=== PATIENT | male | born 1965 | race Two or more races ===

== ENCOUNTER 2023-07-21 09:53 | Inpatient (IN) | payer BC, OTHER ==
[~2023-07-21] VITALS: Ht 177.8 cm; Wt 83.8 kg
[2023-07-21] MEDS ORDERED: SODIUM CHLORIDE 0.9% 1,000 ML IV ONE (11:00)
[2023-07-21] MEDS ORDERED: SODIUM CHLORIDE 0.9% 1,000 ML IVB ONE (11:00)
[2023-07-21] MEDS ORDERED: MORPHINE SULFATE 4 MG/ML SYR/VIAL IV ONE (11:00)
[2023-07-21] MEDS ORDERED: ONDANSETRON HCL 4 MG/2 ML VIAL IV ONE (11:00)
[2023-07-21] MEDS ORDERED: PIPERACILLIN-TAZOB 3.375GM 100 ML IV ONE (11:00)
[2023-07-21 11:03] LABS: Basophils # (auto) 0 10 ^3/uL (0-0.2); Basophils % (auto) 0.1 % (0.0-2.0); Eosinophils # (auto) 0 10 ^3/uL (0-0.8); Eosinophils % (auto) 0.1 % (0.0-7.0); Hematocrit 36.7 % (41.0-53.0); Hemoglobin 11.8 g/dL (13.5-17.5); Monocytes # (auto) 0.8 10 ^3/uL (0-1.3)
[2023-07-21 11:06] LABS: Lymphocytes % (auto) 3.3 % (10.0-50.0); Mean Corpuscular Hemoglobin 30.2 pg (28.0-32.0); Mean Corpuscular Hgb Conc. 32.1 g/dL (32.0-36.0); Monocytes % (auto) 2.6 % (0.0-12.0); Neutrophils # (auto) 27.2 10 ^3/uL (1.6-8.6); Neutrophils % (auto) 93.9 % (37.0-80.0); Nucleated Red Blood Cells % 0.1 %; Red Cell Distribution Width 16.9 % (11.8-14.3)
[2023-07-21 11:30] LABS: Alanine Aminotransferase 43 U/L (7-40); Albumin 3.4 g/dL (3.2-4.8); Alkaline Phosphatase 112 U/L (46-116); Anion Gap 12 (5-15); Aspartate Aminotransferase 14 U/L (13-40); BUN/Creatinine Ratio 19.9 (10.0-20.0); Blood Urea Nitrogen 34 mg/dL (9-23); Calcium 8.4 mg/dL (8.5-10.1); Carbon Dioxide 23 mmol/L (20-30); Chloride 105 mmol/L (98-107); Glucose 134 mg/dL (74-106); Potassium 4.1 mmol/L (3.5-5.1); Sodium 140 mmol/L (136-145)
[2023-07-21 11:31] LABS: Bilirubin, Total 2.4 mg/dL (0.2-1.0); Total Protein 5.9 g/dL (5.7-8.2)
[2023-07-21 11:58] VITALS: PULSE 105; RESP 20; O2SAT 99
[2023-07-21 12:21] LABS: Urine Bacteria NONE SEEN /hpf (None Seen); Urine Blood 1+ /uL (Negative); Urine Clarity HAZY (Clear); Urine Color Amber (Yellow); Urine Hyaline Cast FEW /lpf (0 - 2); Urine Mucus FEW (None Seen); Urine Protein, UAD 1+ (Negative); Urine Specific Gravity 1.024 (1.001-1.035); Urine WBC 12 /hpf (0 - 3)
[2023-07-21 13:17] LABS: INR 1.24 (0.9-1.15); Partial Thromboplastin Time 33.9 SEC (24.5-34.5); Prothrombin Time 12.8 sec (9.3-11.8)
[2023-07-21] MEDS ORDERED: ONDANSETRON HCL 4 MG/2 ML VIAL IV PRN ×2 (13:30→16:30)
[2023-07-21] MEDS ORDERED: HYDROmorphone HCL 2 MG/ML VL/or syr IV PRN ×2 (13:30→16:30)
[2023-07-21] MEDS ORDERED: metroNIDAZOLE 500MG/100ML 100 ML IV ONE (15:13)
[2023-07-21] MEDS ORDERED: LIDOCAINE W/ EPINEPHRINE 1% 20ML VIAL ONE (15:28)
[2023-07-21] MEDS ORDERED: BUPIVACAINE HCL 50 ML ONE (15:28)
[2023-07-21] MEDS ORDERED: LIDOCAINE 2% JELLY 11ml (GLYDO) ONE (15:29)
[2023-07-21] MEDS ORDERED: SUCCINYLCHOLINE CHLORIDE 20 MG/ML 10ML VIAL IV ONE (15:29)
[2023-07-21] MEDS ORDERED: POVIDONE IODINE 10 % TOPICAL OINT 30GM TOP ONE (15:48)
[2023-07-21] MEDS ORDERED: HYDROmorphone HCL 2 MG/ML VL/or syr ONE (15:57)
[2023-07-21] MEDS ORDERED: MIDAZOLAM HCL 2MG/2ML 2ml VIAL (1mg/ml) ONE (15:57)
[2023-07-21] MEDS ORDERED: fentaNYL CITRATE 100 MCG/2 ML VL ONE (15:57)
[2023-07-21] MEDS ORDERED: ETOMIDATE (2MG/ML) 20ML VIAL IV ONE (16:16)
[2023-07-21] MEDS ORDERED: LABETALOL HCL 5 MG/ML 4ML SYRINGE IV PRN (16:30)
[2023-07-21] MEDS ORDERED: MIDAZOLAM HCL 2MG/2ML 2ml VIAL (1mg/ml) IV PRN (16:30)
[2023-07-21] MEDS ORDERED: ePHEDrine SULFATE 50 MG/ML AMP IV PRN (16:30)
[2023-07-21] MEDS ORDERED: KETOROLAC TROMETH 30 MG/ML 1ML VIAL IV ONE (16:30)
[2023-07-21] MEDS ORDERED: MORPHINE SULFATE 4 MG/ML SYR/VIAL IV PRN (16:30)
[2023-07-21 17:40] VITALS: PULSE 89; RESP 15; O2SAT 100
[2023-07-21 18:05] VITALS: PULSE 70; RESP 13; O2SAT 95
[2023-07-21 18:19] LABS: Magnesium 1.8 mg/dL (1.6-2.6)
[2023-07-21 20:06] VITALS: O2SAT 96
[2023-07-21] MEDS: SODIUM CHLORIDE 0.9% 1,000 ML IV SCH (20:10)
[2023-07-21] MEDS: D5W/SOD CHL 0.45%/KCL 20MEQ 1,000 ML IV SCH (20:26)
[2023-07-21] MEDS ORDERED: FOLI-119 PO (20:44)
[2023-07-21] MEDS ORDERED: METH2.5T62 PO (20:44)
[2023-07-21 22:00] VITALS: BP_SYST 59; PULSE 67; RESP 18; TEMP 98.6; O2SAT 97
[2023-07-21] MEDS: metroNIDAZOLE 500MG/100ML 100 ML IV SCH (22:02)
[2023-07-21] MEDS: CEFEPIME 2GM/50ML NS 50 ML IV SCH (22:07)
[2023-07-21] MEDS ORDERED: TPN PER PHARMACY 0 ML IV SCH (22:15)
[2023-07-21] MEDS ORDERED: AMINO ACID INFUSION IN D10W 1,000 ML IV NR (23:00)
[2023-07-21] MEDS: ACCU-CHEK COMFORT CURVE STRIP VI SCH (23:30)
[2023-07-21] MEDS: InsuLIN REG 1unit/0.01ml Soln (100units/ml) SC SCH (23:34)
[2023-07-22] VITALS (7 sets, daily range): BP systolic 93–117; BP diastolic 55–74; PULSE 65–87; RESP 16–21; TEMP 97.5–98.9; O2SAT 95–100
[2023-07-22] MEDS ORDERED: DEXTROSE (50%) 50ML SYRG IV SCH
[2023-07-22] MEDS: D5W/SOD CHL 0.45%/KCL 20MEQ 1,000 ML IV SCH ×2 (01:50→10:10)
[2023-07-22] MEDS: SODIUM CHLORIDE 0.9% 1,000 ML IV SCH (02:50)
[2023-07-22] MEDS: HYDROmorphone HCL 2 MG/ML VL/or syr IV PRN ×4 (04:33→16:58)
[2023-07-22] MEDS: metroNIDAZOLE 500MG/100ML 100 ML IV SCH ×3 (06:29→22:45)
[2023-07-22] MEDS: ACCU-CHEK COMFORT CURVE STRIP VI SCH ×3 (06:29→18:38)
[2023-07-22] MEDS: InsuLIN REG 1unit/0.01ml Soln (100units/ml) SC SCH ×3 (06:31→18:40)
[2023-07-22 07:31] LABS: Alanine Aminotransferase 27 U/L (7-40); Alkaline Phosphatase 99 U/L (46-116); Anion Gap 7 (5-15); Aspartate Aminotransferase 15 U/L (13-40); Bilirubin, Total 1.6 mg/dL (0.2-1.0); Blood Urea Nitrogen 22 mg/dL (9-23); Calcium 8.3 mg/dL (8.5-10.1); Carbon Dioxide 22 mmol/L (20-30); Chloride 109 mmol/L (98-107); Phosphorus 3.3 mg/dL (2.4-5.1); Sodium 138 mmol/L (136-145); Total Protein 5.3 g/dL (5.7-8.2); Triglycerides 112 mg/dL (< 150)
[2023-07-22 07:34] LABS: Glucose 234 mg/dL (74-106)
[2023-07-22 07:44] LABS: Hemoglobin 10.2 g/dL (13.5-17.5); Mean Corpuscular Hemoglobin 30.3 pg (28.0-32.0); Mean Corpuscular Volume 94.8 fL (80.0-100.0); Red Blood Cells 3.38 10^6/uL (4.5-5.90); Red Cell Distribution Width 16.5 % (11.8-14.3); White Blood Cell 19.3 10^3/uL (4.4-10.8)
[2023-07-22 07:47] LABS: Band Neutrophils % (manual) 0; Basophils % (manual) 0 (0.0-2.0); Blast Cells 0; Eosinophils % (manual) 0 (0-7); Metamyelocytes % 0; Myelocytes % 0; Promyelocytes % 0; Reactive Lymphocytes 0
[2023-07-22 08:05] LABS: Lymphocytes % (manual) 1 (10.0-50.0); Monocytes % (manual) 2 (0-12); Platelet Estimate Adequate
[2023-07-22] MEDS: CEFEPIME 2GM/50ML NS 50 ML IV SCH ×2 (09:46→22:00)
[2023-07-22] MEDS: PANTOPRAZOLE 40 MG/10 ML VIAL INJ IV SCH (09:46)
[2023-07-22] MEDS ORDERED: HYDROmorphone HCL 2 MG/ML VL/or syr IV PRN (16:30)
[2023-07-22] MEDS: PPN PER PHARMACY IV NR ×24 (23:02→23:32)
[2023-07-23] VITALS (7 sets, daily range): BP systolic 105–125; BP diastolic 67–75; PULSE 62–77; RESP 17–21; TEMP 97.7–98.9; O2SAT 95–100
[2023-07-23] MEDS: PPN PER PHARMACY IV NR ×24 (02:28→04:15)
[2023-07-23] MEDS: D5W/SOD CHL 0.45%/KCL 20MEQ 1,000 ML IV SCH ×4 (02:50→15:43)
[2023-07-23] MEDS: HYDROmorphone HCL 2 MG/ML VL/or syr IV PRN ×5 (02:56→19:57)
[2023-07-23] MEDS: metroNIDAZOLE 500MG/100ML 100 ML IV SCH ×3 (05:49→23:06)
[2023-07-23] MEDS: InsuLIN REG 1unit/0.01ml Soln (100units/ml) SC SCH ×4 (06:00→16:31)
[2023-07-23] MEDS: ACCU-CHEK COMFORT CURVE STRIP VI SCH ×4 (06:02→16:31)
[2023-07-23 08:20] LABS: Basophils # (auto) 0 10 ^3/uL (0-0.2); Basophils % (auto) 0.1 % (0.0-2.0); Eosinophils # (auto) 0 10 ^3/uL (0-0.8); Hematocrit 32.2 % (41.0-53.0); Hemoglobin 10.2 g/dL (13.5-17.5); Lymphocytes # (auto) 0.6 10 ^3/uL (0.4-5.4); Lymphocytes % (auto) 3.1 % (10.0-50.0); Mean Corpuscular Hgb Conc. 31.6 g/dL (32.0-36.0); Mean Corpuscular Volume 94.9 fL (80.0-100.0); Monocytes # (auto) 0.6 10 ^3/uL (0-1.3); Neutrophils # (auto) 17.6 10 ^3/uL (1.6-8.6); Neutrophils % (auto) 93.8 % (37.0-80.0); Nucleated Red Blood Cells % 0.1 %; Red Blood Cells 3.39 10^6/uL (4.5-5.90); Red Cell Distribution Width 16.8 % (11.8-14.3); White Blood Cell 18.8 10^3/uL (4.4-10.8)
[2023-07-23] MEDS: CEFEPIME 2GM/50ML NS 50 ML IV SCH (09:15)
[2023-07-23] MEDS: PANTOPRAZOLE 40 MG/10 ML VIAL INJ IV SCH (09:16)
[2023-07-23 10:03] LABS: Potassium 4.3 mmol/L (3.5-5.1)
[2023-07-23 10:04] LABS: Calcium 8.6 mg/dL (8.5-10.1)
[2023-07-23 10:09] LABS: BUN/Creatinine Ratio 31.3 (10.0-20.0)
[2023-07-23 10:52] LABS: Magnesium 2.1 mg/dL (1.6-2.6)
[2023-07-23] MEDS ORDERED: LIDOCAINE 1% (LOCAL ANESTH.) PF 5ml SDV ID ONE (17:30)
[2023-07-23] MEDS ORDERED: PPN PER PHARMACY IV NR ×12 (20:00)
[2023-07-24] MEDS: CEFEPIME 2GM/50ML NS 50 ML IV SCH ×3 (00:18→22:00)
[2023-07-24] MEDS: ACCU-CHEK COMFORT CURVE STRIP VI SCH ×4 (00:27→19:06)
[2023-07-24] MEDS: HYDROmorphone HCL 2 MG/ML VL/or syr IV PRN ×6 (02:56→22:45)
[2023-07-24 05:00] VITALS: BP 130/73; PULSE 85; RESP 20; TEMP 98.7; O2SAT 97
[2023-07-24 05:34] LABS: Basophils # (auto) 0 10 ^3/uL (0-0.2); Basophils % (auto) 0.1 % (0.0-2.0); Eosinophils # (auto) 0 10 ^3/uL (0-0.8); Eosinophils % (auto) 0.1 % (0.0-7.0); Hemoglobin 10.8 g/dL (13.5-17.5); Lymphocytes % (auto) 8.1 % (10.0-50.0); Mean Corpuscular Hemoglobin 30.1 pg (28.0-32.0); Mean Corpuscular Hgb Conc. 32.6 g/dL (32.0-36.0); Mean Corpuscular Volume 92.2 fL (80.0-100.0); Monocytes # (auto) 0.9 10 ^3/uL (0-1.3); Monocytes % (auto) 6.9 % (0.0-12.0); Neutrophils # (auto) 10.5 10 ^3/uL (1.6-8.6); Neutrophils % (auto) 84.8 % (37.0-80.0); Nucleated Red Blood Cells % 0.1 %; Red Blood Cells 3.57 10^6/uL (4.5-5.90); Red Cell Distribution Width 16.5 % (11.8-14.3); White Blood Cell 12.3 10^3/uL (4.4-10.8)
[2023-07-24] MEDS: InsuLIN REG 1unit/0.01ml Soln (100units/ml) SC SCH ×4 (05:43→19:07)
[2023-07-24 05:57] LABS: Alanine Aminotransferase 27 U/L (7-40); Albumin 3.1 g/dL (3.2-4.8); Alkaline Phosphatase 111 U/L (46-116); Anion Gap 7 (5-15); Aspartate Aminotransferase 20 U/L (13-40); BUN/Creatinine Ratio 25.7 (10.0-20.0); Blood Urea Nitrogen 18 mg/dL (9-23); Calcium 8.5 mg/dL (8.7-10.4); Carbon Dioxide 24 mmol/L (20-30); Chloride 105 mmol/L (98-107); Glucose 120 mg/dL (74-106); Magnesium 1.9 mg/dL (1.6-2.6); Potassium 3.9 mmol/L (3.5-5.1); Sodium 136 mmol/L (136-145)
[2023-07-24 05:58] LABS: Bilirubin, Total 1.2 mg/dL (0.2-1.0); Phosphorus 3.8 mg/dL (2.4-5.1); Total Protein 5.8 g/dL (5.7-8.2)
[2023-07-24] MEDS: metroNIDAZOLE 500MG/100ML 100 ML IV SCH ×3 (06:00→22:23)
[2023-07-24 08:00] VITALS: PULSE 84; RESP 20; O2SAT 97
[2023-07-24 08:30] VITALS: BP 116/76; PULSE 84; RESP 20; TEMP 98.3; O2SAT 97
[2023-07-24] MEDS: PANTOPRAZOLE 40 MG/10 ML VIAL INJ IV SCH (09:19)
[2023-07-24] MEDS: D5W/SOD CHL 0.45%/KCL 20MEQ 1,000 ML IV SCH (09:20)
[2023-07-24] MEDS: SODIUM CHLOR 0.9% PF (SALINE LOCK) 10ML VIAL/SYR IV SCH ×2 (09:20→22:28)
[2023-07-24] MEDS: KETOROLAC TROMETH 30 MG/ML 1ML VIAL IV PRN (15:57)
[2023-07-24 16:38] VITALS: BP 136/76; PULSE 99; RESP 20; TEMP 98.6; O2SAT 98
[2023-07-24 20:00] VITALS: PULSE 104; RESP 20; O2SAT 97
[2023-07-24] MEDS ORDERED: PPN PER PHARMACY IV NR ×12 (20:00)
[2023-07-24 21:46] VITALS: BP 108/66; PULSE 104; RESP 20; TEMP 97.8; O2SAT 97
[2023-07-25] VITALS (7 sets, daily range): BP systolic 107–130; BP diastolic 64–85; PULSE 113–125; RESP 20–28; TEMP 98.3–102.4; O2SAT 92–97
[2023-07-25] MEDS: KETOROLAC TROMETH 30 MG/ML 1ML VIAL IV PRN (05:00)
[2023-07-25] MEDS: D5W/SOD CHL 0.45%/KCL 20MEQ 1,000 ML IV SCH ×3 (05:16→20:57)
[2023-07-25] MEDS: InsuLIN REG 1unit/0.01ml Soln (100units/ml) SC SCH ×4 (06:00→19:55)
[2023-07-25] MEDS: metroNIDAZOLE 500MG/100ML 100 ML IV SCH ×3 (06:00→22:20)
[2023-07-25] MEDS: ACCU-CHEK COMFORT CURVE STRIP VI SCH ×4 (06:00→19:55)
[2023-07-25 06:59] LABS: Alanine Aminotransferase 21 U/L (7-40); Albumin 2.9 g/dL (3.2-4.8); Alkaline Phosphatase 104 U/L (46-116); Anion Gap 5 (5-15); Aspartate Aminotransferase 18 U/L (13-40); BUN/Creatinine Ratio 32.9 (10.0-20.0); Blood Urea Nitrogen 24 mg/dL (9-23); Calcium 7.8 mg/dL (8.7-10.4); Carbon Dioxide 23 mmol/L (20-30); Chloride 104 mmol/L (98-107); Glucose 163 mg/dL (74-106); Magnesium 1.9 mg/dL (1.6-2.6); Potassium 3.9 mmol/L (3.5-5.1); Sodium 132 mmol/L (136-145)
[2023-07-25 07:00] LABS: Bilirubin, Total 2.2 mg/dL (0.2-1.0); Phosphorus 2.6 mg/dL (2.4-5.1); Total Protein 5.5 g/dL (5.7-8.2)
[2023-07-25] MEDS: PANTOPRAZOLE 40 MG/10 ML VIAL INJ IV SCH (09:48)
[2023-07-25] MEDS: CEFEPIME 2GM/50ML NS 50 ML IV SCH (09:52)
[2023-07-25] MEDS: SODIUM CHLOR 0.9% PF (SALINE LOCK) 10ML VIAL/SYR IV SCH ×2 (09:59→22:20)
[2023-07-25 11:01] LABS: Basophils # (auto) 0.1 10 ^3/uL (0-0.2); Basophils % (auto) 0.5 % (0.0-2.0); Eosinophils # (auto) 0 10 ^3/uL (0-0.8); Eosinophils % (auto) 0.2 % (0.0-7.0); Hemoglobin 11.9 g/dL (13.5-17.5); Lymphocytes # (auto) 1.2 10 ^3/uL (0.4-5.4); Lymphocytes % (auto) 8.5 % (10.0-50.0); Mean Corpuscular Hemoglobin 29.6 pg (28.0-32.0); Mean Corpuscular Hgb Conc. 32.1 g/dL (32.0-36.0); Mean Corpuscular Volume 92.3 fL (80.0-100.0); Monocytes # (auto) 0.7 10 ^3/uL (0-1.3); Monocytes % (auto) 4.7 % (0.0-12.0); Neutrophils # (auto) 12.5 10 ^3/uL (1.6-8.6); Neutrophils % (auto) 86.1 % (37.0-80.0); Red Blood Cells 4.01 10^6/uL (4.5-5.90); Red Cell Distribution Width 16.8 % (11.8-14.3); White Blood Cell 14.5 10^3/uL (4.4-10.8)
[2023-07-25] MEDS ORDERED: GASTROGRAFIN 120 ML SOL ONE (11:01)
[2023-07-25] MEDS: HYDROmorphone HCL 2 MG/ML VL/or syr IV PRN ×3 (12:24→20:57)
[2023-07-25] MEDS ORDERED: ACETAMINOPHEN 500 MG TAB PO ONE (16:00)
[2023-07-25] MEDS ORDERED: VANCOMYCIN PER PHARMACY 0 MG IV SCH (16:30)
[2023-07-25] MEDS ORDERED: ENOXAPARIN SOD 40 MG/0.4 ML SYRINGE SC ONE (16:30)
[2023-07-25] MEDS: VANCOMYCIN 1GM/250ML 250 ML IV SCH (18:31)
[2023-07-25 19:45] LABS: Urine Bacteria FEW /hpf (None Seen); Urine Blood 1+ /uL (Negative); Urine Clarity HAZY (Clear); Urine Color Orange (Yellow); Urine Mucus FEW (None Seen); Urine Protein, UAD 1+ (Negative); Urine Specific Gravity 1.038 (1.001-1.035); Urine Urobilinogen Normal (Negative); Urine WBC 3 /hpf (0 - 3); Urine pH 5.5 (5.0-8.0)
[2023-07-25] MEDS ORDERED: MORPHINE SULFATE INJ 2 MG/ml SYRG IV PRN (19:45)
[2023-07-25] MEDS ORDERED: NITROGLYCERIN 0.4 MG SL TAB SL PRN (19:45)
[2023-07-25] MEDS ORDERED: PPN PER PHARMACY IV NR ×10 (20:00)
[2023-07-25] MEDS: MEROPENEM 1GM IVPB 100 ML IV SCH ×2 (20:23→22:00)
[2023-07-26] MEDS: InsuLIN REG 1unit/0.01ml Soln (100units/ml) SC SCH ×4 (00:05→17:54)
[2023-07-26] MEDS: ACCU-CHEK COMFORT CURVE STRIP VI SCH ×4 (00:09→17:52)
[2023-07-26] MEDS: VANCOMYCIN 1GM/250ML 250 ML IV SCH ×3 (02:12→17:15)
[2023-07-26 05:00] VITALS: BP 114/75; PULSE 122; RESP 20; TEMP 98.3; O2SAT 98
[2023-07-26] MEDS: HYDROmorphone HCL 2 MG/ML VL/or syr IV PRN ×4 (05:09→20:50)
[2023-07-26] MEDS: metroNIDAZOLE 500MG/100ML 100 ML IV SCH ×3 (05:10→20:51)
[2023-07-26 06:17] LABS: Hematocrit 37.6 % (41.0-53.0); Hemoglobin 12.2 g/dL (13.5-17.5); Mean Corpuscular Hemoglobin 30.1 pg (28.0-32.0); Mean Corpuscular Hgb Conc. 32.5 g/dL (32.0-36.0); Mean Corpuscular Volume 92.5 fL (80.0-100.0); Red Blood Cells 4.07 10^6/uL (4.5-5.90); Red Cell Distribution Width 16.9 % (11.8-14.3); White Blood Cell 14.5 10^3/uL (4.4-10.8)
[2023-07-26] MEDS: MEROPENEM 1GM IVPB 100 ML IV SCH ×3 (06:21→23:07)
[2023-07-26 06:44] LABS: Alanine Aminotransferase 19 U/L (7-40); Alkaline Phosphatase 87 U/L (46-116); Anion Gap 7 (5-15); BUN/Creatinine Ratio 38.7 (10.0-20.0); Blood Urea Nitrogen 24 mg/dL (9-23); Calcium 7.7 mg/dL (8.5-10.1); Carbon Dioxide 20 mmol/L (20-30); Chloride 106 mmol/L (98-107); Potassium 4.3 mmol/L (3.5-5.1); Sodium 133 mmol/L (136-145)
[2023-07-26 06:45] LABS: Albumin 2.7 g/dL (3.2-4.8); Aspartate Aminotransferase 15 U/L (13-40)
[2023-07-26 06:46] LABS: Bilirubin, Total 2.5 mg/dL (0.2-1.0); Total Protein 5.2 g/dL (5.7-8.2)
[2023-07-26 06:49] LABS: Glucose 274 mg/dL (74-106)
[2023-07-26 06:56] LABS: Basophils % (manual) 0 (0.0-2.0); Blast Cells 0; Eosinophils % (manual) 0 (0-7); Metamyelocytes % 0; Reactive Lymphocytes 0
[2023-07-26 08:00] VITALS: BP 121/76; PULSE 122; PULSE 135; RESP 24; TEMP 98; O2SAT 98
[2023-07-26 08:27] LABS: LDL Cholesterol 21 mg/dL (< 100)
[2023-07-26 08:28] LABS: HDL Cholesterol < 5 mg/dL (40-59); Triglycerides 125 mg/dL (< 150)
[2023-07-26 08:29] LABS: Cholesterol 59 mg/dL (< 200)
[2023-07-26] MEDS: SODIUM CHLOR 0.9% PF (SALINE LOCK) 10ML VIAL/SYR IV SCH ×2 (10:14→22:00)
[2023-07-26] MEDS: PANTOPRAZOLE 40 MG/10 ML VIAL INJ IV SCH (10:14)
[2023-07-26] MEDS: ENOXAPARIN SOD 40 MG/0.4 ML SYRINGE SC SCH (10:14)
[2023-07-26] MEDS: D5W/SOD CHL 0.45%/KCL 20MEQ 1,000 ML IV SCH ×2 (10:15→23:00)
[2023-07-26 10:52] LABS: Band Neutrophils % (manual) 13; Lymphocytes % (manual) 2 (10.0-50.0); Monocytes % (manual) 4 (0-12); Myelocytes % 3; Promyelocytes % 3; Toxic Granulation Moderate
[2023-07-26 10:53] LABS: Platelet Estimate Adequate
[2023-07-26] MEDS ORDERED: ADENOSINE 6 MG/2 ML INJ IV ONE (11:30)
[2023-07-26] MEDS ORDERED: SODIUM PHOSPHATES 40 MEQ in D5W 5% 250 ML IV ONE (12:45)
[2023-07-26 13:00] VITALS: BP 119/75; PULSE 119; RESP 75; TEMP 98.6; O2SAT 96
[2023-07-26] MEDS ORDERED: IOHEXOL 350 MG/ML 100ML IJ ONE (14:51)
[2023-07-26 17:00] VITALS: BP 108/73; PULSE 132; RESP 24; TEMP 98.8; O2SAT 100
[2023-07-26 20:00] VITALS: BP 121/76; PULSE 122; RESP 20; RESP 24; TEMP 98; O2SAT 96
[2023-07-26] MEDS ORDERED: TPN PER PHARMACY IV NR ×10 (20:00)
[2023-07-26 22:00] VITALS: BP 110/71; PULSE 138; RESP 19; TEMP 101.3; O2SAT 96
[2023-07-27] VITALS (8 sets, daily range): BP systolic 105–122; BP diastolic 65–76; PULSE 115–137; RESP 17–19; TEMP 97.5–98.9; O2SAT 94–96
[2023-07-27] MEDS: ACCU-CHEK COMFORT CURVE STRIP VI SCH ×4 (00:08→18:08)
[2023-07-27] MEDS: VANCOMYCIN 1GM/250ML 250 ML IV SCH ×2 (00:42→09:37)
[2023-07-27] MEDS ORDERED: ACETAMINOPHEN 325 MG TAB PO PRN (00:45)
[2023-07-27] MEDS: ACETAMINOPHEN 650 MG RECT SUPP PR PRN (00:52)
[2023-07-27] MEDS: HYDROmorphone HCL 2 MG/ML VL/or syr IV PRN ×5 (03:17→20:40)
[2023-07-27] MEDS: metroNIDAZOLE 500MG/100ML 100 ML IV SCH (05:07)
[2023-07-27] MEDS: InsuLIN REG 1unit/0.01ml Soln (100units/ml) SC SCH ×4 (05:17→18:18)
[2023-07-27] MEDS: MEROPENEM 1GM IVPB 100 ML IV SCH ×2 (06:07→13:36)
[2023-07-27 07:03] LABS: Basophils # (auto) 0.1 10 ^3/uL (0-0.2); Basophils % (auto) 0.2 % (0.0-2.0); Eosinophils # (auto) 0.1 10 ^3/uL (0-0.8); Eosinophils % (auto) 0.3 % (0.0-7.0); Hematocrit 36.5 % (41.0-53.0); Lymphocytes # (auto) 1.1 10 ^3/uL (0.4-5.4); Lymphocytes % (auto) 4.7 % (10.0-50.0); Mean Corpuscular Hemoglobin 30.4 pg (28.0-32.0); Mean Corpuscular Hgb Conc. 32.7 g/dL (32.0-36.0); Mean Corpuscular Volume 92.7 fL (80.0-100.0); Monocytes # (auto) 0.8 10 ^3/uL (0-1.3); Monocytes % (auto) 3.3 % (0.0-12.0); Neutrophils # (auto) 21.8 10 ^3/uL (1.6-8.6); Neutrophils % (auto) 91.5 % (37.0-80.0); Red Blood Cells 3.94 10^6/uL (4.5-5.90); Red Cell Distribution Width 16.6 % (11.8-14.3); White Blood Cell 23.8 10^3/uL (4.4-10.8)
[2023-07-27 07:53] LABS: Alanine Aminotransferase 16 U/L (7-40); Albumin 2.7 g/dL (3.2-4.8); Alkaline Phosphatase 100 U/L (46-116); Anion Gap 6 (5-15); Aspartate Aminotransferase 26 U/L (13-40); Calcium 7.6 mg/dL (8.7-10.4); Carbon Dioxide 21 mmol/L (20-30); Chloride 104 mmol/L (98-107); Glucose 209 mg/dL (74-106); Magnesium 2.1 mg/dL (1.6-2.6); Potassium 4.1 mmol/L (3.5-5.1); Sodium 131 mmol/L (136-145)
[2023-07-27 07:54] LABS: BUN/Creatinine Ratio 31.4 (10.0-20.0); Bilirubin, Total 4.4 mg/dL (0.2-1.0); Blood Urea Nitrogen 22 mg/dL (9-23); Phosphorus 2.6 mg/dL (2.4-5.1); Total Protein 5.2 g/dL (5.7-8.2)
[2023-07-27] MEDS: PANTOPRAZOLE 40 MG/10 ML VIAL INJ IV SCH (09:38)
[2023-07-27] MEDS: ENOXAPARIN SOD 40 MG/0.4 ML SYRINGE SC SCH (09:40)
[2023-07-27] MEDS: SODIUM CHLOR 0.9% PF (SALINE LOCK) 10ML VIAL/SYR IV SCH (09:40)
[2023-07-27] MEDS: D5W/SOD CHL 0.45%/KCL 20MEQ 1,000 ML IV SCH (09:40)
[2023-07-27] MEDS: FLUCONAZOLE 200MG/100ML 100 ML IV SCH ×2 (10:28→12:00)
[2023-07-27 15:26] LABS: Lactic Acid w/Reflex 2.2 mmol/L (0.4-2.0)
[2023-07-27] MEDS: PIPERACILLIN-TAZOB 3.375GM 100 ML IV SCH (18:08)
[2023-07-27] MEDS ORDERED: TPN PER PHARMACY IV NR ×11 (20:00)
[2023-07-28] VITALS (7 sets, daily range): BP systolic 96–114; BP diastolic 53–66; PULSE 92–119; RESP 15–20; TEMP 97.5–98.9; O2SAT 94–98
[2023-07-28] MEDS: PIPERACILLIN-TAZOB 3.375GM 100 ML IV SCH ×5 (00:42→23:40)
[2023-07-28] MEDS: SODIUM CHLOR 0.9% PF (SALINE LOCK) 10ML VIAL/SYR IV SCH ×3 (00:42→21:51)
[2023-07-28] MEDS: HYDROmorphone HCL 2 MG/ML VL/or syr IV PRN ×4 (00:42→21:21)
[2023-07-28] MEDS: InsuLIN REG 1unit/0.01ml Soln (100units/ml) SC SCH ×5 (00:59→23:53)
[2023-07-28] MEDS: ACCU-CHEK COMFORT CURVE STRIP VI SCH ×5 (00:59→23:54)
[2023-07-28] MEDS: D5W/SOD CHL 0.45%/KCL 20MEQ 1,000 ML IV SCH ×2 (04:26)
[2023-07-28 07:24] LABS: Hematocrit 31.6 % (41.0-53.0); Hemoglobin 10.2 g/dL (13.5-17.5); Mean Corpuscular Hemoglobin 29.5 pg (28.0-32.0); Mean Corpuscular Hgb Conc. 32.2 g/dL (32.0-36.0); Mean Corpuscular Volume 91.5 fL (80.0-100.0); Red Blood Cells 3.45 10^6/uL (4.5-5.90); Red Cell Distribution Width 16.8 % (11.8-14.3); White Blood Cell 24.6 10^3/uL (4.4-10.8)
[2023-07-28 07:39] LABS: Alanine Aminotransferase 16 U/L (7-40); Albumin 2.4 g/dL (3.2-4.8); Alkaline Phosphatase 92 U/L (46-116); Anion Gap 5 (5-15); Aspartate Aminotransferase 27 U/L (13-40); BUN/Creatinine Ratio 32.9 (10.0-20.0); Basophils % (manual) 0 (0.0-2.0); Blast Cells 0; Blood Urea Nitrogen 24 mg/dL (9-23); Calcium 7.3 mg/dL (8.7-10.4); Carbon Dioxide 23 mmol/L (20-30); Chloride 105 mmol/L (98-107); Glucose 182 mg/dL (74-106); Reactive Lymphocytes 0; Sodium 133 mmol/L (136-145)
[2023-07-28 07:40] LABS: Phosphorus 2.4 mg/dL (2.4-5.1)
[2023-07-28 08:31] LABS: Band Neutrophils % (manual) 5; Eosinophils % (manual) 2 (0-7); Lymphocytes % (manual) 6 (10.0-50.0); Metamyelocytes % 3; Monocytes % (manual) 3 (0-12); Myelocytes % 2; Platelet Estimate Adequate; Promyelocytes % 1
[2023-07-28] MEDS: ENOXAPARIN SOD 40 MG/0.4 ML SYRINGE SC SCH (08:38)
[2023-07-28] MEDS: PANTOPRAZOLE 40 MG/10 ML VIAL INJ IV SCH (08:38)
[2023-07-28] MEDS: FLUCONAZOLE 200MG/100ML 100 ML IV SCH ×2 (08:39→12:17)
[2023-07-28] MEDS ORDERED: IOHEXOL 350 MG/ML 100ML IJ ONE (08:41)
[2023-07-28] MEDS ORDERED: IOHEXOL 300 MG/ML 100ML BOTTLE IJ ONE (10:27)
[2023-07-28] MEDS ORDERED: SODIUM PHOSP 40 MEQ in D5W 5% 250 ML IV ONE (11:15)
[2023-07-28] MEDS ORDERED: ONDANSETRON HCL 4 MG/2 ML VIAL ONE (13:50)
[2023-07-28] MEDS ORDERED: PROPOFOL 10 MG/ML 20 ML IV ONE (13:50)
[2023-07-28] MEDS ORDERED: GLYCOPYRROLATE 0.2 MG/ML 1ML VIAL ONE (13:50)
[2023-07-28] MEDS ORDERED: LIDOCAINE 2% (LOCAL ANESTH.) PF 5ml SDV ONE (13:50)
[2023-07-28] MEDS ORDERED: KETOROLAC TROMETH 30 MG/ML 1ML VIAL ONE (13:50)
[2023-07-28] MEDS ORDERED: ROCURONIUM 10MG/ML 10ML VIAL IV ONE (13:50)
[2023-07-28] MEDS ORDERED: DexAMETHasone SOD PHOS 10MG/1ML VIAL INJ ONE (13:50)
[2023-07-28] MEDS ORDERED: POVIDONE IODINE 10 % TOPICAL OINT 30GM TOP ONE (14:05)
[2023-07-28] MEDS ORDERED: LIDOCAINE 2% JELLY 11ml (GLYDO) ONE (14:10)
[2023-07-28] MEDS ORDERED: SODIUM CHLORIDE LOCK 10 ML ONE (14:37)
[2023-07-28] MEDS ORDERED: PHENYLEPHRINE HCL 10 MG/ML VL ONE (14:37)
[2023-07-28] MEDS ORDERED: fentaNYL CITRATE 100 MCG/2 ML VL ONE (15:03)
[2023-07-28] MEDS ORDERED: SUGAMMADEX 200mg/2ml Vial (100MG/ML) IV ONE (15:19)
[2023-07-28] MEDS ORDERED: MEPERIDINE HCL (25 MG/ML) 1ML VIAL ONE ×2 (15:25→15:27)
[2023-07-28] MEDS ORDERED: HYDROmorphone HCL 2 MG/ML VL/or syr IV PRN (16:00)
[2023-07-28] MEDS ORDERED: MEPERIDINE HCL (25 MG/ML) 1ML VIAL IV PRN (16:00)
[2023-07-28] MEDS ORDERED: TPN PER PHARMACY IV NR ×11 (20:00)
[2023-07-29] VITALS (8 sets, daily range): BP systolic 105–134; BP diastolic 53–63; PULSE 62–98; RESP 15–21; TEMP 97.7–98; O2SAT 94–96
[2023-07-29] MEDS: D5W/SOD CHL 0.45%/KCL 20MEQ 1,000 ML IV SCH (04:43)
[2023-07-29] MEDS: HYDROmorphone HCL 2 MG/ML VL/or syr IV PRN ×4 (04:46→20:56)
[2023-07-29] MEDS: InsuLIN REG 1unit/0.01ml Soln (100units/ml) SC SCH (05:12)
[2023-07-29] MEDS: ACCU-CHEK COMFORT CURVE STRIP VI SCH (05:12)
[2023-07-29 05:18] LABS: Basophils # (auto) 0 10 ^3/uL (0-0.2); Basophils % (auto) 0.1 % (0.0-2.0); Eosinophils # (auto) 0 10 ^3/uL (0-0.8); Hematocrit 28.6 % (41.0-53.0); Hemoglobin 9.4 g/dL (13.5-17.5); Lymphocytes # (auto) 0.5 10 ^3/uL (0.4-5.4); Lymphocytes % (auto) 2.6 % (10.0-50.0); Mean Corpuscular Hemoglobin 30.3 pg (28.0-32.0); Mean Corpuscular Hgb Conc. 32.7 g/dL (32.0-36.0); Mean Corpuscular Volume 92.4 fL (80.0-100.0); Monocytes # (auto) 0.7 10 ^3/uL (0-1.3); Monocytes % (auto) 3.8 % (0.0-12.0); Neutrophils # (auto) 17.4 10 ^3/uL (1.6-8.6); Neutrophils % (auto) 93.5 % (37.0-80.0); Red Blood Cells 3.09 10^6/uL (4.5-5.90); Red Cell Distribution Width 16.9 % (11.8-14.3); White Blood Cell 18.7 10^3/uL (4.4-10.8)
[2023-07-29] MEDS: PIPERACILLIN-TAZOB 3.375GM 100 ML IV SCH ×3 (05:36→17:46)
[2023-07-29 05:39] LABS: Alanine Aminotransferase 19 U/L (7-40); Albumin 2.2 g/dL (3.2-4.8); Alkaline Phosphatase 86 U/L (46-116); Anion Gap 5 (5-15); Aspartate Aminotransferase 32 U/L (13-40); BUN/Creatinine Ratio 36.5 (10.0-20.0); Blood Urea Nitrogen 23 mg/dL (9-23); Calcium 7.2 mg/dL (8.7-10.4); Carbon Dioxide 24 mmol/L (20-30); Chloride 104 mmol/L (98-107); Magnesium 2.1 mg/dL (1.6-2.6); Potassium 4.8 mmol/L (3.5-5.1); Sodium 133 mmol/L (136-145)
[2023-07-29 05:40] LABS: Bilirubin, Total 3.1 mg/dL (0.2-1.0); Phosphorus 3.1 mg/dL (2.4-5.1); Total Protein 4.7 g/dL (5.7-8.2)
[2023-07-29 06:37] LABS: Glucose 290 mg/dL (74-106)
[2023-07-29] MEDS: PANTOPRAZOLE 40 MG/10 ML VIAL INJ IV SCH (10:27)
[2023-07-29] MEDS: ENOXAPARIN SOD 40 MG/0.4 ML SYRINGE SC SCH (10:30)
[2023-07-29] MEDS: D5W/SOD CHL 0.45% 1,000 ML IV SCH (10:31)
[2023-07-29] MEDS: SODIUM CHLOR 0.9% PF (SALINE LOCK) 10ML VIAL/SYR IV SCH ×2 (10:32→20:56)
[2023-07-29] MEDS: FLUCONAZOLE 200MG/100ML 100 ML IV SCH ×2 (10:32→12:20)
[2023-07-29] MEDS ORDERED: TPN PER PHARMACY IV NR ×11 (20:00)
[2023-07-30] VITALS (8 sets, daily range): BP systolic 111–126; BP diastolic 53–69; PULSE 59–98; RESP 18–20; TEMP 97.6–98.2; O2SAT 94–98
[2023-07-30] MEDS: PIPERACILLIN-TAZOB 3.375GM 100 ML IV SCH ×5 (00:20→23:27)
[2023-07-30] MEDS: D5W/SOD CHL 0.45% 1,000 ML IV SCH ×3 (00:20→22:45)
[2023-07-30] MEDS: HYDROmorphone HCL 2 MG/ML VL/or syr IV PRN ×4 (04:04→22:43)
[2023-07-30 07:36] LABS: Basophils # (auto) 0 10 ^3/uL (0-0.2); Basophils % (auto) 0.2 % (0.0-2.0); Eosinophils # (auto) 0 10 ^3/uL (0-0.8); Eosinophils % (auto) 0.1 % (0.0-7.0); Hematocrit 28.9 % (41.0-53.0); Hemoglobin 9.1 g/dL (13.5-17.5); Lymphocytes # (auto) 0.8 10 ^3/uL (0.4-5.4); Lymphocytes % (auto) 5.1 % (10.0-50.0); Mean Corpuscular Hemoglobin 30.2 pg (28.0-32.0); Mean Corpuscular Hgb Conc. 31.4 g/dL (32.0-36.0); Mean Corpuscular Volume 96.2 fL (80.0-100.0); Monocytes % (auto) 6.1 % (0.0-12.0); Neutrophils # (auto) 14.3 10 ^3/uL (1.6-8.6); Neutrophils % (auto) 88.5 % (37.0-80.0); Red Cell Distribution Width 17.2 % (11.8-14.3); White Blood Cell 16.2 10^3/uL (4.4-10.8)
[2023-07-30 07:37] LABS: Alanine Aminotransferase 35 U/L (7-40); Albumin 2.3 g/dL (3.2-4.8); Alkaline Phosphatase 81 U/L (46-116); Anion Gap 6 (5-15); Aspartate Aminotransferase 49 U/L (13-40); BUN/Creatinine Ratio 36.4 (10.0-20.0); Blood Urea Nitrogen 20 mg/dL (9-23); Calcium 7.6 mg/dL (8.5-10.1); Carbon Dioxide 22 mmol/L (20-30); Chloride 105 mmol/L (98-107); Glucose 308 mg/dL (74-106); Potassium 4.1 mmol/L (3.5-5.1); Sodium 133 mmol/L (136-145)
[2023-07-30 07:38] LABS: Bilirubin, Total 2.7 mg/dL (0.2-1.0); Phosphorus 2.4 mg/dL (2.4-5.1); Total Protein 4.9 g/dL (5.7-8.2)
[2023-07-30 07:58] LABS: Magnesium 2.2 mg/dL (1.6-2.6)
[2023-07-30] MEDS ORDERED: DEXTROSE (50%) 50ML SYRG IV SCH (10:00)
[2023-07-30] MEDS: SODIUM CHLOR 0.9% PF (SALINE LOCK) 10ML VIAL/SYR IV SCH ×2 (10:00→22:00)
[2023-07-30] MEDS ORDERED: SODIUM PHOSP 40 MEQ in D5W 5% 250 ML IV ONE (10:00)
[2023-07-30] MEDS: PANTOPRAZOLE 40 MG/10 ML VIAL INJ IV SCH (11:19)
[2023-07-30] MEDS: FLUCONAZOLE 200MG/100ML 100 ML IV SCH ×2 (11:19→14:27)
[2023-07-30] MEDS: ENOXAPARIN SOD 40 MG/0.4 ML SYRINGE SC SCH (11:32)
[2023-07-30] MEDS: InsuLIN REG 1unit/0.01ml Soln (100units/ml) SC SCH ×2 (11:33→18:01)
[2023-07-30] MEDS: ACCU-CHEK COMFORT CURVE STRIP VI SCH ×2 (11:33→18:00)
[2023-07-30] MEDS ORDERED: TPN PER PHARMACY IV NR ×11 (20:00)
[2023-07-31] VITALS (7 sets, daily range): BP systolic 103–124; BP diastolic 65–76; PULSE 96–109; RESP 18–22; TEMP 97.3–99.7; O2SAT 92–98
[2023-07-31] MEDS: ACCU-CHEK COMFORT CURVE STRIP VI SCH ×4 (00:09→17:41)
[2023-07-31] MEDS: InsuLIN REG 1unit/0.01ml Soln (100units/ml) SC SCH ×4 (00:21→17:41)
[2023-07-31] MEDS: HYDROmorphone HCL 2 MG/ML VL/or syr IV PRN ×5 (04:24→21:25)
[2023-07-31] MEDS: PIPERACILLIN-TAZOB 3.375GM 100 ML IV SCH ×3 (05:29→17:42)
[2023-07-31 08:01] LABS: Alanine Aminotransferase 57 U/L (7-40); Albumin 2.3 g/dL (3.2-4.8); Alkaline Phosphatase 90 U/L (46-116); Anion Gap 9 (5-15); Aspartate Aminotransferase 59 U/L (13-40); BUN/Creatinine Ratio 37.3 (10.0-20.0); Bilirubin, Total 2.8 mg/dL (0.2-1.0); Blood Urea Nitrogen 19 mg/dL (9-23); Calcium 6.7 mg/dL (8.5-10.1); Carbon Dioxide 22 mmol/L (20-30); Chloride 104 mmol/L (98-107); Phosphorus 3.3 mg/dL (2.4-5.1); Potassium 3.8 mmol/L (3.5-5.1); Sodium 135 mmol/L (136-145); Total Protein 4.9 g/dL (5.7-8.2)
[2023-07-31 08:06] LABS: Glucose 125 mg/dL (74-106)
[2023-07-31 08:57] LABS: Hematocrit 34.5 % (41.0-53.0); Hemoglobin 10.9 g/dL (13.5-17.5); Mean Corpuscular Hemoglobin 29.2 pg (28.0-32.0); Mean Corpuscular Hgb Conc. 31.8 g/dL (32.0-36.0); Mean Corpuscular Volume 92.1 fL (80.0-100.0); Red Blood Cells 3.74 10^6/uL (4.5-5.90); Red Cell Distribution Width 17.2 % (11.8-14.3); White Blood Cell 20.4 10^3/uL (4.4-10.8)
[2023-07-31 09:25] LABS: Basophils % (manual) 0 (0.0-2.0); Blast Cells 0; Promyelocytes % 0; Reactive Lymphocytes 0
[2023-07-31] MEDS: PANTOPRAZOLE 40 MG/10 ML VIAL INJ IV SCH (10:09)
[2023-07-31] MEDS: FLUCONAZOLE 200MG/100ML 100 ML IV SCH ×2 (10:13→11:32)
[2023-07-31] MEDS: SODIUM CHLOR 0.9% PF (SALINE LOCK) 10ML VIAL/SYR IV SCH ×2 (10:14→21:31)
[2023-07-31] MEDS: ENOXAPARIN SOD 40 MG/0.4 ML SYRINGE SC SCH (10:14)
[2023-07-31] MEDS: D5W/SOD CHL 0.45% 1,000 ML IV SCH ×2 (10:18→23:45)
[2023-07-31 12:10] LABS: Band Neutrophils % (manual) 11; Eosinophils % (manual) 1 (0-7); Lymphocytes % (manual) 10 (10.0-50.0); Metamyelocytes % 2; Monocytes % (manual) 8 (0-12); Myelocytes % 2; Platelet Estimate Increased
[2023-07-31] MEDS ORDERED: IOHEXOL 300 MG/ML 100ML BOTTLE IJ ONE (13:14)
[2023-07-31] MEDS ORDERED: CALCIUM GLUC 1,000mg/50ml-NS 50 ML IV ONE (13:15)
[2023-07-31] MEDS ORDERED: TPN PER PHARMACY IV NR ×12 (20:00)
[2023-08-01] VITALS (8 sets, daily range): BP systolic 94–127; BP diastolic 58–76; PULSE 99–120; RESP 14–22; TEMP 97.5–101; O2SAT 94–98
[2023-08-01] MEDS: HYDROmorphone HCL 2 MG/ML VL/or syr IV PRN ×6 (01:08→20:06)
[2023-08-01] MEDS: PIPERACILLIN-TAZOB 3.375GM 100 ML IV SCH ×2 (05:33)
[2023-08-01] MEDS: ACCU-CHEK COMFORT CURVE STRIP VI SCH ×5 (05:34→23:44)
[2023-08-01] MEDS: InsuLIN REG 1unit/0.01ml Soln (100units/ml) SC SCH ×4 (05:50→17:45)
[2023-08-01 08:12] LABS: Hemoglobin 10.1 g/dL (13.5-17.5)
[2023-08-01 08:16] LABS: Hematocrit 31.5 % (41.0-53.0); Mean Corpuscular Hemoglobin 29.9 pg (28.0-32.0); Mean Corpuscular Hgb Conc. 32.1 g/dL (32.0-36.0); Mean Corpuscular Volume 93.2 fL (80.0-100.0); Red Blood Cells 3.38 10^6/uL (4.5-5.90); Red Cell Distribution Width 17.2 % (11.8-14.3); White Blood Cell 22.4 10^3/uL (4.4-10.8)
[2023-08-01 08:25] LABS: Alanine Aminotransferase 59 U/L (7-40); Albumin 2.4 g/dL (3.2-4.8); Anion Gap 4 (5-15); Aspartate Aminotransferase 47 U/L (13-40); BUN/Creatinine Ratio 22.5 (10.0-20.0); Blood Urea Nitrogen 18 mg/dL (9-23); Calcium 7.5 mg/dL (8.5-10.1); Carbon Dioxide 25 mmol/L (20-30); Chloride 104 mmol/L (98-107); Glucose 144 mg/dL (74-106); Potassium 4.4 mmol/L (3.5-5.1); Sodium 133 mmol/L (136-145); Triglycerides 286 mg/dL (< 150)
[2023-08-01 08:26] LABS: Bilirubin, Total 4.3 mg/dL (0.2-1.0); Total Protein 5.4 g/dL (5.7-8.2)
[2023-08-01 08:43] LABS: Basophils % (manual) 0 (0.0-2.0); Blast Cells 0; Promyelocytes % 0; Reactive Lymphocytes 0
[2023-08-01 09:25] LABS: Alkaline Phosphatase 106 U/L (46-116)
[2023-08-01] MEDS: ENOXAPARIN SOD 40 MG/0.4 ML SYRINGE SC SCH (09:53)
[2023-08-01] MEDS: PANTOPRAZOLE 40 MG/10 ML VIAL INJ IV SCH (09:53)
[2023-08-01] MEDS: FLUCONAZOLE 200MG/100ML 100 ML IV SCH ×3 (09:53→12:57)
[2023-08-01 09:54] LABS: Eosinophils % (manual) 2 (0-7); Lymphocytes % (manual) 8 (10.0-50.0); Monocytes % (manual) 4 (0-12)
[2023-08-01 09:55] LABS: Band Neutrophils % (manual) 16; Metamyelocytes % 6; Myelocytes % 3
[2023-08-01 09:56] LABS: Anisocytosis Slight; Platelet Estimate Increased
[2023-08-01] MEDS: SODIUM CHLOR 0.9% PF (SALINE LOCK) 10ML VIAL/SYR IV SCH ×2 (10:11→22:00)
[2023-08-01] MEDS: D5W/SOD CHL 0.45% 1,000 ML IV SCH (12:57)
[2023-08-01] MEDS: LINEZOLID 600MG/300ML 300 ML IV SCH ×2 (12:57→23:44)
[2023-08-01] MEDS ORDERED: MEROPENEM 2 GM in SODIUM CHL 0.9% 250 ML IV SCH (14:00)
[2023-08-01] MEDS: MEROPENEM 1GM IVPB 100 ML IV SCH ×2 (14:29→17:29)
[2023-08-01] MEDS ORDERED: TPN PER PHARMACY IV NR ×10 (20:00)
[2023-08-02] VITALS (9 sets, daily range): BP systolic 101–122; BP diastolic 53–62; PULSE 100–120; RESP 16–22; TEMP 98.7–100; O2SAT 95–97
[2023-08-02] MEDS: InsuLIN REG 1unit/0.01ml Soln (100units/ml) SC SCH ×4 (00:03→18:08)
[2023-08-02] MEDS: HYDROmorphone HCL 2 MG/ML VL/or syr IV PRN ×5 (02:29→21:16)
[2023-08-02] MEDS: D5W/SOD CHL 0.45% 1,000 ML IV SCH ×2 (02:30→13:15)
[2023-08-02] MEDS: MEROPENEM 1GM IVPB 100 ML IV SCH ×3 (06:47→23:20)
[2023-08-02] MEDS: ACCU-CHEK COMFORT CURVE STRIP VI SCH ×3 (06:47→17:21)
[2023-08-02 06:50] LABS: Alanine Aminotransferase 43 U/L (7-40); Alkaline Phosphatase 88 U/L (46-116); Anion Gap 3 (5-15); Aspartate Aminotransferase 36 U/L (13-40); BUN/Creatinine Ratio 25.5 (10.0-20.0); Blood Urea Nitrogen 14 mg/dL (9-23); Calcium 6.9 mg/dL (8.7-10.4); Carbon Dioxide 26 mmol/L (20-30); Chloride 103 mmol/L (98-107); Glucose 151 mg/dL (74-106); Phosphorus 2.2 mg/dL (2.4-5.1); Potassium 3.7 mmol/L (3.5-5.1); Sodium 132 mmol/L (136-145)
[2023-08-02 06:51] LABS: Bilirubin, Total 3.9 mg/dL (0.2-1.0); Total Protein 4.7 g/dL (5.7-8.2)
[2023-08-02] MEDS: SODIUM CHLOR 0.9% PF (SALINE LOCK) 10ML VIAL/SYR IV SCH ×2 (10:00→22:00)
[2023-08-02] MEDS: PANTOPRAZOLE 40 MG/10 ML VIAL INJ IV SCH (10:45)
[2023-08-02] MEDS: FLUCONAZOLE 200MG/100ML 100 ML IV SCH ×2 (10:45→11:48)
[2023-08-02] MEDS: ENOXAPARIN SOD 40 MG/0.4 ML SYRINGE SC SCH (10:45)
[2023-08-02] MEDS: LINEZOLID 600MG/300ML 300 ML IV SCH (11:30)
[2023-08-02] MEDS ORDERED: CALCIUM GLUC 1,000mg/50ml-NS 50 ML IV ONE (12:15)
[2023-08-02] MEDS ORDERED: SODIUM PHOSPHATES 40 MEQ in D5W 5% 250 ML IV ONE (12:15)
[2023-08-02] MEDS ORDERED: TPN PER PHARMACY IV NR ×11 (20:00)
[2023-08-03] MEDS: HYDROmorphone HCL 2 MG/ML VL/or syr IV PRN ×4 (00:36→22:51)
[2023-08-03] MEDS: ACCU-CHEK COMFORT CURVE STRIP VI SCH ×4 (00:36→17:46)
[2023-08-03] MEDS: ACETAMINOPHEN 650 MG RECT SUPP PR PRN (00:53)
[2023-08-03] MEDS: InsuLIN REG 1unit/0.01ml Soln (100units/ml) SC SCH ×4 (01:43→17:49)
[2023-08-03] MEDS: D5W/SOD CHL 0.45% 1,000 ML IV SCH ×2 (01:45→12:08)
[2023-08-03] MEDS: LINEZOLID 600MG/300ML 300 ML IV SCH ×2 (01:49→12:09)
[2023-08-03 05:00] VITALS: BP 108/61; PULSE 100; RESP 20; TEMP 98.1; TEMP 98.7; O2SAT 98
[2023-08-03] MEDS: MEROPENEM 1GM IVPB 100 ML IV SCH ×3 (06:47→22:49)
[2023-08-03 06:50] LABS: Hematocrit 24.6 % (41.0-53.0); Mean Corpuscular Hemoglobin 30.2 pg (28.0-32.0); Mean Corpuscular Hgb Conc. 32.7 g/dL (32.0-36.0); Mean Corpuscular Volume 92.2 fL (80.0-100.0); Red Blood Cells 2.67 10^6/uL (4.5-5.90); Red Cell Distribution Width 17.5 % (11.8-14.3); White Blood Cell 12.2 10^3/uL (4.4-10.8)
[2023-08-03 06:57] LABS: Alanine Aminotransferase 52 U/L (7-40); Alkaline Phosphatase 91 U/L (46-116); Anion Gap 3 (5-15); Aspartate Aminotransferase 59 U/L (13-40); Bilirubin, Total 4.6 mg/dL (0.2-1.0); Blood Urea Nitrogen 12 mg/dL (9-23); Calcium 6.7 mg/dL (8.7-10.4); Carbon Dioxide 25 mmol/L (20-30); Chloride 105 mmol/L (98-107); Glucose 138 mg/dL (74-106); Phosphorus 2.3 mg/dL (2.4-5.1); Potassium 3.5 mmol/L (3.5-5.1); Sodium 133 mmol/L (136-145); Total Protein 4.7 g/dL (5.7-8.2)
[2023-08-03 07:19] LABS: Basophils % (manual) 0 (0.0-2.0); Blast Cells 0; Metamyelocytes % 0; Myelocytes % 0; Promyelocytes % 0; Reactive Lymphocytes 0
[2023-08-03 08:00] VITALS: PULSE 99
[2023-08-03 09:18] LABS: Band Neutrophils % (manual) 9; Eosinophils % (manual) 3 (0-7); Lymphocytes % (manual) 6 (10.0-50.0); Monocytes % (manual) 13 (0-12); Platelet Estimate Increased
[2023-08-03 09:30] VITALS: BP 106/64; PULSE 79; RESP 20; TEMP 98.2; O2SAT 97
[2023-08-03] MEDS: PANTOPRAZOLE 40 MG/10 ML VIAL INJ IV SCH (10:21)
[2023-08-03] MEDS: SODIUM CHLOR 0.9% PF (SALINE LOCK) 10ML VIAL/SYR IV SCH ×2 (10:21→22:50)
[2023-08-03] MEDS: FLUCONAZOLE 200MG/100ML 100 ML IV SCH (10:21)
[2023-08-03] MEDS: ENOXAPARIN SOD 40 MG/0.4 ML SYRINGE SC SCH (10:21)
[2023-08-03] MEDS ORDERED: SODIUM PHOSP 20MEQ(15MMOL) IN NS 100 ML IV ONE (11:15)
[2023-08-03 12:00] VITALS: BP 109/66; PULSE 65; RESP 19; TEMP 98.7; O2SAT 97
[2023-08-03 20:00] VITALS: PULSE 120
[2023-08-03] MEDS ORDERED: TPN PER PHARMACY IV NR ×11 (20:00)
[2023-08-03 21:48] VITALS: BP 114/69; PULSE 117; RESP 20; TEMP 99.6; O2SAT 96
[2023-08-04] VITALS (7 sets, daily range): BP systolic 103–117; BP diastolic 60–64; PULSE 97–114; RESP 16–19; TEMP 98.5–99.4; O2SAT 97–99
[2023-08-04] MEDS: HYDROmorphone HCL 2 MG/ML VL/or syr IV PRN ×3 (03:58→20:57)
[2023-08-04] MEDS: LINEZOLID 600MG/300ML 300 ML IV SCH ×2 (04:34→14:17)
[2023-08-04] MEDS: InsuLIN REG 1unit/0.01ml Soln (100units/ml) SC SCH ×4 (06:10→17:37)
[2023-08-04] MEDS: ACCU-CHEK COMFORT CURVE STRIP VI SCH ×4 (06:15→17:33)
[2023-08-04] MEDS: MEROPENEM 1GM IVPB 100 ML IV SCH (07:30)
[2023-08-04 08:09] LABS: Alanine Aminotransferase 59 U/L (7-40); Albumin 2.1 g/dL (3.2-4.8); Alkaline Phosphatase 101 U/L (46-116); Anion Gap 3 (5-15); Aspartate Aminotransferase 61 U/L (13-40); BUN/Creatinine Ratio 23.2 (10.0-20.0); Bilirubin, Total 2.9 mg/dL (0.2-1.0); Blood Urea Nitrogen 13 mg/dL (9-23); Calcium 7.2 mg/dL (8.5-10.1); Carbon Dioxide 26 mmol/L (20-30); Chloride 105 mmol/L (98-107); Glucose 148 mg/dL (74-106); Phosphorus 2.5 mg/dL (2.4-5.1); Potassium 3.7 mmol/L (3.5-5.1); Sodium 134 mmol/L (136-145); Total Protein 5.1 g/dL (5.7-8.2)
[2023-08-04 09:23] LABS: Hemoglobin 8.9 g/dL (13.5-17.5)
[2023-08-04 09:24] LABS: Hematocrit 27.6 % (41.0-53.0); Mean Corpuscular Hemoglobin 30.1 pg (28.0-32.0); Mean Corpuscular Hgb Conc. 32.4 g/dL (32.0-36.0); Mean Corpuscular Volume 92.7 fL (80.0-100.0); Red Blood Cells 2.98 10^6/uL (4.5-5.90); Red Cell Distribution Width 17.5 % (11.8-14.3); White Blood Cell 10.9 10^3/uL (4.4-10.8)
[2023-08-04 09:29] LABS: Basophils % (manual) 0 (0.0-2.0); Blast Cells 0; Metamyelocytes % 0; Myelocytes % 0; Promyelocytes % 0; Reactive Lymphocytes 0
[2023-08-04] MEDS: levoFLOXacin 500MG 100 ML IV SCH (10:11)
[2023-08-04] MEDS: SODIUM CHLOR 0.9% PF (SALINE LOCK) 10ML VIAL/SYR IV SCH (10:11)
[2023-08-04] MEDS: PANTOPRAZOLE 40 MG/10 ML VIAL INJ IV SCH (10:11)
[2023-08-04] MEDS: ENOXAPARIN SOD 40 MG/0.4 ML SYRINGE SC SCH (10:12)
[2023-08-04] MEDS ORDERED: SODIUM PHOSP 40 MEQ in D5W 5% 250 ML IV ONE (10:30)
[2023-08-04 17:02] LABS: Band Neutrophils % (manual) 4; Eosinophils % (manual) 2 (0-7); Lymphocytes % (manual) 10 (10.0-50.0); Monocytes % (manual) 7 (0-12)
[2023-08-04 17:03] LABS: Platelet Estimate Increased
[2023-08-04] MEDS ORDERED: TPN PER PHARMACY IV NR ×11 (20:00)
[2023-08-05] VITALS (7 sets, daily range): BP systolic 100–105; BP diastolic 62–69; PULSE 87–114; RESP 16–18; TEMP 97.9–99.2; O2SAT 95–97
[2023-08-05] MEDS: LINEZOLID 600MG/300ML 300 ML IV SCH ×2 (00:44→11:50)
[2023-08-05] MEDS: SODIUM CHLOR 0.9% PF (SALINE LOCK) 10ML VIAL/SYR IV SCH ×3 (00:44→22:00)
[2023-08-05] MEDS: HYDROmorphone HCL 2 MG/ML VL/or syr IV PRN ×5 (01:52→23:47)
[2023-08-05] MEDS: ACCU-CHEK COMFORT CURVE STRIP VI SCH ×4 (06:17→17:25)
[2023-08-05] MEDS: InsuLIN REG 1unit/0.01ml Soln (100units/ml) SC SCH ×4 (06:59→17:25)
[2023-08-05 07:03] LABS: Hemoglobin 8.5 g/dL (13.5-17.5)
[2023-08-05 07:06] LABS: Hematocrit 25.3 % (41.0-53.0); Mean Corpuscular Hemoglobin 30.6 pg (28.0-32.0); Mean Corpuscular Hgb Conc. 33.4 g/dL (32.0-36.0); Mean Corpuscular Volume 91.6 fL (80.0-100.0); Red Blood Cells 2.76 10^6/uL (4.5-5.90); Red Cell Distribution Width 17.4 % (11.8-14.3); White Blood Cell 10.1 10^3/uL (4.4-10.8)
[2023-08-05 07:08] LABS: Alanine Aminotransferase 57 U/L (7-40); Albumin 2.2 g/dL (3.2-4.8); Alkaline Phosphatase 106 U/L (46-116); Anion Gap 5 (5-15); Aspartate Aminotransferase 55 U/L (13-40); BUN/Creatinine Ratio 24.1 (10.0-20.0); Blood Urea Nitrogen 13 mg/dL (9-23); Carbon Dioxide 24 mmol/L (20-30); Chloride 105 mmol/L (98-107); Glucose 132 mg/dL (74-106); Magnesium 2.1 mg/dL (1.6-2.6); Potassium 3.7 mmol/L (3.5-5.1); Sodium 134 mmol/L (136-145)
[2023-08-05 07:09] LABS: Bilirubin, Total 2.6 mg/dL (0.2-1.0); Phosphorus 2.8 mg/dL (2.4-5.1); Total Protein 5.2 g/dL (5.7-8.2)
[2023-08-05 07:23] LABS: Band Neutrophils % (manual) 0; Basophils % (manual) 0 (0.0-2.0); Blast Cells 0; Metamyelocytes % 0; Promyelocytes % 0; Reactive Lymphocytes 0
[2023-08-05] MEDS: PANTOPRAZOLE 40 MG/10 ML VIAL INJ IV SCH (09:22)
[2023-08-05] MEDS: levoFLOXacin 500MG 100 ML IV SCH (09:24)
[2023-08-05] MEDS: ENOXAPARIN SOD 40 MG/0.4 ML SYRINGE SC SCH (09:29)
[2023-08-05 11:05] LABS: Eosinophils % (manual) 3 (0-7); Lymphocytes % (manual) 10 (10.0-50.0); Monocytes % (manual) 7 (0-12); Myelocytes % 1; Platelet Estimate Increased
[2023-08-05] MEDS ORDERED: TPN PER PHARMACY IV NR ×11 (20:00)
[2023-08-06] VITALS (7 sets, daily range): BP systolic 98–112; BP diastolic 61–64; PULSE 99–120; RESP 17–18; TEMP 97.9–101.2; O2SAT 18–98
[2023-08-06] MEDS: HYDROmorphone HCL 2 MG/ML VL/or syr IV PRN ×5 (03:40→22:15)
[2023-08-06] MEDS: InsuLIN REG 1unit/0.01ml Soln (100units/ml) SC SCH ×5 (06:00→23:53)
[2023-08-06] MEDS: ACCU-CHEK COMFORT CURVE STRIP VI SCH ×5 (06:00→23:53)
[2023-08-06 07:51] LABS: Alanine Aminotransferase 62 U/L (7-40); Albumin 2.3 g/dL (3.2-4.8); Alkaline Phosphatase 135 U/L (46-116); Anion Gap 5 (5-15); Aspartate Aminotransferase 65 U/L (13-40); BUN/Creatinine Ratio 19.2 (10.0-20.0); Blood Urea Nitrogen 10 mg/dL (9-23); Calcium 7.4 mg/dL (8.7-10.4); Carbon Dioxide 22 mmol/L (20-30); Chloride 106 mmol/L (98-107); Glucose 118 mg/dL (74-106); Magnesium 2.2 mg/dL (1.6-2.6); Phosphorus 2.9 mg/dL (2.4-5.1); Sodium 133 mmol/L (136-145)
[2023-08-06 07:52] LABS: Bilirubin, Total 2.2 mg/dL (0.2-1.0)
[2023-08-06 07:53] LABS: Total Protein 5.5 g/dL (5.7-8.2)
[2023-08-06 08:10] LABS: Hematocrit 28.1 % (41.0-53.0); Hemoglobin 8.9 g/dL (13.5-17.5); Mean Corpuscular Hemoglobin 30.5 pg (28.0-32.0); Mean Corpuscular Hgb Conc. 31.7 g/dL (32.0-36.0); Mean Corpuscular Volume 96.1 fL (80.0-100.0); Red Blood Cells 2.92 10^6/uL (4.5-5.90); Red Cell Distribution Width 18.7 % (11.8-14.3); White Blood Cell 10.2 10^3/uL (4.4-10.8)
[2023-08-06 08:15] LABS: Basophils % (manual) 0 (0.0-2.0); Blast Cells 0; Reactive Lymphocytes 0
[2023-08-06] MEDS: PANTOPRAZOLE 40 MG/10 ML VIAL INJ IV SCH (09:27)
[2023-08-06] MEDS: SODIUM CHLOR 0.9% PF (SALINE LOCK) 10ML VIAL/SYR IV SCH ×2 (09:27→21:46)
[2023-08-06] MEDS: ENOXAPARIN SOD 40 MG/0.4 ML SYRINGE SC SCH (09:27)
[2023-08-06] MEDS: levoFLOXacin 500MG 100 ML IV SCH (09:39)
[2023-08-06] MEDS: LINEZOLID 600MG/300ML 300 ML IV SCH ×2 (11:10)
[2023-08-06 13:36] LABS: Band Neutrophils % (manual) 10; Eosinophils % (manual) 2 (0-7); Lymphocytes % (manual) 15 (10.0-50.0); Metamyelocytes % 3; Monocytes % (manual) 5 (0-12); Myelocytes % 2; Platelet Estimate Increased; Promyelocytes % 1
[2023-08-06] MEDS ORDERED: SODIUM ACETATE IV NR ×11 (20:00)
[2023-08-06] MEDS ORDERED: SODIUM CHLORIDE IV NR ×11 (20:00)
[2023-08-06] MEDS ORDERED: [UNRECOGNIZED DRUG - OTHER] IV NR ×11 (20:00)
[2023-08-06] MEDS ORDERED: FAT EMULSION IV NR ×11 (20:00)
[2023-08-07] VITALS (7 sets, daily range): BP systolic 101–108; BP diastolic 55–68; PULSE 99–120; RESP 14–20; TEMP 97.6–98.6; O2SAT 65–98
[2023-08-07] MEDS: LINEZOLID 600MG/300ML 300 ML IV SCH ×3 (00:28→23:44)
[2023-08-07] MEDS: ACETAMINOPHEN 650 MG RECT SUPP PR PRN (01:11)
[2023-08-07] MEDS: HYDROmorphone HCL 2 MG/ML VL/or syr IV PRN ×6 (01:15→21:45)
[2023-08-07] MEDS: ACCU-CHEK COMFORT CURVE STRIP VI SCH ×2 (05:44→11:41)
[2023-08-07] MEDS: InsuLIN REG 1unit/0.01ml Soln (100units/ml) SC SCH ×2 (05:44→11:43)
[2023-08-07] MEDS: ENOXAPARIN SOD 40 MG/0.4 ML SYRINGE SC SCH (09:14)
[2023-08-07] MEDS: levoFLOXacin 500MG 100 ML IV SCH (09:14)
[2023-08-07] MEDS: SODIUM CHLOR 0.9% PF (SALINE LOCK) 10ML VIAL/SYR IV SCH ×2 (09:15→21:44)
[2023-08-08] VITALS (7 sets, daily range): BP systolic 94–107; BP diastolic 51–70; PULSE 96–124; RESP 16–18; TEMP 97.9–99.3; O2SAT 96–97
[2023-08-08] MEDS: HYDROmorphone HCL 2 MG/ML VL/or syr IV PRN ×3 (01:11→09:20)
[2023-08-08 07:12] LABS: Basophils # (auto) 0.1 10 ^3/uL (0-0.2); Basophils % (auto) 0.8 % (0.0-2.0); Eosinophils # (auto) 0.1 10 ^3/uL (0-0.8); Hemoglobin 9.1 g/dL (13.5-17.5); Monocytes # (auto) 0.8 10 ^3/uL (0-1.3); Neutrophils # (auto) 8.6 10 ^3/uL (1.6-8.6); White Blood Cell 10.5 10^3/uL (4.4-10.8)
[2023-08-08 07:16] LABS: Eosinophils % (auto) 1.2 % (0.0-7.0); Hematocrit 27.9 % (41.0-53.0); Lymphocytes % (auto) 9.2 % (10.0-50.0); Mean Corpuscular Hemoglobin 30.2 pg (28.0-32.0); Mean Corpuscular Hgb Conc. 32.7 g/dL (32.0-36.0); Mean Corpuscular Volume 92.2 fL (80.0-100.0); Monocytes % (auto) 7.2 % (0.0-12.0); Neutrophils % (auto) 81.6 % (37.0-80.0); Nucleated Red Blood Cells % 0.1 %; Red Blood Cells 3.03 10^6/uL (4.5-5.90); Red Cell Distribution Width 17.9 % (11.8-14.3)
[2023-08-08 07:34] LABS: Chloride 103 mmol/L (98-107); Potassium 3.7 mmol/L (3.5-5.1); Sodium 132 mmol/L (136-145)
[2023-08-08 07:35] LABS: Anion Gap 6 (5-15); Calcium 7.9 mg/dL (8.5-10.1); Carbon Dioxide 23 mmol/L (20-30)
[2023-08-08 07:40] LABS: BUN/Creatinine Ratio 14.3 (10.0-20.0); Blood Urea Nitrogen 9 mg/dL (9-23); Glucose 132 mg/dL (74-106)
[2023-08-08] MEDS: levoFLOXacin 500MG 100 ML IV SCH (09:21)
[2023-08-08] MEDS: SODIUM CHLOR 0.9% PF (SALINE LOCK) 10ML VIAL/SYR IV SCH ×2 (09:21→21:04)
[2023-08-08] MEDS: ENOXAPARIN SOD 40 MG/0.4 ML SYRINGE SC SCH (09:21)
[2023-08-08] MEDS: OXYCODONE W/ ACETAMINOPHEN 5/325MG TABLET PO PRN ×2 (12:57→18:31)
[2023-08-08] MEDS: LINEZOLID 600MG/300ML 300 ML IV SCH (12:59)
[2023-08-08] MEDS: SODIUM CHLORIDE 0.9% 1,000 ML IV SCH ×3 (12:59→23:24)
[2023-08-09] VITALS (7 sets, daily range): BP systolic 99–105; BP diastolic 57–70; PULSE 60–108; RESP 14–19; TEMP 97.7–98.8; O2SAT 96–99
[2023-08-09] MEDS: OXYCODONE W/ ACETAMINOPHEN 5/325MG TABLET PO PRN ×4 (00:12→18:34)
[2023-08-09] MEDS: LINEZOLID 600MG/300ML 300 ML IV SCH ×2 (00:14→12:00)
[2023-08-09] MEDS: SODIUM CHLOR 0.9% PF (SALINE LOCK) 10ML VIAL/SYR IV SCH (08:16)
[2023-08-09] MEDS: SODIUM CHLORIDE 0.9% 1,000 ML IV SCH (09:24)
[2023-08-09] MEDS: levoFLOXacin 500MG 100 ML IV SCH (09:24)
[2023-08-10] VITALS (8 sets, daily range): BP systolic 99–108; BP diastolic 57–66; PULSE 91–110; RESP 16–18; TEMP 97.6–99.1; O2SAT 95–100
[2023-08-10] MEDS: LINEZOLID 600MG/300ML 300 ML IV SCH ×3 (00:10→23:45)
[2023-08-10] MEDS: SODIUM CHLOR 0.9% PF (SALINE LOCK) 10ML VIAL/SYR IV SCH ×3 (00:14→22:27)
[2023-08-10] MEDS: OXYCODONE W/ ACETAMINOPHEN 5/325MG TABLET PO PRN ×4 (00:15→19:31)
[2023-08-10] MEDS: SODIUM CHLORIDE 0.9% 1,000 ML IV SCH ×3 (04:07→23:30)
[2023-08-10 05:22] LABS: Basophils # (auto) 0.1 10 ^3/uL (0-0.2); Basophils % (auto) 1.3 % (0.0-2.0); Chloride 112 mmol/L (98-107); Eosinophils # (auto) 0.1 10 ^3/uL (0-0.8); Eosinophils % (auto) 2.4 % (0.0-7.0); Hematocrit 26.2 % (41.0-53.0); Hemoglobin 8.7 g/dL (13.5-17.5); Lymphocytes # (auto) 1.2 10 ^3/uL (0.4-5.4); Mean Corpuscular Hemoglobin 30.8 pg (28.0-32.0); Mean Corpuscular Hgb Conc. 33.1 g/dL (32.0-36.0); Mean Corpuscular Volume 93.2 fL (80.0-100.0); Monocytes # (auto) 0.5 10 ^3/uL (0-1.3); Monocytes % (auto) 9.7 % (0.0-12.0); Neutrophils # (auto) 3.2 10 ^3/uL (1.6-8.6); Neutrophils % (auto) 63.6 % (37.0-80.0); Nucleated Red Blood Cells % 0.1 %; Potassium 3.5 mmol/L (3.5-5.1); Red Blood Cells 2.81 10^6/uL (4.5-5.90); Red Cell Distribution Width 18.8 % (11.8-14.3); Sodium 139 mmol/L (136-145)
[2023-08-10 05:23] LABS: Anion Gap 5 (5-15); Carbon Dioxide 22 mmol/L (20-30)
[2023-08-10 05:24] LABS: Calcium 7.4 mg/dL (8.7-10.4)
[2023-08-10 05:28] LABS: Glucose 105 mg/dL (74-106)
[2023-08-10 05:41] LABS: BUN/Creatinine Ratio 9.1 (10.0-20.0); Blood Urea Nitrogen < 5 mg/dL (9-23)
[2023-08-10] MEDS: levoFLOXacin 500MG 100 ML IV SCH (09:23)
[2023-08-11] VITALS (8 sets, daily range): BP systolic 100–120; BP diastolic 56–71; PULSE 82–129; RESP 15–20; TEMP 98.3–99.3; O2SAT 96–100
[2023-08-11] MEDS: OXYCODONE W/ ACETAMINOPHEN 5/325MG TABLET PO PRN ×3 (01:23→16:04)
[2023-08-11] MEDS: SODIUM CHLORIDE 0.9% 1,000 ML IV SCH ×2 (09:14→20:56)
[2023-08-11] MEDS: SODIUM CHLOR 0.9% PF (SALINE LOCK) 10ML VIAL/SYR IV SCH ×2 (10:02→20:57)
[2023-08-11] MEDS: levoFLOXacin 500MG 100 ML IV SCH (10:02)
[2023-08-11] MEDS: LINEZOLID 600MG/300ML 300 ML IV SCH (13:26)
[2023-08-12] VITALS (8 sets, daily range): BP systolic 98–107; BP diastolic 56–65; PULSE 93–103; RESP 16–56; TEMP 97.9–98.6; O2SAT 97–100
[2023-08-12] MEDS: LINEZOLID 600MG/300ML 300 ML IV SCH ×3 (00:28→23:38)
[2023-08-12] MEDS: OXYCODONE W/ ACETAMINOPHEN 5/325MG TABLET PO PRN ×3 (00:28→17:07)
[2023-08-12] MEDS: SODIUM CHLORIDE 0.9% 1,000 ML IV SCH ×2 (05:30→10:04)
[2023-08-12 06:20] LABS: Chloride 110 mmol/L (98-107); Potassium 3.5 mmol/L (3.5-5.1); Sodium 140 mmol/L (136-145)
[2023-08-12 06:21] LABS: Anion Gap 7 (5-15); Carbon Dioxide 23 mmol/L (20-30)
[2023-08-12 06:22] LABS: Basophils # (auto) 0.1 10 ^3/uL (0-0.2); Calcium 8.1 mg/dL (8.5-10.1); Eosinophils # (auto) 0.1 10 ^3/uL (0-0.8); Hemoglobin 8.3 g/dL (13.5-17.5); Lymphocytes # (auto) 1.5 10 ^3/uL (0.4-5.4); Mean Corpuscular Volume 93.4 fL (80.0-100.0); Monocytes # (auto) 0.6 10 ^3/uL (0-1.3); White Blood Cell 6.1 10^3/uL (4.4-10.8)
[2023-08-12 06:24] LABS: Basophils % (auto) 1.4 % (0.0-2.0); Hematocrit 24.9 % (41.0-53.0); Mean Corpuscular Hgb Conc. 33.2 g/dL (32.0-36.0); Monocytes % (auto) 9.4 % (0.0-12.0); Neutrophils # (auto) 3.8 10 ^3/uL (1.6-8.6); Neutrophils % (auto) 62.2 % (37.0-80.0); Red Blood Cells 2.67 10^6/uL (4.5-5.90); Red Cell Distribution Width 18.9 % (11.8-14.3)
[2023-08-12 06:26] LABS: Glucose 94 mg/dL (74-106)
[2023-08-12 06:36] LABS: BUN/Creatinine Ratio 8.6 (10.0-20.0); Blood Urea Nitrogen < 5 mg/dL (9-23)
[2023-08-12] MEDS: levoFLOXacin 500MG 100 ML IV SCH (10:03)
[2023-08-12] MEDS: SODIUM CHLOR 0.9% PF (SALINE LOCK) 10ML VIAL/SYR IV SCH ×2 (10:04→23:44)
[2023-08-13] MEDS: OXYCODONE W/ ACETAMINOPHEN 5/325MG TABLET PO PRN ×3 (00:04→21:10)
[2023-08-13 05:00] VITALS: BP 98/50; PULSE 48; RESP 19; TEMP 98.9; O2SAT 98
[2023-08-13 08:29] VITALS: BP 106/65; PULSE 97; RESP 16; TEMP 98.9; O2SAT 97
[2023-08-13] MEDS: SODIUM CHLOR 0.9% PF (SALINE LOCK) 10ML VIAL/SYR IV SCH ×2 (10:00→21:13)
[2023-08-13] MEDS: levoFLOXacin 500MG 100 ML IV SCH (10:45)
[2023-08-13] MEDS: LINEZOLID 600MG/300ML 300 ML IV SCH (12:00)
[2023-08-13 12:50] VITALS: BP 104/63; PULSE 115; RESP 18; TEMP 98.6; O2SAT 98
[2023-08-13 16:47] VITALS: BP 99/63; PULSE 107; RESP 18; TEMP 98.7; O2SAT 97
[2023-08-13 20:00] VITALS: BP 105/62; PULSE 115; RESP 20; TEMP 37.1; O2SAT 98
[2023-08-13 22:00] VITALS: BP 105/62; PULSE 115; RESP 20; TEMP 98.1; O2SAT 98
[2023-08-14] VITALS (7 sets, daily range): BP systolic 93–103; BP diastolic 50–65; PULSE 97–119; RESP 17–21; TEMP 35.6; O2SAT 95–98
[2023-08-14] MEDS: LINEZOLID 600MG/300ML 300 ML IV SCH ×2 (00:24→11:59)
[2023-08-14 07:45] LABS: Basophils # (auto) 0.1 10 ^3/uL (0-0.2); Basophils % (auto) 1.2 % (0.0-2.0); Eosinophils # (auto) 0.1 10 ^3/uL (0-0.8); Eosinophils % (auto) 2.5 % (0.0-7.0); Hematocrit 25.4 % (41.0-53.0); Hemoglobin 8.5 g/dL (13.5-17.5); Lymphocytes # (auto) 1.4 10 ^3/uL (0.4-5.4); Lymphocytes % (auto) 24.7 % (10.0-50.0); Mean Corpuscular Hgb Conc. 33.5 g/dL (32.0-36.0); Mean Corpuscular Volume 95.6 fL (80.0-100.0); Monocytes # (auto) 0.5 10 ^3/uL (0-1.3); Monocytes % (auto) 8.5 % (0.0-12.0); Neutrophils # (auto) 3.5 10 ^3/uL (1.6-8.6); Neutrophils % (auto) 63.1 % (37.0-80.0); Nucleated Red Blood Cells % 0.1 %; Red Blood Cells 2.65 10^6/uL (4.5-5.90); Red Cell Distribution Width 19.1 % (11.8-14.3); White Blood Cell 5.6 10^3/uL (4.4-10.8)
[2023-08-14 08:04] LABS: Calcium 8.2 mg/dL (8.5-10.1); Chloride 109 mmol/L (98-107); Potassium 3.2 mmol/L (3.5-5.1); Sodium 138 mmol/L (136-145)
[2023-08-14 08:05] LABS: Anion Gap 6 (5-15); Carbon Dioxide 23 mmol/L (20-30)
[2023-08-14 08:11] LABS: BUN/Creatinine Ratio 9.1 (10.0-20.0); Blood Urea Nitrogen 5 mg/dL (9-23); Glucose 79 mg/dL (74-106)
[2023-08-14] MEDS: OXYCODONE W/ ACETAMINOPHEN 5/325MG TABLET PO PRN ×2 (09:31→19:03)
[2023-08-14] MEDS: levoFLOXacin 500MG 100 ML IV SCH (09:32)
[2023-08-14] MEDS: SODIUM CHLOR 0.9% PF (SALINE LOCK) 10ML VIAL/SYR IV SCH ×2 (09:33→22:12)
[2023-08-14] MEDS: AMPICILLIN & SULBACTAM SODIUM 3 GM in SODIUM CHL 0.9% 100 ML IV SCH ×2 (14:07→20:17)
[2023-08-15] VITALS (8 sets, daily range): BP systolic 98–149; BP diastolic 60–118; PULSE 100–118; RESP 6–20; TEMP 97.9–98.8; O2SAT 95–98
[2023-08-15] MEDS: AMPICILLIN & SULBACTAM SODIUM 3 GM in SODIUM CHL 0.9% 100 ML IV SCH ×4 (02:06→20:37)
[2023-08-15] MEDS: OXYCODONE W/ ACETAMINOPHEN 5/325MG TABLET PO PRN ×2 (08:05→19:29)
[2023-08-15] MEDS: levoFLOXacin 500MG 100 ML IV SCH (10:45)
[2023-08-15] MEDS: SODIUM CHLOR 0.9% PF (SALINE LOCK) 10ML VIAL/SYR IV SCH (10:50)
[2023-08-16] MEDS: AMPICILLIN & SULBACTAM SODIUM 3 GM in SODIUM CHL 0.9% 100 ML IV SCH ×3 (02:23→13:27)
[2023-08-16] MEDS: SODIUM CHLOR 0.9% PF (SALINE LOCK) 10ML VIAL/SYR IV SCH ×2 (02:52→09:58)
[2023-08-16 05:00] VITALS: BP 118/66; PULSE 101; RESP 17; TEMP 98.6; O2SAT 97
[2023-08-16] MEDS: OXYCODONE W/ ACETAMINOPHEN 5/325MG TABLET PO PRN ×2 (07:52→18:22)
[2023-08-16 08:00] VITALS: PULSE 104; RESP 18; O2SAT 95
[2023-08-16 09:00] VITALS: BP 108/67; PULSE 104; RESP 18; TEMP 98.6; O2SAT 95
[2023-08-16] MEDS: levoFLOXacin 500MG 100 ML IV SCH (09:57)
[2023-08-16 13:00] VITALS: BP 107/69; PULSE 101; RESP 18; TEMP 98.2; O2SAT 100
[2023-08-16] MEDS ORDERED: PERCOT PO (14:42)
[2023-08-16] MEDS ORDERED: AUG875T PO (14:42)
[2023-08-16 17:00] VITALS: BP 114/70; PULSE 101; RESP 18; TEMP 97.6; O2SAT 99
[2023-08-16 17:08] VITALS: BP 107/69; PULSE 101; RESP 18; TEMP 98.2; O2SAT 100
== END 2023-08-16 18:50 | disposition home or self-care (01) | DRG 853 ==
LOC: ER 09:53 → OVERFLOW 13:55 → ER 13:55 → OVERFLOW 15:08 → UNDODEPER 15:11 → WEST WING 19:00 → TELE-WESTW 07-25 16:52 → WEST WING 08-12 14:30
PROVIDERS: ADMIT Nurse Practitioner Family; ATTEND Internal Medicine
PROC: 0J9C00Z Drainage of Pelvic Region Subcutaneous Tissue and Fascia with Drainage Device, Open Approach (ICD-10-PCS; 2023-07-21)
PROC: 02HV33Z Insertion of Infusion Device into Superior Vena Cava, Percutaneous Approach (ICD-10-PCS; 2023-07-23)
PROC: 0W9H0ZZ Drainage of Retroperitoneum, Open Approach (ICD-10-PCS; principal; 2023-07-28 14:27)
DX: A41.9 Sepsis, unspecified organism (principal); K65.1 Peritoneal abscess; N17.0 Acute kidney failure with tubular necrosis; R65.21 Severe sepsis with septic shock; K57.20 Diverticulitis of large intestine with perforation and abscess without bleeding; I47.10 Supraventricular tachycardia, unspecified; E87.20 Acidosis, unspecified; E66.9 Obesity, unspecified; R74.01 Elevation of levels of liver transaminase levels; Z68.26 Body mass index [BMI] 26.0-26.9, adult
CPT/HCPCS: 36415; 36569; 71045; 71275; 74176; 74177; 74250; 76705; 80048; 80053; 80061; 80069; 80202; 81001; 82962; 83036; 83605; 83735; 83880; 84100; 84443; 84478; 84484; 85007; 85025; 85027; 85379; 85610; 85730; 86850; 86900; 86901; 87040; 87070; 87075; 87076; 87077; 87081; 87086; 87186; 87205; 93005; 93306; 93970; 97110; 97116; 97163; 97530; C9113; G0378; J0153; J0330; J0692; J1100; J1450; J1815; J1885; J1956; J2001; J2185; J2250; J2405; J2543; J2704; J3490; J7060; J7131

== ENCOUNTER 2023-08-28 11:02 | Emergency (ER) | payer BC ==
[~2023-08-28] VITALS: Ht 177.8 cm; Wt 79.3 kg
[~2023-08-28 11:02] MED LIST: AUG875T PO; FOLI-119 PO; METH2.5T62 PO; PERCOT PO
[2023-08-28] MEDS ORDERED: METR-344 PO (13:15)
[2023-08-28] MEDS ORDERED: CEPH250C PO (13:15)
[2023-08-28 13:19] LABS: Basophils # (auto) 0.1 10 ^3/uL (0-0.2); Basophils % (auto) 0.6 % (0.0-2.0); Eosinophils # (auto) 0.1 10 ^3/uL (0-0.8); Eosinophils % (auto) 0.4 % (0.0-7.0); Hematocrit 30.2 % (41.0-53.0); Hemoglobin 9.6 g/dL (13.5-17.5); Lymphocytes % (auto) 17.3 % (10.0-50.0); Mean Corpuscular Hemoglobin 30.1 pg (28.0-32.0); Mean Corpuscular Hgb Conc. 31.9 g/dL (32.0-36.0); Mean Corpuscular Volume 94.6 fL (80.0-100.0); Monocytes % (auto) 5.6 % (0.0-12.0); Neutrophils % (auto) 76.1 % (37.0-80.0); Red Cell Distribution Width 22.2 % (11.8-14.3); White Blood Cell 17.1 10^3/uL (4.4-10.8)
[2023-08-28 13:21] LABS: Alanine Aminotransferase 39 U/L (7-40); Albumin 2.9 g/dL (3.2-4.8); Alkaline Phosphatase 141 U/L (46-116); Anion Gap 8 (5-15); Aspartate Aminotransferase 44 U/L (13-40); BUN/Creatinine Ratio 13.3 (10.0-20.0); Blood Urea Nitrogen 8 mg/dL (9-23); Carbon Dioxide 22 mmol/L (20-30); Chloride 105 mmol/L (98-107); Glucose 86 mg/dL (74-106); Potassium 4.1 mmol/L (3.5-5.1); Sodium 135 mmol/L (136-145)
[2023-08-28 13:22] LABS: Bilirubin, Total 0.7 mg/dL (0.2-1.0); Total Protein 6.6 g/dL (5.7-8.2)
[2023-08-28] MEDS ORDERED: cefTRIAXone SOD 1,000 MG VL IM ONE (13:30)
[2023-08-28] MEDS ORDERED: cefTRIAXone SOD 1,000 MG VL ONE (14:28)
[2023-08-28 14:30] VITALS: BP 106/62; PULSE 100; RESP 18; TEMP 98.6; O2SAT 97
== END 2023-08-28 14:55 | disposition home or self-care (01) ==
LOC: ER 11:02
DX: L02.211 Cutaneous abscess of abdominal wall (principal); Z87.891 Personal history of nicotine dependence; Z79.2 Long term (current) use of antibiotics; Z79.899 Other long term (current) drug therapy
CPT/HCPCS: 36415; 80053; 85025; 96372; 99283; J0696

== ENCOUNTER 2023-09-20 05:15 | Inpatient (IN) | payer BC ==
[~2023-09-20] VITALS: Ht 177.8 cm; Wt 97.6 kg
[~2023-09-20 05:15] MED LIST changes: +ACET-1882 PO; -AUG875T PO; +DOCU-265 PO; +ERGO1CAP23 PO; +FER325T PO; +PANT40T PO; -PERCOT PO
[2023-09-20 05:43] LABS: Basophils # (auto) 0.1 10 ^3/uL (0-0.2); Eosinophils # (auto) 0.4 10 ^3/uL (0-0.8); Mean Corpuscular Hgb Conc. 32.3 g/dL (32.0-36.0); Mean Corpuscular Volume 94.8 fL (80.0-100.0); Monocytes # (auto) 0.5 10 ^3/uL (0-1.3); Nucleated Red Blood Cells % 0.1 %
[2023-09-20 05:45] LABS: Basophils % (auto) 0.8 % (0.0-2.0); Eosinophils % (auto) 4.1 % (0.0-7.0); Hematocrit 30.6 % (41.0-53.0); Hemoglobin 9.9 g/dL (13.5-17.5); Lymphocytes # (auto) 2.1 10 ^3/uL (0.4-5.4); Lymphocytes % (auto) 20.9 % (10.0-50.0); Mean Corpuscular Hemoglobin 30.7 pg (28.0-32.0); Neutrophils # (auto) 6.8 10 ^3/uL (1.6-8.6); Neutrophils % (auto) 69.2 % (37.0-80.0); Red Blood Cells 3.22 10^6/uL (4.5-5.90); White Blood Cell 9.9 10^3/uL (4.4-10.8)
[2023-09-20 05:47] LABS: Red Cell Distribution Width 20.6 % (11.8-14.3)
[2023-09-20 06:00] LABS: Alanine Aminotransferase 81 U/L (7-40); Albumin 3.2 g/dL (3.2-4.8); Alkaline Phosphatase 121 U/L (46-116); Anion Gap 8 (5-15); Aspartate Aminotransferase 50 U/L (13-40); Blood Urea Nitrogen 12 mg/dL (9-23); Calcium 8.7 mg/dL (8.7-10.4); Carbon Dioxide 22 mmol/L (20-30); Chloride 109 mmol/L (98-107); Glucose 107 mg/dL (74-106); Potassium 3.9 mmol/L (3.5-5.1); Sodium 139 mmol/L (136-145)
[2023-09-20 06:01] LABS: Bilirubin, Total 0.5 mg/dL (0.2-1.0)
[2023-09-20 07:22] LABS: Magnesium 1.9 mg/dL (1.6-2.6)
[2023-09-20 08:45] LABS: Anisocytosis Slight; Macrocytosis Slight; Platelet Estimate Increased
[2023-09-20] MEDS ORDERED: IOHEXOL 300 MG/ML 100ML BOTTLE IJ ONE (09:02)
[2023-09-20 11:05] LABS: Urine Bacteria None Seen /hpf (None Seen); Urine Epithelial Cast None Seen /hpf (<5)
[2023-09-20] MEDS ORDERED: ONDANSETRON HCL 4 MG/2 ML VIAL IV PRN (13:30)
[2023-09-20] MEDS ORDERED: MORPHINE SULFATE INJ 2 MG/ml SYRG IV PRN (13:30)
[2023-09-20] MEDS ORDERED: DOCUSATE SOD 100 MG CAP PO PRN (13:30)
[2023-09-20] MEDS ORDERED: NITROGLYCERIN 0.4 MG SL TAB SL PRN (13:30)
[2023-09-20 15:26] LABS: Urine Clarity CLEAR (Clear); Urine Color Yellow (Yellow); Urine Specific Gravity > 1.050 (1.001-1.035)
[2023-09-20 15:27] LABS: Urine Protein, UAD Trace (Negative); Urine Urobilinogen Normal (Negative); Urine pH 5.5 (5.0-8.0)
[2023-09-20 15:28] LABS: Urine Blood Negative /uL (Negative); Urine Mucus FEW (None Seen); Urine WBC 1 /hpf (0 - 3)
[2023-09-20] MEDS: FERROUS SULFATE 325mg EC TAB PO SCH (21:13)
[2023-09-20] MEDS: ERGOCALCIFEROL 50,000 UNIT(1.25MG) CAP PO SCH (21:13)
[2023-09-20] MEDS: HYDROcodone-ACET 5/325MG TAB PO PRN (21:21)
[2023-09-21] MEDS: HYDROcodone-ACET 5/325MG TAB PO PRN ×4 (03:17→22:30)
[2023-09-21] MEDS ORDERED: HYDR1TAB97 PO (03:37)
[2023-09-21 07:37] LABS: Basophils # (auto) 0.1 10 ^3/uL (0-0.2); Basophils % (auto) 0.7 % (0.0-2.0); Eosinophils # (auto) 0.3 10 ^3/uL (0-0.8); Eosinophils % (auto) 3.2 % (0.0-7.0); Hematocrit 29.8 % (41.0-53.0); Lymphocytes # (auto) 1.6 10 ^3/uL (0.4-5.4); Lymphocytes % (auto) 18.1 % (10.0-50.0); Mean Corpuscular Hemoglobin 30.3 pg (28.0-32.0); Mean Corpuscular Hgb Conc. 30.1 g/dL (32.0-36.0); Mean Corpuscular Volume 100.5 fL (80.0-100.0); Monocytes # (auto) 0.6 10 ^3/uL (0-1.3); Monocytes % (auto) 6.7 % (0.0-12.0); Neutrophils # (auto) 6.3 10 ^3/uL (1.6-8.6); Neutrophils % (auto) 71.3 % (37.0-80.0); Nucleated Red Blood Cells % 0.2 %; Red Blood Cells 2.96 10^6/uL (4.5-5.90); White Blood Cell 8.8 10^3/uL (4.4-10.8)
[2023-09-21 07:38] LABS: Red Cell Distribution Width 21.4 % (11.8-14.3)
[2023-09-21 07:54] LABS: Alanine Aminotransferase 88 U/L (7-40); Albumin 2.9 g/dL (3.2-4.8); Alkaline Phosphatase 113 U/L (46-116); Anion Gap 7 (5-15); Aspartate Aminotransferase 81 U/L (13-40); BUN/Creatinine Ratio 20.4 (10.0-20.0); Bilirubin, Total 0.5 mg/dL (0.2-1.0); Blood Urea Nitrogen 11 mg/dL (9-23); Carbon Dioxide 21 mmol/L (20-30); Chloride 108 mmol/L (98-107); Glucose 69 mg/dL (74-106); Potassium 4.6 mmol/L (3.5-5.1); Sodium 136 mmol/L (136-145); Total Protein 6.4 g/dL (5.7-8.2)
[2023-09-21 08:00] VITALS: PULSE 74; PULSE 83; RESP 19; O2SAT 99
[2023-09-21 09:00] VITALS: BP 101/59; PULSE 83; RESP 19; TEMP 98.7; O2SAT 99
[2023-09-21] MEDS: FOLIC ACID 1 MG TAB PO SCH (09:15)
[2023-09-21] MEDS: FERROUS SULFATE 325mg EC TAB PO SCH ×2 (09:15→18:00)
[2023-09-21] MEDS: PANTOPRAZOLE 40 MG TAB PO SCH (09:15)
[2023-09-21 09:20] LABS: INR 1.1 (0.9-1.15); Prothrombin Time 11.5 sec (9.3-11.8)
[2023-09-21] MEDS: MORPHINE SULFATE INJ 2 MG/ml SYRG IV PRN (10:21)
[2023-09-21 13:00] VITALS: BP 94/57; PULSE 82; RESP 17; TEMP 98.7; O2SAT 100
[2023-09-21] MEDS ORDERED: IOHEXOL 300 MG/ML 100ML BOTTLE IJ ONE (14:58)
[2023-09-21 20:00] VITALS: PULSE 83; RESP 16; O2SAT 96
[2023-09-21 22:00] VITALS: BP 89/52; PULSE 83; RESP 16; TEMP 98.1; O2SAT 96
[2023-09-21 22:36] VITALS: BP 94/56; PULSE 82
[2023-09-22] VITALS (7 sets, daily range): BP systolic 88–106; BP diastolic 51–64; PULSE 61–101; RESP 14–18; TEMP 97.3–98.4; O2SAT 93–98
[2023-09-22 06:04] LABS: Basophils # (auto) 0.1 10 ^3/uL (0-0.2); Basophils % (auto) 1.5 % (0.0-2.0); Eosinophils # (auto) 0.3 10 ^3/uL (0-0.8); Eosinophils % (auto) 5.2 % (0.0-7.0); Hematocrit 27.2 % (41.0-53.0); Hemoglobin 8.8 g/dL (13.5-17.5); Lymphocytes # (auto) 1.3 10 ^3/uL (0.4-5.4); Lymphocytes % (auto) 25.3 % (10.0-50.0); Mean Corpuscular Hemoglobin 31.2 pg (28.0-32.0); Mean Corpuscular Hgb Conc. 32.3 g/dL (32.0-36.0); Mean Corpuscular Volume 96.6 fL (80.0-100.0); Monocytes # (auto) 0.4 10 ^3/uL (0-1.3); Monocytes % (auto) 8.1 % (0.0-12.0); Neutrophils # (auto) 3.2 10 ^3/uL (1.6-8.6); Neutrophils % (auto) 59.9 % (37.0-80.0); Nucleated Red Blood Cells % 0.1 %; Red Blood Cells 2.82 10^6/uL (4.5-5.90); White Blood Cell 5.3 10^3/uL (4.4-10.8)
[2023-09-22 06:14] LABS: Alanine Aminotransferase 61 U/L (7-40); Alkaline Phosphatase 113 U/L (46-116); Anion Gap 9 (5-15); BUN/Creatinine Ratio 12.5 (10.0-20.0); Blood Urea Nitrogen 7 mg/dL (9-23); Carbon Dioxide 22 mmol/L (20-30); Chloride 107 mmol/L (98-107); Glucose 60 mg/dL (74-106); Sodium 138 mmol/L (136-145)
[2023-09-22 06:15] LABS: Aspartate Aminotransferase 36 U/L (13-40); Bilirubin, Total 0.7 mg/dL (0.2-1.0); Total Protein 6.5 g/dL (5.7-8.2)
[2023-09-22 07:28] LABS: Red Cell Distribution Width 20.2 % (11.8-14.3)
[2023-09-22] MEDS: HYDROcodone-ACET 5/325MG TAB PO PRN ×3 (07:43→20:46)
[2023-09-22] MEDS: FERROUS SULFATE 325mg EC TAB PO SCH ×2 (07:43→18:00)
[2023-09-22] MEDS: PANTOPRAZOLE 40 MG TAB PO SCH (09:19)
[2023-09-22] MEDS: FOLIC ACID 1 MG TAB PO SCH (09:19)
[2023-09-22] MEDS ORDERED: GADOTERATE MEG 10 MMOL/20ml INJ (0.5MMOL/ml) IV ONE (12:05)
[2023-09-22] MEDS ORDERED: TPN PER PHARMACY 0 ML IV SCH (13:15)
[2023-09-22 14:57] LABS: Magnesium 1.8 mg/dL (1.6-2.6)
[2023-09-22 14:58] LABS: Phosphorus 5.7 mg/dL (2.4-5.1)
[2023-09-22] MEDS: MEROPENEM 1GM IVPB 100 ML IV SCH ×2 (16:26→22:24)
[2023-09-22] MEDS ORDERED: DEXTROSE (50%) 50ML SYRG IV SCH (20:00)
[2023-09-22] MEDS ORDERED: AMINO ACID INFUSION IN D10W 1,000 ML IV SCH (20:00)
[2023-09-23] VITALS (7 sets, daily range): BP systolic 92–114; BP diastolic 55–69; PULSE 80–117; RESP 17–20; TEMP 98–100.6; O2SAT 94–98
[2023-09-23] MEDS: ACCU-CHEK COMFORT CURVE STRIP VI SCH ×5 (00:30→23:23)
[2023-09-23] MEDS: HYDROcodone-ACET 5/325MG TAB PO PRN ×2 (04:29→19:43)
[2023-09-23] MEDS: MEROPENEM 1GM IVPB 100 ML IV SCH ×3 (05:54→22:06)
[2023-09-23] MEDS: InsuLIN REG 1unit/0.01ml Soln (100units/ml) SC SCH ×5 (05:57→23:23)
[2023-09-23 06:42] LABS: Alanine Aminotransferase 43 U/L (7-40); Albumin 3.1 g/dL (3.2-4.8); Alkaline Phosphatase 111 U/L (46-116); Anion Gap 8 (5-15); Aspartate Aminotransferase 23 U/L (13-40); BUN/Creatinine Ratio 14.1 (10.0-20.0); Blood Urea Nitrogen 9 mg/dL (9-23); Carbon Dioxide 24 mmol/L (20-30); Chloride 105 mmol/L (98-107); Glucose 88 mg/dL (74-106); Potassium 3.7 mmol/L (3.5-5.1); Sodium 137 mmol/L (136-145)
[2023-09-23 06:43] LABS: Bilirubin, Total 0.7 mg/dL (0.2-1.0); Phosphorus 4.2 mg/dL (2.4-5.1); Total Protein 6.6 g/dL (5.7-8.2)
[2023-09-23 06:48] LABS: Basophils # (auto) 0.1 10 ^3/uL (0-0.2); Basophils % (auto) 0.6 % (0.0-2.0); Eosinophils # (auto) 0.2 10 ^3/uL (0-0.8); Eosinophils % (auto) 2.3 % (0.0-7.0); Hematocrit 28.1 % (41.0-53.0); Lymphocytes # (auto) 0.9 10 ^3/uL (0.4-5.4); Lymphocytes % (auto) 10.5 % (10.0-50.0); Mean Corpuscular Hemoglobin 30.4 pg (28.0-32.0); Mean Corpuscular Volume 95.1 fL (80.0-100.0); Monocytes # (auto) 0.6 10 ^3/uL (0-1.3); Neutrophils # (auto) 6.6 10 ^3/uL (1.6-8.6); Neutrophils % (auto) 79.6 % (37.0-80.0); Red Blood Cells 2.95 10^6/uL (4.5-5.90); White Blood Cell 8.4 10^3/uL (4.4-10.8)
[2023-09-23 07:25] LABS: Red Cell Distribution Width 20.3 % (11.8-14.3)
[2023-09-23] MEDS: FOLIC ACID 1 MG TAB PO SCH (09:21)
[2023-09-23] MEDS: FERROUS SULFATE 325mg EC TAB PO SCH ×2 (09:21→18:09)
[2023-09-23] MEDS: LIDOCAINE 5% TOPICAL PATCH TOP SCH (09:21)
[2023-09-23] MEDS: PANTOPRAZOLE 40 MG TAB PO SCH (09:21)
[2023-09-23] MEDS: MORPHINE SULFATE INJ 2 MG/ml SYRG IV PRN (10:57)
[2023-09-23 12:00] LABS: Magnesium 1.7 mg/dL (1.6-2.6)
[2023-09-23] MEDS: ACETAMINOPHEN 325 MG TAB PO PRN (15:33)
[2023-09-23] MEDS ORDERED: TPN PER PHARMACY IV NR ×10 (20:00)
[2023-09-24] VITALS (7 sets, daily range): BP systolic 93–110; BP diastolic 54–61; PULSE 79–116; RESP 18–20; TEMP 98.3–100; O2SAT 93–100
[2023-09-24] MEDS: HYDROcodone-ACET 5/325MG TAB PO PRN ×3 (05:18→19:47)
[2023-09-24 05:57] LABS: Basophils # (auto) 0.1 10 ^3/uL (0-0.2); Basophils % (auto) 0.6 % (0.0-2.0); Eosinophils # (auto) 0 10 ^3/uL (0-0.8); Eosinophils % (auto) 0.4 % (0.0-7.0); Hematocrit 28.6 % (41.0-53.0); Hemoglobin 9.3 g/dL (13.5-17.5); Lymphocytes # (auto) 1.2 10 ^3/uL (0.4-5.4); Lymphocytes % (auto) 11.5 % (10.0-50.0); Mean Corpuscular Hemoglobin 30.7 pg (28.0-32.0); Mean Corpuscular Hgb Conc. 32.6 g/dL (32.0-36.0); Mean Corpuscular Volume 94.1 fL (80.0-100.0); Monocytes # (auto) 0.9 10 ^3/uL (0-1.3); Monocytes % (auto) 8.2 % (0.0-12.0); Neutrophils # (auto) 8.5 10 ^3/uL (1.6-8.6); Neutrophils % (auto) 79.3 % (37.0-80.0); Nucleated Red Blood Cells % 0.2 %; Red Blood Cells 3.04 10^6/uL (4.5-5.90); Red Cell Distribution Width 19.5 % (11.8-14.3); White Blood Cell 10.8 10^3/uL (4.4-10.8)
[2023-09-24] MEDS: MEROPENEM 1GM IVPB 100 ML IV SCH ×3 (05:57→23:33)
[2023-09-24] MEDS: ACCU-CHEK COMFORT CURVE STRIP VI SCH ×3 (05:58→17:52)
[2023-09-24 05:59] LABS: Alanine Aminotransferase 30 U/L (7-40); Albumin 3.2 g/dL (3.2-4.8); Alkaline Phosphatase 107 U/L (46-116); Anion Gap 9 (5-15); Aspartate Aminotransferase 17 U/L (13-40); BUN/Creatinine Ratio 11.9 (10.0-20.0); Blood Urea Nitrogen 7 mg/dL (9-23); Calcium 8.4 mg/dL (8.7-10.4); Carbon Dioxide 23 mmol/L (20-30); Chloride 103 mmol/L (98-107); Glucose 104 mg/dL (74-106); Magnesium 1.6 mg/dL (1.6-2.6); Potassium 3.6 mmol/L (3.5-5.1); Sodium 135 mmol/L (136-145)
[2023-09-24] MEDS: InsuLIN REG 1unit/0.01ml Soln (100units/ml) SC SCH ×3 (05:59→17:52)
[2023-09-24 06:00] LABS: Bilirubin, Total 0.8 mg/dL (0.2-1.0); Total Protein 6.8 g/dL (5.7-8.2)
[2023-09-24] MEDS: ACETAMINOPHEN 325 MG TAB PO PRN (06:06)
[2023-09-24] MEDS: FOLIC ACID 1 MG TAB PO SCH (10:01)
[2023-09-24] MEDS: PANTOPRAZOLE 40 MG TAB PO SCH (10:01)
[2023-09-24] MEDS: FERROUS SULFATE 325mg EC TAB PO SCH ×3 (10:01→17:40)
[2023-09-24] MEDS: LIDOCAINE 5% TOPICAL PATCH TOP SCH (10:02)
[2023-09-24] MEDS ORDERED: MAGNESIUM SULFATE 1GM/100ML 100 ML IV ONE (13:45)
[2023-09-24] MEDS ORDERED: TPN PER PHARMACY IV NR ×9 (20:00)
[2023-09-25] VITALS (7 sets, daily range): BP systolic 98–116; BP diastolic 57–62; PULSE 90–127; RESP 16–20; TEMP 98.2–99.7; O2SAT 92–99
[2023-09-25] MEDS: ACCU-CHEK COMFORT CURVE STRIP VI SCH ×5 (00:17→23:48)
[2023-09-25 03:09] LABS: Rapid Influenza A Negative (Negative); Rapid Influenza B Negative (Negative)
[2023-09-25 03:10] LABS: COVID19 ANTIGEN SOFIA FIA NEGATIVE (NEGATIVE)
[2023-09-25] MEDS: HYDROcodone-ACET 5/325MG TAB PO PRN ×5 (03:32→22:21)
[2023-09-25 05:12] LABS: Basophils # (auto) 0.1 10 ^3/uL (0-0.2); Basophils % (auto) 1.4 % (0.0-2.0); Eosinophils # (auto) 0.1 10 ^3/uL (0-0.8); Hematocrit 26.7 % (41.0-53.0); Hemoglobin 8.9 g/dL (13.5-17.5); Lymphocytes # (auto) 1.6 10 ^3/uL (0.4-5.4); Lymphocytes % (auto) 20.4 % (10.0-50.0); Mean Corpuscular Hemoglobin 31.3 pg (28.0-32.0); Mean Corpuscular Hgb Conc. 33.2 g/dL (32.0-36.0); Mean Corpuscular Volume 94.3 fL (80.0-100.0); Monocytes # (auto) 0.9 10 ^3/uL (0-1.3); Monocytes % (auto) 11.3 % (0.0-12.0); Neutrophils # (auto) 5.2 10 ^3/uL (1.6-8.6); Neutrophils % (auto) 65.9 % (37.0-80.0); Red Blood Cells 2.84 10^6/uL (4.5-5.90); Red Cell Distribution Width 18.6 % (11.8-14.3); White Blood Cell 7.8 10^3/uL (4.4-10.8)
[2023-09-25 05:25] LABS: Alanine Aminotransferase 22 U/L (7-40); Alkaline Phosphatase 93 U/L (46-116); Anion Gap 9 (5-15); BUN/Creatinine Ratio 12.5 (10.0-20.0); Blood Urea Nitrogen 6 mg/dL (9-23); Calcium 8.1 mg/dL (8.7-10.4); Carbon Dioxide 21 mmol/L (20-30); Chloride 104 mmol/L (98-107); Glucose 114 mg/dL (74-106); Potassium 3.7 mmol/L (3.5-5.1); Sodium 134 mmol/L (136-145)
[2023-09-25 05:26] LABS: Aspartate Aminotransferase 15 U/L (13-40); Bilirubin, Total 0.6 mg/dL (0.2-1.0); Phosphorus 2.9 mg/dL (2.4-5.1); Total Protein 6.4 g/dL (5.7-8.2)
[2023-09-25] MEDS: InsuLIN REG 1unit/0.01ml Soln (100units/ml) SC SCH ×5 (06:00→23:47)
[2023-09-25] MEDS: MEROPENEM 1GM IVPB 100 ML IV SCH ×3 (06:27→21:25)
[2023-09-25] MEDS ORDERED: FOLI-119 PO (07:37)
[2023-09-25] MEDS ORDERED: ACET-1882 PO (07:37)
[2023-09-25] MEDS: FERROUS SULFATE 325mg EC TAB PO SCH ×2 (08:00→18:00)
[2023-09-25] MEDS: LIDOCAINE 5% TOPICAL PATCH TOP SCH (09:48)
[2023-09-25] MEDS: PANTOPRAZOLE 40 MG TAB PO SCH (09:48)
[2023-09-25] MEDS: FOLIC ACID 1 MG TAB PO SCH (09:48)
[2023-09-25] MEDS ORDERED: TPN PER PHARMACY IV NR ×10 (20:00)
[2023-09-26] VITALS (7 sets, daily range): BP systolic 93–101; BP diastolic 47–61; PULSE 95–131; RESP 16–20; TEMP 97.5–102.3; O2SAT 95–98
[2023-09-26] MEDS: HYDROcodone-ACET 5/325MG TAB PO PRN ×4 (03:44→18:11)
[2023-09-26] MEDS: ACETAMINOPHEN 325 MG TAB PO PRN ×2 (04:37→21:29)
[2023-09-26] MEDS: MEROPENEM 1GM IVPB 100 ML IV SCH ×3 (05:03→21:21)
[2023-09-26] MEDS: InsuLIN REG 1unit/0.01ml Soln (100units/ml) SC SCH ×4 (05:04→22:27)
[2023-09-26] MEDS: ACCU-CHEK COMFORT CURVE STRIP VI SCH ×4 (05:10→22:27)
[2023-09-26 07:14] LABS: Alanine Aminotransferase 26 U/L (7-40); Albumin 2.8 g/dL (3.2-4.8); Alkaline Phosphatase 84 U/L (46-116); Aspartate Aminotransferase 27 U/L (13-40); Blood Urea Nitrogen 10 mg/dL (9-23); Calcium 8.3 mg/dL (8.5-10.1); Chloride 100 mmol/L (98-107); Glucose 123 mg/dL (74-106); Sodium 131 mmol/L (136-145); Triglycerides 77 mg/dL (< 150)
[2023-09-26 07:15] LABS: Bilirubin, Total 0.6 mg/dL (0.2-1.0)
[2023-09-26 07:26] LABS: Anion Gap 8 (5-15); Carbon Dioxide 23 mmol/L (20-30)
[2023-09-26] MEDS: FERROUS SULFATE 325mg EC TAB PO SCH ×2 (08:00→18:00)
[2023-09-26 08:07] LABS: Phosphorus 2.8 mg/dL (2.4-5.1)
[2023-09-26] MEDS: PANTOPRAZOLE 40 MG TAB PO SCH (09:47)
[2023-09-26] MEDS: FOLIC ACID 1 MG TAB PO SCH (09:47)
[2023-09-26] MEDS: LIDOCAINE 5% TOPICAL PATCH TOP SCH (09:47)
[2023-09-26] MEDS ORDERED: POTASSIUM ACETATE IV NR ×9 (20:00)
[2023-09-26] MEDS ORDERED: [UNRECOGNIZED DRUG - OTHER] IV NR ×9 (20:00)
[2023-09-26] MEDS ORDERED: POTASSIUM PHOSPHATE IV NR ×9 (20:00)
[2023-09-26] MEDS ORDERED: SODIUM CHLORIDE IV NR ×9 (20:00)
[2023-09-27] MEDS: HYDROcodone-ACET 5/325MG TAB PO PRN ×4 (00:27→22:09)
[2023-09-27] MEDS: ACETAMINOPHEN 325 MG TAB PO PRN (04:15)
[2023-09-27 04:52] VITALS: BP 108/57; PULSE 120; RESP 18; TEMP 102.7; O2SAT 97
[2023-09-27] MEDS: MEROPENEM 1GM IVPB 100 ML IV SCH ×3 (05:49→22:08)
[2023-09-27] MEDS: InsuLIN REG 1unit/0.01ml Soln (100units/ml) SC SCH ×4 (05:59→23:58)
[2023-09-27] MEDS: ACCU-CHEK COMFORT CURVE STRIP VI SCH ×3 (05:59→18:00)
[2023-09-27 06:43] LABS: Basophils # (auto) 0 10 ^3/uL (0-0.2); Basophils % (auto) 0.6 % (0.0-2.0); Eosinophils # (auto) 0.1 10 ^3/uL (0-0.8); Eosinophils % (auto) 0.9 % (0.0-7.0); Hemoglobin 8.4 g/dL (13.5-17.5); Neutrophils # (auto) 5.9 10 ^3/uL (1.6-8.6); White Blood Cell 8.2 10^3/uL (4.4-10.8)
[2023-09-27 06:46] LABS: Hematocrit 25.3 % (41.0-53.0); Lymphocytes # (auto) 1.2 10 ^3/uL (0.4-5.4); Lymphocytes % (auto) 14.1 % (10.0-50.0); Mean Corpuscular Hemoglobin 31.5 pg (28.0-32.0); Mean Corpuscular Hgb Conc. 33.2 g/dL (32.0-36.0); Mean Corpuscular Volume 94.8 fL (80.0-100.0); Monocytes % (auto) 12.3 % (0.0-12.0); Neutrophils % (auto) 72.1 % (37.0-80.0); Red Blood Cells 2.67 10^6/uL (4.5-5.90)
[2023-09-27 07:11] LABS: Alanine Aminotransferase 32 U/L (7-40); Albumin 2.5 g/dL (3.2-4.8); Alkaline Phosphatase 87 U/L (46-116); Anion Gap 5 (5-15); Aspartate Aminotransferase 32 U/L (13-40); Bilirubin, Total 0.4 mg/dL (0.2-1.0); Blood Urea Nitrogen 11 mg/dL (9-23); Calcium 7.7 mg/dL (8.7-10.4); Carbon Dioxide 25 mmol/L (20-30); Chloride 101 mmol/L (98-107); Glucose 125 mg/dL (74-106); Magnesium 1.8 mg/dL (1.6-2.6); Phosphorus 3.7 mg/dL (2.4-5.1); Potassium 4.8 mmol/L (3.5-5.1); Sodium 131 mmol/L (136-145); Total Protein 5.4 g/dL (5.7-8.2)
[2023-09-27] MEDS: FERROUS SULFATE 325mg EC TAB PO SCH ×2 (08:00→18:00)
[2023-09-27 09:00] VITALS: BP 101/58; PULSE 98; RESP 14; TEMP 97.9; O2SAT 100
[2023-09-27] MEDS: PANTOPRAZOLE 40 MG TAB PO SCH (09:54)
[2023-09-27] MEDS: FOLIC ACID 1 MG TAB PO SCH (09:55)
[2023-09-27] MEDS: LIDOCAINE 5% TOPICAL PATCH TOP SCH (09:56)
[2023-09-27 13:00] VITALS: BP 97/58; PULSE 107; RESP 18; TEMP 98.9; O2SAT 97
[2023-09-27 16:56] VITALS: BP 101/61; PULSE 113; RESP 14; TEMP 99.5; O2SAT 95
[2023-09-27] MEDS: ERGOCALCIFEROL 50,000 UNIT(1.25MG) CAP PO SCH (18:56)
[2023-09-27 19:30] VITALS: PULSE 97; RESP 20; O2SAT 97
[2023-09-27] MEDS ORDERED: [UNRECOGNIZED DRUG - OTHER] IV NR ×9 (20:00)
[2023-09-27] MEDS ORDERED: POTASSIUM ACETATE IV NR ×9 (20:00)
[2023-09-27] MEDS ORDERED: MAGNESIUM SULF IV NR ×9 (20:00)
[2023-09-27] MEDS ORDERED: SODIUM CHLORIDE IV NR ×9 (20:00)
[2023-09-27 21:42] VITALS: BP 97/50; PULSE 94; RESP 18; TEMP 98.2; O2SAT 97
[2023-09-28] VITALS (7 sets, daily range): BP systolic 93–132; BP diastolic 51–65; PULSE 100–122; RESP 16–20; TEMP 98.9–100.4; O2SAT 93–97
[2023-09-28 05:02] LABS: Basophils # (auto) 0 10 ^3/uL (0-0.2); Basophils % (auto) 0.6 % (0.0-2.0); Eosinophils # (auto) 0.2 10 ^3/uL (0-0.8); Eosinophils % (auto) 2.7 % (0.0-7.0); Hematocrit 27.3 % (41.0-53.0); Hemoglobin 8.8 g/dL (13.5-17.5); Lymphocytes # (auto) 1.2 10 ^3/uL (0.4-5.4); Lymphocytes % (auto) 21.3 % (10.0-50.0); Mean Corpuscular Hemoglobin 30.5 pg (28.0-32.0); Mean Corpuscular Hgb Conc. 32.3 g/dL (32.0-36.0); Mean Corpuscular Volume 94.4 fL (80.0-100.0); Monocytes # (auto) 0.7 10 ^3/uL (0-1.3); Monocytes % (auto) 12.6 % (0.0-12.0); Neutrophils # (auto) 3.7 10 ^3/uL (1.6-8.6); Neutrophils % (auto) 62.8 % (37.0-80.0); Red Cell Distribution Width 18.6 % (11.8-14.3); White Blood Cell 5.8 10^3/uL (4.4-10.8)
[2023-09-28 05:20] LABS: Alanine Aminotransferase 48 U/L (7-40); Albumin 2.9 g/dL (3.2-4.8); Alkaline Phosphatase 87 U/L (46-116); Anion Gap 6 (5-15); Aspartate Aminotransferase 61 U/L (13-40); BUN/Creatinine Ratio 14.3 (10.0-20.0); Blood Urea Nitrogen 7 mg/dL (9-23); Calcium 8.4 mg/dL (8.7-10.4); Carbon Dioxide 25 mmol/L (20-30); Chloride 103 mmol/L (98-107); Glucose 116 mg/dL (74-106); Sodium 134 mmol/L (136-145)
[2023-09-28 05:21] LABS: Bilirubin, Total 0.3 mg/dL (0.2-1.0); Phosphorus 3.2 mg/dL (2.4-5.1); Total Protein 6.4 g/dL (5.7-8.2)
[2023-09-28] MEDS: HYDROcodone-ACET 5/325MG TAB PO PRN ×3 (05:31→20:41)
[2023-09-28] MEDS: MEROPENEM 1GM IVPB 100 ML IV SCH ×3 (05:31→21:40)
[2023-09-28] MEDS: InsuLIN REG 1unit/0.01ml Soln (100units/ml) SC SCH ×3 (05:44→18:00)
[2023-09-28] MEDS: ACCU-CHEK COMFORT CURVE STRIP VI SCH ×5 (05:51→23:07)
[2023-09-28] MEDS: FOLIC ACID 1 MG TAB PO SCH (09:19)
[2023-09-28] MEDS: PANTOPRAZOLE 40 MG TAB PO SCH (09:19)
[2023-09-28] MEDS: FERROUS SULFATE 325mg EC TAB PO SCH ×2 (09:19→18:00)
[2023-09-28] MEDS: LIDOCAINE 5% TOPICAL PATCH TOP SCH (09:20)
[2023-09-28] MEDS: ACETAMINOPHEN 325 MG TAB PO PRN (16:13)
[2023-09-28] MEDS ORDERED: TPN PER PHARMACY IV NR ×10 (20:00)
[2023-09-29] VITALS (7 sets, daily range): BP systolic 104–105; BP diastolic 56–60; PULSE 98–142; RESP 16–19; TEMP 98–98.9; O2SAT 94–95
[2023-09-29] MEDS: InsuLIN REG 1unit/0.01ml Soln (100units/ml) SC SCH ×5 (00:25→23:15)
[2023-09-29] MEDS: HYDROcodone-ACET 5/325MG TAB PO PRN ×3 (00:46→11:09)
[2023-09-29 04:56] LABS: Basophils # (auto) 0.1 10 ^3/uL (0-0.2); Basophils % (auto) 0.8 % (0.0-2.0); Eosinophils # (auto) 0.2 10 ^3/uL (0-0.8); Hemoglobin 8.4 g/dL (13.5-17.5); Lymphocytes # (auto) 1.3 10 ^3/uL (0.4-5.4); Monocytes % (auto) 13.9 % (0.0-12.0); Neutrophils # (auto) 4.7 10 ^3/uL (1.6-8.6); White Blood Cell 7.3 10^3/uL (4.4-10.8)
[2023-09-29 04:58] LABS: Eosinophils % (auto) 3.4 % (0.0-7.0); Hematocrit 25.7 % (41.0-53.0); Lymphocytes % (auto) 17.7 % (10.0-50.0); Mean Corpuscular Hemoglobin 30.6 pg (28.0-32.0); Mean Corpuscular Hgb Conc. 32.6 g/dL (32.0-36.0); Neutrophils % (auto) 64.2 % (37.0-80.0); Nucleated Red Blood Cells % 0.1 %; Red Blood Cells 2.73 10^6/uL (4.5-5.90); Red Cell Distribution Width 18.8 % (11.8-14.3)
[2023-09-29 05:11] LABS: Alanine Aminotransferase 57 U/L (7-40); Albumin 2.8 g/dL (3.2-4.8); Alkaline Phosphatase 85 U/L (46-116); Anion Gap 4 (5-15); Aspartate Aminotransferase 53 U/L (13-40); BUN/Creatinine Ratio 17.4 (10.0-20.0); Blood Urea Nitrogen 8 mg/dL (9-23); Calcium 8.1 mg/dL (8.7-10.4); Carbon Dioxide 25 mmol/L (20-30); Chloride 105 mmol/L (98-107); Glucose 122 mg/dL (74-106); Potassium 3.9 mmol/L (3.5-5.1); Sodium 134 mmol/L (136-145)
[2023-09-29 05:12] LABS: Bilirubin, Total 0.3 mg/dL (0.2-1.0); Total Protein 6.2 g/dL (5.7-8.2)
[2023-09-29] MEDS: ACCU-CHEK COMFORT CURVE STRIP VI SCH ×4 (05:22→23:14)
[2023-09-29] MEDS: MEROPENEM 1GM IVPB 100 ML IV SCH ×3 (05:22→21:17)
[2023-09-29 08:26] LABS: Phosphorus 3.5 mg/dL (2.4-5.1)
[2023-09-29] MEDS: FERROUS SULFATE 325mg EC TAB PO SCH ×2 (11:09→18:00)
[2023-09-29] MEDS: FOLIC ACID 1 MG TAB PO SCH (11:10)
[2023-09-29] MEDS: LIDOCAINE 5% TOPICAL PATCH TOP SCH (11:10)
[2023-09-29] MEDS: PANTOPRAZOLE 40 MG TAB PO SCH (11:10)
[2023-09-29] MEDS ORDERED: TPN PER PHARMACY IV NR ×10 (20:00)
[2023-09-29] MEDS: ACETAMINOPHEN 325 MG TAB PO PRN (21:17)
[2023-09-30] VITALS (7 sets, daily range): BP systolic 99–110; BP diastolic 55–71; PULSE 90–109; RESP 16–20; TEMP 97.6–99.8; O2SAT 94–98
[2023-09-30 05:12] LABS: Basophils # (auto) 0.1 10 ^3/uL (0-0.2); Basophils % (auto) 0.7 % (0.0-2.0); Eosinophils # (auto) 0.3 10 ^3/uL (0-0.8); Eosinophils % (auto) 3.2 % (0.0-7.0); Hematocrit 26.4 % (41.0-53.0); Hemoglobin 8.7 g/dL (13.5-17.5); Lymphocytes # (auto) 1.4 10 ^3/uL (0.4-5.4); Lymphocytes % (auto) 17.9 % (10.0-50.0); Mean Corpuscular Hemoglobin 30.9 pg (28.0-32.0); Mean Corpuscular Volume 93.7 fL (80.0-100.0); Monocytes # (auto) 0.9 10 ^3/uL (0-1.3); Monocytes % (auto) 11.9 % (0.0-12.0); Neutrophils # (auto) 5.2 10 ^3/uL (1.6-8.6); Neutrophils % (auto) 66.3 % (37.0-80.0); Red Blood Cells 2.81 10^6/uL (4.5-5.90); Red Cell Distribution Width 19.3 % (11.8-14.3); White Blood Cell 7.9 10^3/uL (4.4-10.8)
[2023-09-30] MEDS: MEROPENEM 1GM IVPB 100 ML IV SCH ×3 (05:16→22:01)
[2023-09-30] MEDS: ACCU-CHEK COMFORT CURVE STRIP VI SCH ×3 (05:17→17:58)
[2023-09-30 05:33] LABS: Alanine Aminotransferase 56 U/L (7-40); Albumin 2.9 g/dL (3.2-4.8); Alkaline Phosphatase 84 U/L (46-116); Anion Gap 8 (5-15); Aspartate Aminotransferase 49 U/L (13-40); BUN/Creatinine Ratio 18.2 (10.0-20.0); Blood Urea Nitrogen 8 mg/dL (9-23); Calcium 8.3 mg/dL (8.7-10.4); Carbon Dioxide 23 mmol/L (20-30); Chloride 105 mmol/L (98-107); Glucose 114 mg/dL (74-106); Magnesium 2.2 mg/dL (1.6-2.6); Phosphorus 3.1 mg/dL (2.4-5.1); Potassium 3.8 mmol/L (3.5-5.1); Sodium 136 mmol/L (136-145)
[2023-09-30 05:34] LABS: Bilirubin, Total 0.3 mg/dL (0.2-1.0); Total Protein 6.6 g/dL (5.7-8.2)
[2023-09-30] MEDS: InsuLIN REG 1unit/0.01ml Soln (100units/ml) SC SCH ×3 (05:50→17:58)
[2023-09-30] MEDS: FERROUS SULFATE 325mg EC TAB PO SCH ×2 (08:00→17:57)
[2023-09-30] MEDS: FOLIC ACID 1 MG TAB PO SCH (09:42)
[2023-09-30] MEDS: PANTOPRAZOLE 40 MG TAB PO SCH (09:42)
[2023-09-30] MEDS: LIDOCAINE 5% TOPICAL PATCH TOP SCH (09:43)
[2023-09-30] MEDS ORDERED: GASTROGRAFIN 120 ML SOL ONE (13:53)
[2023-09-30] MEDS ORDERED: TPN PER PHARMACY IV NR ×10 (20:00)
[2023-10-01] VITALS (7 sets, daily range): BP systolic 104–123; BP diastolic 53–70; PULSE 72–91; RESP 16–20; TEMP 97.5–98.9; O2SAT 97–98
[2023-10-01] MEDS: ACCU-CHEK COMFORT CURVE STRIP VI SCH ×5 (00:32→23:04)
[2023-10-01] MEDS: InsuLIN REG 1unit/0.01ml Soln (100units/ml) SC SCH ×4 (00:42→17:40)
[2023-10-01] MEDS: MEROPENEM 1GM IVPB 100 ML IV SCH ×3 (05:07→23:04)
[2023-10-01 06:44] LABS: Alanine Aminotransferase 119 U/L (7-40); Albumin 2.8 g/dL (3.2-4.8); Alkaline Phosphatase 75 U/L (46-116); Anion Gap 8 (5-15); Aspartate Aminotransferase 138 U/L (13-40); Blood Urea Nitrogen 10 mg/dL (9-23); Calcium 8.3 mg/dL (8.7-10.4); Carbon Dioxide 21 mmol/L (20-30); Chloride 111 mmol/L (98-107); Glucose 133 mg/dL (74-106); Magnesium 2.3 mg/dL (1.6-2.6); Potassium 3.9 mmol/L (3.5-5.1); Sodium 140 mmol/L (136-145)
[2023-10-01 06:45] LABS: Phosphorus 2.9 mg/dL (2.4-5.1)
[2023-10-01 06:46] LABS: Bilirubin, Total 0.3 mg/dL (0.2-1.0); Total Protein 6.2 g/dL (5.7-8.2)
[2023-10-01 07:16] LABS: Hematocrit 26.3 % (41.0-53.0); Hemoglobin 8.5 g/dL (13.5-17.5); Mean Corpuscular Hemoglobin 29.9 pg (28.0-32.0); Mean Corpuscular Hgb Conc. 32.1 g/dL (32.0-36.0); Red Blood Cells 2.83 10^6/uL (4.5-5.90); Red Cell Distribution Width 18.9 % (11.8-14.3); White Blood Cell 5.7 10^3/uL (4.4-10.8)
[2023-10-01 07:24] LABS: Band Neutrophils % (manual) 0; Basophils % (manual) 0 (0.0-2.0); Blast Cells 0; Metamyelocytes % 0; Promyelocytes % 0; Reactive Lymphocytes 0
[2023-10-01 07:29] LABS: CRP High Sensitivity 11.09 mg/dL (<1.0)
[2023-10-01] MEDS: FERROUS SULFATE 325mg EC TAB PO SCH ×2 (08:00→17:40)
[2023-10-01] MEDS: FOLIC ACID 1 MG TAB PO SCH (09:30)
[2023-10-01] MEDS: LIDOCAINE 5% TOPICAL PATCH TOP SCH (09:30)
[2023-10-01] MEDS: PANTOPRAZOLE 40 MG TAB PO SCH (09:30)
[2023-10-01] MEDS ORDERED: GOLYTELY 4L KIT PO ONE (09:30)
[2023-10-01 10:31] LABS: INR 1.15 (0.9-1.15); Partial Thromboplastin Time 33.8 SEC (24.5-34.5)
[2023-10-01] MEDS: MORPHINE SULFATE INJ 2 MG/ml SYRG IV PRN ×3 (12:19→23:03)
[2023-10-01 12:40] LABS: Eosinophils % (manual) 2 (0-7); Lymphocytes % (manual) 19 (10.0-50.0); Monocytes % (manual) 11 (0-12); Myelocytes % 1; Platelet Estimate Adequate
[2023-10-01] MEDS ORDERED: TPN PER PHARMACY IV NR ×8 (20:00)
[2023-10-02] VITALS (7 sets, daily range): BP systolic 93–104; BP diastolic 61–68; PULSE 81–96; RESP 16–20; TEMP 97.5–98.3; O2SAT 95–98
[2023-10-02] MEDS: ERGOCALCIFEROL 50,000 UNIT(1.25MG) CAP PO SCH (03:39)
[2023-10-02] MEDS: MEROPENEM 1GM IVPB 100 ML IV SCH ×3 (05:05→21:08)
[2023-10-02] MEDS: ACCU-CHEK COMFORT CURVE STRIP VI SCH ×3 (05:09→17:44)
[2023-10-02] MEDS: InsuLIN REG 1unit/0.01ml Soln (100units/ml) SC SCH ×4 (05:15→17:48)
[2023-10-02] MEDS ORDERED: SUCCINYLCHOLINE CHLORIDE 20 MG/ML 10ML VIAL IV ONE ×2 (06:41→07:20)
[2023-10-02] MEDS ORDERED: fentaNYL CITRATE 100 MCG/2 ML VL ONE ×3 (06:47→07:56)
[2023-10-02] MEDS ORDERED: PROPOFOL 10 MG/ML 20 ML IV ONE ×2 (06:47→07:59)
[2023-10-02 07:01] LABS: Alanine Aminotransferase 166 U/L (7-40); Alkaline Phosphatase 84 U/L (46-116); Anion Gap 8 (5-15); Aspartate Aminotransferase 118 U/L (13-40); BUN/Creatinine Ratio 22.2 (10.0-20.0); Bilirubin, Total 0.3 mg/dL (0.2-1.0); Blood Urea Nitrogen 10 mg/dL (9-23); Calcium 8.8 mg/dL (8.5-10.1); Carbon Dioxide 23 mmol/L (20-30); Chloride 110 mmol/L (98-107); Glucose 114 mg/dL (74-106); Phosphorus 3.7 mg/dL (2.4-5.1); Potassium 3.6 mmol/L (3.5-5.1); Sodium 141 mmol/L (136-145); Total Protein 6.6 g/dL (5.7-8.2); Triglycerides 166 mg/dL (< 150)
[2023-10-02 07:11] LABS: CRP High Sensitivity 6.12 mg/dL (<1.0)
[2023-10-02] MEDS ORDERED: ONDANSETRON HCL 4 MG/2 ML VIAL IV PRN ×2 (07:15→10:00)
[2023-10-02] MEDS ORDERED: HYDROmorphone HCL 2 MG/ML VL/or syr IV PRN (07:15)
[2023-10-02] MEDS ORDERED: MEPERIDINE HCL (25 MG/ML) 1ML VIAL IV PRN ×2 (07:15→10:00)
[2023-10-02] MEDS ORDERED: ONDANSETRON HCL 4 MG/2 ML VIAL ONE ×2 (07:24→07:53)
[2023-10-02] MEDS ORDERED: GLYCOPYRROLATE 0.2 MG/ML 1ML VIAL ONE (07:24)
[2023-10-02] MEDS ORDERED: KETOROLAC TROMETH 30 MG/ML 1ML VIAL ONE (07:24)
[2023-10-02] MEDS ORDERED: DexAMETHasone SOD PHOS 10MG/1ML VIAL INJ ONE ×2 (07:24→07:53)
[2023-10-02] MEDS ORDERED: MIDAZOLAM HCL 2MG/2ML 2ml VIAL (1mg/ml) ONE (07:24)
[2023-10-02] MEDS ORDERED: LIDOCAINE 2% (LOCAL ANESTH.) PF 5ml SDV ONE (07:24)
[2023-10-02] MEDS ORDERED: MEPERIDINE HCL (50 MG/ML) 1 ML VIAL ONE ×3 (07:24→09:32)
[2023-10-02 07:26] LABS: Hematocrit 28.3 % (41.0-53.0); Hemoglobin 9.1 g/dL (13.5-17.5); Mean Corpuscular Hemoglobin 29.8 pg (28.0-32.0); Mean Corpuscular Hgb Conc. 32.1 g/dL (32.0-36.0); Mean Corpuscular Volume 92.8 fL (80.0-100.0); Red Blood Cells 3.05 10^6/uL (4.5-5.90); Red Cell Distribution Width 18.9 % (11.8-14.3); White Blood Cell 5.8 10^3/uL (4.4-10.8)
[2023-10-02 07:27] LABS: Magnesium 2.1 mg/dL (1.6-2.6)
[2023-10-02 07:36] LABS: Basophils % (manual) 0 (0.0-2.0); Blast Cells 0; Metamyelocytes % 0; Myelocytes % 0; Promyelocytes % 0; Reactive Lymphocytes 0
[2023-10-02] MEDS ORDERED: ROCURONIUM 10MG/ML 10ML VIAL IV ONE (07:48)
[2023-10-02] MEDS ORDERED: ePHEDrine SULFATE 50 MG/ML AMP ONE (07:59)
[2023-10-02] MEDS: FERROUS SULFATE 325mg EC TAB PO SCH ×2 (08:00→17:40)
[2023-10-02] MEDS ORDERED: LIDOCAINE W/ EPINEPHRINE 2% INJ 20ML VIAL ONE (08:22)
[2023-10-02] MEDS ORDERED: SUGAMMADEX 200mg/2ml Vial (100MG/ML) IV ONE (09:22)
[2023-10-02] MEDS: LIDOCAINE 5% TOPICAL PATCH TOP SCH (09:59)
[2023-10-02] MEDS: FOLIC ACID 1 MG TAB PO SCH (09:59)
[2023-10-02] MEDS: PANTOPRAZOLE 40 MG TAB PO SCH (09:59)
[2023-10-02] MEDS ORDERED: D5W/SOD CHL 0.45%/KCL 20MEQ 1,000 ML IV ONE (10:00)
[2023-10-02] MEDS: HYDROmorphone HCL 2 MG/ML VL/or syr IV PRN ×3 (10:40→11:08)
[2023-10-02 12:17] LABS: Platelet Estimate Increased
[2023-10-02 12:22] LABS: Band Neutrophils % (manual) 5; Eosinophils % (manual) 3 (0-7); Lymphocytes % (manual) 33 (10.0-50.0); Monocytes % (manual) 6 (0-12)
[2023-10-02] MEDS: MORPHINE SULFATE INJ 2 MG/ml SYRG IV PRN ×3 (13:10→21:34)
[2023-10-02] MEDS ORDERED: TPN PER PHARMACY IV NR ×8 (20:00)
[2023-10-03] MEDS: ACCU-CHEK COMFORT CURVE STRIP VI SCH ×3 (00:55→11:37)
[2023-10-03] MEDS: MORPHINE SULFATE INJ 2 MG/ml SYRG IV PRN ×3 (01:10→09:50)
[2023-10-03] MEDS: InsuLIN REG 1unit/0.01ml Soln (100units/ml) SC SCH ×3 (01:19→11:38)
[2023-10-03 05:27] VITALS: BP 101/63; PULSE 85; RESP 19; TEMP 97.4; O2SAT 97
[2023-10-03] MEDS: MEROPENEM 1GM IVPB 100 ML IV SCH ×2 (05:53→13:27)
[2023-10-03 06:43] LABS: Basophils # (auto) 0 10 ^3/uL (0-0.2); Basophils % (auto) 0.1 % (0.0-2.0); Eosinophils # (auto) 0 10 ^3/uL (0-0.8); Hemoglobin 8.1 g/dL (13.5-17.5); Lymphocytes # (auto) 0.9 10 ^3/uL (0.4-5.4); Mean Corpuscular Hgb Conc. 30.9 g/dL (32.0-36.0); Monocytes # (auto) 0.7 10 ^3/uL (0-1.3); Neutrophils # (auto) 13.4 10 ^3/uL (1.6-8.6); Neutrophils % (auto) 89.1 % (37.0-80.0)
[2023-10-03 06:46] LABS: Hematocrit 26.3 % (41.0-53.0); Lymphocytes % (auto) 6.2 % (10.0-50.0); Mean Corpuscular Hemoglobin 29.5 pg (28.0-32.0); Mean Corpuscular Volume 95.7 fL (80.0-100.0); Monocytes % (auto) 4.6 % (0.0-12.0); Red Blood Cells 2.75 10^6/uL (4.5-5.90); Red Cell Distribution Width 18.6 % (11.8-14.3); White Blood Cell 15.1 10^3/uL (4.4-10.8)
[2023-10-03 07:01] LABS: Alanine Aminotransferase 101 U/L (7-40); Alkaline Phosphatase 77 U/L (46-116); Anion Gap 8 (5-15); BUN/Creatinine Ratio 31.1 (10.0-20.0); Blood Urea Nitrogen 14 mg/dL (9-23); Calcium 8.1 mg/dL (8.7-10.4); Carbon Dioxide 19 mmol/L (20-30); Chloride 110 mmol/L (98-107); Magnesium 2.1 mg/dL (1.6-2.6); Potassium 4.3 mmol/L (3.5-5.1); Sodium 137 mmol/L (136-145)
[2023-10-03 07:02] LABS: Albumin 2.8 g/dL (3.2-4.8); Aspartate Aminotransferase 28 U/L (13-40); Bilirubin, Total 0.3 mg/dL (0.2-1.0); Phosphorus 2.5 mg/dL (2.4-5.1); Total Protein 6.4 g/dL (5.7-8.2)
[2023-10-03 07:11] LABS: Glucose 222 mg/dL (74-106)
[2023-10-03 07:20] LABS: CRP High Sensitivity 9.09 mg/dL (<1.0)
[2023-10-03 08:00] VITALS: PULSE 70; RESP 18; O2SAT 97
[2023-10-03] MEDS: FERROUS SULFATE 325mg EC TAB PO SCH ×2 (08:00→18:08)
[2023-10-03 09:00] VITALS: BP 104/67; PULSE 81; RESP 18; TEMP 98; O2SAT 97
[2023-10-03] MEDS: LIDOCAINE 5% TOPICAL PATCH TOP SCH (09:49)
[2023-10-03] MEDS: FOLIC ACID 1 MG TAB PO SCH (09:55)
[2023-10-03] MEDS: PANTOPRAZOLE 40 MG TAB PO SCH (09:55)
[2023-10-03] MEDS ORDERED: SODIUM PHOSPHATES 20 MEQ in SODIUM CHL 0.9% 100 ML IV ONE (10:30)
[2023-10-03] MEDS ORDERED: KETOROLAC TROMETH 30 MG/ML 1ML VIAL IV PRN (10:30)
[2023-10-03 13:00] VITALS: BP 104/58; PULSE 77; RESP 16; TEMP 97.5; O2SAT 96
[2023-10-03] MEDS: KETOROLAC TROMETH 30 MG/ML 1ML VIAL IV PRN ×2 (14:06→20:20)
[2023-10-03 16:41] VITALS: BP 105/61; PULSE 71; RESP 16; TEMP 97.5; O2SAT 100
[2023-10-03] MEDS ORDERED: TPN PER PHARMACY IV NR ×11 (20:00)
[2023-10-03 20:30] VITALS: PULSE 70; RESP 17; O2SAT 98
[2023-10-03] MEDS: MEROPENEM 1GM IVPB 50 ML IV SCH (22:34)
[2023-10-04] VITALS (7 sets, daily range): BP systolic 99–107; BP diastolic 48–64; PULSE 74–89; RESP 17–18; TEMP 97.5–98.6; O2SAT 96–100
[2023-10-04 05:13] LABS: Basophils # (auto) 0 10 ^3/uL (0-0.2); Basophils % (auto) 0.1 % (0.0-2.0); Eosinophils # (auto) 0 10 ^3/uL (0-0.8); Hemoglobin 7.7 g/dL (13.5-17.5); Lymphocytes # (auto) 1.6 10 ^3/uL (0.4-5.4)
[2023-10-04 05:16] LABS: Hematocrit 24.2 % (41.0-53.0); Lymphocytes % (auto) 9.2 % (10.0-50.0); Mean Corpuscular Hemoglobin 29.5 pg (28.0-32.0); Mean Corpuscular Hgb Conc. 31.9 g/dL (32.0-36.0); Mean Corpuscular Volume 92.4 fL (80.0-100.0); Monocytes # (auto) 0.7 10 ^3/uL (0-1.3); Monocytes % (auto) 4.1 % (0.0-12.0); Neutrophils % (auto) 86.6 % (37.0-80.0); Red Blood Cells 2.61 10^6/uL (4.5-5.90); Red Cell Distribution Width 18.8 % (11.8-14.3); White Blood Cell 17.4 10^3/uL (4.4-10.8)
[2023-10-04 05:27] LABS: Alanine Aminotransferase 130 U/L (7-40); Albumin 2.8 g/dL (3.2-4.8); Alkaline Phosphatase 88 U/L (46-116); Anion Gap 7 (5-15); Aspartate Aminotransferase 94 U/L (13-40); Bilirubin, Total 0.3 mg/dL (0.2-1.0); Blood Urea Nitrogen 14 mg/dL (9-23); Calcium 8.7 mg/dL (8.5-10.1); Carbon Dioxide 21 mmol/L (20-30); Chloride 112 mmol/L (98-107); Glucose 100 mg/dL (74-106); Sodium 140 mmol/L (136-145)
[2023-10-04] MEDS: MEROPENEM 1GM IVPB 50 ML IV SCH ×3 (05:56→22:46)
[2023-10-04] MEDS: FERROUS SULFATE 325mg EC TAB PO SCH (08:00)
[2023-10-04] MEDS: KETOROLAC TROMETH 30 MG/ML 1ML VIAL IV PRN ×2 (09:31→15:34)
[2023-10-04] MEDS: PANTOPRAZOLE 40 MG TAB PO SCH (10:00)
[2023-10-04] MEDS: FOLIC ACID 1 MG TAB PO SCH (10:00)
[2023-10-04] MEDS: LIDOCAINE 5% TOPICAL PATCH TOP SCH (11:06)
[2023-10-05] VITALS (7 sets, daily range): BP systolic 93–104; BP diastolic 58–63; PULSE 63–95; RESP 16–19; TEMP 97.4–98.3; O2SAT 97–100
[2023-10-05] MEDS: KETOROLAC TROMETH 30 MG/ML 1ML VIAL IV PRN ×3 (04:10→18:48)
[2023-10-05 05:11] LABS: Eosinophils # (auto) 0.1 10 ^3/uL (0-0.8); Hemoglobin 7.7 g/dL (13.5-17.5); Lymphocytes # (auto) 1.6 10 ^3/uL (0.4-5.4); Red Blood Cells 2.61 10^6/uL (4.5-5.90)
[2023-10-05] MEDS: MEROPENEM 1GM IVPB 50 ML IV SCH ×3 (05:14→21:25)
[2023-10-05 05:16] LABS: Basophils # (auto) 0.1 10 ^3/uL (0-0.2); Basophils % (auto) 0.5 % (0.0-2.0); Eosinophils % (auto) 0.6 % (0.0-7.0); Hematocrit 24.1 % (41.0-53.0); Mean Corpuscular Hemoglobin 29.7 pg (28.0-32.0); Mean Corpuscular Hgb Conc. 32.1 g/dL (32.0-36.0); Mean Corpuscular Volume 92.3 fL (80.0-100.0); Monocytes # (auto) 0.8 10 ^3/uL (0-1.3); Monocytes % (auto) 5.8 % (0.0-12.0); Neutrophils # (auto) 10.7 10 ^3/uL (1.6-8.6); Neutrophils % (auto) 81.1 % (37.0-80.0); Nucleated Red Blood Cells % 0.1 %; White Blood Cell 13.2 10^3/uL (4.4-10.8)
[2023-10-05 05:39] LABS: % Iron Saturation 10.8 % (20-55)
[2023-10-05 05:41] LABS: Alanine Aminotransferase 495 U/L (7-40); Albumin 2.8 g/dL (3.2-4.8); Alkaline Phosphatase 177 U/L (46-116); Anion Gap 6 (5-15); Aspartate Aminotransferase 415 U/L (13-40); BUN/Creatinine Ratio 29.8 (10.0-20.0); Bilirubin, Total 0.5 mg/dL (0.2-1.0); Blood Urea Nitrogen 14 mg/dL (9-23); Calcium 8.5 mg/dL (8.5-10.1); Carbon Dioxide 21 mmol/L (20-30); Chloride 111 mmol/L (98-107); Glucose 78 mg/dL (74-106); Potassium 3.8 mmol/L (3.5-5.1); Sodium 138 mmol/L (136-145); Total Protein 5.9 g/dL (5.7-8.2)
[2023-10-05 05:49] LABS: CRP High Sensitivity 8.37 mg/dL (<1.0)
[2023-10-05 06:02] LABS: Magnesium 1.8 mg/dL (1.6-2.6)
[2023-10-05 09:15] LABS: Hepatitis B Surface Antigen Negative (Negative)
[2023-10-05 09:36] LABS: Hepatitis A Ab IgM Negative; Hepatitis B Core IgM Negative
[2023-10-05 09:37] LABS: Hepatitis C Antibody Negative (Negative)
[2023-10-05] MEDS: LIDOCAINE 5% TOPICAL PATCH TOP SCH (09:49)
[2023-10-05] MEDS: FOLIC ACID 1 MG TAB PO SCH (09:49)
[2023-10-05] MEDS: PANTOPRAZOLE 40 MG TAB PO SCH (09:49)
[2023-10-05] MEDS ORDERED: chlorproMAZINE HCL 25 MG/1 ML AMP IM PRN (11:45)
[2023-10-06] MEDS: KETOROLAC TROMETH 30 MG/ML 1ML VIAL IV PRN ×4 (02:50→22:08)
[2023-10-06 05:00] VITALS: BP 95/64; PULSE 105; RESP 20; TEMP 97.9; O2SAT 96
[2023-10-06] MEDS: MEROPENEM 1GM IVPB 50 ML IV SCH ×3 (05:30→22:12)
[2023-10-06 06:47] LABS: Eosinophils # (auto) 0.3 10 ^3/uL (0-0.8); Eosinophils % (auto) 2.2 % (0.0-7.0); Hemoglobin 7.9 g/dL (13.5-17.5); Monocytes # (auto) 0.7 10 ^3/uL (0-1.3)
[2023-10-06 06:50] LABS: Basophils # (auto) 0 10 ^3/uL (0-0.2); Basophils % (auto) 0.3 % (0.0-2.0); Hematocrit 23.7 % (41.0-53.0); Lymphocytes # (auto) 1.6 10 ^3/uL (0.4-5.4); Lymphocytes % (auto) 11.8 % (10.0-50.0); Mean Corpuscular Hemoglobin 30.9 pg (28.0-32.0); Mean Corpuscular Hgb Conc. 33.3 g/dL (32.0-36.0); Mean Corpuscular Volume 92.8 fL (80.0-100.0); Monocytes % (auto) 4.7 % (0.0-12.0); Neutrophils # (auto) 11.3 10 ^3/uL (1.6-8.6); Red Blood Cells 2.56 10^6/uL (4.5-5.90); Red Cell Distribution Width 19.3 % (11.8-14.3)
[2023-10-06] MEDS ORDERED: VANCOMYCIN PER PHARMACY 0 MG IV SCH (07:00)
[2023-10-06 07:12] LABS: Alanine Aminotransferase 294 U/L (7-40); Albumin 2.8 g/dL (3.2-4.8); Alkaline Phosphatase 162 U/L (46-116); Anion Gap 7 (5-15); Aspartate Aminotransferase 104 U/L (13-40); Blood Urea Nitrogen 13 mg/dL (9-23); Calcium 8.8 mg/dL (8.5-10.1); Carbon Dioxide 22 mmol/L (20-30); Chloride 110 mmol/L (98-107); Glucose 76 mg/dL (74-106); Potassium 3.7 mmol/L (3.5-5.1); Sodium 139 mmol/L (136-145)
[2023-10-06 07:13] LABS: Bilirubin, Total 0.7 mg/dL (0.2-1.0)
[2023-10-06 07:21] LABS: CRP High Sensitivity 13.24 mg/dL (<1.0)
[2023-10-06] MEDS: VANCOMYCIN 1GM/200ML 200 ML IV SCH ×2 (08:33→15:47)
[2023-10-06 08:54] VITALS: BP 96/58; PULSE 97; RESP 20; TEMP 97.9; O2SAT 98
[2023-10-06] MEDS: LIDOCAINE 5% TOPICAL PATCH TOP SCH (09:50)
[2023-10-06] MEDS: FOLIC ACID 1 MG TAB PO SCH (09:50)
[2023-10-06] MEDS: PANTOPRAZOLE 40 MG TAB PO SCH (09:50)
[2023-10-06 13:00] VITALS: BP 92/54; PULSE 100; RESP 20; TEMP 97.9; O2SAT 98
[2023-10-06 17:00] VITALS: BP 98/53; PULSE 96; RESP 18; TEMP 98.8; O2SAT 94
[2023-10-06 20:00] VITALS: PULSE 94; RESP 18
[2023-10-06 22:00] VITALS: BP 101/49; PULSE 94; RESP 18; TEMP 97.6; O2SAT 96
[2023-10-07] MEDS: VANCOMYCIN 1GM/200ML 200 ML IV SCH ×2 (00:07→09:47)
[2023-10-07] MEDS: MEROPENEM 1GM IVPB 50 ML IV SCH ×2 (05:34→14:54)
[2023-10-07 06:58] LABS: Basophils # (auto) 0 10 ^3/uL (0-0.2)
[2023-10-07 07:00] LABS: Basophils % (auto) 0.2 % (0.0-2.0); Eosinophils # (auto) 0.6 10 ^3/uL (0-0.8); Eosinophils % (auto) 4.7 % (0.0-7.0); Hematocrit 24.3 % (41.0-53.0); Lymphocytes # (auto) 1.7 10 ^3/uL (0.4-5.4); Lymphocytes % (auto) 13.3 % (10.0-50.0); Mean Corpuscular Hemoglobin 30.8 pg (28.0-32.0); Mean Corpuscular Hgb Conc. 32.9 g/dL (32.0-36.0); Mean Corpuscular Volume 93.5 fL (80.0-100.0); Monocytes # (auto) 0.6 10 ^3/uL (0-1.3); Monocytes % (auto) 4.8 % (0.0-12.0); Neutrophils # (auto) 9.8 10 ^3/uL (1.6-8.6); Red Cell Distribution Width 19.4 % (11.8-14.3); White Blood Cell 12.7 10^3/uL (4.4-10.8)
[2023-10-07 07:14] LABS: Alanine Aminotransferase 232 U/L (7-40); Albumin 2.7 g/dL (3.2-4.8); Alkaline Phosphatase 171 U/L (46-116); Anion Gap 7 (5-15); Aspartate Aminotransferase 87 U/L (13-40); BUN/Creatinine Ratio 28.3 (10.0-20.0); Bilirubin, Total 0.8 mg/dL (0.2-1.0); Blood Urea Nitrogen 15 mg/dL (9-23); Calcium 8.6 mg/dL (8.5-10.1); Carbon Dioxide 20 mmol/L (20-30); Chloride 111 mmol/L (98-107); Glucose 89 mg/dL (74-106); Potassium 4.2 mmol/L (3.5-5.1); Sodium 138 mmol/L (136-145); Total Protein 5.7 g/dL (5.7-8.2)
[2023-10-07 07:22] LABS: CRP High Sensitivity 13.78 mg/dL (<1.0)
[2023-10-07 08:46] VITALS: BP 102/55; PULSE 101; RESP 18; TEMP 98.3; O2SAT 98
[2023-10-07] MEDS: KETOROLAC TROMETH 30 MG/ML 1ML VIAL IV PRN (09:53)
[2023-10-07] MEDS: FOLIC ACID 1 MG TAB PO SCH (09:55)
[2023-10-07] MEDS: PANTOPRAZOLE 40 MG TAB PO SCH (09:55)
[2023-10-07] MEDS: LIDOCAINE 5% TOPICAL PATCH TOP SCH (09:56)
[2023-10-07 13:00] VITALS: BP 94/60; PULSE 102; RESP 16; TEMP 98.5; O2SAT 97
[2023-10-07 16:54] VITALS: BP 105/64; PULSE 97; RESP 16; TEMP 98.1; O2SAT 97
[2023-10-09] MEDS ORDERED: ERGOCALCIFEROL 50,000 UNIT(1.25MG) CAP PO SCH (09:30)
== END 2023-10-07 17:50 | disposition home health service (06) | DRG 329 ==
LOC: ER 05:15 → TELE 13:38 → TELE-CENTR 09-21 02:56 → CENTRAL 09-21 08:54
PROVIDERS: ADMIT Internal Medicine; ATTEND Internal Medicine
PROC: 0D1L0Z4 Bypass Transverse Colon to Cutaneous, Open Approach (ICD-10-PCS; 2023-10-02)
PROC: 0W9J0ZZ Drainage of Pelvic Cavity, Open Approach (ICD-10-PCS; principal; 2023-10-02 07:33)
DX: K68.19 Other retroperitoneal abscess (principal); E43 Unspecified severe protein-calorie malnutrition; K63.0 Abscess of intestine; K63.2 Fistula of intestine; D50.9 Iron deficiency anemia, unspecified; M94.0 Chondrocostal junction syndrome [Tietze]; R74.01 Elevation of levels of liver transaminase levels; Z20.822 Contact with and (suspected) exposure to COVID-19; E55.9 Vitamin D deficiency, unspecified; Z80.0 Family history of malignant neoplasm of digestive organs; Z68.30 Body mass index [BMI] 30.0-30.9, adult
CPT/HCPCS: 36415; 71045; 71250; 72195; 74177; 74181; 74270; 76705; 78306; 80053; 80074; 80202; 81001; 82728; 82962; 83036; 83540; 83550; 83605; 83690; 83735; 84100; 84478; 84484; 85007; 85025; 85027; 85610; 85730; 86141; 86850; 86900; 86901; 87040; 87070; 87075; 87077; 87081; 87186; 87205; 87426; 87804; 93005; 97110; 97116; 97163; 97530; G0378; J0330; J1100; J1815; J1885; J2001; J2185; J2250; J2405; J2704; J7131

== ENCOUNTER 2024-01-02 22:34 | Inpatient (IN) | payer BC ==
[~2024-01-02] VITALS: Ht 170.2 cm; Wt 68.0 kg
[~2024-01-02 22:34] MED LIST changes: -DOCU-265 PO; -METH2.5T62 PO; -PANT40T PO
[2024-01-02] MEDS: PIPERACILLIN-TAZO 4.5GM 100 ML IV ONE (23:15)
[2024-01-02] MEDS: SODIUM CHLORIDE 0.9% 1,000 ML IV ONE (23:30)
[2024-01-02 23:32] LABS: Eosinophils # (auto) 0.1 10 ^3/uL (0-0.8); Lymphocytes # (auto) 0.7 10 ^3/uL (0.4-5.4)
[2024-01-02 23:33] LABS: Basophils # (auto) 0.1 10 ^3/uL (0-0.2); Basophils % (auto) 0.4 % (0.0-2.0); Eosinophils % (auto) 0.5 % (0.0-7.0); Hematocrit 31.9 % (41.0-53.0); Hemoglobin 10.4 g/dL (13.5-17.5); Lymphocytes % (auto) 4.5 % (10.0-50.0); Mean Corpuscular Hemoglobin 28.6 pg (28.0-32.0); Mean Corpuscular Hgb Conc. 32.6 g/dL (32.0-36.0); Mean Corpuscular Volume 87.5 fL (80.0-100.0); Monocytes # (auto) 0.2 10 ^3/uL (0-1.3); Monocytes % (auto) 1.6 % (0.0-12.0); Red Blood Cells 3.64 10^6/uL (4.5-5.90); Red Cell Distribution Width 15.7 % (11.8-14.3); White Blood Cell 15.1 10^3/uL (4.4-10.8)
[2024-01-02 23:41] LABS: Chloride 104 mmol/L (98-107); Potassium 3.4 mmol/L (3.5-5.1); Sodium 135 mmol/L (136-145)
[2024-01-02 23:42] LABS: Anion Gap 11 (5-15); Calcium 8.6 mg/dL (8.5-10.1); Carbon Dioxide 20 mmol/L (20-30)
[2024-01-02 23:47] LABS: BUN/Creatinine Ratio 13.3 (10.0-20.0); Blood Urea Nitrogen 17 mg/dL (9-23); Glucose 145 mg/dL (74-106)
[2024-01-03 02:25] VITALS: PULSE 63; RESP 20; O2SAT 100
[2024-01-03] MEDS: SODIUM CHLORIDE 0.9% 1,000 ML IV ONE (02:29)
[2024-01-03 03:13] LABS: Urine Bacteria None Seen /hpf (None Seen)
[2024-01-03 03:21] LABS: Urine Blood Negative /uL (Negative); Urine Clarity Clear (Clear); Urine Color Light-Yellow (Yellow); Urine Protein, UAD Negative (Negative); Urine Specific Gravity 1.009 (1.001-1.035); Urine Urobilinogen Normal (Negative); Urine WBC 2 /hpf (0 - 3); Urine pH 5.5 (5.0-9.0)
[2024-01-03] MEDS: SODIUM CHLORIDE 0.9% 2,000 ML IV ONE (03:30)
[2024-01-03] MEDS: NOREPINEPHRINE 8 MG/250ML KIT 250 ML IV SCH (05:18)
[2024-01-03] MEDS: HYDROCORTISONE SOD SUCC 100 MG/2ML INJ VIAL IV ONE (05:18)
[2024-01-03] MEDS ORDERED: ONDANSETRON HCL 4 MG/2 ML VIAL IV PRN (05:30)
[2024-01-03] MEDS ORDERED: DOCUSATE SOD 100 MG CAP PO PRN (05:30)
[2024-01-03] MEDS ORDERED: ACETAMINOPHEN 325 MG TAB PO PRN (05:30)
[2024-01-03 07:04] LABS: Basophils # (auto) 0 10 ^3/uL (0-0.2); Basophils % (auto) 0.1 % (0.0-2.0); Eosinophils # (auto) 0.1 10 ^3/uL (0-0.8); Lymphocytes # (auto) 1.2 10 ^3/uL (0.4-5.4); Monocytes # (auto) 0.1 10 ^3/uL (0-1.3)
[2024-01-03 07:07] LABS: Eosinophils % (auto) 1.1 % (0.0-7.0); Hematocrit 28.6 % (41.0-53.0); Hemoglobin 9.7 g/dL (13.5-17.5); Lymphocytes % (auto) 9.7 % (10.0-50.0); Mean Corpuscular Hemoglobin 29.5 pg (28.0-32.0); Mean Corpuscular Hgb Conc. 33.9 g/dL (32.0-36.0); Mean Corpuscular Volume 87.1 fL (80.0-100.0); Monocytes % (auto) 0.8 % (0.0-12.0); Neutrophils # (auto) 11.1 10 ^3/uL (1.6-8.6); Neutrophils % (auto) 88.3 % (37.0-80.0); Red Blood Cells 3.29 10^6/uL (4.5-5.90); Red Cell Distribution Width 15.9 % (11.8-14.3); White Blood Cell 12.6 10^3/uL (4.4-10.8)
[2024-01-03 07:23] LABS: Alanine Aminotransferase 59 U/L (7-40); Albumin 3.2 g/dL (3.2-4.8); Alkaline Phosphatase 133 U/L (46-116); Anion Gap 11 (5-15); Aspartate Aminotransferase 69 U/L (13-40); BUN/Creatinine Ratio 13.3 (10.0-20.0); Blood Urea Nitrogen 10 mg/dL (9-23); Calcium 8.2 mg/dL (8.5-10.1); Carbon Dioxide 16 mmol/L (20-30); Chloride 113 mmol/L (98-107); Glucose 138 mg/dL (74-106); Potassium 3.8 mmol/L (3.5-5.1); Sodium 140 mmol/L (136-145)
[2024-01-03 07:24] LABS: Bilirubin, Total 0.5 mg/dL (0.2-1.0); Total Protein 5.9 g/dL (5.7-8.2)
[2024-01-03 07:30] VITALS: PULSE 53; RESP 19; O2SAT 96
[2024-01-03] MEDS ORDERED: NITROGLYCERIN 0.4 MG SL TAB SL PRN (07:30)
[2024-01-03] MEDS ORDERED: MORPHINE SULFATE INJ 2 MG/ml SYRG IV PRN (07:30)
[2024-01-03] MEDS: PIPERACILLIN-TAZOB 3.375GM 100 ML IV SCH (08:16)
[2024-01-03] MEDS: SODIUM CHLORIDE 0.9% 1,000 ML IV SCH ×2 (08:16→13:18)
[2024-01-03] MEDS: POTASSIUM CHL 20 Meq TABLET PO ONE (09:50)
[2024-01-03] MEDS: MORPHINE SULFATE 4 MG/ML SYR/VIAL IV ONE (09:52)
[2024-01-03] MEDS: ONDANSETRON HCL 4 MG/2 ML VIAL IV ONE (09:53)
[2024-01-03] MEDS: ASPirin 81 mg TAB PO SCH (09:56)
[2024-01-03] MEDS: FAMOTIDINE (10MG/ML) 2ML VL IV SCH (09:56)
[2024-01-03] MEDS ORDERED: VANCOMYCIN PER PHARMACY 0 MG IV SCH (12:00)
[2024-01-03 12:29] LABS: Lipase 122 U/L (12-53)
[2024-01-03 12:31] LABS: Amylase 202 U/L (30-118)
[2024-01-03] MEDS: VANCOMYCIN 1GM/200ML 200 ML IV ONE (13:15)
[2024-01-03] MEDS: IOHEXOL 300 MG/ML 100ML BOTTLE IJ ONE (13:51)
[2024-01-03] MEDS: ERTAPENEM SOD INJ 1 GM in SODIUM CHL 0.9% 50 ML IV ONE (15:44)
[2024-01-03] MEDS ORDERED: HEPARIN DRIP/D5W 100UNITS/ML 250 ML IV SCH (16:30)
[2024-01-03] MEDS: HYDROcodone-ACET 5/325MG TAB PO PRN (16:30)
[2024-01-03] MEDS ORDERED: HEPARIN SODIUM (PORCINE) 5000 UNITS/ML 1ML VIAL IV ONE (16:30)
[2024-01-03] MEDS: IOHEXOL 350 MG/ML 100ML IJ ONE (16:44)
[2024-01-03 19:35] VITALS: PULSE 73; RESP 15; O2SAT 97
[2024-01-03] MEDS: VANCOMYCIN 1GM/200ML 200 ML IV SCH (21:00)
[2024-01-04 04:45] LABS: Eosinophils # (auto) 0.1 10 ^3/uL (0-0.8); Lymphocytes # (auto) 1.3 10 ^3/uL (0.4-5.4); Monocytes # (auto) 0.1 10 ^3/uL (0-1.3); Monocytes % (auto) 1.2 % (0.0-12.0); White Blood Cell 10.2 10^3/uL (4.4-10.8)
[2024-01-04 04:47] LABS: Basophils # (auto) 0 10 ^3/uL (0-0.2); Basophils % (auto) 0.4 % (0.0-2.0); Eosinophils % (auto) 1.3 % (0.0-7.0); Hematocrit 26.5 % (41.0-53.0); Hemoglobin 8.5 g/dL (13.5-17.5); Lymphocytes % (auto) 13.1 % (10.0-50.0); Mean Corpuscular Hemoglobin 28.3 pg (28.0-32.0); Mean Corpuscular Hgb Conc. 32.1 g/dL (32.0-36.0); Mean Corpuscular Volume 88.1 fL (80.0-100.0); Neutrophils # (auto) 8.6 10 ^3/uL (1.6-8.6)
[2024-01-04 04:58] LABS: INR 1.13 (0.9-1.15); Partial Thromboplastin Time 29.2 SEC (24.5-34.5); Prothrombin Time 11.8 sec (9.3-11.8)
[2024-01-04 05:00] LABS: Alanine Aminotransferase 41 U/L (7-40); Alkaline Phosphatase 95 U/L (46-116); Amylase 45 U/L (30-118); Anion Gap 10 (5-15); Aspartate Aminotransferase 34 U/L (13-40); Calcium 8.3 mg/dL (8.5-10.1); Carbon Dioxide 16 mmol/L (20-30); Chloride 115 mmol/L (98-107); Glucose 101 mg/dL (74-106); Potassium 3.5 mmol/L (3.5-5.1); Sodium 141 mmol/L (136-145)
[2024-01-04 05:02] LABS: Bilirubin, Total 0.2 mg/dL (0.2-1.0); Total Protein 5.9 g/dL (5.7-8.2)
[2024-01-04 05:10] LABS: CRP High Sensitivity 5.54 mg/dL (<1.0)
[2024-01-04 05:12] LABS: BUN/Creatinine Ratio 8.3 (10.0-20.0); Blood Urea Nitrogen < 5 mg/dL (9-23)
[2024-01-04 05:25] LABS: Erythrocyte Sedimentation Rate 48 mm/hr (0-20)
[2024-01-04 05:37] LABS: Lipase 36 U/L (12-53)
[2024-01-04] MEDS: ERTAPENEM SOD INJ 1 GM in SODIUM CHL 0.9% 50 ML IV SCH (09:49)
[2024-01-04] MEDS: diphenhdrAMINE HCL 50 MG/1 ML VL IV ONE (09:50)
[2024-01-05] VITALS (8 sets, daily range): BP systolic 92–121; BP diastolic 54–67; PULSE 64–81; RESP 14–18; TEMP 97.8–99.1; O2SAT 95–99
[2024-01-05 06:04] LABS: Basophils # (auto) 0 10 ^3/uL (0-0.2); Eosinophils # (auto) 0.2 10 ^3/uL (0-0.8); Monocytes # (auto) 0.2 10 ^3/uL (0-1.3); Neutrophils # (auto) 5.9 10 ^3/uL (1.6-8.6); Red Cell Distribution Width 16.1 % (11.8-14.3); White Blood Cell 7.8 10^3/uL (4.4-10.8)
[2024-01-05 06:11] LABS: Basophils % (auto) 0.3 % (0.0-2.0); Eosinophils % (auto) 2.2 % (0.0-7.0); Hematocrit 27.1 % (41.0-53.0); Lymphocytes # (auto) 1.5 10 ^3/uL (0.4-5.4); Lymphocytes % (auto) 19.6 % (10.0-50.0); Mean Corpuscular Hemoglobin 28.9 pg (28.0-32.0); Mean Corpuscular Hgb Conc. 33.1 g/dL (32.0-36.0); Mean Corpuscular Volume 87.3 fL (80.0-100.0); Monocytes % (auto) 2.4 % (0.0-12.0); Neutrophils % (auto) 75.5 % (37.0-80.0); Red Blood Cells 3.11 10^6/uL (4.5-5.90)
[2024-01-05 06:23] LABS: Alanine Aminotransferase 48 U/L (7-40); Albumin 3.3 g/dL (3.2-4.8); Alkaline Phosphatase 96 U/L (46-116); Anion Gap 8 (5-15); Aspartate Aminotransferase 38 U/L (13-40); Bilirubin, Total 0.3 mg/dL (0.2-1.0); Calcium 8.8 mg/dL (8.7-10.4); Carbon Dioxide 22 mmol/L (20-30); Chloride 110 mmol/L (98-107); Glucose 74 mg/dL (74-106); Potassium 3.4 mmol/L (3.5-5.1); Sodium 140 mmol/L (136-145); Total Protein 6.2 g/dL (5.7-8.2)
[2024-01-05 06:51] LABS: BUN/Creatinine Ratio 8.8 (10.0-20.0); Blood Urea Nitrogen < 5 mg/dL (9-23)
[2024-01-05] MEDS: POTASSIUM CHL 10 Meq TABLET PO ONE (11:53)
[2024-01-06 01:00] VITALS: BP 106/61; PULSE 84; RESP 14; TEMP 98.1; O2SAT 97
[2024-01-06 05:00] VITALS: BP 108/66; PULSE 69; RESP 14; TEMP 98; O2SAT 98
[2024-01-06 07:33] LABS: Basophils # (auto) 0 10 ^3/uL (0-0.2); Hemoglobin 9.3 g/dL (13.5-17.5); Lymphocytes # (auto) 1.4 10 ^3/uL (0.4-5.4); Monocytes # (auto) 0.2 10 ^3/uL (0-1.3); Nucleated Red Blood Cells % 0.1 %
[2024-01-06 07:35] LABS: Basophils % (auto) 0.4 % (0.0-2.0); Eosinophils # (auto) 0.3 10 ^3/uL (0-0.8); Eosinophils % (auto) 5.4 % (0.0-7.0); Hematocrit 27.3 % (41.0-53.0); Lymphocytes % (auto) 23.5 % (10.0-50.0); Mean Corpuscular Hemoglobin 29.7 pg (28.0-32.0); Mean Corpuscular Volume 87.4 fL (80.0-100.0); Monocytes % (auto) 3.2 % (0.0-12.0); Neutrophils # (auto) 3.9 10 ^3/uL (1.6-8.6); Neutrophils % (auto) 67.5 % (37.0-80.0); Red Blood Cells 3.13 10^6/uL (4.5-5.90); Red Cell Distribution Width 15.6 % (11.8-14.3); White Blood Cell 5.8 10^3/uL (4.4-10.8)
[2024-01-06 07:45] LABS: Alanine Aminotransferase 76 U/L (7-40); Albumin 3.4 g/dL (3.2-4.8); Alkaline Phosphatase 106 U/L (46-116); Anion Gap 5 (5-15); Aspartate Aminotransferase 60 U/L (13-40); BUN/Creatinine Ratio 8.2 (10.0-20.0); Blood Urea Nitrogen 5 mg/dL (9-23); Carbon Dioxide 24 mmol/L (20-30); Chloride 110 mmol/L (98-107); Glucose 70 mg/dL (74-106); Potassium 3.7 mmol/L (3.5-5.1); Sodium 139 mmol/L (136-145)
[2024-01-06 07:46] LABS: Bilirubin, Total 0.3 mg/dL (0.2-1.0); Total Protein 6.6 g/dL (5.7-8.2)
[2024-01-06 09:00] VITALS: BP 112/65; PULSE 86; RESP 20; TEMP 97.9; O2SAT 94
[2024-01-06 10:30] VITALS: BP 112/65; PULSE 86; RESP 20; TEMP 97.9
[2024-01-06] MEDS ORDERED: VANCOMYCIN 1GM/200ML 200 ML IV SCH (13:00)
== END 2024-01-06 12:15 | disposition home or self-care (01) | DRG 871 ==
LOC: EDBD 22:34 → ER 22:34 → TELE 01-03 07:30 → TELE-WESTW 01-04 23:09 → WEST WING 01-05 11:57
PROVIDERS: ADMIT Internal Medicine; ATTEND Emergency Medicine
DX: A41.9 Sepsis, unspecified organism (principal); K65.1 Peritoneal abscess; J98.11 Atelectasis; D64.9 Anemia, unspecified; E87.6 Hypokalemia; N20.0 Calculus of kidney; K76.0 Fatty (change of) liver, not elsewhere classified; R73.9 Hyperglycemia, unspecified; Z93.3 Colostomy status; Z79.1 Long term (current) use of non-steroidal anti-inflammatories (NSAID); Z79.899 Other long term (current) drug therapy; Z80.0 Family history of malignant neoplasm of digestive organs
CPT/HCPCS: 36415; 71045; 74176; 74177; 76705; 80048; 80053; 80202; 81001; 82150; 82270; 83036; 83605; 83690; 85025; 85610; 85652; 85730; 86141; 87040; 93005; 96361; 96365; 96375; 99291; G0378; J1335; J2405; J2543; J3490

== ENCOUNTER 2024-09-28 06:10 | Inpatient (IN) | payer BC ==
[2024-09-26 10:34] LABS: Urine Bacteria None Seen /hpf (None Seen)
[2024-09-26 10:44] LABS: Basophils # (auto) 0.1 10 ^3/uL (0-0.2); Basophils % (auto) 1.2 % (0.0-2.0); Eosinophils # (auto) 0.1 10 ^3/uL (0-0.8); Eosinophils % (auto) 1.2 % (0.0-7.0); Hematocrit 40.2 % (41.0-53.0); Hemoglobin 13.7 g/dL (13.5-17.5); Lymphocytes # (auto) 1.1 10 ^3/uL (0.4-5.4); Lymphocytes % (auto) 11.3 % (10.0-50.0); Mean Corpuscular Hemoglobin 32.8 pg (28.0-32.0); Mean Corpuscular Hgb Conc. 33.9 g/dL (32.0-36.0); Mean Corpuscular Volume 96.7 fL (80.0-100.0); Monocytes # (auto) 0.6 10 ^3/uL (0-1.3); Neutrophils # (auto) 7.9 10 ^3/uL (1.6-8.6); Neutrophils % (auto) 80.3 % (37.0-80.0); Nucleated Red Blood Cells % 0.1 %; Platelet Count (auto) 369 10^3/uL (140-450); Red Blood Cells 4.16 10^6/uL (4.5-5.90); Red Cell Distribution Width 14.6 % (11.8-14.3); White Blood Cell 9.8 10^3/uL (4.4-10.8)
[2024-09-26 11:10] LABS: Alanine Aminotransferase 31 U/L (7-40); Albumin 4.3 g/dL (3.2-4.8); Alkaline Phosphatase 103 U/L (46-116); Anion Gap 8 (5-15); Aspartate Aminotransferase 30 U/L (13-40); BUN/Creatinine Ratio 12.4 (10.0-20.0); Blood Urea Nitrogen 11 mg/dL (9-23); Carbon Dioxide 26 mmol/L (20-31); Chloride 104 mmol/L (98-107); Glucose 83 mg/dL (74-106); Potassium 4.4 mmol/L (3.5-5.1); Sodium 138 mmol/L (136-145)
[2024-09-26 11:11] LABS: Bilirubin, Total 0.7 mg/dL (0.2-1.0); Total Protein 7.7 g/dL (5.7-8.2)
[2024-09-26 11:14] LABS: Urine Blood Negative /uL (Negative); Urine Budding Yeast OCCASIONAL /hpf (None Seen); Urine Clarity Clear (Clear); Urine Color Colorless (Yellow); Urine Protein, UAD Negative (Negative); Urine Specific Gravity 1.005 (1.001-1.035); Urine Squamous Epithelial Cell FEW /hpf (<5); Urine Urobilinogen Normal (Negative); Urine WBC 70 /hpf (0 - 3)
[2024-09-26 11:38] LABS: INR 1.01 (0.9-1.15); Partial Thromboplastin Time 30.1 SEC (24.5-34.5); Prothrombin Time 10.7 sec (9.3-11.8)
[~2024-09-28] VITALS: Ht 177.8 cm; Wt 82.0 kg
[~2024-09-28 06:10] MED LIST changes: -ACET-1882 PO; -ERGO1CAP23 PO; -FER325T PO; +METH2.5T PO
[2024-09-28] MEDS: ceFAZolin 2 GM/D5W100ml 100 ML IV ONE (06:41)
[2024-09-28] MEDS: SUCCINYLCHOLINE CHLORIDE 20 MG/ML 10ML VIAL IV ONE (06:58)
[2024-09-28] MEDS: POVIDONE IODINE 10 % TOPICAL OINT 30GM TOP ONE (06:58)
[2024-09-28] MEDS ORDERED: fentaNYL CITRATE 100 MCG/2 ML VL ONE ×3 (07:03→10:14)
[2024-09-28] MEDS ORDERED: MEPERIDINE HCL (25 MG/ML) 1ML VIAL ONE ×2 (07:03→10:17)
[2024-09-28] MEDS ORDERED: PROPOFOL 10 MG/ML 20 ML IV ONE (07:04)
[2024-09-28] MEDS ORDERED: ROCURONIUM 10MG/ML 10ML VIAL IV ONE (07:29)
[2024-09-28] MEDS ORDERED: DexAMETHasone SOD PHOS 10MG/1ML VIAL INJ ONE (07:34)
[2024-09-28] MEDS ORDERED: ONDANSETRON HCL 4 MG/2 ML VIAL ONE (07:34)
[2024-09-28] MEDS ORDERED: ePHEDrine SULFATE 50 MG/ML AMP ONE (08:38)
[2024-09-28] MEDS ORDERED: SUGAMMADEX 200mg/2ml Vial (100MG/ML) IV ONE (09:52)
[2024-09-28] MEDS: BUPIVACAINE 0.5% P/F INJ 10 ML VIAL ONE (10:14)
[2024-09-28] MEDS: LIDOCAINE W/ EPINEPHRINE 1% 20ML VIAL ONE (10:14)
[2024-09-28 10:26] VITALS: PULSE 84; RESP 12; O2SAT 100
--- NOTE | 2024-09-28 10:44 | DVHOP ---
DATE OF SURGERY: 09/28/2024 PREOPERATIVE DIAGNOSES: Colostomy, history of colorectal perforation. POSTOPERATIVE DIAGNOSES: Colostomy, history of colorectal perforation. SURGEON: Dex Harris MD ARCHITECTURAL MODEL MAKER: Rodrigue Orellana. ANESTHESIA: General endotracheal. ANESTHESIOLOGIST: Dr. Izquierdo. PROCEDURES: Exploratory laparotomy, extensive lysis of adhesions, resection of sigmoid colon and transverse colon to rectosigmoid anastomosis. DESCRIPTION OF PROCEDURE: Under general endotracheal anesthesia, with the patient's skin prepped and draped, the colostomy was at first included in the prep and covered with an iodine-saturated gauze, a midline incision was made and a preliminary exploration accomplished in order to ascertain the feasibility of the procedure. At this point, the incision was enlarged and lysis of multiple adhesions was accomplished. The descending colon was densely adherent to the lateral abdominal wall and there was evidence of previous confined perforation with an abscess, which measured approximately 3 cm in diameter. This was debrided and the colon was then mobilized. The splenic flexure was mobilized and the right colon was mobilized. The colostomy was then exposed and incision along the colostomy allowed the internalization of the colon from the colostomy. The colostomy was excised using a JUAN PABLO stapler. At this point, the rectum was mobilized and transected where the rectosigmoid was viable and appeared normal. The descending colon and sigmoid colon having been previously removed, this segment of colon was removed as well due to much scarring and much evidence of diverticular disease as well as the adherence to the wall with a previous perforation. Subsequently, the 2 remaining segments of colon were brought to apposition, clamped with bowel clamps. The anastomosis was accomplished using a 3-0 Prolene and 3-0 Monocryl sutures for the outer and inner layer respectively. Mesenteric defect was approximated using 2-0 Monocryl suture. The abdomen was profusely irrigated, irrigant was aspirated. A 10 mm Grzegorz-Beth drain was then placed to the vicinity of the anastomosis and to the vicinity of the area of the previous abscess. The drain was exteriorized through separate incision and secured with a 2-0 nylon suture. Following achievement of complete hemostasis, inspection of all the sites for evidence of any injury which was not encountered, there was no evidence of any injury to the bowel from the ligament of Treitz to the anastomotic region. The appendix was grasped with a Memo forceps and placed on tension. Due to its proximity to the anastomosis, an appendectomy was carried out. The mucosa of the appendiceal stump was electrocauterized. The appendix and mesoappendix were ligated with a 2-0 nylon suture. The abdomen was profusely irrigated, irrigant was aspirated. Hemostasis having been accomplished, closure was accomplished of the colostomy site as well as the midline incision using #1 double stranded PDS sutures. Subcutaneous tissues were approximated using 2-0 Monocryl sutures. Skin approximated using metallic skin livia. The patient remained stable throughout the procedure, left the Operating Room following an accurate needle and sponge count. Family was thoroughly informed by phone at [phone]. MD NATIVIDAD Ling/MEI TID: [id number] RECEIPT: [id number]
[2024-09-28] MEDS: ONDANSETRON HCL 4 MG/2 ML VIAL IV ONE (10:45)
[2024-09-28] MEDS: HYDROmorphone HCL 2 MG/ML VL/or syr IV PRN (11:24)
[2024-09-28] MEDS: ACETAMINOPHEN IV 1000 MG/100ML (10MG/ML) IV PRN (11:30)
[2024-09-28] MEDS: MEPERIDINE HCL (50 MG/ML) 1 ML VIAL ONE (13:33)
[2024-09-28] MEDS: MEPERIDINE HCL (25 MG/ML) 1ML VIAL IV PRN (13:35)
[2024-09-28] MEDS ORDERED: NITROGLYCERIN 0.4 MG SL TAB SL PRN (14:00)
[2024-09-28] MEDS: metroNIDAZOLE 500MG/100ML 100 ML IV SCH (14:00)
--- NOTE | 2024-09-28 14:24 | DVHHP2 ---
Review of Systems Allergies: Coded Allergies: NO KNOWN ALLERGIES (Unverified , 07/21/23) Medications Current Medications Medications Dose Ordered Sig/Temi Route Start Time Stop Time Status Last Admin Dose Admin Potassium Chloride/Dextrose/ Sod Cl 1,000 ml @ 120 mls/hr Q8H20M IV 09/28/24 10:30 Pantoprazole Sodium 40 mg DAILY IV 09/29/24 10:00 Hydromorphone HCl 1 mg Q3HPRN PRN IV 09/28/24 10:30 Ondansetron HCl 4 mg Q4HPRN PRN IV 09/28/24 10:30 Cefazolin Sodium/ Dextrose 50 ml @ 50 mls/hr Q8HR IV 09/28/24 14:00 Metronidazole 100 ml @ 100 mls/hr Q8HR IV 09/28/24 14:00 Nitroglycerin 0.4 mg Q5MINP PRN SL 09/28/24 14:00 UNV Morphine Sulfate 2 mg Q30M PRN IV 09/28/24 14:00 UNV Exam Vital Signs Vital Signs Date Time Temp Pulse Resp B/P (MAP) Pulse Ox O2 Delivery O2 Flow Rate FiO2 09/28/24 10:45 80 12 113/64 (80) 100 09/28/24 10:26 Mask 6.0 100 09/28/24 10:26 97.9 97.9 Labs/Xrays Labs Test 09/26/24 10:22 Range/Units White Blood Count 9.8 4.4-10.8 10^3/uL Red Blood Count 4.16 L 4.5-5.90 10^6/uL Hemoglobin 13.7 13.5-17.5 g/dL Hematocrit 40.2 L 41.0-53.0 % Mean Corpuscular Volume 96.7 80.0-100.0 fL Mean Corpuscular Hemoglobin 32.8 H 28.0-32.0 pg Mean Corpuscular Hemoglobin Concent 33.9 32.0-36.0 g/dL Red Cell Distribution Width 14.6 H 11.8-14.3 % Platelet Count 369 140-450 10^3/uL Mean Platelet Volume 7.5 6.9-10.8 fL Neutrophils (%) (Auto) 80.3 H 37.0-80.0 % Lymphocytes (%) (Auto) 11.3 10.0-50.0 % Monocytes (%) (Auto) 6.0 0.0-12.0 % Eosinophils (%) (Auto) 1.2 0.0-7.0 % Basophils (%) (Auto) 1.2 0.0-2.0 % Neutrophils # (Auto) 7.9 1.6-8.6 10 ^3/uL Lymphocytes # (Auto) 1.1 0.4-5.4 10 ^3/uL Monocytes # (Auto) 0.6 0-1.3 10 ^3/uL Eosinophils # (Auto) 0.1 0-0.8 10 ^3/uL Basophils # (Auto) 0.1 0-0.2 10 ^3/uL Nucleated Red Blood Cells 0.1 % Prothrombin Time 10.7 9.3-11.8 sec Prothrombin Time INR 1.01 0.9-1.15 Activated Partial Thromboplast Time 30.1 24.5-34.5 SEC Urine Color Colorless Yellow Urine Clarity Clear Clear Urine pH 6.0 5.0-9.0 Urine Specific [place] 1.005 1.001-1.035 Urine Protein Negative Negative Urine Ketones Negative Negative Urine Blood Negative Negative /uL Urine Nitrite Negative Negative Urine Bilirubin Negative Negative Urine Urobilinogen Normal Negative mg/dL Urine Leukocyte Esterase 3+ Negative /uL Urine RBC <1 0 - 3 /hpf Urine WBC 70 0 - 3 /hpf Urine Squamous Epithelial Cells Few <5 /hpf Urine Bacteria None seen None Seen /hpf Urine Yeast (Budding) Occasional None Seen /hpf Urine Glucose Normal Normal mg/dL Sodium Level 138 136-145 mmol/L Potassium Level 4.4 3.5-5.1 mmol/L Chloride Level 104 98-107 mmol/L Carbon Dioxide Level 26 20-31 mmol/L Anion Gap 8 5-15 Blood Urea Nitrogen 11 9-23 mg/dL Creatinine 0.89 0.700-1.30 mg/dL Glomerular Filtration Rate Calc 99 >90 mL/min BUN/Creatinine Ratio 12.4 10.0-20.0 Serum Glucose 83 74-106 mg/dL Calcium Level 10.0 8.7-10.4 mg/dL Total Bilirubin 0.7 0.2-1.0 mg/dL Aspartate Amino Transferase (AST) 30 13-40 U/L Alanine Aminotransferase (ALT) 31 7-40 U/L Alkaline Phosphatase 103 46-116 U/L Total Protein 7.7 5.7-8.2 g/dL Albumin 4.3 3.2-4.8 g/dL Assessment/Plan Assessment/Plan see dictated note Plan discussed with: Patient My Orders Orders - NANCY CONNOLLY MD Procedure Category Date Status Time Admit ADMIT 09/28/24 Transmitted 13:58 Oxygen By Nasal RT 09/28/24 Transmitted Cannula 13:58 Nitroglycerin PHA 09/28/24 Logged Sublingual (Ntrostat 14:00 Morphine Sulfate PHA 09/28/24 Logged Injection 14:00 Stat Ekg For Chest [facility] 09/28/24 In Process Pain 13:58 Notify Md Of Changes [facility] 09/28/24 In Process From Base 13:58 Production Ski Repairer For [facility] 09/28/24 In Process 24 Hours 13:58 Emergency Dysrhythmia [facility] 09/28/24 In Process Protocol 13:58 Rhythm Strips Once [facility] 09/28/24 In Process Every Shift 13:58 Date of Service: Sep 28, 2024 Billing Provider: NANCY CONNOLLY MD Common Visit Codes: [id number] INP/OBS CARE (HIGH) NANCY CONNOLLY MD Sep 28, 2024 14:24
[2024-09-28 14:30] VITALS: BP 107/66; PULSE 81; RESP 16; TEMP 98.1; O2SAT 97
--- NOTE | 2024-09-28 14:35 | DVHHP ---
ADMIT DATE: 09/28/2024 HISTORY OF PRESENT ILLNESS: The patient is a 59-year-old gentleman who was admitted after he had a takedown of a colostomy. The patient had exploratory laparotomy for a takedown after he had developed a previous colorectal perforation. He currently has no abdominal pain. No nausea or vomiting. REVIEW OF SYSTEMS: Review of rest of systems are otherwise currently negative. PAST MEDICAL HISTORY: No significant illness in the past. Questionable arthritis, likely rheumatoid. MEDICATIONS: He takes methotrexate and folate. ALLERGIES: No known drug allergies. SOCIAL HISTORY: No history of smoking or alcohol. FAMILY HISTORY: Negative. PHYSICAL EXAMINATION: GENERAL: The patient is asleep, arousable. VITAL SIGNS: Temperature 97.9, pulse 81 per minute, blood pressure 113/64. SHEENT: Unremarkable. NECK: There is no JVD, no pedal edema. LUNGS: Equal bilaterally. No added sounds. CARDIOVASCULAR SYSTEM: S1, S2 is regular. ABDOMEN: Bowel sounds are hypoactive. There is a NG tube in place. NEUROLOGIC: Nonfocal. MUSCULOSKELETAL: Normal. ASSESSMENT AND PLAN: * Likely rheumatoid arthritis. The patient's medications will be held. * Status post takedown of colostomy. The patient will be placed on pain medications as well as IV fluids. He will be kept n.p.o. for now. MD DAMIAN Knapp/MOMO TID: [id number] RECEIPT: [id number]
[2024-09-28] MEDS: HYDROMORPHONE HCL 1 MG/ML INJ IV PRN (14:49)
[2024-09-28 15:12] VITALS: BP 107/66; PULSE 81; RESP 12; TEMP 98.1; O2SAT 97
[2024-09-28] MEDS: D5W/SOD CHL 0.45%/KCL 20MEQ 1,000 ML IV SCH (16:56)
[2024-09-28] MEDS: ceFAZolin 2 GM/D5W50ml 50 ML IV SCH (16:56)
[2024-09-28 17:00] VITALS: BP 107/70; PULSE 78; RESP 16; TEMP 98; O2SAT 97
[2024-09-28 20:00] VITALS: PULSE 90; RESP 20; O2SAT 99
[2024-09-28 21:00] VITALS: BP 119/81; PULSE 90; RESP 20; TEMP 98.1; O2SAT 99
[2024-09-29] VITALS (7 sets, daily range): BP systolic 108–125; BP diastolic 59–81; PULSE 81–98; RESP 18–20; TEMP 98–98.8; O2SAT 94–97
[2024-09-29 08:06] LABS: Basophils # (auto) 0 10 ^3/uL (0-0.2); Basophils % (auto) 0.1 % (0.0-2.0); Eosinophils # (auto) 0 10 ^3/uL (0-0.8); Hematocrit 35.8 % (41.0-53.0); Lymphocytes # (auto) 0.7 10 ^3/uL (0.4-5.4); Lymphocytes % (auto) 3.8 % (10.0-50.0); Mean Corpuscular Hemoglobin 32.5 pg (28.0-32.0); Mean Corpuscular Hgb Conc. 33.6 g/dL (32.0-36.0); Mean Corpuscular Volume 96.7 fL (80.0-100.0); Monocytes # (auto) 1.2 10 ^3/uL (0-1.3); Monocytes % (auto) 7.1 % (0.0-12.0); Neutrophils # (auto) 15.5 10 ^3/uL (1.6-8.6); Platelet Count (auto) 340 10^3/uL (140-450); Red Cell Distribution Width 14.6 % (11.8-14.3); White Blood Cell 17.4 10^3/uL (4.4-10.8)
[2024-09-29 08:32] LABS: Alanine Aminotransferase 16 U/L (7-40); Albumin 3.7 g/dL (3.2-4.8); Alkaline Phosphatase 81 U/L (46-116); Anion Gap 7 (5-15); Aspartate Aminotransferase 20 U/L (13-40); BUN/Creatinine Ratio 12.6 (10.0-20.0); Bilirubin, Total 0.7 mg/dL (0.2-1.0); Blood Urea Nitrogen 13 mg/dL (9-23); Calcium 9.2 mg/dL (8.7-10.4); Carbon Dioxide 25 mmol/L (20-31); Chloride 105 mmol/L (98-107); Potassium 4.3 mmol/L (3.5-5.1); Sodium 137 mmol/L (136-145); Total Protein 6.4 g/dL (5.7-8.2)
[2024-09-29 08:34] LABS: Glucose 153 mg/dL (74-106)
--- NOTE | 2024-09-29 09:29 | DVH ---
CHEST RADIOGRAPH Indication: Confirmation of NG tube placement. Technique: Single frontal view of the chest was obtained COMPARISON: XY CHEST PORTABLE on DOS: 01/03/24, XY CHEST XRAY 1 VIEW on DOS: 09/20/23, XY CHEST PORTABLE on DOS: 09/03/23, XY CHEST PORTABLE on DOS: 07/25/23, XY CHEST PORTABLE on DOS: 07/23/23 FINDINGS: Lines and Tubes: Enteric catheter tube tip coils in the stomach with the tip in the mid esophagus. Lungs: Clear Pleura: No effusion. No pneumothorax. Cardiomediastinal contours: Lucency under the diaphragm is suspicious for free intraperitoneal air. Bones: Unremarkable IMPRESSION: Free intraperitoneal air is present; possibly postoperative. Clinical correlation advised. Nasogastric tube requires repositioning as it enters the stomach and loops back into the esophagus. R etraction by approximately 5 cm could be considered.
[2024-09-29] MEDS: PANTOPRAZOLE 40 MG/10 ML VIAL INJ IV SCH (09:53)
--- NOTE | 2024-09-29 10:11 | DVHPN2 ---
Progress Note Date Seen: Sep 29, 2024 Medical Necessity Reason Pt with a Central, PICC or Fol: No Subjective Patient reports: No new complaints Review of Systems: HEENT:Normal, CVS:Normal, RESPIRATORY:Normal, GI:Normal, :Normal, MSK:Normal, NEURO:Normal Objective vital signs Vital Sign Date Time Temp Pulse Resp B/P (MAP) Pulse Ox O2 Delivery O2 Flow Rate FiO2 09/29/24 09:00 98.0 83 20 109/64 (79) 97 98.0 09/28/24 20:00 Room Air* 0 21 Total Intake and Output 09/28/24 09/28/24 09/29/24 15:00 23:00 07:00 Intake Total 100 ml 150 ml 1100 ml Output Total 170 ml 125 ml 400 ml Balance -70 ml 25 ml 700 ml medications Current Medications Medications Dose Ordered Sig/Temi Route Start Time Stop Time Status Last Admin Dose Admin Potassium Chloride/Dextrose/ Sod Cl 1,000 ml @ 120 mls/hr Q8H20M IV 09/28/24 10:30 09/29/24 03:15 120 MLS/HR Pantoprazole Sodium 40 mg DAILY IV 09/29/24 10:00 09/29/24 09:53 40 MG Hydromorphone HCl 1 mg Q3HPRN PRN IV 09/28/24 10:30 09/29/24 06:10 1 MG Ondansetron HCl 4 mg Q4HPRN PRN IV 09/28/24 10:30 Cefazolin Sodium/ Dextrose 50 ml @ 50 mls/hr Q8HR IV 09/28/24 14:00 09/29/24 05:48 50 MLS/HR Metronidazole 100 ml @ 100 mls/hr Q8HR IV 09/28/24 14:00 09/29/24 06:55 100 MLS/HR Nitroglycerin 0.4 mg Q5MINP PRN SL 09/28/24 14:00 Morphine Sulfate 2 mg Q30M PRN IV 09/28/24 14:00 Examination: GENERAL:Normal, HEENT:Normal, NECK:Normal, LUNGS:Normal, CVS:Normal, ABDOMEN:Normal, ABDOMEN:Abnormal (NG, VALE DRAIN), MSK:Normal, SKIN:Normal, NEURO:Normal, :Normal laboratory and microbiology Laboratory Tests 09/29/24 06:42 Test 09/29/24 06:42 Range/Units Serum Glucose 153 H 74-106 mg/dL Problem List/Assessment/Plan Problem List/Assessment/Plan * Likely rheumatoid arthritis. The patient's medications will be held. * Hiccups:reglan iv * Status post takedown of colostomy. The patient will be placed on pain medications as well as IV fluids. He will be kept n.p.o. for now. Plan discussed with: Patient My Orders My Orders Orders - NANCY CONNOLLY MD Procedure Category Date Status Time Admit ADMIT 09/28/24 Transmitted 13:58 Oxygen By Nasal RT 09/28/24 Transmitted Cannula 13:58 Nitroglycerin PHA 09/28/24 In Process Sublingual (Ntrostat 14:00 Morphine Sulfate PHA 09/28/24 In Process Injection 14:00 Stat Ekg For Chest [facility] 09/28/24 In Process Pain 13:58 Notify Of Changes [facility] 09/28/24 In Process From Base 13:58 School Psychologist Assistant For [facility] 09/28/24 In Process 24 Hours 13:58 Emergency Dysrhythmia [facility] 09/28/24 In Process Protocol 13:58 Rhythm Strips Once [facility] 09/28/24 In Process Every Shift 13:58 Chest Portable XY 09/29/24 Resulted 08:58 Pantoprazole PHA 09/29/24 Logged (Protonix) 10:15 Pantoprazole PHA 09/30/24 Logged (Protonix) 10:00 Metoclopramide PHA 09/29/24 Logged Injection (Reglan 10:15 Metoclopramide PHA 09/29/24 Logged Injection (Reglan 10:15 Pt Request For Service PT 09/29/24 Logged 10:06 Basic Metabolic Panel LAB 09/30/24 Verified 06:00 Complete Blood Count LAB 09/30/24 Verified 06:00 Date of Service: Sep 29, 2024 Billing Provider: NANCY CONNOLLY MD Common Visit Codes: [id number] INP/OBS CARE(HIGH) NANCY CONNOLLY MD Sep 29, 2024 10:11
[2024-09-29] MEDS: PANTOPRAZOLE 40 MG/10 ML VIAL INJ IV ONE (10:15)
[2024-09-29] MEDS: METOCLOPRAMIDE HCL 5MG/ml INJ 2ml VIAL IV ONE (10:46)
--- NOTE | 2024-09-29 11:08 | DVHPN2 ---
Progress Note Date Seen: Sep 29, 2024 Medical Necessity Reason Pt with a Central, PICC or Fol: No Objective vital signs Vital Sign Date Time Temp Pulse Resp B/P (MAP) Pulse Ox O2 Delivery O2 Flow Rate FiO2 09/29/24 10:51 94 20 109/69 09/29/24 09:00 98.0 97 98.0 09/28/24 20:00 Room Air* 0 21 Total Intake and Output 09/28/24 09/28/24 09/29/24 15:00 23:00 07:00 Intake Total 100 ml 150 ml 1100 ml Output Total 170 ml 125 ml 400 ml Balance -70 ml 25 ml 700 ml medications Current Medications Medications Dose Ordered Sig/Temi Route Start Time Stop Time Status Last Admin Dose Admin Potassium Chloride/Dextrose/ Sod Cl 1,000 ml @ 120 mls/hr Q8H20M IV 09/28/24 10:30 09/29/24 03:15 120 MLS/HR Pantoprazole Sodium 40 mg DAILY IV 09/29/24 10:00 09/29/24 09:53 40 MG Hydromorphone HCl 1 mg Q3HPRN PRN IV 09/28/24 10:30 09/29/24 10:51 1 MG Ondansetron HCl 4 mg Q4HPRN PRN IV 09/28/24 10:30 Cefazolin Sodium/ Dextrose 50 ml @ 50 mls/hr Q8HR IV 09/28/24 14:00 09/29/24 05:48 50 MLS/HR Metronidazole 100 ml @ 100 mls/hr Q8HR IV 09/28/24 14:00 09/29/24 06:55 100 MLS/HR Nitroglycerin 0.4 mg Q5MINP PRN SL 09/28/24 14:00 Morphine Sulfate 2 mg Q30M PRN IV 09/28/24 14:00 Pantoprazole Sodium 40 mg DAILY IV 09/30/24 10:00 Metoclopramide HCl 5 mg Q8HPRN PRN IV 09/29/24 10:15 laboratory and microbiology Laboratory Tests 09/29/24 06:42 Test 09/29/24 06:42 Range/Units Serum Glucose 153 H 74-106 mg/dL Problem List/Assessment/Plan Problem List/Assessment/Plan 09/29/24 c/o pain, has not ambulated, wound clean and well approximated, abdomen soft, appropriately tender, will add Toradol, must ambulate Plan discussed with: Patient, Spouse DIXIE JIN MD Sep 29, 2024 11:08
[2024-09-29] MEDS: KETOROLAC TROMETH 30 MG/ML 1ML VIAL IV PRN (14:29)
[2024-09-30] VITALS (8 sets, daily range): BP systolic 102–130; BP diastolic 61–68; PULSE 91–124; RESP 17–21; TEMP 98–100.3; O2SAT 95–98
[2024-09-30 07:40] LABS: Basophils # (auto) 0 10 ^3/uL (0-0.2); Basophils % (auto) 0.3 % (0.0-2.0); Eosinophils # (auto) 0 10 ^3/uL (0-0.8); Eosinophils % (auto) 0.2 % (0.0-7.0); Hematocrit 34.4 % (41.0-53.0); Hemoglobin 11.5 g/dL (13.5-17.5); Lymphocytes # (auto) 1.2 10 ^3/uL (0.4-5.4); Lymphocytes % (auto) 8.5 % (10.0-50.0); Mean Corpuscular Hemoglobin 32.9 pg (28.0-32.0); Mean Corpuscular Hgb Conc. 33.5 g/dL (32.0-36.0); Mean Corpuscular Volume 98.1 fL (80.0-100.0); Monocytes # (auto) 0.8 10 ^3/uL (0-1.3); Monocytes % (auto) 5.6 % (0.0-12.0); Neutrophils # (auto) 11.7 10 ^3/uL (1.6-8.6); Neutrophils % (auto) 85.4 % (37.0-80.0); Nucleated Red Blood Cells % 0.1 %; Platelet Count (auto) 300 10^3/uL (140-450); Red Cell Distribution Width 14.3 % (11.8-14.3); White Blood Cell 13.7 10^3/uL (4.4-10.8)
[2024-09-30 07:56] LABS: Calcium 9.3 mg/dL (8.7-10.4); Chloride 106 mmol/L (98-107); Potassium 4.1 mmol/L (3.5-5.1); Sodium 138 mmol/L (136-145)
[2024-09-30 07:57] LABS: Anion Gap 7 (5-15); Carbon Dioxide 25 mmol/L (20-31)
[2024-09-30 08:02] LABS: Blood Urea Nitrogen 15 mg/dL (9-23); Glucose 111 mg/dL (74-106)
[2024-09-30] MEDS: PANTOPRAZOLE 40 MG/10 ML VIAL INJ IV SCH (09:10)
--- NOTE | 2024-09-30 11:56 | DVHPN2 ---
Progress Note Date Seen: Sep 30, 2024 Medical Necessity Reason Pt with a Central, PICC or Fol: No Subjective Patient reports: No new complaints, Feels better Review of Systems: HEENT:Normal, CVS:Normal, RESPIRATORY:Normal, GI:Normal, :Normal, NEURO:Normal Objective vital signs Vital Sign Date Time Temp Pulse Resp B/P (MAP) Pulse Ox O2 Delivery O2 Flow Rate FiO2 09/30/24 09:41 92 17 130/65 09/30/24 09:35 98.1 98 98.1 09/29/24 20:00 Room Air* 0 21 Total Intake and Output 09/29/24 09/29/24 09/30/24 15:00 23:00 07:00 Intake Total 200 ml 1340 ml 1200 ml Output Total 700 ml 350 ml Balance 200 ml 640 ml 850 ml medications Current Medications Medications Dose Ordered Sig/Temi Route Start Time Stop Time Status Last Admin Dose Admin Potassium Chloride/Dextrose/ Sod Cl 1,000 ml @ 120 mls/hr Q8H20M IV 09/28/24 10:30 09/30/24 02:34 120 MLS/HR Hydromorphone HCl 1 mg Q3HPRN PRN IV 09/28/24 10:30 09/30/24 09:11 1 MG Ondansetron HCl 4 mg Q4HPRN PRN IV 09/28/24 10:30 Cefazolin Sodium/ Dextrose 50 ml @ 50 mls/hr Q8HR IV 09/28/24 14:00 09/30/24 05:28 50 MLS/HR Metronidazole 100 ml @ 100 mls/hr Q8HR IV 09/28/24 14:00 09/30/24 06:44 100 MLS/HR Nitroglycerin 0.4 mg Q5MINP PRN SL 09/28/24 14:00 Morphine Sulfate 2 mg Q30M PRN IV 09/28/24 14:00 Pantoprazole Sodium 40 mg DAILY IV 09/30/24 10:00 09/30/24 09:10 40 MG Metoclopramide HCl 5 mg Q8HPRN PRN IV 09/29/24 10:15 Ketorolac Tromethamine 15 mg Q6HPRN PRN IV 09/29/24 11:15 10/04/24 11:14 09/30/24 02:34 15 MG Examination: GENERAL:Normal, HEENT:Normal, NECK:Normal, LUNGS:Normal, CVS:Normal, ABDOMEN:Abnormal (VALE drain , abdominal wound), MSK:Normal, SKIN:Normal, NEURO:Normal laboratory and microbiology Laboratory Tests 09/30/24 06:20 Test 09/30/24 06:20 Range/Units Serum Glucose 111 H 74-106 mg/dL Problem List/Assessment/Plan Problem List/Assessment/Plan 09/30/24 patient feeling better , abdomen soft, non distended, appropriately tender, wound clean dry and intact, not passing gas, NO bowel movement, VALE drain minimal serous sanguinous patient to ambulate NGT to [facility] NPO PICC start TPN Plan discussed with: Patient, Other (Dr. Harris) AUREA CASTILLO ULTRASOUND APPLICATIONS SPECIALIST Sep 30, 2024 11:56
[2024-09-30] MEDS: LORazepam 2MG/ML-1ML VIAL IV ONE (13:53)
[2024-09-30 14:34] LABS: INR 1.12 (0.9-1.15); Partial Thromboplastin Time 34.3 SEC (24.5-34.5); Prothrombin Time 11.7 sec (9.3-11.8)
--- NOTE | 2024-09-30 17:45 | DVHPN2 ---
Reviewed: Care Plan, H&P, Labs, Medications, Radiology Changes from previous H/P or p: No Changes General: Per HPI Objective Vitals Vital Signs Date Time Temp Pulse Resp B/P (MAP) Pulse Ox O2 Delivery O2 Flow Rate FiO2 09/30/24 16:46 98.5 118 17 127/68 (87) 98 98.5 09/29/24 20:00 Room Air* 0 21 Intake/Output Intake and Output 09/30/24 07:00 Intake Total 2740 ml Output Total 1050 ml Balance 1690 ml Intake Oral 620 ml IV Total 2120 ml Output Urine Total 1050 ml General Appearance: Alert, Oriented X3 HEENT: Atraumatic Cardiovascular: Regular rate, Normal S1 Abdomen: Normal bowel sounds, Soft Medications Current Medications Medications Dose Ordered Sig/Temi Route Start Time Stop Time Status Last Admin Dose Admin Potassium Chloride/Dextrose/ Sod Cl 1,000 ml @ 120 mls/hr Q8H20M IV 09/28/24 10:30 09/30/24 02:34 120 MLS/HR Hydromorphone HCl 1 mg Q3HPRN PRN IV 09/28/24 10:30 09/30/24 14:34 1 MG Ondansetron HCl 4 mg Q4HPRN PRN IV 09/28/24 10:30 Cefazolin Sodium/ Dextrose 50 ml @ 50 mls/hr Q8HR IV 09/28/24 14:00 09/30/24 16:33 50 MLS/HR Metronidazole 100 ml @ 100 mls/hr Q8HR IV 09/28/24 14:00 09/30/24 14:34 100 MLS/HR Nitroglycerin 0.4 mg Q5MINP PRN SL 09/28/24 14:00 Morphine Sulfate 2 mg Q30M PRN IV 09/28/24 14:00 Pantoprazole Sodium 40 mg DAILY IV 09/30/24 10:00 09/30/24 09:10 40 MG Metoclopramide HCl 5 mg Q8HPRN PRN IV 09/29/24 10:15 Ketorolac Tromethamine 15 mg Q6HPRN PRN IV 09/29/24 11:15 10/04/24 11:14 09/30/24 12:19 15 MG Laboratory Results Laboratory Tests 09/30/24 06:20 Chemistry Test 09/30/24 06:20 Calcium Level 9.3 mg/dL (8.7-10.4) Coagulation Test 09/30/24 13:50 Prothrombin Time 11.7 sec (9.3-11.8) Prothrombin Time INR 1.12 (0.9-1.15) Activated Partial Thromboplast Time 34.3 SEC (24.5-34.5) Urinalysis Test 09/26/24 10:22 Urine Color Colorless (Yellow) Urine Clarity Clear (Clear) Urine pH 6.0 (5.0-9.0) Urine Specific [place] 1.005 (1.001-1.035) Urine Protein Negative (Negative) Urine Ketones Negative (Negative) Urine Blood Negative /uL (Negative) Urine Nitrite Negative (Negative) Urine Bilirubin Negative (Negative) Urine Urobilinogen Normal mg/dL (Negative) Urine Leukocyte Esterase 3+ /uL (Negative) Urine RBC <1 /hpf (0 - 3) Urine WBC 70 /hpf (0 - 3) Urine Squamous Epithelial Cells Few /hpf (<5) Urine Bacteria None seen /hpf (None Seen) Urine Yeast (Budding) Occasional /hpf (None Urine Glucose Normal mg/dL (Normal) Labs and/or images reviewed: Labs reviewed by me, Image(s) reviewed by me Assessment/Plan Assessment/Plan Likely rheumatoid arthritis. The patient's medications will be held. Hiccups:reglan iv #Abd pain Status post takedown of colostomy. The patient will be placed on pain medications as well as IV fluids. He will be kept n.p.o. for now. NPO per Gen Surg Reglan IV PRN Plan discussed with: Patient Date of Service: Sep 30, 2024 Billing Provider: KARELY GOETZ DO Common Visit Codes: [id number] INP/OBS CARE(HIGH) KARELY GOETZ DO Sep 30, 2024 17:45
[2024-10-01] VITALS (8 sets, daily range): BP systolic 104–129; BP diastolic 65–76; PULSE 75–99; RESP 16–20; TEMP 97.9–98.5; O2SAT 95–99
--- NOTE | 2024-10-01 10:31 | DVHPN2 ---
Progress Note Date Seen: Oct 01, 2024 Medical Necessity Reason Pt with a Central, PICC or Fol: No Objective vital signs Vital Sign Date Time Temp Pulse Resp B/P (MAP) Pulse Ox O2 Delivery O2 Flow Rate FiO2 10/01/24 09:03 88 18 104/65 10/01/24 09:00 98.1 99 98.1 09/30/24 20:00 Room Air* 0 21 Total Intake and Output 09/30/24 09/30/24 10/01/24 15:00 23:00 07:00 Intake Total 100 ml 200 ml 350 ml Output Total 225 ml 600 ml Balance 100 ml -25 ml -250 ml medications Current Medications Medications Dose Ordered Sig/Temi Route Start Time Stop Time Status Last Admin Dose Admin Potassium Chloride/Dextrose/ Sod Cl 1,000 ml @ 120 mls/hr Q8H20M IV 09/28/24 10:30 09/30/24 02:34 120 MLS/HR Hydromorphone HCl 1 mg Q3HPRN PRN IV 09/28/24 10:30 10/01/24 09:03 1 MG Ondansetron HCl 4 mg Q4HPRN PRN IV 09/28/24 10:30 Cefazolin Sodium/ Dextrose 50 ml @ 50 mls/hr Q8HR IV 09/28/24 14:00 10/01/24 05:58 50 MLS/HR Metronidazole 100 ml @ 100 mls/hr Q8HR IV 09/28/24 14:00 10/01/24 05:58 100 MLS/HR Nitroglycerin 0.4 mg Q5MINP PRN SL 09/28/24 14:00 Morphine Sulfate 2 mg Q30M PRN IV 09/28/24 14:00 Pantoprazole Sodium 40 mg DAILY IV 09/30/24 10:00 09/30/24 09:10 40 MG Metoclopramide HCl 5 mg Q8HPRN PRN IV 09/29/24 10:15 Ketorolac Tromethamine 15 mg Q6HPRN PRN IV 09/29/24 11:15 10/04/24 11:14 10/01/24 04:03 15 MG laboratory and microbiology Laboratory Tests 09/30/24 06:20 Test 09/30/24 06:20 Range/Units Serum Glucose 111 H 74-106 mg/dL Problem List/Assessment/Plan Problem List/Assessment/Plan 09/29/24 c/o pain, has not ambulated, wound clean and well approximated, abdomen soft, appropriately tender, will add Toradol, must ambulate 10/01/24 NURSE CONFIRMS THAT THE PATIENT HAD A BM AND IS PASSING FLATUS, ABDOMEN IS SOFT AND NON DISTENDED, APPROPRIATELY TENDER, WILL DC NGT AND KEEP NPO Plan discussed with: Patient, Other DIXIE JIN MD Oct 01, 2024 10:31
[2024-10-01] MEDS: LIDOCAINE 1% (LOCAL ANESTH.) PF 5ml SDV ID ONE (11:00)
[2024-10-01] MEDS ORDERED: DEXTROSE (50%) 50ML SYRG IV SCH (11:15)
[2024-10-01] MEDS ORDERED: TPN PER PHARMACY 0 ML IV SCH (11:15)
[2024-10-01] MEDS: ACCU-CHEK COMFORT CURVE STRIP VI SCH (12:00)
[2024-10-01] MEDS: InsuLIN REG 1unit/0.01ml Soln (100units/ml) SC SCH (12:00)
[2024-10-01 12:43] LABS: Magnesium 2.1 mg/dL (1.6-2.6)
[2024-10-01 12:44] LABS: Albumin 3.4 g/dL (3.2-4.8); Phosphorus 2.6 mg/dL (2.4-5.1)
[2024-10-01] MEDS: chlorproMAZINE HCL 25 MG TAB PO ONE (16:00)
--- NOTE | 2024-10-01 16:07 | DVHPN2 ---
Reviewed: Care Plan, H&P, Labs, Medications, Radiology Changes from previous H/P or p: No Changes General: Per HPI Objective Vitals Vital Signs Date Time Temp Pulse Resp B/P (MAP) Pulse Ox O2 Delivery O2 Flow Rate FiO2 10/01/24 13:00 97.9 85 16 114/71 (85) 99 97.9 09/30/24 20:00 Room Air* 0 21 Intake/Output Intake and Output 10/01/24 07:00 Intake Total 650 ml Output Total 825 ml Balance -175 ml Intake Oral 200 ml IV Total 450 ml Output Urine Total 825 ml # Bowel Movements 1 General Appearance: Alert, Oriented X3 HEENT: Atraumatic Cardiovascular: Regular rate, Normal S1 Abdomen: Normal bowel sounds, Soft Medications Current Medications Medications Dose Ordered Sig/Temi Route Start Time Stop Time Status Last Admin Dose Admin Potassium Chloride/Dextrose/ Sod Cl 1,000 ml @ 120 mls/hr Q8H20M IV 09/28/24 10:30 09/30/24 02:34 120 MLS/HR Hydromorphone HCl 1 mg Q3HPRN PRN IV 09/28/24 10:30 10/01/24 11:16 1 MG Ondansetron HCl 4 mg Q4HPRN PRN IV 09/28/24 10:30 Cefazolin Sodium/ Dextrose 50 ml @ 50 mls/hr Q8HR IV 09/28/24 14:00 10/01/24 05:58 50 MLS/HR Metronidazole 100 ml @ 100 mls/hr Q8HR IV 09/28/24 14:00 10/01/24 05:58 100 MLS/HR Nitroglycerin 0.4 mg Q5MINP PRN SL 09/28/24 14:00 Morphine Sulfate 2 mg Q30M PRN IV 09/28/24 14:00 Pantoprazole Sodium 40 mg DAILY IV 09/30/24 10:00 09/30/24 09:10 40 MG Metoclopramide HCl 5 mg Q8HPRN PRN IV 09/29/24 10:15 Ketorolac Tromethamine 15 mg Q6HPRN PRN IV 09/29/24 11:15 10/04/24 11:14 10/01/24 04:03 15 MG Sodium Chloride 10 ml QSHIFT@ IV 10/01/24 22:00 Amino Acids 0 ml @ 0 mls/hr PER PHARMACY IV 10/01/24 11:15 Diagnostic Test (Pha) 1 strip Q6HR 10/01/24 12:00 10/01/24 12:00 1 STRIP Insulin Human Regular FOLLOW SLIDING SCALE Q6HR SC 10/01/24 12:00 Dextrose 50 ml UD IV 10/01/24 11:15 Fat Emulsion Intravenous 100 ml/Sodium Acetate 20 meq/Sodium Phosphate 20 meq/ Potassium Acetate 20 meq/Magnesium Sulfate 8 meq/ Multivitamins 10 ml/Chromium/ Copper/Manganese/ Zinc 1 ml/Amino Acids/Dextrose 1,138 ml @ 47 mls/hr [id number] IV 10/01/24 22:00 10/02/24 21:59 Laboratory Results Laboratory Tests 09/30/24 06:20 Chemistry Test 10/01/24 11:48 Albumin 3.4 g/dL (3.2-4.8) Magnesium Level 2.1 mg/dL (1.6-2.6) Phosphorus Level 2.6 mg/dL (2.4-5.1) Lipid panel Test 10/01/24 11:48 Triglycerides Level 81 mg/dL (< 150) Urinalysis Test 09/26/24 10:22 Urine Color Colorless (Yellow) Urine Clarity Clear (Clear) Urine pH 6.0 (5.0-9.0) Urine Specific [place] 1.005 (1.001-1.035) Urine Protein Negative (Negative) Urine Ketones Negative (Negative) Urine Blood Negative /uL (Negative) Urine Nitrite Negative (Negative) Urine Bilirubin Negative (Negative) Urine Urobilinogen Normal mg/dL (Negative) Urine Leukocyte Esterase 3+ /uL (Negative) Urine RBC <1 /hpf (0 - 3) Urine WBC 70 /hpf (0 - 3) Urine Squamous Epithelial Cells Few /hpf (<5) Urine Bacteria None seen /hpf (None Seen) Urine Yeast (Budding) Occasional /hpf (None Urine Glucose Normal mg/dL (Normal) Labs and/or images reviewed: Labs reviewed by me, Image(s) reviewed by me Assessment/Plan Assessment/Plan Likely rheumatoid arthritis. The patient's medications will be held. Hiccups:reglan iv #Abd pain Status post takedown of colostomy. The patient will be placed on pain medications as well as IV fluids. He will be kept n.p.o. for now. 09/30/2024 NPO per Gen Surg Reglan IV PRN 10/01/2024 Chloropromazine trial for persistent hiccups Plan discussed with: Patient My Orders Orders - KARELY GOETZ DO Procedure Category Date Status Time Chlorpromazine Hcl PHA 10/01/24 Logged Tablet (Thorazine Tab 16:00 Date of Service: Oct 01, 2024 Billing Provider: KARELY GOETZ DO Common Visit Codes: [id number] INP/OBS CARE(HIGH) KARELY GOETZ DO Oct 01, 2024 16:06
[2024-10-01] MEDS: TPN PER PHARMACY IV NR (22:28)
[2024-10-01] MEDS: SODIUM CHLOR 0.9% PF (SALINE LOCK) 10ML VIAL/SYR IV SCH (22:29)
[2024-10-02] VITALS (7 sets, daily range): BP systolic 97–133; BP diastolic 62–77; PULSE 68–89; RESP 18–20; TEMP 97.7–98.9; O2SAT 98–100
[2024-10-02 07:42] LABS: Alkaline Phosphatase 74 U/L (46-116); Anion Gap 8 (5-15); Aspartate Aminotransferase 16 U/L (13-40); BUN/Creatinine Ratio 11.5 (10.0-20.0); Carbon Dioxide 23 mmol/L (20-31); Magnesium 2.1 mg/dL (1.6-2.6); Potassium 3.5 mmol/L (3.5-5.1); Sodium 138 mmol/L (136-145)
[2024-10-02 07:43] LABS: Bilirubin, Total 0.4 mg/dL (0.2-1.0); Phosphorus 2.5 mg/dL (2.4-5.1)
[2024-10-02 07:52] LABS: Basophils # (auto) 0.1 10 ^3/uL (0-0.2); Basophils % (auto) 0.6 % (0.0-2.0); Eosinophils # (auto) 0.5 10 ^3/uL (0-0.8); Eosinophils % (auto) 4.5 % (0.0-7.0); Hematocrit 27.9 % (41.0-53.0); Hemoglobin 9.4 g/dL (13.5-17.5); Lymphocytes % (auto) 8.7 % (10.0-50.0); Mean Corpuscular Hemoglobin 32.8 pg (28.0-32.0); Mean Corpuscular Hgb Conc. 33.5 g/dL (32.0-36.0); Mean Corpuscular Volume 97.9 fL (80.0-100.0); Monocytes % (auto) 9.1 % (0.0-12.0); Neutrophils # (auto) 8.7 10 ^3/uL (1.6-8.6); Neutrophils % (auto) 77.1 % (37.0-80.0); Platelet Count (auto) 319 10^3/uL (140-450); Red Blood Cells 2.85 10^6/uL (4.5-5.90); Red Cell Distribution Width 14.5 % (11.8-14.3); White Blood Cell 11.3 10^3/uL (4.4-10.8)
[2024-10-02 07:58] LABS: Alanine Aminotransferase < 9 U/L (7-40); Albumin 2.9 g/dL (3.2-4.8); Blood Urea Nitrogen 9 mg/dL (9-23); Calcium 8.5 mg/dL (8.7-10.4); Chloride 107 mmol/L (98-107); Glucose 159 mg/dL (74-106); Total Protein 5.3 g/dL (5.7-8.2)
--- NOTE | 2024-10-02 10:23 | DVHPN2 ---
Progress Note Date Seen: Oct 02, 2024 Medical Necessity Reason Pt with a Central, PICC or Fol: No Objective vital signs Vital Sign Date Time Temp Pulse Resp B/P (MAP) Pulse Ox O2 Delivery O2 Flow Rate FiO2 10/02/24 09:00 97.9 76 20 97/62 (74) 100 97.9 10/02/24 08:00 Nasal Cannula* 2 28 Total Intake and Output 10/01/24 10/01/24 10/02/24 15:00 23:00 07:00 Intake Total 300 ml 1370 ml Output Total 350 ml 500 ml Balance -50 ml 870 ml medications Current Medications Medications Dose Ordered Sig/Temi Route Start Time Stop Time Status Last Admin Dose Admin Potassium Chloride/Dextrose/ Sod Cl 1,000 ml @ 120 mls/hr Q8H20M IV 09/28/24 10:30 10/01/24 17:21 120 MLS/HR Hydromorphone HCl 1 mg Q3HPRN PRN IV 09/28/24 10:30 10/02/24 02:39 1 MG Ondansetron HCl 4 mg Q4HPRN PRN IV 09/28/24 10:30 Cefazolin Sodium/ Dextrose 50 ml @ 50 mls/hr Q8HR IV 09/28/24 14:00 10/02/24 05:42 50 MLS/HR Metronidazole 100 ml @ 100 mls/hr Q8HR IV 09/28/24 14:00 10/02/24 05:42 100 MLS/HR Nitroglycerin 0.4 mg Q5MINP PRN SL 09/28/24 14:00 Morphine Sulfate 2 mg Q30M PRN IV 09/28/24 14:00 Pantoprazole Sodium 40 mg DAILY IV 09/30/24 10:00 10/01/24 17:20 40 MG Metoclopramide HCl 5 mg Q8HPRN PRN IV 09/29/24 10:15 Ketorolac Tromethamine 15 mg Q6HPRN PRN IV 09/29/24 11:15 10/04/24 11:14 10/02/24 06:50 15 MG Sodium Chloride 10 ml QSHIFT@10,22 IV 10/01/24 22:00 10/01/24 22:29 10 ML Amino Acids 0 ml @ 0 mls/hr PER PHARMACY IV 10/01/24 11:15 Diagnostic Test (Pha) 1 strip Q6HR 10/01/24 12:00 10/02/24 05:59 1 STRIP Insulin Human Regular FOLLOW SLIDING SCALE Q6HR SC 10/01/24 12:00 10/02/24 05:59 4 UNITS Dextrose 50 ml UD IV 10/01/24 11:15 Fat Emulsion Intravenous 100 ml/Sodium Acetate 20 meq/Sodium Phosphate 20 meq/ Potassium Acetate 20 meq/Magnesium Sulfate 8 meq/ Multivitamins 10 ml/Chromium/ Copper/Manganese/ Zinc 1 ml/Amino Acids/Dextrose 1,138 ml @ 47 mls/hr [id number] IV 10/01/24 22:00 10/02/24 21:59 10/01/24 22:28 47 MLS/HR laboratory and microbiology Laboratory Tests 10/02/24 06:27 Test 10/02/24 06:27 Range/Units Serum Glucose 159 H 74-106 mg/dL Problem List/Assessment/Plan Problem List/Assessment/Plan 09/29/24 c/o pain, has not ambulated, wound clean and well approximated, abdomen soft, appropriately tender, will add Toradol, must ambulate 10/01/24 NURSE CONFIRMS THAT THE PATIENT HAD A BM AND IS PASSING FLATUS, ABDOMEN IS SOFT AND NON DISTENDED, APPROPRIATELY TENDER, WILL DC NGT AND KEEP NPO 10/02/24 passing flatus and had another BM, wound clean and well approximated, abdomen appropriately ten navdeep, will allow clear liquids, dc [place] Plan discussed with: Patient DIXIE JIN MD Oct 02, 2024 10:23
--- NOTE | 2024-10-02 13:35 | DVHPN2 ---
Reviewed: Care Plan, H&P, Labs, Medications, Radiology Changes from previous H/P or p: No Changes General: Per HPI Objective Vitals Vital Signs Date Time Temp Pulse Resp B/P (MAP) Pulse Ox O2 Delivery O2 Flow Rate FiO2 10/02/24 11:16 68 18 105/68 10/02/24 09:00 97.9 100 97.9 10/02/24 08:00 Nasal Cannula* 2 28 Intake/Output Intake and Output 10/02/24 07:00 Intake Total 1670 ml Output Total 850 ml Balance 820 ml Intake Oral 600 ml IV Total 1070 ml Output Urine Total 800 ml Drainage Total 50 ml # Bowel Movements 1 General Appearance: Alert, Oriented X3 HEENT: Atraumatic Cardiovascular: Regular rate, Normal S1 Abdomen: Normal bowel sounds, Soft Medications Current Medications Medications Dose Ordered Sig/Temi Route Start Time Stop Time Status Last Admin Dose Admin Potassium Chloride/Dextrose/ Sod Cl 1,000 ml @ 120 mls/hr Q8H20M IV 09/28/24 10:30 10/01/24 17:21 120 MLS/HR Hydromorphone HCl 1 mg Q3HPRN PRN IV 09/28/24 10:30 10/02/24 11:16 1 MG Ondansetron HCl 4 mg Q4HPRN PRN IV 09/28/24 10:30 Cefazolin Sodium/ Dextrose 50 ml @ 50 mls/hr Q8HR IV 09/28/24 14:00 10/02/24 05:42 50 MLS/HR Metronidazole 100 ml @ 100 mls/hr Q8HR IV 09/28/24 14:00 10/02/24 05:42 100 MLS/HR Nitroglycerin 0.4 mg Q5MINP PRN SL 09/28/24 14:00 Morphine Sulfate 2 mg Q30M PRN IV 09/28/24 14:00 Pantoprazole Sodium 40 mg DAILY IV 09/30/24 10:00 10/02/24 11:08 40 MG Metoclopramide HCl 5 mg Q8HPRN PRN IV 09/29/24 10:15 Ketorolac Tromethamine 15 mg Q6HPRN PRN IV 09/29/24 11:15 10/04/24 11:14 10/02/24 06:50 15 MG Sodium Chloride 10 ml QSHIFT@10,22 IV 10/01/24 22:00 10/02/24 11:04 10 ML Amino Acids 0 ml @ 0 mls/hr PER PHARMACY IV 10/01/24 11:15 Diagnostic Test (Pha) 1 strip Q6HR 10/01/24 12:00 10/02/24 11:55 1 STRIP Insulin Human Regular FOLLOW SLIDING SCALE Q6HR SC 10/01/24 12:00 10/02/24 05:59 4 UNITS Dextrose 50 ml UD IV 10/01/24 11:15 Fat Emulsion Intravenous 100 ml/Sodium Acetate 20 meq/Sodium Phosphate 20 meq/ Potassium Acetate 20 meq/Magnesium Sulfate 8 meq/ Multivitamins 10 ml/Chromium/ Copper/Manganese/ Zinc 1 ml/Amino Acids/Dextrose 1,138 ml @ 47 mls/hr [id number] IV 10/01/24 22:00 10/02/24 21:59 10/01/24 22:28 47 MLS/HR Fat Emulsion Intravenous 150 ml/Sodium Acetate 40 meq/Sodium Phosphate 40 meq/ Potassium Acetate 40 meq/Calcium Gluconate 2.3 meq/ Magnesium Sulfate 8 meq/ Multivitamins 10 ml/Chromium/ Copper/Manganese/ Zinc 1 ml/Amino Acids/Dextrose 1,417.9462 ml @ 59 mls/hr Q24H2M IV 10/02/24 22:00 10/03/24 21:59 Laboratory Results Laboratory Tests 10/02/24 06:27 Chemistry Test 10/02/24 06:27 Albumin 2.9 g/dL (3.2-4.8) L Calcium Level 8.5 mg/dL (8.7-10.4) L Magnesium Level 2.1 mg/dL (1.6-2.6) Phosphorus Level 2.5 mg/dL (2.4-5.1) Total Protein 5.3 g/dL (5.7-8.2) L LFT Test 10/02/24 06:27 Alanine Aminotransferase (ALT) < 9 U/L (7-40) Alkaline Phosphatase 74 U/L (46-116) Aspartate Amino Transferase (AST) 16 U/L (13-40) Total Bilirubin 0.4 mg/dL (0.2-1.0) Urinalysis Test 09/26/24 10:22 Urine Color Colorless (Yellow) Urine Clarity Clear (Clear) Urine pH 6.0 (5.0-9.0) Urine Specific [place] 1.005 (1.001-1.035) Urine Protein Negative (Negative) Urine Ketones Negative (Negative) Urine Blood Negative /uL (Negative) Urine Nitrite Negative (Negative) Urine Bilirubin Negative (Negative) Urine Urobilinogen Normal mg/dL (Negative) Urine Leukocyte Esterase 3+ /uL (Negative) Urine RBC <1 /hpf (0 - 3) Urine WBC 70 /hpf (0 - 3) Urine Squamous Epithelial Cells Few /hpf (<5) Urine Bacteria None seen /hpf (None Seen) Urine Yeast (Budding) Occasional /hpf (None Urine Glucose Normal mg/dL (Normal) Assessment/Plan Assessment/Plan Likely rheumatoid arthritis. The patient's medications will be held. Hiccups:reglan iv #Abd pain Status post takedown of colostomy. The patient will be placed on pain medications as well as IV fluids. He will be kept n.p.o. for now. 09/30/2024 NPO per Gen Surg Reglan IV PRN 10/01/2024 Chloropromazine trial for persistent hiccups 10/02/2024: hiccups improved pt is allowed to start on clear liquid per surgery advance diet as tolerated Plan discussed with: Patient, Other (nursing) Date of Service: Oct 02, 2024 Billing Provider: KARELY GOETZ DO Common Visit Codes: [id number] INP/OBS CARE(HIGH) KARELY GOETZ DO Oct 02, 2024 13:35
[2024-10-02] MEDS: METOCLOPRAMIDE HCL 5MG/ml INJ 2ml VIAL IV PRN (18:25)
[2024-10-02] MEDS: TPN PER PHARMACY IV NR (22:00)
[2024-10-03] VITALS (8 sets, daily range): BP systolic 116–141; BP diastolic 70–82; PULSE 75–87; RESP 14–19; TEMP 97.6–98.6; O2SAT 94–100
[2024-10-03] MEDS: ONDANSETRON HCL 4 MG/2 ML VIAL IV PRN
[2024-10-03 08:20] LABS: Alkaline Phosphatase 78 U/L (46-116); Anion Gap 6 (5-15); BUN/Creatinine Ratio 12.1 (10.0-20.0); Calcium 8.9 mg/dL (8.7-10.4); Carbon Dioxide 26 mmol/L (20-31); Chloride 106 mmol/L (98-107); Sodium 138 mmol/L (136-145)
[2024-10-03 08:22] LABS: Albumin 3.3 g/dL (3.2-4.8); Aspartate Aminotransferase 19 U/L (13-40); Bilirubin, Total 0.5 mg/dL (0.2-1.0); Phosphorus 2.9 mg/dL (2.4-5.1); Total Protein 5.8 g/dL (5.7-8.2)
[2024-10-03 08:23] LABS: Alanine Aminotransferase < 9 U/L (7-40); Blood Urea Nitrogen 8 mg/dL (9-23); Glucose 111 mg/dL (74-106)
[2024-10-04] VITALS (22 sets, daily range): BP systolic 82–141; BP diastolic 48–82; PULSE 70–130; RESP 13–32; TEMP 98–103.1; O2SAT 97–100
[2024-10-04] MEDS: TPN PER PHARMACY IV NR (02:40)
[2024-10-04] MEDS ORDERED: PIPERACILLIN-TAZOB 3.375GM 100 ML IV SCH (04:00)
--- NOTE | 2024-10-04 11:56 | DVHPN2 ---
Progress Note Date Seen: Oct 04, 2024 Has the PT tested + for MRSA If YES, has PT been informed?: No Medical Necessity Reason Pt with a Central, PICC or Fol: No Subjective Patient reports: No new complaints, Feels better Review of Systems: HEENT:Normal, CVS:Normal, RESPIRATORY:Normal, GI:Normal, :Normal, MSK:Normal, NEURO:Normal Objective vital signs Vital Sign Date Time Temp Pulse Resp B/P (MAP) Pulse Ox O2 Delivery O2 Flow Rate FiO2 10/04/24 09:45 98.0 70 17 123/76 (92) 99 98.0 10/04/24 08:00 Nasal Cannula* 2 28 Total Intake and Output 10/03/24 10/03/24 10/04/24 15:00 23:00 07:00 Intake Total 1050 ml 1600 ml 600 ml Output Total 10 ml Balance 1050 ml 1600 ml 590 ml medications Current Medications Medications Dose Ordered Sig/Temi Route Start Time Stop Time Status Last Admin Dose Admin Potassium Chloride/Dextrose/ Sod Cl 1,000 ml @ 120 mls/hr Q8H20M IV 09/28/24 10:30 10/03/24 06:00 120 MLS/HR Hydromorphone HCl 1 mg Q3HPRN PRN IV 09/28/24 10:30 10/03/24 22:16 1 MG Ondansetron HCl 4 mg Q4HPRN PRN IV 09/28/24 10:30 10/03/24 08:54 4 MG Cefazolin Sodium/ Dextrose 50 ml @ 50 mls/hr Q8HR IV 09/28/24 14:00 10/04/24 05:25 50 MLS/HR Metronidazole 100 ml @ 100 mls/hr Q8HR IV 09/28/24 14:00 10/04/24 05:25 100 MLS/HR Nitroglycerin 0.4 mg Q5MINP PRN SL 09/28/24 14:00 Morphine Sulfate 2 mg Q30M PRN IV 09/28/24 14:00 Pantoprazole Sodium 40 mg DAILY IV 09/30/24 10:00 10/04/24 08:55 40 MG Metoclopramide HCl 5 mg Q8HPRN PRN IV 09/29/24 10:15 10/04/24 08:55 5 MG Sodium Chloride 10 ml QSHIFT@,22 IV 10/01/24 22:00 10/04/24 08:56 10 ML Amino Acids 0 ml @ 0 mls/hr PER PHARMACY IV 10/01/24 11:15 Diagnostic Test (Pha) 1 strip Q6HR 10/01/24 12:00 10/04/24 06:00 1 STRIP Insulin Human Regular FOLLOW SLIDING SCALE Q6HR SC 10/01/24 12:00 10/03/24 01:08 2 UNITS Dextrose 50 ml UD IV 10/01/24 11:15 Fat Emulsion Intravenous 150 ml/Sodium Phosphate 30 meq/ Potassium Acetate 20 meq/Magnesium Sulfate 12 meq/ Multivitamins 10 ml/Chromium/ Copper/Manganese/ Zinc 1 ml/Amino Acids/Dextrose 1,481.5 ml @ 62 mls/hr [id number] IV 10/03/24 22:00 10/04/24 21:59 10/04/24 02:40 62 MLS/HR Examination: GENERAL:Normal, HEENT:Normal, NECK:Normal, LUNGS:Normal, CVS:Normal, ABDOMEN:Abnormal (Vale drain , abdominal wound), MSK:Normal, SKIN:Normal laboratory and microbiology Laboratory Tests 10/03/24 05:10 10/02/24 06:27 Test 10/03/24 05:10 Range/Units Serum Glucose 111 H 74-106 mg/dL Problem List/Assessment/Plan Problem List/Assessment/Plan 09/30/24 patient feeling better , abdomen soft, non distended, appropriately tender, wound clean dry and intact, not passing gas, NO bowel movement, VALE drain minimal serous sanguineous patient to ambulate NGT to [facility] NPO PICC start TPN 10/04/24 - patient feeling better, abdomen soft, non distended, appropriately tender, tolerating diet, passing gas, patient to ambulate every 4 hours Plan discussed with: Patient AUREA CASTILLO KILN STACKER Oct 04, 2024 11:56
[2024-10-04 12:55] LABS: Albumin 3.4 g/dL (3.2-4.8); Alkaline Phosphatase 78 U/L (46-116); Anion Gap 6 (5-15); Aspartate Aminotransferase 24 U/L (13-40); BUN/Creatinine Ratio 10.8 (10.0-20.0); Calcium 8.8 mg/dL (8.7-10.4); Carbon Dioxide 25 mmol/L (20-31); Magnesium 2.1 mg/dL (1.6-2.6); Phosphorus 2.7 mg/dL (2.4-5.1); Sodium 140 mmol/L (136-145)
[2024-10-04 12:56] LABS: Bilirubin, Total 0.4 mg/dL (0.2-1.0)
[2024-10-04 12:57] LABS: Alanine Aminotransferase 9 U/L (7-40); Blood Urea Nitrogen 7 mg/dL (9-23); Chloride 109 mmol/L (98-107); Glucose 131 mg/dL (74-106); Potassium 3.4 mmol/L (3.5-5.1)
--- NOTE | 2024-10-04 14:05 | DVHPN2 ---
Reviewed: Care Plan, H&P, Labs, Medications, Radiology Changes from previous H/P or p: No Changes General: Per HPI Objective Vitals Vital Signs Date Time Temp Pulse Resp B/P (MAP) Pulse Ox O2 Delivery O2 Flow Rate FiO2 10/04/24 13:26 70 17 123/76 10/04/24 13:00 98.3 100 98.3 10/04/24 08:00 Nasal Cannula* 2 28 Intake/Output Intake and Output 10/04/24 07:00 Intake Total 3250 ml Output Total 10 ml Balance 3240 ml Intake Oral 1700 ml IV Total 1550 ml Drainage Total 10 ml # Voids 7 # Bowel Movements 2 General Appearance: Alert, Oriented X3 HEENT: Atraumatic Cardiovascular: Regular rate, Normal S1 Abdomen: Normal bowel sounds, Soft Medications Current Medications Medications Dose Ordered Sig/Temi Route Start Time Stop Time Status Last Admin Dose Admin Potassium Chloride/Dextrose/ Sod Cl 1,000 ml @ 120 mls/hr Q8H20M IV 09/28/24 10:30 10/03/24 06:00 120 MLS/HR Hydromorphone HCl 1 mg Q3HPRN PRN IV 09/28/24 10:30 10/04/24 13:26 1 MG Ondansetron HCl 4 mg Q4HPRN PRN IV 09/28/24 10:30 10/03/24 08:54 4 MG Cefazolin Sodium/ Dextrose 50 ml @ 50 mls/hr Q8HR IV 09/28/24 14:00 10/04/24 13:23 50 MLS/HR Metronidazole 100 ml @ 100 mls/hr Q8HR IV 09/28/24 14:00 10/04/24 13:23 100 MLS/HR Nitroglycerin 0.4 mg Q5MINP PRN SL 09/28/24 14:00 Morphine Sulfate 2 mg Q30M PRN IV 09/28/24 14:00 Pantoprazole Sodium 40 mg DAILY IV 09/30/24 10:00 10/04/24 08:55 40 MG Metoclopramide HCl 5 mg Q8HPRN PRN IV 09/29/24 10:15 10/04/24 08:55 5 MG Sodium Chloride 10 ml QSHIFT@10,22 IV 10/01/24 22:00 10/04/24 08:56 10 ML Amino Acids 0 ml @ 0 mls/hr PER PHARMACY IV 10/01/24 11:15 Diagnostic Test (Pha) 1 strip Q6HR 10/01/24 12:00 10/04/24 12:00 1 STRIP Insulin Human Regular FOLLOW SLIDING SCALE Q6HR SC 10/01/24 12:00 10/03/24 01:08 2 UNITS Dextrose 50 ml UD IV 10/01/24 11:15 Fat Emulsion Intravenous 150 ml/Sodium Phosphate 30 meq/ Potassium Acetate 20 meq/Magnesium Sulfate 12 meq/ Multivitamins 10 ml/Chromium/ Copper/Manganese/ Zinc 1 ml/Amino Acids/Dextrose 1,481.5 ml @ 62 mls/hr [id number] IV 10/03/24 22:00 10/04/24 21:59 10/04/24 02:40 62 MLS/HR Laboratory Results Laboratory Tests 10/02/24 06:27 10/04/24 12:00 Chemistry Test 10/04/24 12:00 Albumin 3.4 g/dL (3.2-4.8) Calcium Level 8.8 mg/dL (8.7-10.4) Magnesium Level 2.1 mg/dL (1.6-2.6) Phosphorus Level 2.7 mg/dL (2.4-5.1) Total Protein 6.0 g/dL (5.7-8.2) LFT Test 10/04/24 12:00 Alanine Aminotransferase (ALT) 9 U/L (7-40) Alkaline Phosphatase 78 U/L (46-116) Aspartate Amino Transferase (AST) 24 U/L (13-40) Total Bilirubin 0.4 mg/dL (0.2-1.0) Urinalysis Test 09/26/24 10:22 Urine Color Colorless (Yellow) Urine Clarity Clear (Clear) Urine pH 6.0 (5.0-9.0) Urine Specific [place] 1.005 (1.001-1.035) Urine Protein Negative (Negative) Urine Ketones Negative (Negative) Urine Blood Negative /uL (Negative) Urine Nitrite Negative (Negative) Urine Bilirubin Negative (Negative) Urine Urobilinogen Normal mg/dL (Negative) Urine Leukocyte Esterase 3+ /uL (Negative) Urine RBC <1 /hpf (0 - 3) Urine WBC 70 /hpf (0 - 3) Urine Squamous Epithelial Cells Few /hpf (<5) Urine Bacteria None seen /hpf (None Seen) Urine Yeast (Budding) Occasional /hpf (None Urine Glucose Normal mg/dL (Normal) Assessment/Plan Assessment/Plan Likely rheumatoid arthritis. The patient's medications will be held. Hiccups:reglan iv #Abd pain Status post takedown of colostomy. The patient will be placed on pain medications as well as IV fluids. He will be kept n.p.o. for now. 09/30/2024 NPO per Gen Surg Reglan IV PRN 10/01/2024 Chloropromazine trial for persistent hiccups 10/02/2024: hiccups improved pt is allowed to start on clear liquid per surgery advance diet as tolerated 10/03/2024 advance diet as tolerated continue with IV Abx pain control Plan discussed with: Patient Date of Service: Oct 03, 2024 Billing Provider: KARELY GOETZ DO Common Visit Codes: [id number] INP/OBS CARE(HIGH) KARELY GOETZ DO Oct 04, 2024 14:05
[2024-10-04] MEDS: ACETAMINOPHEN 325 MG TAB PO PRN (16:11)
[2024-10-04] MEDS: MORPHINE SULFATE INJ 2 MG/ml SYRG IV PRN ×2 (16:11→21:06)
--- NOTE | 2024-10-04 18:16 | DVHPN2 ---
Reviewed: Care Plan, H&P, Labs, Medications, Radiology Changes from previous H/P or p: No Changes General: Per HPI Objective Vitals Vital Signs Date Time Temp Pulse Resp B/P (MAP) Pulse Ox O2 Delivery O2 Flow Rate FiO2 10/04/24 17:01 103.1 130 18 141/69 (93) 97 103.1 10/04/24 08:00 Nasal Cannula* 2 28 Intake/Output Intake and Output 10/04/24 07:00 Intake Total 3250 ml Output Total 10 ml Balance 3240 ml Intake Oral 1700 ml IV Total 1550 ml Drainage Total 10 ml # Voids 7 # Bowel Movements 2 General Appearance: Alert, Oriented X3 HEENT: Atraumatic Cardiovascular: Regular rate, Normal S1 Abdomen: Normal bowel sounds, Soft Medications Current Medications Medications Dose Ordered Sig/Temi Route Start Time Stop Time Status Last Admin Dose Admin Potassium Chloride/Dextrose/ Sod Cl 1,000 ml @ 120 mls/hr Q8H20M IV 09/28/24 10:30 10/03/24 06:00 120 MLS/HR Hydromorphone HCl 1 mg Q3HPRN PRN IV 09/28/24 10:30 10/04/24 13:26 1 MG Ondansetron HCl 4 mg Q4HPRN PRN IV 09/28/24 10:30 10/04/24 16:19 4 MG Cefazolin Sodium/ Dextrose 50 ml @ 50 mls/hr Q8HR IV 09/28/24 14:00 10/04/24 13:23 50 MLS/HR Metronidazole 100 ml @ 100 mls/hr Q8HR IV 09/28/24 14:00 10/04/24 13:23 100 MLS/HR Nitroglycerin 0.4 mg Q5MINP PRN SL 09/28/24 14:00 Morphine Sulfate 2 mg Q30M PRN IV 09/28/24 14:00 10/04/24 16:11 2 MG Pantoprazole Sodium 40 mg DAILY IV 09/30/24 10:00 10/04/24 08:55 40 MG Metoclopramide HCl 5 mg Q8HPRN PRN IV 09/29/24 10:15 10/04/24 08:55 5 MG Sodium Chloride 10 ml QSHIFT@10,22 IV 10/01/24 22:00 10/04/24 08:56 10 ML Amino Acids 0 ml @ 0 mls/hr PER PHARMACY IV 10/01/24 11:15 Diagnostic Test (Pha) 1 strip Q6HR 10/01/24 12:00 10/04/24 12:00 1 STRIP Insulin Human Regular FOLLOW SLIDING SCALE Q6HR SC 10/01/24 12:00 10/03/24 01:08 2 UNITS Dextrose 50 ml UD IV 10/01/24 11:15 Fat Emulsion Intravenous 150 ml/Sodium Phosphate 30 meq/ Potassium Acetate 20 meq/Magnesium Sulfate 12 meq/ Multivitamins 10 ml/Chromium/ Copper/Manganese/ Zinc 1 ml/Amino Acids/Dextrose 1,481.5 ml @ 62 mls/hr [id number] IV 10/03/24 22:00 10/04/24 21:59 10/04/24 02:40 62 MLS/HR Acetaminophen 650 mg Q6HP PRN PO 10/04/24 15:45 10/04/24 16:11 650 MG Morphine Sulfate 2 mg Q2HPRN PRN IV 10/04/24 15:45 Laboratory Results Laboratory Tests 10/02/24 06:27 10/04/24 12:00 Chemistry Test 10/04/24 12:00 Albumin 3.4 g/dL (3.2-4.8) Calcium Level 8.8 mg/dL (8.7-10.4) Magnesium Level 2.1 mg/dL (1.6-2.6) Phosphorus Level 2.7 mg/dL (2.4-5.1) Total Protein 6.0 g/dL (5.7-8.2) LFT Test 10/04/24 12:00 Alanine Aminotransferase (ALT) 9 U/L (7-40) Alkaline Phosphatase 78 U/L (46-116) Aspartate Amino Transferase (AST) 24 U/L (13-40) Total Bilirubin 0.4 mg/dL (0.2-1.0) Urinalysis Test 09/26/24 10:22 Urine Color Colorless (Yellow) Urine Clarity Clear (Clear) Urine pH 6.0 (5.0-9.0) Urine Specific [place] 1.005 (1.001-1.035) Urine Protein Negative (Negative) Urine Ketones Negative (Negative) Urine Blood Negative /uL (Negative) Urine Nitrite Negative (Negative) Urine Bilirubin Negative (Negative) Urine Urobilinogen Normal mg/dL (Negative) Urine Leukocyte Esterase 3+ /uL (Negative) Urine RBC <1 /hpf (0 - 3) Urine WBC 70 /hpf (0 - 3) Urine Squamous Epithelial Cells Few /hpf (<5) Urine Bacteria None seen /hpf (None Seen) Urine Yeast (Budding) Occasional /hpf (None Urine Glucose Normal mg/dL (Normal) Assessment/Plan Assessment/Plan Likely rheumatoid arthritis. The patient's medications will be held. Hiccups:reglan iv #Abd pain Status post takedown of colostomy. The patient will be placed on pain medications as well as IV fluids. He will be kept n.p.o. for now. 09/30/2024 NPO per Gen Surg Reglan IV PRN 10/01/2024 Chloropromazine trial for persistent hiccups 10/02/2024: hiccups improved pt is allowed to start on clear liquid per surgery advance diet as tolerated 10/03/2024 advance diet as tolerated continue with IV Abx pain control 10/04/2024 pt has fever and tachycardia. obtaining CT angio to rule out PE also obtaining abd CT Tylenol on board obtaining blood cx and urine cx Plan discussed with: Patient My Orders Orders - KARELY GOETZ DO Procedure Category Date Status Time * Staff Electrical Engineer CONS 10/04/24 Transmitted Consult Acetaminophen Tablet PHA 10/04/24 In Process (Tylenol Tablet) 15:45 Morphine Sulfate PHA 10/04/24 In Process Injection 15:45 Complete Blood Count LAB 10/04/24 Logged 17:58 Comprehensive LAB 10/04/24 Logged Metabolic Panel 17:58 Blood Culture HALEY 10/04/24 Logged 17:[address] 10/04/24 Logged Contrast 18:[address] 10/04/24 Logged Contrast 18:00 Date of Service: Oct 04, 2024 Billing Provider: KARELY GOETZ DO Common Visit Codes: [id number] INP/OBS CARE(HIGH) KARELY GOETZ DO Oct 04, 2024 18:16
[2024-10-04 18:59] LABS: Hemoglobin 10.7 g/dL (13.5-17.5)
[2024-10-04 19:01] LABS: Mean Corpuscular Hemoglobin 32.1 pg (28.0-32.0); Mean Corpuscular Hgb Conc. 33.4 g/dL (32.0-36.0); Mean Corpuscular Volume 96.1 fL (80.0-100.0); Platelet Count (auto) 475 10^3/uL (140-450); Red Blood Cells 3.33 10^6/uL (4.5-5.90); Red Cell Distribution Width 14.6 % (11.8-14.3)
[2024-10-04] MEDS: NOREPINEPHRINE 8 MG/250ML KIT 250 ML IV ONE (19:04)
[2024-10-04 19:06] LABS: Basophils % (manual) 0 (0.0-2.0); Blast Cells 0; Eosinophils % (manual) 0 (0-7); Metamyelocytes % 0; Myelocytes % 0; Promyelocytes % 0; Reactive Lymphocytes 0
[2024-10-04] MEDS: IOHEXOL 350 MG/ML 100ML IJ ONE (19:19)
[2024-10-04 19:27] LABS: Alanine Aminotransferase 10 U/L (7-40); Albumin 3.3 g/dL (3.2-4.8); Alkaline Phosphatase 84 U/L (46-116); Anion Gap 8 (5-15); Aspartate Aminotransferase 25 U/L (13-40); BUN/Creatinine Ratio 11.4 (10.0-20.0); Blood Urea Nitrogen 9 mg/dL (9-23); Carbon Dioxide 23 mmol/L (20-31); Sodium 139 mmol/L (136-145)
[2024-10-04 19:28] LABS: Bilirubin, Total 0.6 mg/dL (0.2-1.0); Total Protein 5.9 g/dL (5.7-8.2)
[2024-10-04 19:35] LABS: Calcium 8.5 mg/dL (8.7-10.4); Chloride 108 mmol/L (98-107); Glucose 110 mg/dL (74-106); Potassium 3.4 mmol/L (3.5-5.1)
[2024-10-04] MEDS ORDERED: VANCOMYCIN PER PHARMACY 0 MG IV SCH (19:45)
--- NOTE | 2024-10-04 19:55 | DVH ---
EXAM: CT HEAD WITHOUT CONTRAST INDICATION: PAIN TECHNIQUE: CT of the head without intravenous contrast. Radiation Dose : 1. Head: CT Dose: CTDI volume is 60.5 mGy. Dose-length product is 1192.14 mGy*cm The dose indicators for CT are the volume Computed Tomography (CT) Dose Index (CTDIvol) and the Dose Length Product (DLP), and are measured in units of mGy and mGy-cm, respectively. These indicators are not patient dose, but values generated from the CT scanner acquisition factors. The report includes radiation exposure data for exposures received during this examination. COMPARISON: CT CHEST WITHOUT CONTRAST on DOS: 09/21/23, CT ABDOMEN WITHOUT CONTRAST on DOS: 09/02/23 FINDINGS: There is no evidence of acute intracranial hemorrhage, extra-axial collection, mass effect, midline s hift, herniation or hydrocephalus. The ventricles, sulci and cisterns are age appropriate. The todd-white differentiation is intact. The visualized paranasal sinuses and mastoid air cells are clear. The surrounding soft tissues and osseous structures are unremarkable. IMPRESSION: No acute intracranial abnormality. Radiation optimization: All CT scans at this facility use at least one of these dose optimization taylor hniques: automated exposure control mA and/or kV adjustment per patient size (includes targeted exam s where dose is matched to clinical indication) or iterative reconstruction.
[2024-10-04] MEDS: SODIUM CHLORIDE 0.9% 500 ML IV ONE (20:11)
--- NOTE | 2024-10-04 20:21 | DVH ---
INDICATION: ruling out TECHNIQUE: Multidetector CTA of the chest was performed of the chest with 100 cc of intravenous contr ast. PULMONARY ANGIOGRAPHY PROTOCOL was utilized using a bolus-tracking technique centered on the kristi n pulmonary artery. Axial, coronal and sagittal multiplanar and MIP reformats were performed. Radiation Dose Information: CT Dose: CTDI volume is 5.92 mGy. Dose-length product is 722.89 mGy*cm COMPARISON: NO PRIOR STUDIES FOR COMPARISON The dose indicators for CT are the volume Computed Tomography (CT) Dose Index (CTDIvol) and the Dose Length Product (DLP), and are measured in units of mGy and mGy-cm, respectively. These indicators are not patient dose, but values generated from the CT scanner acquisition factors. The report includes radiation exposure data for exposures received during this examination. Findings: Pulmonary artery: Normal caliber of the pulmonary artery. Suboptimal opacification of the pulmonary artery. (Optimal opacification is 266 Hounsfield units. Opacification achieved is 113.9 hounsfield un its) No large central or large segmental pulmonary embolism. Lower neck: Normal thyroid. Lungs: Bibasilar areas of linear atelectasis or scarring. Heart/Vascular Structures: Normal heart size. Normal caliber and enhancement of the aorta. Lymph Nodes: No adenopathy Pleura: No pleural effusion or significant pneumothorax. Musculoskeletal: No acute osseous abnormality. Upper abdomen: Limited portions of the upper abdomen are unremarkable. IMPRESSION: 1. No findings of pulmonary emboli 2. No findings of pulmonary artery hypertension. 3. Pneumoperitoneum, correlate for recent intra-abdominal procedure; perforated viscus.
[2024-10-04 20:33] LABS: Band Neutrophils % (manual) 15; Lymphocytes % (manual) 1 (10.0-50.0); Monocytes % (manual) 3 (0-12); Platelet Estimate Adequate
[2024-10-04] MEDS: PIPERACILLIN-TAZOB 3.375GM 100 ML IV ONE (20:35)
[2024-10-04] MEDS: NOREPINEPHRINE 8 MG/250ML KIT 250 ML IV SCH (20:35)
[2024-10-04 20:40] LABS: Anisocytosis Slight; Stomatocytes Few
--- NOTE | 2024-10-04 20:44 | DVH ---
Exam: CT CT AB PEL WO CON-NO ORAL OR IV History: worsening abdominal pain Comparison Study: None available at time of dictation. TECHNIQUE: Multidetector CT of the abdomen was performed from lung bases to pubic symphysis. Imaging was performed without IV contrast. Axial, coronal and sagittal multiplanar reformats were obtained fr om the axial data set by the technologist. Radiation Dose Information: CT Dose: CTDI volume is 17.29 mGy. Dose-length product is 926.55 mGy*cm FINDINGS: Evaluation of solid organs is limited due to lack of intravenous contrast use. Findings: Lung Bases: Bibasilar areas of atelectasis or scarring. Normal heart size. No pleural or pericardial effusion. Liver: The liver is normal in size. No focal lesions. Gallbladder and Biliary Tree: Cholelithiasis Spleen: Unremarkable Pancreas: The pancreas is grossly normal in appearance. Adrenal Glands: Unremarkable Kidneys: Punctate nonobstructing calculi both kidneys Bladder: Grossly unremarkable for degree of distention. Bowel: The stomach is grossly normal in appearance. Small bowel and colon are normal in caliber and d istribution. Grzegorz-Beth drain place with from the right abdomen with the tip in the lower left abd omen. Decreased fluid in the left lower abdomen. The appendix is not visualized; however, no secondar y findings of acute appendicitis identified. Ascites: Absent pneumoperitoneum suggesting perforated viscus. Lymphadenopathy: No mesenteric, retroperitoneal or periportal lymphadenopathy. Abdominal Wall and Mesentery: Skin closure livia over the in right abdomen.. Vasculature: The visualized abdominal aorta is normal in size and caliber. Evaluation of abdominal a nd pelvic vessels is limited due to lack of intravenous contrast. Pelvic Organs: Unremarkable Musculoskeletal: No aggressive focal bony lesions, acute fractures or dislocation. Soft tissues: Unremarkable IMPRESSION: 1. Skin closure livia over the abdominal midline and right lower abdomen. 2. Cholelithiasis 3. Skin closure livia in the abdominal midline and right lower abdomen. 4. VALE drain in place from the right abdomen with the tip in the lower left abdomen. Decreased fluid c ollection in the lower left abdomen. 5. Punctate nonobstructing calculi right and left kidneys. 6. Pneumoperitoneum most likely secondary to postoperative procedures. Radiation optimization: All CT scans at this facility use at least one of these dose optimization taylor hniques: automated exposure control mA and/or kV adjustment per patient size (includes targeted exam s where dose is matched to clinical indication) or iterative reconstruction.
[2024-10-04] MEDS: VANCOMYCIN 1GM/250ML KIT 250 ML IV SCH (21:00)
[2024-10-04 21:19] LABS: Urine Bacteria None Seen /hpf (None Seen)
[2024-10-04 21:34] LABS: Urine Blood Negative /uL (Negative); Urine Clarity Clear (Clear); Urine Color Yellow (Yellow); Urine Protein, UAD Negative (Negative); Urine Specific Gravity 1.023 (1.001-1.035); Urine Squamous Epithelial Cell None Seen /hpf (<5); Urine Urobilinogen Normal (Negative); Urine WBC 1 /HPF (0-3)
[2024-10-04] MEDS: AMINO ACID INFUSION IN D10W 1,000 ML IV SCH (22:00)
--- NOTE | 2024-10-04 22:57 | DVH ---
CHEST RADIOGRAPH Indication: NGT PLACEMENT Technique: Single frontal view of the chest was obtained Comparison: XY CHEST PORTABLE on DOS: 09/29/24, XY CHEST PORTABLE on DOS: 01/03/24, XY CHEST XRAY 1 VIE W on DOS: 09/20/23 FINDINGS: Lines and Tubes: Enteric tube below the left diaphragm in the stomach Lungs: No focal consolidation. Pleura: No effusion. No pneumothorax. Cardiomediastinal contours: Unremarkable Bones: No acute osseous abnormality. IMPRESSION: 1. Enteric tube below the left diaphragm in the stomach
[2024-10-04] MEDS ORDERED: metroNIDAZOLE 500MG/100ML 100 ML IV SCH (23:15)
[2024-10-04] MEDS: POTASSIUM CHL 20MEQ/100ML 100 ML IV ONE (23:18)
[2024-10-05] VITALS (78 sets, daily range): BP systolic 86–131; BP diastolic 45–77; PULSE 66–124; RESP 11–28; TEMP 98–102.4; O2SAT 97–100
[2024-10-05] MEDS: VANCOMYCIN 1GM/250ML KIT 250 ML IV SCH (02:03)
[2024-10-05 04:50] LABS: Hemoglobin 9.4 g/dL (13.5-17.5)
[2024-10-05 04:52] LABS: Hematocrit 28.8 % (41.0-53.0); Mean Corpuscular Hemoglobin 31.4 pg (28.0-32.0); Mean Corpuscular Hgb Conc. 32.6 g/dL (32.0-36.0); Mean Corpuscular Volume 96.5 fL (80.0-100.0); Platelet Count (auto) 455 10^3/uL (140-450); Red Blood Cells 2.98 10^6/uL (4.5-5.90); White Blood Cell 28.4 10^3/uL (4.4-10.8)
[2024-10-05] MEDS: metroNIDAZOLE 500MG/100ML 100 ML IV SCH (04:57)
[2024-10-05 04:58] LABS: Basophils % (manual) 0 (0.0-2.0); Blast Cells 0; Eosinophils % (manual) 0 (0-7); Metamyelocytes % 0; Myelocytes % 0; Promyelocytes % 0; Reactive Lymphocytes 0
[2024-10-05 05:05] LABS: INR 1.33 (0.9-1.15); Partial Thromboplastin Time 34.2 SEC (24.5-34.5); Prothrombin Time 13.7 sec (9.3-11.8)
[2024-10-05 05:07] LABS: Alkaline Phosphatase 74 U/L (46-116); Anion Gap 5 (5-15); Aspartate Aminotransferase 15 U/L (13-40); BUN/Creatinine Ratio 10.4 (10.0-20.0); Carbon Dioxide 23 mmol/L (20-31); Magnesium 1.9 mg/dL (1.6-2.6); Potassium 3.8 mmol/L (3.5-5.1); Sodium 139 mmol/L (136-145)
[2024-10-05 05:08] LABS: Alanine Aminotransferase < 9 U/L (7-40); Albumin 2.9 g/dL (3.2-4.8); Bilirubin, Total 0.5 mg/dL (0.2-1.0); Blood Urea Nitrogen 7 mg/dL (9-23); Calcium 8.2 mg/dL (8.7-10.4); Chloride 111 mmol/L (98-107); Glucose 190 mg/dL (74-106); Phosphorus 2.3 mg/dL (2.4-5.1); Total Protein 5.2 g/dL (5.7-8.2)
[2024-10-05] MEDS: PIPERACILLIN-TAZOB 3.375GM 100 ML IV SCH ×2 (06:02→15:34)
[2024-10-05 08:03] LABS: Band Neutrophils % (manual) 1; Lymphocytes % (manual) 5 (10.0-50.0); Monocytes % (manual) 3 (0-12); Platelet Estimate Increased
--- NOTE | 2024-10-05 09:53 | DVHPN2 ---
Progress Note Date Seen: Oct 05, 2024 Has the PT tested + for MRSA If YES, has PT been informed?: No Medical Necessity Reason Pt with a Central, PICC or Fol: No Objective vital signs Vital Sign Date Time Temp Pulse Resp B/P (MAP) Pulse Ox O2 Delivery O2 Flow Rate FiO2 10/05/24 08:50 65 22 119/63 10/05/24 06:45 97 10/05/24 06:25 Nasal Cannula* 2 28 10/05/24 04:00 98.0 98.0 Total Intake and Output 10/04/24 10/04/24 10/05/24 15:00 23:00 07:00 Intake Total 50 ml 477.25 ml 2023.25 ml Output Total 1455 ml Balance 50 ml 477.25 ml 568.25 ml medications Current Medications Medications Dose Ordered Sig/Temi Route Start Time Stop Time Status Last Admin Dose Admin Potassium Chloride/Dextrose/ Sod Cl 1,000 ml @ 120 mls/hr Q8H20M IV 09/28/24 10:30 10/04/24 23:12 120 MLS/HR Hydromorphone HCl 1 mg Q3HPRN PRN IV 09/28/24 10:30 10/05/24 08:50 1 MG Ondansetron HCl 4 mg Q4HPRN PRN IV 09/28/24 10:30 10/04/24 21:22 4 MG Nitroglycerin 0.4 mg Q5MINP PRN SL 09/28/24 14:00 Morphine Sulfate 2 mg Q30M PRN IV 09/28/24 14:00 10/04/24 16:11 2 MG Pantoprazole Sodium 40 mg DAILY IV 09/30/24 10:00 10/04/24 08:55 40 MG Metoclopramide HCl 5 mg Q8HPRN PRN IV 09/29/24 10:15 10/04/24 22:39 5 MG Sodium Chloride 10 ml QSHIFT@10,22 IV 10/01/24 22:00 10/04/24 22:00 10 ML Amino Acids 0 ml @ 0 mls/hr PER PHARMACY IV 10/01/24 11:15 Diagnostic Test (Pha) 1 strip Q6HR 10/01/24 12:00 10/05/24 05:57 1 STRIP Insulin Human Regular FOLLOW SLIDING SCALE Q6HR SC 10/01/24 12:00 10/05/24 06:01 4 UNITS Dextrose 50 ml UD IV 10/01/24 11:15 Acetaminophen 650 mg Q6HP PRN PO 10/04/24 15:45 10/04/24 16:11 650 MG Morphine Sulfate 2 mg Q2HPRN PRN IV 10/04/24 15:45 10/04/24 21:06 2 MG Vancomycin HCl 0 ml @ 0 mls/hr UD IV 10/04/24 19:45 Norepinephrine Bitartrate 250 ml @ 3.75 mls/hr Q24H IV 10/04/24 19:45 10/04/24 20:35 3.75 MLS/HR Amino Acids/ Electrolytes/ Dextrose 1,000 ml @ 41 mls/hr DAILY@2200 IV 10/04/24 22:00 10/05/24 21:59 10/04/24 22:00 41 MLS/HR Metronidazole 100 ml @ 100 mls/hr Q8HR@0500,1300,2100 IV 10/05/24 05:00 10/05/24 04:57 100 MLS/HR Piperacillin Sod/ Tazobactam Sod 100 ml @ 25 mls/hr Q8H IV 10/05/24 06:00 10/05/24 06:02 25 MLS/HR laboratory and microbiology Laboratory Tests 10/05/24 04:30 Test 10/05/24 04:30 Range/Units Serum Glucose 190 H 74-106 mg/dL Problem List/Assessment/Plan Problem List/Assessment/Plan 09/29/24 c/o pain, has not ambulated, wound clean and well approximated, abdomen soft, appropriately tender, will add Toradol, must ambulate 10/01/24 NURSE CONFIRMS THAT THE PATIENT HAD A BM AND IS PASSING FLATUS, ABDOMEN IS SOFT AND NON DISTENDED, APPROPRIATELY TENDER, WILL DC NGT AND KEEP NPO 10/02/24 passing flatus and had another BM, wound clean and well approximated, abdomen appropriately ten navdeep, will allow clear liquids, dc Hoyt 10/05/24 patient had a sudden onset of abdominal pain accompanied by hypotension and tachycardia, was transferred to ICU,his blood pressure was normalized by intravenous fluid loading, this AM he has an exquisitely tender abdomen ,has slight bleeding from the midline wound. Has markedly elevated WBC,due to sudden pain and marked tenderness with WBC almost 30,000 I believe the safest next step is to explore his abdomen to see if his colorectal anastomosis has dehisced (in which case he would have to have the colostomy re established). I have thoroughly explained to him the above and answered all his questions Plan discussed with: Patient, Other Dietary Evaluation Review Comments: Pt is able to eat, encourage CCHO-60 diet, texture as tolerated diet. Expected Outcomes/Goals: wean from TPN, eat a normal textured CCHO diet. Reduced Baton Teacher Strength: N/A DIXIE JIN MD Oct 05, 2024 09:53
[2024-10-05] MEDS ORDERED: PROPOFOL 10 MG/ML 20 ML IV ONE (10:15)
[2024-10-05] MEDS ORDERED: ROCURONIUM 10MG/ML 10ML VIAL IV ONE (10:16)
[2024-10-05] MEDS ORDERED: HYDROmorphone HCL 2 MG/ML VL/or syr ONE (10:40)
[2024-10-05] MEDS: BUPIVACAINE 0.5% P/F INJ 10 ML VIAL ONE (11:04)
[2024-10-05] MEDS: LIDOCAINE W/ EPINEPHRINE 1% 20ML VIAL ONE (11:06)
[2024-10-05] MEDS ORDERED: SUGAMMADEX 200mg/2ml Vial (100MG/ML) IV ONE (11:16)
[2024-10-05] MEDS ORDERED: ONDANSETRON HCL 4 MG/2 ML VIAL ONE (11:16)
[2024-10-05] MEDS: POVIDONE IODINE 10 % TOPICAL OINT 30GM TOP ONE ×2 (11:17→11:18)
[2024-10-05] MEDS ORDERED: MORPHINE SULF PF 5 MG/10 ML VIAL ONE ×3 (11:19→11:30)
[2024-10-05] MEDS ORDERED: TPN PER PHARMACY 0 ML IV SCH (11:45)
[2024-10-05] MEDS ORDERED: MORPHINE SULFATE 4 MG/ML SYR/VIAL IV PRN ×2 (12:00)
[2024-10-05] MEDS ORDERED: HYDROmorphone HCL 2 MG/ML VL/or syr IV PRN (12:00)
[2024-10-05] MEDS: ONDANSETRON HCL 4 MG/2 ML VIAL IV ONE (12:00)
[2024-10-05] MEDS: HYDROmorphone HCL 2 MG/ML VL/or syr ONE (12:06)
[2024-10-05] MEDS: HYDROmorphone HCL 2 MG/ML VL/or syr IV PRN ×2 (12:07→16:31)
--- NOTE | 2024-10-05 12:50 | DVHOP ---
DATE OF SURGERY: 10/05/2024 PREOPERATIVE DIAGNOSIS: Abdominal sepsis. POSTOPERATIVE DIAGNOSES: Abdominal wall dehiscence, subcutaneous abscess. SURGEON: Dex Harris MD HASHER OPERATOR: Rodrigue Orellana. ANESTHESIA: General endotracheal. ANESTHESIOLOGIST: Dr. Lewis. PROCEDURES: Exploratory laparotomy, abdominal wall reapproximation, and abdominal lavage. DESCRIPTION OF PROCEDURE: Under general endotracheal anesthesia with the patient's skin prepped and draped, the patient's livia were removed. The wound was opened and copious amount of infected hematoma was evacuated. Cultures and sensitivities were submitted. The abdomen was then entered. The anastomosis was visualized. There was no evidence of anastomotic leak. The previous drain was removed. There was no evidence of any feculent contamination. At this point, the wound and abdomen were profusely irrigated and subsequently the old drain having been removed. Two new drains were placed through separate incision secured with 2-0 nylon sutures and placed into the lateral aspect of the abdomen not in contact with the recent colorectal anastomosis. Set of retention sutures were placed and subsequently the abdomen was closed using #1 double-stranded PDS suture. Few metallic clips with subcutaneous drain was placed and exteriorized separately secured with a 2-0 nylon suture. The fascia was approximated using #1 double-stranded PDS suture and few metallic skin livia were placed. The patient remained hemodynamically stable throughout the procedure, left the operating room following an accurate needle and sponge count. The patient's daughter, Gladys, was thoroughly informed at [phone]. MD NATIVIDAD Ling/REINA TID: [id number] RECEIPT: [id number]
[2024-10-05] MEDS: VANCOMYCIN 750MG KIT 100 ML IV SCH (14:10)
[2024-10-05] MEDS: D5W/SOD CHL 0.45%/KCL 20MEQ 1,000 ML IV SCH (15:34)
[2024-10-05] MEDS: ONDANSETRON HCL 4 MG/2 ML VIAL IV PRN (17:13)
[2024-10-05] MEDS: MORPHINE SULFATE INJ 2 MG/ml SYRG IV PRN (17:14)
--- NOTE | 2024-10-05 18:37 | MEDREC ---
[facility] Intervention Section I [facility] Intervention: Duplication of therapy (PLEASE CONSIDER D/C FLAGYL SINCE BOTH ZOSYN AND FLAGYL COVER FOR ANAEROBE ORGANISMS (DUPLICATE) ) JEANNETTE WILLINGHAM PHARMACIST Oct 05, 2024 18:37
[2024-10-05] MEDS: ACETAMINOPHEN IV 1000 MG/100ML (10MG/ML) IV PRN (21:17)
[2024-10-05] MEDS: TPN PER PHARMACY IV NR (21:57)
[2024-10-06] VITALS (31 sets, daily range): BP systolic 93–138; BP diastolic 50–75; PULSE 89–103; RESP 13–25; TEMP 97.8–98.8; O2SAT 99–100
[2024-10-06 04:14] LABS: Alkaline Phosphatase 58 U/L (46-116); Anion Gap 4 (5-15); Aspartate Aminotransferase 13 U/L (13-40); BUN/Creatinine Ratio 8.7 (10.0-20.0); Bilirubin, Total 0.5 mg/dL (0.2-1.0); Blood Urea Nitrogen 11 mg/dL (9-23); Carbon Dioxide 24 mmol/L (20-31); Magnesium 1.7 mg/dL (1.6-2.6); Phosphorus 2.8 mg/dL (2.4-5.1); Potassium 3.9 mmol/L (3.5-5.1); Sodium 139 mmol/L (136-145)
[2024-10-06 04:15] LABS: Alanine Aminotransferase < 9 U/L (7-40); Albumin 2.5 g/dL (3.2-4.8); Calcium 7.6 mg/dL (8.7-10.4); Chloride 111 mmol/L (98-107); Glucose 177 mg/dL (74-106); Total Protein 4.5 g/dL (5.7-8.2)
[2024-10-06 04:44] LABS: Basophils # (auto) 0.1 10 ^3/uL (0-0.2); Basophils % (auto) 0.4 % (0.0-2.0); Eosinophils # (auto) 0.2 10 ^3/uL (0-0.8); Eosinophils % (auto) 0.7 % (0.0-7.0); Hematocrit 29.3 % (41.0-53.0); Hemoglobin 9.4 g/dL (13.5-17.5); Lymphocytes % (auto) 4.4 % (10.0-50.0); Mean Corpuscular Hemoglobin 31.2 pg (28.0-32.0); Mean Corpuscular Volume 97.7 fL (80.0-100.0); Monocytes # (auto) 1.1 10 ^3/uL (0-1.3); Monocytes % (auto) 5.1 % (0.0-12.0); Neutrophils # (auto) 20.1 10 ^3/uL (1.6-8.6); Neutrophils % (auto) 89.4 % (37.0-80.0); Platelet Count (auto) 427 10^3/uL (140-450); Red Cell Distribution Width 15.1 % (11.8-14.3); White Blood Cell 22.5 10^3/uL (4.4-10.8)
[2024-10-06] MEDS ORDERED: PANTOPRAZOLE 40 MG/10 ML VIAL INJ IV SCH (10:00)
--- NOTE | 2024-10-06 10:10 | DVHPN2 ---
Progress Note Date Seen: Oct 06, 2024 Has the PT tested + for MRSA If YES, has PT been informed?: No Medical Necessity Reason Pt with a Central, PICC or Fol: No Objective vital signs Vital Sign Date Time Temp Pulse Resp B/P (MAP) Pulse Ox O2 Delivery O2 Flow Rate FiO2 10/06/24 09:53 92 27 130/66 10/06/24 09:00 100 10/06/24 06:00 Nasal Cannula* 2 28 10/06/24 04:00 97.8 97.8 Total Intake and Output 10/05/24 10/05/24 10/06/24 15:00 23:00 07:00 Intake Total 482.5 ml 1367.50 ml 1356 ml Output Total 290 ml 1245 ml 570 ml Balance 192.5 ml 122.50 ml 786 ml medications Current Medications Medications Dose Ordered Sig/Temi Route Start Time Stop Time Status Last Admin Dose Admin Nitroglycerin 0.4 mg Q5MINP PRN SL 09/28/24 14:00 Morphine Sulfate 2 mg Q30M PRN IV 09/28/24 14:00 10/04/24 16:11 2 MG Pantoprazole Sodium 40 mg DAILY IV 09/30/24 10:00 10/05/24 14:11 40 MG Metoclopramide HCl 5 mg Q8HPRN PRN IV 09/29/24 10:15 10/04/24 22:39 5 MG Sodium Chloride 10 ml QSHIFT@10,22 IV 10/01/24 22:00 10/05/24 21:59 10 ML Diagnostic Test (Pha) 1 strip Q6HR 10/01/24 12:00 10/06/24 06:03 1 STRIP Insulin Human Regular FOLLOW SLIDING SCALE Q6HR SC 10/01/24 12:00 10/06/24 06:03 4 UNITS Dextrose 50 ml UD IV 10/01/24 11:15 Acetaminophen 650 mg Q6HP PRN PO 10/04/24 15:45 10/04/24 16:11 650 MG Vancomycin HCl 0 ml @ 0 mls/hr UD IV 10/04/24 19:45 Norepinephrine Bitartrate 250 ml @ 3.75 mls/hr Q24H IV 10/04/24 19:45 10/04/24 20:35 3.75 MLS/HR Metronidazole 100 ml @ 100 mls/hr Q8HR@0500,1300,2100 IV 10/05/24 05:00 10/06/24 04:04 100 MLS/HR Vancomycin HCl 100 ml @ 100 mls/hr Q8H IV 10/05/24 11:00 10/06/24 03:00 100 MLS/HR Potassium Chloride/Dextrose/ Sod Cl 1,000 ml @ 75 mls/hr [id number] IV 10/05/24 11:45 10/06/24 05:16 75 MLS/HR Amino Acids 0 ml @ 0 mls/hr PER PHARMACY IV 10/05/24 11:45 Hydromorphone HCl 1 mg Q3HPRN PRN IV 10/05/24 11:45 10/06/24 08:17 1 MG Ondansetron HCl 4 mg Q4HPRN PRN IV 10/05/24 11:45 10/05/24 17:13 4 MG Pantoprazole Sodium 40 mg DAILY IV 10/06/24 10:00 Cancel Piperacillin Sod/ Tazobactam Sod 100 ml @ 25 mls/hr Q8HR IV 10/05/24 14:00 10/06/24 05:15 25 MLS/HR Morphine Sulfate 2 mg Q2HPRN PRN IV 10/05/24 12:00 Cancel Morphine Sulfate 2 mg Q4H PRN IV 10/05/24 12:00 Cancel Hydromorphone HCl 0.25 mg Q10M PRN IV 10/05/24 12:00 Cancel Fat Emulsion Intravenous 150 ml/Sodium Phosphate 30 meq/ Magnesium Sulfate 8 meq/ Multivitamins 10 ml/Chromium/ Copper/Manganese/ Zinc 1 ml/Insulin Human Regular 2 units/Amino Acids/ Dextrose 1,370.52 ml @ 57 mls/hr Q24H3M IV 10/05/24 22:00 10/06/24 22:02 10/05/24 21:57 57 MLS/HR Morphine Sulfate 2 mg Q2HPRN PRN IV 10/05/24 15:15 10/06/24 02:10 2 MG Acetaminophen 1,000 mg Q5HP PRN IV 10/05/24 20:45 10/05/24 21:17 1,000 MG laboratory and microbiology Laboratory Tests 10/06/24 03:39 Test 10/06/24 03:39 Range/Units Serum Glucose 177 H 74-106 mg/dL Problem List/Assessment/Plan Problem List/Assessment/Plan 09/29/24 c/o pain, has not ambulated, wound clean and well approximated, abdomen soft, appropriately tender, will add Toradol, must ambulate 10/01/24 NURSE CONFIRMS THAT THE PATIENT HAD A BM AND IS PASSING FLATUS, ABDOMEN IS SOFT AND NON DISTENDED, APPROPRIATELY TENDER, WILL DC NGT AND KEEP NPO 10/02/24 passing flatus and had another BM, wound clean and well approximated, abdomen appropriately ten navdeep, will allow clear liquids, dc Hoyt 10/05/24 patient had a sudden onset of abdominal pain accompanied by hypotension and tachycardia, was transferred to ICU,his blood pressure was normalized by intravenous fluid loading, this AM he has an exquisitely tender abdomen ,has slight bleeding from the midline wound. Has markedly elevated WBC,due to sudden pain and marked tenderness with WBC almost 30,000 I believe the safest next step is to explore his abdomen to see if his colorectal anastomosis has dehisced (in which case he would have to have the colostomy re established). I have thoroughly explained to him the above and answered all his questions 10/06/24 feels much better, wound clean and well approximated, drainage sero sanguineous, fever from last night resolved. OK to start ambulating. no flatus, will keep ngt in, start irrigating the drains,he may start ambulating Plan discussed with: Patient Dietary Evaluation Review Comments: Pt is able to eat, encourage CCHO-60 diet, texture as tolerated diet. Expected Outcomes/Goals: wean from TPN, eat a normal textured CCHO diet. Reduced [employer]center Consultant Strength: N/A DIXIE JIN MD Oct 06, 2024 10:10
--- NOTE | 2024-10-06 15:17 | DVHPN2 ---
Progress Note Date Seen: Oct 06, 2024 Has the PT tested + for MRSA If YES, has PT been informed?: No Medical Necessity Reason Pt with a Central, PICC or Fol: No Objective vital signs Vital Sign Date Time Temp Pulse Resp B/P (MAP) Pulse Ox O2 Delivery O2 Flow Rate FiO2 10/06/24 13:49 98 19 141/75 10/06/24 09:00 100 10/06/24 08:00 Nasal Cannula* 2 28 10/06/24 04:00 97.8 97.8 Total Intake and Output 10/05/24 10/05/24 10/06/24 15:00 23:00 07:00 Intake Total 482.5 ml 1367.50 ml 1356 ml Output Total 290 ml 1245 ml 570 ml Balance 192.5 ml 122.50 ml 786 ml medications Current Medications Medications Dose Ordered Sig/Temi Route Start Time Stop Time Status Last Admin Dose Admin Nitroglycerin 0.4 mg Q5MINP PRN SL 09/28/24 14:00 Morphine Sulfate 2 mg Q30M PRN IV 09/28/24 14:00 10/04/24 16:11 2 MG Pantoprazole Sodium 40 mg DAILY IV 09/30/24 10:00 10/06/24 10:00 40 MG Metoclopramide HCl 5 mg Q8HPRN PRN IV 09/29/24 10:15 10/04/24 22:39 5 MG Sodium Chloride 10 ml QSHIFT@10,22 IV 10/01/24 22:00 10/06/24 11:01 10 ML Diagnostic Test (Pha) 1 strip Q6HR 10/01/24 12:00 10/06/24 12:18 1 STRIP Insulin Human Regular FOLLOW SLIDING SCALE Q6HR SC 10/01/24 12:00 10/06/24 12:18 4 UNITS Dextrose 50 ml UD IV 10/01/24 11:15 Acetaminophen 650 mg Q6HP PRN PO 10/04/24 15:45 10/04/24 16:11 650 MG Vancomycin HCl 0 ml @ 0 mls/hr UD IV 10/04/24 19:45 Norepinephrine Bitartrate 250 ml @ 3.75 mls/hr Q24H IV 10/04/24 19:45 10/04/24 20:35 3.75 MLS/HR Metronidazole 100 ml @ 100 mls/hr Q8HR@0500,1300,2100 IV 10/05/24 05:00 10/06/24 13:22 100 MLS/HR Potassium Chloride/Dextrose/ Sod Cl 1,000 ml @ 75 mls/hr [id number] IV 10/05/24 11:45 10/06/24 05:16 75 MLS/HR Amino Acids 0 ml @ 0 mls/hr PER PHARMACY IV 10/05/24 11:45 Hydromorphone HCl 1 mg Q3HPRN PRN IV 10/05/24 11:45 10/06/24 13:12 1 MG Ondansetron HCl 4 mg Q4HPRN PRN IV 10/05/24 11:45 10/05/24 17:13 4 MG Pantoprazole Sodium 40 mg DAILY IV 10/06/24 10:00 Cancel Piperacillin Sod/ Tazobactam Sod 100 ml @ 25 mls/hr Q8HR IV 10/05/24 14:00 10/06/24 14:09 25 MLS/HR Morphine Sulfate 2 mg Q2HPRN PRN IV 10/05/24 12:00 Cancel Morphine Sulfate 2 mg Q4H PRN IV 10/05/24 12:00 Cancel Hydromorphone HCl 0.25 mg Q10M PRN IV 10/05/24 12:00 Cancel Fat Emulsion Intravenous 150 ml/Sodium Phosphate 30 meq/ Magnesium Sulfate 8 meq/ Multivitamins 10 ml/Chromium/ Copper/Manganese/ Zinc 1 ml/Insulin Human Regular 2 units/Amino Acids/ Dextrose 1,370.52 ml @ 57 mls/hr Q24H3M IV 10/05/24 22:00 10/06/24 22:02 10/05/24 21:57 57 MLS/HR Morphine Sulfate 2 mg Q2HPRN PRN IV 10/05/24 15:15 10/06/24 02:10 2 MG Acetaminophen 1,000 mg Q5HP PRN IV 10/05/24 20:45 10/05/24 21:17 1,000 MG Cefazolin Sodium 2 gm/Sodium Chloride 1,000 ml @ 0 mls/hr DAILY IR 10/07/24 10:00 Fat Emulsion Intravenous 150 ml/Sodium Phosphate 30 meq/ Potassium Acetate 10 meq/Calcium Gluconate 2.3 meq/ Magnesium Sulfate 16 meq/ Multivitamins 10 ml/Chromium/ Copper/Manganese/ Zinc 1 ml/Insulin Human Regular 5 units/Amino Acids/ Dextrose 1,382.4962 ml @ 57 mls/hr [id number] IV 10/06/24 22:00 10/07/24 21:59 laboratory and microbiology Laboratory Tests 10/06/24 03:39 Test 10/06/24 03:39 Range/Units Serum Glucose 177 H 74-106 mg/dL Problem List/Assessment/Plan Problem List/Assessment/Plan 09/30/24 patient feeling better , abdomen soft, non distended, appropriately tender, wound clean dry and intact, not passing gas, NO bowel movement, VALE drain minimal serous sanguineous patient to ambulate NGT to LCS NPO PICC start TPN 10/04/24 - patient feeling better, abdomen soft, non distended, appropriately tender, tolerating diet, passing gas, patient to ambulate every 4 hours 10/06/2024 feeling better, wound intact, patient ok to ambulate, ok to keep dressing off Plan: NGT to LCS NPO except ice chips Ambulate Continue TPN Continue IV antibiotics Dr. Harris agrees with plan Plan discussed with: Patient Dietary Evaluation Review Reduced Buttonhole Tacker Strength: N/A AUREA CASTILLO MANAGER DATA Oct 06, 2024 15:17
[2024-10-06 15:23] LABS: Magnesium 2.5 mg/dL (1.6-2.6); Phosphorus 11.1 mg/dL (2.4-5.1)
[2024-10-06 17:15] LABS: Magnesium 1.7 mg/dL (1.6-2.6)
[2024-10-06 17:16] LABS: Phosphorus 2.4 mg/dL (2.4-5.1)
[2024-10-06] MEDS: TPN PER PHARMACY IV NR (22:39)
[2024-10-06] MEDS: SODIUM CHLORIDE 0.9% IR SCH (23:05)
[2024-10-06] MEDS: CEFAZOLIN IR SCH (23:05)
[2024-10-07] VITALS (16 sets, daily range): BP systolic 116–144; BP diastolic 52–95; PULSE 83–100; RESP 15–26; TEMP 97.8–99.2; O2SAT 97–100
[2024-10-07 05:31] LABS: Basophils # (auto) 0.1 10 ^3/uL (0-0.2); Basophils % (auto) 0.3 % (0.0-2.0); Eosinophils # (auto) 0.2 10 ^3/uL (0-0.8); Eosinophils % (auto) 0.9 % (0.0-7.0); Hemoglobin 8.3 g/dL (13.5-17.5); Mean Corpuscular Hgb Conc. 33.2 g/dL (32.0-36.0); Mean Corpuscular Volume 96.2 fL (80.0-100.0); Monocytes # (auto) 1.3 10 ^3/uL (0-1.3); Neutrophils # (auto) 18.5 10 ^3/uL (1.6-8.6); Platelet Count (auto) 400 10^3/uL (140-450)
[2024-10-07 05:33] LABS: Lymphocytes # (auto) 1.4 10 ^3/uL (0.4-5.4); Lymphocytes % (auto) 6.4 % (10.0-50.0); Mean Corpuscular Hemoglobin 31.9 pg (28.0-32.0); Monocytes % (auto) 5.9 % (0.0-12.0); Neutrophils % (auto) 86.5 % (37.0-80.0); White Blood Cell 21.3 10^3/uL (4.4-10.8)
[2024-10-07 05:38] LABS: Alkaline Phosphatase 62 U/L (46-116); Anion Gap 6 (5-15); Aspartate Aminotransferase 14 U/L (13-40); BUN/Creatinine Ratio 9.4 (10.0-20.0); Bilirubin, Total 0.6 mg/dL (0.2-1.0); Carbon Dioxide 22 mmol/L (20-31); Potassium 3.6 mmol/L (3.5-5.1); Sodium 139 mmol/L (136-145)
[2024-10-07 05:41] LABS: Alanine Aminotransferase < 9 U/L (7-40); Albumin 2.6 g/dL (3.2-4.8); Blood Urea Nitrogen 24 mg/dL (9-23); Calcium 7.9 mg/dL (8.7-10.4); Chloride 111 mmol/L (98-107); Glucose 191 mg/dL (74-106); Total Protein 4.8 g/dL (5.7-8.2)
--- NOTE | 2024-10-07 08:32 | DVHPN2 ---
Progress Note Date Seen: Oct 07, 2024 Has the PT tested + for MRSA If YES, has PT been informed?: No Medical Necessity Reason Pt with a Central, PICC or Fol: No Subjective Patient reports: No new complaints, Feels better Review of Systems: HEENT:Normal, CVS:Normal, RESPIRATORY:Normal, GI:Normal, :Normal, MSK:Abnormal Objective vital signs Vital Sign Date Time Temp Pulse Resp B/P (MAP) Pulse Ox O2 Delivery O2 Flow Rate FiO2 10/07/24 07:00 93 17 129/57 (81) 100 10/07/24 06:00 Nasal Cannula* 2 28 10/07/24 04:00 97.8 97.8 Total Intake and Output 10/06/24 10/06/24 10/07/24 15:00 23:00 07:00 Intake Total 1281 ml 1266 ml 1261 ml Output Total 820 ml 900 ml Balance 1281 ml 446 ml 361 ml medications Current Medications Medications Dose Ordered Sig/Temi Route Start Time Stop Time Status Last Admin Dose Admin Nitroglycerin 0.4 mg Q5MINP PRN SL 09/28/24 14:00 Morphine Sulfate 2 mg Q30M PRN IV 09/28/24 14:00 10/06/24 16:15 2 MG Pantoprazole Sodium 40 mg DAILY IV 09/30/24 10:00 10/06/24 10:00 40 MG Metoclopramide HCl 5 mg Q8HPRN PRN IV 09/29/24 10:15 10/04/24 22:39 5 MG Sodium Chloride 10 ml QSHIFT@10,22 IV 10/01/24 22:00 10/06/24 22:33 10 ML Diagnostic Test (Pha) 1 strip Q6HR 10/01/24 12:00 10/07/24 05:57 1 STRIP Insulin Human Regular FOLLOW SLIDING SCALE Q6HR SC 10/01/24 12:00 10/07/24 05:56 4 UNITS Dextrose 50 ml UD IV 10/01/24 11:15 Acetaminophen 650 mg Q6HP PRN PO 10/04/24 15:45 10/04/24 16:11 650 MG Vancomycin HCl 0 ml @ 0 mls/hr UD IV 10/04/24 19:45 Norepinephrine Bitartrate 250 ml @ 3.75 mls/hr Q24H IV 10/04/24 19:45 10/04/24 20:35 3.75 MLS/HR Metronidazole 100 ml @ 100 mls/hr Q8HR@0500,1300,2100 IV 10/05/24 05:00 10/07/24 05:17 100 MLS/HR Potassium Chloride/Dextrose/ Sod Cl 1,000 ml @ 75 mls/hr [id number] IV 10/05/24 11:45 10/06/24 18:23 75 MLS/HR Amino Acids 0 ml @ 0 mls/hr PER PHARMACY IV 10/05/24 11:45 Hydromorphone HCl 1 mg Q3HPRN PRN IV 10/05/24 11:45 10/07/24 05:42 1 MG Ondansetron HCl 4 mg Q4HPRN PRN IV 10/05/24 11:45 10/05/24 17:13 4 MG Pantoprazole Sodium 40 mg DAILY IV 10/06/24 10:00 Cancel Piperacillin Sod/ Tazobactam Sod 100 ml @ 25 mls/hr Q8HR IV 10/05/24 14:00 10/07/24 05:55 25 MLS/HR Morphine Sulfate 2 mg Q2HPRN PRN IV 10/05/24 12:00 Cancel Morphine Sulfate 2 mg Q4H PRN IV 10/05/24 12:00 Cancel Hydromorphone HCl 0.25 mg Q10M PRN IV 10/05/24 12:00 Cancel Morphine Sulfate 2 mg Q2HPRN PRN IV 10/05/24 15:15 10/06/24 10:30 2 MG Acetaminophen 1,000 mg Q5HP PRN IV 10/05/24 20:45 10/05/24 21:17 1,000 MG Fat Emulsion Intravenous 150 ml/Sodium Phosphate 30 meq/ Potassium Acetate 10 meq/Calcium Gluconate 2.3 meq/ Magnesium Sulfate 16 meq/ Multivitamins 10 ml/Chromium/ Copper/Manganese/ Zinc 1 ml/Insulin Human Regular 5 units/Amino Acids/ Dextrose 1,382.4962 ml @ 57 mls/hr [id number] IV 10/06/24 22:00 10/07/24 21:59 10/06/24 22:39 57 MLS/HR Cefazolin Sodium 2 gm/Sodium Chloride 1,000 ml @ 0 mls/hr Q8HR IR 10/06/24 23:30 10/07/24 05:50 0 MLS/HR Examination: GENERAL:Normal, HEENT:Normal, NECK:Normal, LUNGS:Normal, CVS:Normal, ABDOMEN:Abnormal (VALE drains, abdominal wound), MSK:Normal, SKIN:Abnormal (abdominal wound) laboratory and microbiology Laboratory Tests 10/07/24 04:55 Test 10/07/24 04:55 Range/Units Serum Glucose 191 H 74-106 mg/dL Problem List/Assessment/Plan Problem List/Assessment/Plan 09/30/24 patient feeling better , abdomen soft, non distended, appropriately tender, wound clean dry and intact, not passing gas, NO bowel movement, VALE drain minimal serous sanguineous patient to ambulate NGT to LCS NPO PICC start TPN 10/04/24 - patient feeling better, abdomen soft, non distended, appropriately tender, tolerating diet, passing gas, patient to ambulate every 4 hours 10/06/2024 feeling better, wound intact, patient ok to ambulate, ok to keep dressing off Plan: NGT to LCS NPO except ice chips Ambulate Continue TPN Continue IV antibiotics Dr. Harris agrees with plan 10/07/24 feeling better, wound intact, patient ok to ambulate, ok to keep dressing off, VALE drain wound serous fluid, VALE drains to abdomen serous sanguinous fluid the other brown fluid. IV meds please push slowly, when irrigating drains push fluid slowly to avoid pain or discomfort to patient Plan: NGT to LCS NPO except ice chips Ambulate Continue TPN Continue IV antibiotics Dr. Harris agrees with plan Plan discussed with: Patient, Other Dietary Evaluation Review Reduced Seaming Machine Operator Strength: N/A AUREA CASTILLO ENVIRONMENTAL AIR SPECIALIST Oct 07, 2024 08:32
[2024-10-07] MEDS ORDERED: CEFAZOLIN IR SCH (10:00)
[2024-10-07] MEDS ORDERED: SODIUM CHLORIDE IV SCH (10:00)
[2024-10-07] MEDS ORDERED: CEFAZOLIN IV SCH (10:00)
[2024-10-07] MEDS ORDERED: SODIUM CHLORIDE 0.9% IR SCH (10:00)
[2024-10-07] MEDS ORDERED: DEXTROSE IV SCH (10:00)
--- NOTE | 2024-10-07 12:08 | DVHPN2 ---
Progress Note - Dictate Date Seen: Oct 07, 2024 Has the PT tested + for MRSA If YES, has PT been informed?: No Medical Necessity Reason Pt with a Central, PICC or Fol: No Subjective E: no major events o/n. feels about the same as yesterday. vital signs Vital Sign Date Time Temp Pulse Resp B/P (MAP) Pulse Ox O2 Delivery O2 Flow Rate FiO2 10/07/24 10:00 91 10/07/24 10:00 19 130/54 (79) 99 10/07/24 10:00 Nasal Cannula* 2 28 10/07/24 08:00 98.7 98.7 Total Intake and Output 10/06/24 10/06/24 10/07/24 15:00 23:00 07:00 Intake Total 1281 ml 1266 ml 1261 ml Output Total 820 ml 900 ml Balance 1281 ml 446 ml 361 ml medications Current Medications Medications Dose Ordered Sig/Temi Route Start Time Stop Time Status Last Admin Dose Admin Nitroglycerin 0.4 mg Q5MINP PRN SL 09/28/24 14:00 Morphine Sulfate 2 mg Q30M PRN IV 09/28/24 14:00 10/06/24 16:15 2 MG Pantoprazole Sodium 40 mg DAILY IV 09/30/24 10:00 10/07/24 09:15 40 MG Metoclopramide HCl 5 mg Q8HPRN PRN IV 09/29/24 10:15 10/04/24 22:39 5 MG Sodium Chloride 10 ml QSHIFT@10,22 IV 10/01/24 22:00 10/07/24 10:22 10 ML Diagnostic Test (Pha) 1 strip Q6HR 10/01/24 12:00 10/07/24 05:57 1 STRIP Insulin Human Regular FOLLOW SLIDING SCALE Q6HR SC 10/01/24 12:00 10/07/24 05:56 4 UNITS Dextrose 50 ml UD IV 10/01/24 11:15 Acetaminophen 650 mg Q6HP PRN PO 10/04/24 15:45 10/04/24 16:11 650 MG Vancomycin HCl 0 ml @ 0 mls/hr UD IV 10/04/24 19:45 Norepinephrine Bitartrate 250 ml @ 3.75 mls/hr Q24H IV 10/04/24 19:45 10/04/24 20:35 3.75 MLS/HR Potassium Chloride/Dextrose/ Sod Cl 1,000 ml @ 75 mls/hr [id number] IV 10/05/24 11:45 10/07/24 11:17 75 MLS/HR Amino Acids 0 ml @ 0 mls/hr PER PHARMACY IV 10/05/24 11:45 Hydromorphone HCl 1 mg Q3HPRN PRN IV 10/05/24 11:45 10/07/24 05:42 1 MG Ondansetron HCl 4 mg Q4HPRN PRN IV 10/05/24 11:45 10/05/24 17:13 4 MG Pantoprazole Sodium 40 mg DAILY IV 10/06/24 10:00 Cancel Piperacillin Sod/ Tazobactam Sod 100 ml @ 25 mls/hr Q8HR IV 10/05/24 14:00 10/07/24 05:55 25 MLS/HR Morphine Sulfate 2 mg Q2HPRN PRN IV 10/05/24 12:00 Cancel Morphine Sulfate 2 mg Q4H PRN IV 10/05/24 12:00 Cancel Hydromorphone HCl 0.25 mg Q10M PRN IV 10/05/24 12:00 Cancel Morphine Sulfate 2 mg Q2HPRN PRN IV 10/05/24 15:15 10/07/24 09:24 2 MG Acetaminophen 1,000 mg Q5HP PRN IV 10/05/24 20:45 10/05/24 21:17 1,000 MG Fat Emulsion Intravenous 150 ml/Sodium Phosphate 30 meq/ Potassium Acetate 10 meq/Calcium Gluconate 2.3 meq/ Magnesium Sulfate 16 meq/ Multivitamins 10 ml/Chromium/ Copper/Manganese/ Zinc 1 ml/Insulin Human Regular 5 units/Amino Acids/ Dextrose 1,382.4962 ml @ 57 mls/hr [id number] IV 10/06/24 22:00 10/07/24 21:59 10/06/24 22:39 57 MLS/HR Cefazolin Sodium 2 gm/Sodium Chloride 1,000 ml @ 0 mls/hr Q8HR IR 10/06/24 23:30 10/07/24 05:50 0 MLS/HR objective GEN: NAD. alert. ABD: incisions clean and dry. VALE R 110 mL serosang. others with scant output. laboratory and microbiology Laboratory Tests 1/24/25 04:55 Test 10/07/24 04:55 Range/Units Serum Glucose 191 H 74-106 mg/dL Problem List A: 1. POD #2 s/p re-exploration with abdominal washout and evacuation of infected hematoma P: 1. cont curr tx 2. ok for transfer to [facility] from surgery POV. Dietary Evaluation Review Reduced Linen Manager Strength: N/A Plan discussed with: Patient MESSI CHAVES MD Oct 07, 2024 12:08
[2024-10-07 13:24] LABS: Phosphorus 3.3 mg/dL (2.4-5.1)
[2024-10-07] MEDS ORDERED: TPN PER PHARMACY IV NR (22:00)
[2024-10-07] MEDS: TPN PER PHARMACY IV NR (23:00)
[2024-10-08] VITALS (8 sets, daily range): BP systolic 113–125; BP diastolic 58–72; PULSE 72–89; RESP 17–20; TEMP 97.6–98.2; O2SAT 94–99
[2024-10-08 06:01] LABS: Basophils # (auto) 0 10 ^3/uL (0-0.2); Basophils % (auto) 0.3 % (0.0-2.0); Eosinophils # (auto) 0.3 10 ^3/uL (0-0.8); Eosinophils % (auto) 1.4 % (0.0-7.0); Hematocrit 26.8 % (41.0-53.0); Hemoglobin 8.9 g/dL (13.5-17.5); Lymphocytes # (auto) 1.1 10 ^3/uL (0.4-5.4); Lymphocytes % (auto) 6.1 % (10.0-50.0); Mean Corpuscular Hemoglobin 31.9 pg (28.0-32.0); Mean Corpuscular Hgb Conc. 33.2 g/dL (32.0-36.0); Monocytes % (auto) 5.5 % (0.0-12.0); Neutrophils # (auto) 16.2 10 ^3/uL (1.6-8.6); Neutrophils % (auto) 86.7 % (37.0-80.0); Platelet Count (auto) 513 10^3/uL (140-450); Red Blood Cells 2.79 10^6/uL (4.5-5.90); Red Cell Distribution Width 15.4 % (11.8-14.3); White Blood Cell 18.7 10^3/uL (4.4-10.8)
[2024-10-08 06:26] LABS: Alkaline Phosphatase 75 U/L (46-116); Anion Gap 9 (5-15); BUN/Creatinine Ratio 10.2 (10.0-20.0); Bilirubin, Total 0.9 mg/dL (0.2-1.0); Carbon Dioxide 21 mmol/L (20-31); Magnesium 2.2 mg/dL (1.6-2.6); Phosphorus 3.4 mg/dL (2.4-5.1); Potassium 3.7 mmol/L (3.5-5.1); Sodium 139 mmol/L (136-145); Triglycerides 76 mg/dL (< 150)
[2024-10-08 06:27] LABS: Alanine Aminotransferase < 9 U/L (7-40); Aspartate Aminotransferase 12 U/L (13-40); Blood Urea Nitrogen 28 mg/dL (9-23); Calcium 8.4 mg/dL (8.7-10.4); Chloride 109 mmol/L (98-107); Glucose 170 mg/dL (74-106); Total Protein 5.6 g/dL (5.7-8.2)
--- NOTE | 2024-10-08 08:45 | DVHPN2 ---
Progress Note Date Seen: Oct 08, 2024 Has the PT tested + for MRSA If YES, has PT been informed?: No Medical Necessity Reason Pt with a Central, PICC or Fol: No Subjective Review of Systems: HEENT:Normal, CVS:Normal, RESPIRATORY:Normal, GI:Abnormal (pain), MSK:Normal, NEURO:Normal Objective vital signs Vital Sign Date Time Temp Pulse Resp B/P (MAP) Pulse Ox O2 Delivery O2 Flow Rate FiO2 10/08/24 08:34 97.7 79 17 115/68 (84) 95 97.7 10/07/24 20:00 Nasal Cannula* 2 28 Total Intake and Output 10/07/24 10/07/24 10/08/24 15:00 23:00 07:00 Intake Total 1131 ml 591 ml Output Total 1615 ml 2000 ml Balance 1131 ml -1024 ml -2000 ml medications Current Medications Medications Dose Ordered Sig/Temi Route Start Time Stop Time Status Last Admin Dose Admin Nitroglycerin 0.4 mg Q5MINP PRN SL 09/28/24 14:00 Pantoprazole Sodium 40 mg DAILY IV 09/30/24 10:00 10/07/24 09:15 40 MG Metoclopramide HCl 5 mg Q8HPRN PRN IV 09/29/24 10:15 10/04/24 22:39 5 MG Sodium Chloride 10 ml QSHIFT@10,22 IV 10/01/24 22:00 10/07/24 22:01 10 ML Diagnostic Test (Pha) 1 strip Q6HR 10/01/24 12:00 10/08/24 05:26 1 STRIP Insulin Human Regular FOLLOW SLIDING SCALE Q6HR SC 10/01/24 12:00 10/08/24 05:59 2 UNITS Dextrose 50 ml UD IV 10/01/24 11:15 Acetaminophen 650 mg Q6HP PRN PO 10/04/24 15:45 10/04/24 16:11 650 MG Vancomycin HCl 0 ml @ 0 mls/hr UD IV 10/04/24 19:45 Norepinephrine Bitartrate 250 ml @ 3.75 mls/hr Q24H IV 10/04/24 19:45 10/04/24 20:35 3.75 MLS/HR Potassium Chloride/Dextrose/ Sod Cl 1,000 ml @ 75 mls/hr [id number] IV 10/05/24 11:45 10/07/24 11:17 75 MLS/HR Amino Acids 0 ml @ 0 mls/hr PER PHARMACY IV 10/05/24 11:45 Hydromorphone HCl 1 mg Q3HPRN PRN IV 10/05/24 11:45 10/08/24 05:23 1 MG Ondansetron HCl 4 mg Q4HPRN PRN IV 10/05/24 11:45 10/05/24 17:13 4 MG Pantoprazole Sodium 40 mg DAILY IV 10/06/24 10:00 Cancel Piperacillin Sod/ Tazobactam Sod 100 ml @ 25 mls/hr Q8HR IV 10/05/24 14:00 10/08/24 05:25 25 MLS/HR Morphine Sulfate 2 mg Q2HPRN PRN IV 10/05/24 12:00 Cancel Morphine Sulfate 2 mg Q4H PRN IV 10/05/24 12:00 Cancel Hydromorphone HCl 0.25 mg Q10M PRN IV 10/05/24 12:00 Cancel Morphine Sulfate 2 mg Q2HPRN PRN IV 10/05/24 15:15 10/07/24 16:07 2 MG Acetaminophen 1,000 mg Q5HP PRN IV 10/05/24 20:45 10/05/24 21:17 1,000 MG Cefazolin Sodium 2 gm/Sodium Chloride 1,000 ml @ 0 mls/hr Q8HR IR 10/06/24 23:30 10/08/24 05:26 0 MLS/HR Fat Emulsion Intravenous 150 ml/Sodium Acetate 20 meq/Sodium Phosphate 10 meq/ Potassium Acetate 10 meq/Calcium Gluconate 2.3 meq/ Magnesium Sulfate 8 meq/ Multivitamins 10 ml/Chromium/ Copper/Manganese/ Zinc 1 ml/Insulin Human Regular 5 units/Amino Acids/ Dextrose 1,385.4962 ml @ 57 mls/hr [id number] IV 10/07/24 22:00 10/08/24 21:59 10/07/24 23:00 57 MLS/HR Examination: GENERAL:Normal, HEENT:Normal, NECK:Normal, LUNGS:Normal, CVS:Normal, ABDOMEN:Abnormal (appropiately tender abdomen , VALE drains), SKIN:Abnormal (abdominal wound) laboratory and microbiology Laboratory Tests 10/08/24 04:52 Test 10/08/24 04:52 Range/Units Serum Glucose 170 H 74-106 mg/dL Problem List/Assessment/Plan Problem List/Assessment/Plan 09/30/24 patient feeling better , abdomen soft, non distended, appropriately tender, wound clean dry and intact, not passing gas, NO bowel movement, VALE drain minimal serous sanguineous patient to ambulate NGT to [facility] NPO PICC start TPN 10/04/24 - patient feeling better, abdomen soft, non distended, appropriately tender, tolerating diet, passing gas, patient to ambulate every 4 hours 10/06/2024 feeling better, wound intact, patient ok to ambulate, ok to keep dressing off Plan: NGT to [facility] NPO except ice chips Ambulate Continue TPN Continue IV antibiotics Dr. Harris agrees with plan 10/07/24 feeling better, wound intact, patient ok to ambulate, ok to keep dressing off, VALE drain wound serous fluid, VALE drains to abdomen serous sanguinous fluid the other brown fluid. IV meds please push slowly, when irrigating drains push fluid slowly to avoid pain or discomfort to patient Plan: NGT to [facility] NPO except ice chips Ambulate Continue TPN Continue IV antibiotics Dr. Harris agrees with plan 10/08/24 feels ok , patient state abdominal pain with movement but improving, Vale drain minimal drainage NGT to [facility]CS NPO except ice chips Ambulate Continue IV antibiotics Plan discussed with: Patient, Other (Dr. Harris) Dietary Evaluation Review Reduced Match Marker Strength: N/A AUREA CASTILLO MANAGER CAREER Oct 08, 2024 08:45
--- NOTE | 2024-10-08 14:36 | DVHPN2 ---
Progress Note - Dictate Date Seen: Oct 08, 2024 Has the PT tested + for MRSA If YES, has PT been informed?: No Medical Necessity Reason Pt with a Central, PICC or Fol: No Subjective E: no major events o/n. feels about the same as yesterday. ambulated a bit today. vital signs Vital Sign Date Time Temp Pulse Resp B/P (MAP) Pulse Ox O2 Delivery O2 Flow Rate FiO2 10/08/24 13:43 82 19 113/72 10/08/24 08:34 97.7 95 97.7 10/07/24 20:00 Nasal Cannula* 2 28 Total Intake and Output 10/07/24 10/07/24 10/08/24 15:00 23:00 07:00 Intake Total 1131 ml 591 ml Output Total 1615 ml 2000 ml Balance 1131 ml -1024 ml -2000 ml medications Current Medications Medications Dose Ordered Sig/Temi Route Start Time Stop Time Status Last Admin Dose Admin Nitroglycerin 0.4 mg Q5MINP PRN SL 09/28/24 14:00 Pantoprazole Sodium 40 mg DAILY IV 09/30/24 10:00 10/08/24 10:02 40 MG Metoclopramide HCl 5 mg Q8HPRN PRN IV 09/29/24 10:15 10/04/24 22:39 5 MG Sodium Chloride 10 ml QSHIFT@10,22 IV 10/01/24 22:00 10/08/24 10:02 10 ML Diagnostic Test (Pha) 1 strip Q6HR 10/01/24 12:00 10/08/24 05:26 1 STRIP Insulin Human Regular FOLLOW SLIDING SCALE Q6HR SC 10/01/24 12:00 10/08/24 12:05 2 UNITS Dextrose 50 ml UD IV 10/01/24 11:15 Acetaminophen 650 mg Q6HP PRN PO 10/04/24 15:45 10/04/24 16:11 650 MG Vancomycin HCl 0 ml @ 0 mls/hr UD IV 10/04/24 19:45 Norepinephrine Bitartrate 250 ml @ 3.75 mls/hr Q24H IV 10/04/24 19:45 10/04/24 20:35 3.75 MLS/HR Potassium Chloride/Dextrose/ Sod Cl 1,000 ml @ 75 mls/hr [id number] IV 10/05/24 11:45 10/08/24 12:31 75 MLS/HR Amino Acids 0 ml @ 0 mls/hr PER PHARMACY IV 10/05/24 11:45 Hydromorphone HCl 1 mg Q3HPRN PRN IV 10/05/24 11:45 10/08/24 13:43 1 MG Ondansetron HCl 4 mg Q4HPRN PRN IV 10/05/24 11:45 10/05/24 17:13 4 MG Pantoprazole Sodium 40 mg DAILY IV 10/06/24 10:00 Cancel Piperacillin Sod/ Tazobactam Sod 100 ml @ 25 mls/hr Q8HR IV 10/05/24 14:00 10/08/24 05:25 25 MLS/HR Morphine Sulfate 2 mg Q2HPRN PRN IV 10/05/24 12:00 Cancel Morphine Sulfate 2 mg Q4H PRN IV 10/05/24 12:00 Cancel Hydromorphone HCl 0.25 mg Q10M PRN IV 10/05/24 12:00 Cancel Morphine Sulfate 2 mg Q2HPRN PRN IV 10/05/24 15:15 10/07/24 16:07 2 MG Acetaminophen 1,000 mg Q5HP PRN IV 10/05/24 20:45 10/05/24 21:17 1,000 MG Cefazolin Sodium 2 gm/Sodium Chloride 1,000 ml @ 0 mls/hr Q8HR IR 10/06/24 23:30 10/08/24 05:26 0 MLS/HR Fat Emulsion Intravenous 150 ml/Sodium Acetate 20 meq/Sodium Phosphate 10 meq/ Potassium Acetate 10 meq/Calcium Gluconate 2.3 meq/ Magnesium Sulfate 8 meq/ Multivitamins 10 ml/Chromium/ Copper/Manganese/ Zinc 1 ml/Insulin Human Regular 5 units/Amino Acids/ Dextrose 1,385.4962 ml @ 57 mls/hr [id number] IV 10/07/24 22:00 10/08/24 21:59 10/07/24 23:00 57 MLS/HR objective GEN: NAD. alert. ABD: incisions clean and dry. upper VALE with 30 mL cloudy drainage. others with scant output. laboratory and microbiology Laboratory Tests 10/08/24 04:52 Test 10/08/24 04:52 Range/Units Serum Glucose 170 H 74-106 mg/dL Problem List A: 1. POD #3 s/p re-exploration with abdominal washout and evacuation of infected hematoma showing improvement. P: 1. cont curr tx 2. encourage ambulation. Dietary Evaluation Review Reduced Welfare Project Manager Strength: N/A Plan discussed with: Patient, Son KARELY CHAVESPortia Damon MD Oct 08, 2024 14:36
--- NOTE | 2024-10-08 16:29 | MEDREC ---
[facility] Intervention Section I [facility] Intervention: Deescalate AB based on CS, Review courses of therapy (PLEASE SWITCH ANTIBIOTICS BASED ON ABDOMEN CULTURE RESULTS OF E.COLI - ESBL, KLEBSIELLA PENUMONIAE - ESBL, AND ENTEROCOCCUS FAECALIS) TAVO DICKERSON Oct 08, 2024 16:29
[2024-10-08] MEDS: POTASSIUM ACETATE IV ONE (22:41)
[2024-10-08] MEDS: [UNRECOGNIZED DRUG - OTHER] IV ONE (22:41)
[2024-10-08] MEDS: FAT EMULSION IV ONE (22:41)
[2024-10-08] MEDS: SODIUM ACETATE IV ONE (22:41)
[2024-10-09] VITALS (9 sets, daily range): BP systolic 115–138; BP diastolic 55–76; PULSE 79–99; RESP 16–20; TEMP 97.5–98.1; O2SAT 83–99
[2024-10-09 06:49] LABS: Eosinophils # (auto) 0.4 10 ^3/uL (0-0.8)
[2024-10-09 06:54] LABS: Basophils # (auto) 0 10 ^3/uL (0-0.2); Basophils % (auto) 0.3 % (0.0-2.0); Eosinophils % (auto) 2.8 % (0.0-7.0); Hematocrit 26.7 % (41.0-53.0); Hemoglobin 8.9 g/dL (13.5-17.5); Lymphocytes % (auto) 6.9 % (10.0-50.0); Mean Corpuscular Hemoglobin 31.7 pg (28.0-32.0); Mean Corpuscular Hgb Conc. 33.3 g/dL (32.0-36.0); Mean Corpuscular Volume 95.2 fL (80.0-100.0); Monocytes # (auto) 1.1 10 ^3/uL (0-1.3); Monocytes % (auto) 8.1 % (0.0-12.0); Neutrophils # (auto) 11.6 10 ^3/uL (1.6-8.6); Neutrophils % (auto) 81.9 % (37.0-80.0); Platelet Count (auto) 533 10^3/uL (140-450); Red Blood Cells 2.81 10^6/uL (4.5-5.90); Red Cell Distribution Width 15.3 % (11.8-14.3); White Blood Cell 14.1 10^3/uL (4.4-10.8)
[2024-10-09 07:08] LABS: Alkaline Phosphatase 84 U/L (46-116); Anion Gap 9 (5-15); Carbon Dioxide 22 mmol/L (20-31); Chloride 107 mmol/L (98-107); Potassium 3.5 mmol/L (3.5-5.1); Sodium 138 mmol/L (136-145)
[2024-10-09 07:09] LABS: Aspartate Aminotransferase 14 U/L (13-40); Phosphorus 2.8 mg/dL (2.4-5.1); Total Protein 5.9 g/dL (5.7-8.2)
[2024-10-09 07:11] LABS: Alanine Aminotransferase < 9 U/L (7-40); Albumin 3.1 g/dL (3.2-4.8); Blood Urea Nitrogen 31 mg/dL (9-23); Calcium 8.6 mg/dL (8.7-10.4); Glucose 168 mg/dL (74-106)
[2024-10-09 07:12] LABS: Bilirubin, Total 1.4 mg/dL (0.2-1.0)
--- NOTE | 2024-10-09 10:01 | DVHPN2 ---
Progress Note Date Seen: Oct 09, 2024 Has the PT tested + for MRSA If YES, has PT been informed?: No Medical Necessity Reason Pt with a Central, PICC or Fol: No Subjective Patient reports: No new complaints, Feels better Review of Systems: HEENT:Normal, CVS:Normal, RESPIRATORY:Normal, GI:Normal, :Normal, MSK:Normal, NEURO:Normal Objective vital signs Vital Sign Date Time Temp Pulse Resp B/P (MAP) Pulse Ox O2 Delivery O2 Flow Rate FiO2 10/09/24 09:27 98.0 84 16 119/55 (76) 97 98.0 10/08/24 20:00 Room Air* 0 21 Total Intake and Output 10/08/24 10/08/24 10/09/24 15:00 23:00 07:00 Intake Total 2100 ml 1125 ml Output Total 1700 ml 2000 ml Balance 400 ml -875 ml medications Current Medications Medications Dose Ordered Sig/Temi Route Start Time Stop Time Status Last Admin Dose Admin Nitroglycerin 0.4 mg Q5MINP PRN SL 09/28/24 14:00 Pantoprazole Sodium 40 mg DAILY IV 09/30/24 10:00 10/09/24 07:32 40 MG Metoclopramide HCl 5 mg Q8HPRN PRN IV 09/29/24 10:15 10/04/24 22:39 5 MG Sodium Chloride 10 ml QSHIFT@10,22 IV 10/01/24 22:00 10/09/24 07:35 10 ML Diagnostic Test (Pha) 1 strip Q6HR 10/01/24 12:00 10/09/24 05:34 1 STRIP Insulin Human Regular FOLLOW SLIDING SCALE Q6HR SC 10/01/24 12:00 10/09/24 05:35 4 UNITS Dextrose 50 ml UD IV 10/01/24 11:15 Acetaminophen 650 mg Q6HP PRN PO 10/04/24 15:45 10/04/24 16:11 650 MG Vancomycin HCl 0 ml @ 0 mls/hr UD IV 10/04/24 19:45 Norepinephrine Bitartrate 250 ml @ 3.75 mls/hr Q24H IV 10/04/24 19:45 10/04/24 20:35 3.75 MLS/HR Potassium Chloride/Dextrose/ Sod Cl 1,000 ml @ 75 mls/hr [id number] IV 10/05/24 11:45 10/09/24 03:52 75 MLS/HR Amino Acids 0 ml @ 0 mls/hr PER PHARMACY IV 10/05/24 11:45 Hydromorphone HCl 1 mg Q3HPRN PRN IV 10/05/24 11:45 10/09/24 07:35 1 MG Ondansetron HCl 4 mg Q4HPRN PRN IV 10/05/24 11:45 10/05/24 17:13 4 MG Pantoprazole Sodium 40 mg DAILY IV 10/06/24 10:00 Cancel Piperacillin Sod/ Tazobactam Sod 100 ml @ 25 mls/hr Q8HR IV 10/05/24 14:00 10/09/24 05:25 25 MLS/HR Morphine Sulfate 2 mg Q2HPRN PRN IV 10/05/24 12:00 Cancel Morphine Sulfate 2 mg Q4H PRN IV 10/05/24 12:00 Cancel Hydromorphone HCl 0.25 mg Q10M PRN IV 10/05/24 12:00 Cancel Morphine Sulfate 2 mg Q2HPRN PRN IV 10/05/24 15:15 10/07/24 16:07 2 MG Acetaminophen 1,000 mg Q5HP PRN IV 10/05/24 20:45 10/05/24 21:17 1,000 MG Cefazolin Sodium 2 gm/Sodium Chloride 1,000 ml @ 0 mls/hr Q8HR IR 10/06/24 23:30 10/09/24 06:05 0 MLS/HR Examination: GENERAL:Normal, HEENT:Normal, NECK:Normal, LUNGS:Normal, CVS:Normal, ABDOMEN:Abnormal (VALE ), MSK:Normal, SKIN:Normal laboratory and microbiology Laboratory Tests 10/09/24 04:53 Test 10/09/24 04:53 Range/Units Serum Glucose 168 H 74-106 mg/dL Problem List/Assessment/Plan Problem List/Assessment/Plan 09/30/24 patient feeling better , abdomen soft, non distended, appropriately tender, wound clean dry and intact, not passing gas, NO bowel movement, VALE drain minimal serous sanguineous patient to ambulate NGT to [facility] NPO PICC start TPN 10/04/24 - patient feeling better, abdomen soft, non distended, appropriately tender, tolerating diet, passing gas, patient to ambulate every 4 hours 10/06/2024 feeling better, wound intact, patient ok to ambulate, ok to keep dressing off Plan: NGT to [facility]CS NPO except ice chips Ambulate Continue TPN Continue IV antibiotics Dr. Harris agrees with plan 10/07/24 feeling better, wound intact, patient ok to ambulate, ok to keep dressing off, VALE drain wound serous fluid, VALE drains to abdomen serous sanguinous fluid the other brown fluid. IV meds please push slowly, when irrigating drains push fluid slowly to avoid pain or discomfort to patient Plan: NGT to [facility]CS NPO except ice chips Ambulate Continue TPN Continue IV antibiotics Dr. Harris agrees with plan 10/08/24 feels ok , patient state abdominal pain with movement but improving, Vale drain minimal drainage NGT to LCS NPO except ice chips Ambulate Continue IV antibiotics 10/09/24 - no new complaints , VALE drains minimal serous fluid, abdomen appropriately tender, non distended, denies nausea or vomiting, patient to ambulate Plan discussed with: Patient, Other (Dr. Harris) Dietary Evaluation Review Reduced Consumer Studies Professor Strength: N/A AUREA CASTILLO LIFE SKILLS TRAINER Oct 09, 2024 10:01
--- NOTE | 2024-10-09 13:08 | DVHPN2 ---
Progress Note - Dictate Date Seen: Oct 09, 2024 Has the PT tested + for MRSA If YES, has PT been informed?: No Medical Necessity Reason Pt with a Central, PICC or Fol: No Subjective E: no major events o/n. feels better today. reports small BM. ambulating. vital signs Vital Sign Date Time Temp Pulse Resp B/P (MAP) Pulse Ox O2 Delivery O2 Flow Rate FiO2 10/09/24 12:42 84 16 119/50 10/09/24 10:47 97 Room Air* 0 21 10/09/24 09:27 98.0 98.0 Total Intake and Output 10/08/24 10/08/24 10/09/24 15:00 23:00 07:00 Intake Total 2100 ml 1125 ml Output Total 1700 ml 2000 ml Balance 400 ml -875 ml medications Current Medications Medications Dose Ordered Sig/Temi Route Start Time Stop Time Status Last Admin Dose Admin Nitroglycerin 0.4 mg Q5MINP PRN SL 09/28/24 14:00 Pantoprazole Sodium 40 mg DAILY IV 09/30/24 10:00 10/09/24 07:32 40 MG Metoclopramide HCl 5 mg Q8HPRN PRN IV 09/29/24 10:15 10/04/24 22:39 5 MG Sodium Chloride 10 ml QSHIFT@10,22 IV 10/01/24 22:00 10/09/24 07:35 10 ML Diagnostic Test (Pha) 1 strip Q6HR 10/01/24 12:00 10/09/24 12:00 1 STRIP Insulin Human Regular FOLLOW SLIDING SCALE Q6HR SC 10/01/24 12:00 10/09/24 11:30 2 UNITS Dextrose 50 ml UD IV 10/01/24 11:15 Acetaminophen 650 mg Q6HP PRN PO 10/04/24 15:45 10/04/24 16:11 650 MG Vancomycin HCl 0 ml @ 0 mls/hr UD IV 10/04/24 19:45 Norepinephrine Bitartrate 250 ml @ 3.75 mls/hr Q24H IV 10/04/24 19:45 10/04/24 20:35 3.75 MLS/HR Potassium Chloride/Dextrose/ Sod Cl 1,000 ml @ 75 mls/hr [id number] IV 10/05/24 11:45 10/09/24 03:52 75 MLS/HR Amino Acids 0 ml @ 0 mls/hr PER PHARMACY IV 10/05/24 11:45 Hydromorphone HCl 1 mg Q3HPRN PRN IV 10/05/24 11:45 10/09/24 11:29 1 MG Ondansetron HCl 4 mg Q4HPRN PRN IV 10/05/24 11:45 10/05/24 17:13 4 MG Pantoprazole Sodium 40 mg DAILY IV 10/06/24 10:00 Cancel Piperacillin Sod/ Tazobactam Sod 100 ml @ 25 mls/hr Q8HR IV 10/05/24 14:00 10/09/24 05:25 25 MLS/HR Morphine Sulfate 2 mg Q2HPRN PRN IV 10/05/24 12:00 Cancel Morphine Sulfate 2 mg Q4H PRN IV 10/05/24 12:00 Cancel Hydromorphone HCl 0.25 mg Q10M PRN IV 10/05/24 12:00 Cancel Morphine Sulfate 2 mg Q2HPRN PRN IV 10/05/24 15:15 10/07/24 16:07 2 MG Acetaminophen 1,000 mg Q5HP PRN IV 10/05/24 20:45 10/05/24 21:17 1,000 MG Cefazolin Sodium 2 gm/Sodium Chloride 1,000 ml @ 0 mls/hr Q8HR IR 10/06/24 23:30 10/09/24 06:05 0 MLS/HR Fat Emulsion Intravenous 150 ml/Sodium Acetate 20 meq/Potassium Phosphate 44 meq/ Magnesium Sulfate 12 meq/ Multivitamins 10 ml/Insulin Human Regular 8 units/ Amino Acids/ Dextrose 1,483.08 ml @ 62 mls/hr [id number] IV 10/09/24 22:00 10/10/24 21:59 objective GEN: NAD. alert. ABD: incisions clean and dry. upper JPs total around 50 mL. laboratory and microbiology Laboratory Tests 10/09/24 04:53 Test 10/09/24 04:53 Range/Units Serum Glucose 168 H 74-106 mg/dL Problem List A: 1. POD #4 s/p re-exploration with abdominal washout and evacuation of infected hematoma showing improvement. P: 1. improving. Dr. Harris will be here tomorrow. Dietary Evaluation Review Reduced Insole Department Worker Strength: N/A Plan discussed with: Patient MESSI CHAVES MD Oct 09, 2024 13:08
[2024-10-09] MEDS: VANCOMYCIN 750MG KIT 100 ML IV ONE (13:55)
--- NOTE | 2024-10-09 14:21 | DVHPN2 ---
Reviewed: Care Plan, H&P, Labs, Medications, Radiology Changes from previous H/P or p: No Changes General: Per HPI Objective Vitals Vital Signs Date Time Temp Pulse Resp B/P (MAP) Pulse Ox O2 Delivery O2 Flow Rate FiO2 10/09/24 13:00 97.9 83 18 122/76 (91) 98 97.9 10/09/24 10:47 Room Air* 0 21 Intake/Output Intake and Output 10/09/24 07:00 Intake Total 3225 ml Output Total 3700 ml Balance -475 ml Intake Oral 25 ml IV Total 3200 ml Output Urine Total 3700 ml # Bowel Movements 1 General Appearance: Alert, Oriented X3 HEENT: Atraumatic Cardiovascular: Regular rate, Normal S1 Abdomen: Normal bowel sounds, Soft Medications Current Medications Medications Dose Ordered Sig/Temi Route Start Time Stop Time Status Last Admin Dose Admin Nitroglycerin 0.4 mg Q5MINP PRN SL 09/28/24 14:00 Pantoprazole Sodium 40 mg DAILY IV 09/30/24 10:00 10/09/24 07:32 40 MG Metoclopramide HCl 5 mg Q8HPRN PRN IV 09/29/24 10:15 10/04/24 22:39 5 MG Sodium Chloride 10 ml QSHIFT@10,22 IV 10/01/24 22:00 10/09/24 07:35 10 ML Diagnostic Test (Pha) 1 strip Q6HR 10/01/24 12:00 10/09/24 12:00 1 STRIP Insulin Human Regular FOLLOW SLIDING SCALE Q6HR SC 10/01/24 12:00 10/09/24 11:30 2 UNITS Dextrose 50 ml UD IV 10/01/24 11:15 Acetaminophen 650 mg Q6HP PRN PO 10/04/24 15:45 10/04/24 16:11 650 MG Vancomycin HCl 0 ml @ 0 mls/hr UD IV 10/04/24 19:45 Norepinephrine Bitartrate 250 ml @ 3.75 mls/hr Q24H IV 10/04/24 19:45 10/04/24 20:35 3.75 MLS/HR Potassium Chloride/Dextrose/ Sod Cl 1,000 ml @ 75 mls/hr [id number] IV 10/05/24 11:45 10/09/24 03:52 75 MLS/HR Amino Acids 0 ml @ 0 mls/hr PER PHARMACY IV 10/05/24 11:45 Hydromorphone HCl 1 mg Q3HPRN PRN IV 10/05/24 11:45 10/09/24 11:29 1 MG Ondansetron HCl 4 mg Q4HPRN PRN IV 10/05/24 11:45 10/05/24 17:13 4 MG Pantoprazole Sodium 40 mg DAILY IV 10/06/24 10:00 Cancel Piperacillin Sod/ Tazobactam Sod 100 ml @ 25 mls/hr Q8HR IV 10/05/24 14:00 10/09/24 05:25 25 MLS/HR Morphine Sulfate 2 mg Q2HPRN PRN IV 10/05/24 12:00 Cancel Morphine Sulfate 2 mg Q4H PRN IV 10/05/24 12:00 Cancel Hydromorphone HCl 0.25 mg Q10M PRN IV 10/05/24 12:00 Cancel Morphine Sulfate 2 mg Q2HPRN PRN IV 10/05/24 15:15 10/07/24 16:07 2 MG Acetaminophen 1,000 mg Q5HP PRN IV 10/05/24 20:45 10/05/24 21:17 1,000 MG Cefazolin Sodium 2 gm/Sodium Chloride 1,000 ml @ 0 mls/hr Q8HR IR 10/06/24 23:30 10/09/24 06:05 0 MLS/HR Fat Emulsion Intravenous 150 ml/Sodium Acetate 20 meq/Potassium Phosphate 44 meq/ Magnesium Sulfate 12 meq/ Multivitamins 10 ml/Insulin Human Regular 8 units/ Amino Acids/ Dextrose 1,483.08 ml @ 62 mls/hr [id number] IV 10/09/24 22:00 10/10/24 21:59 Laboratory Results Laboratory Tests 10/09/24 04:53 Chemistry Test 10/09/24 04:53 Albumin 3.1 g/dL (3.2-4.8) L Calcium Level 8.6 mg/dL (8.7-10.4) L Magnesium Level 2.0 mg/dL (1.6-2.6) Phosphorus Level 2.8 mg/dL (2.4-5.1) Total Protein 5.9 g/dL (5.7-8.2) LFT Test 10/09/24 04:53 Alanine Aminotransferase (ALT) < 9 U/L (7-40) Alkaline Phosphatase 84 U/L (46-116) Aspartate Amino Transferase (AST) 14 U/L (13-40) Total Bilirubin 1.4 mg/dL (0.2-1.0) H Urinalysis Test 09/26/24 10:22 10/04/24 21:00 Urine WBC 70 /hpf (0 - 3) Urine Yeast (Budding) Occasional /hpf (None Urine Color Yellow (Yellow) Urine Clarity Clear (Clear) Urine pH 6.0 (5.0-9.0) Urine Specific [place] 1.023 (1.001-1.035) Urine Protein Negative (Negative) Urine Ketones Negative (Negative) Urine Blood Negative /uL (Negative) Urine Nitrite Negative (Negative) Urine Bilirubin Negative (Negative) Urine Urobilinogen Normal mg/dL (Negative) Urine Leukocyte Esterase Negative /uL (Negative) Urine RBC 2 /hpf (0 - 3) Urine Microscopic WBC 1 /HPF (0-3) Urine Squamous Epithelial Cells None seen /hpf (<5) Urine Bacteria None seen /hpf (None Seen) Urine Glucose Normal mg/dL (Normal) Microbiology Microbiology Date/Time Source Procedure Growth Status 10/05/24 11:10 Other Gram Stain - Final Resulted 10/05/24 11:10 Other Anaerobic Culture - Preliminary Resulted 10/05/24 11:10 Aerobic Culture - Final Escherichia coli - ESBL Enterococcus faecalis Resulted 10/04/24 21:00 Urine - [place] Urine Culture - Final Complete 10/04/24 18:40 Blood Blood Culture - Preliminary NO GROWTH AFTER 72 HOURS OF INCUBATION. Resulted Assessment/Plan Assessment/Plan Likely rheumatoid arthritis. The patient's medications will be held. Hiccups:reglan iv #Abd pain Status post takedown of colostomy. The patient will be placed on pain medications as well as IV fluids. He will be kept n.p.o. for now. 09/30/2024 NPO per Gen Surg Reglan IV PRN 10/01/2024 Chloropromazine trial for persistent hiccups 10/02/2024: hiccups improved pt is allowed to start on clear liquid per surgery advance diet as tolerated 10/03/2024 advance diet as tolerated continue with IV Abx pain control 10/04/2024 pt has fever and tachycardia. obtaining CT angio to rule out PE also obtaining abd CT Tylenol on board obtaining blood cx and urine cx 10/05/2023: improving. surgery to removal VALE drain when feasible. Plan discussed with: Patient My Orders Orders - KARELY GOETZ DO Procedure Category Date Status Time Vancomycin Per [facility] 10/08/24 In Process Pharmacy [facility] 16:00 Complete Blood Count LAB 10/10/24 Verified 04:00 Comprehensive LAB 10/10/24 Verified Metabolic Panel 04:00 Magnesium LAB 10/10/24 Verified 04:00 Phosphorus LAB 10/10/24 Verified 04:00 Tpn Per Pharmacy [facility] 10/09/24 In Process 22:00 Vancomycin,Random LAB 10/10/24 Verified 04:00 Date of Service: Oct 05, 2024 Billing Provider: KARELY GOETZ DO Common Visit Codes: [id number] INP/OBS CARE(HIGH) KARELY GOETZ DO Oct 09, 2024 14:21
--- NOTE | 2024-10-09 14:25 | DVHPN2 ---
Reviewed: Care Plan, H&P, Labs, Medications, Radiology Changes from previous H/P or p: No Changes General: Per HPI Objective Vitals Vital Signs Date Time Temp Pulse Resp B/P (MAP) Pulse Ox O2 Delivery O2 Flow Rate FiO2 10/09/24 13:00 97.9 83 18 122/76 (91) 98 97.9 10/09/24 10:47 Room Air* 0 21 Intake/Output Intake and Output 10/09/24 07:00 Intake Total 3225 ml Output Total 3700 ml Balance -475 ml Intake Oral 25 ml IV Total 3200 ml Output Urine Total 3700 ml # Bowel Movements 1 General Appearance: Alert, Oriented X3 HEENT: Atraumatic Cardiovascular: Regular rate, Normal S1 Abdomen: Normal bowel sounds, Soft Medications Current Medications Medications Dose Ordered Sig/Temi Route Start Time Stop Time Status Last Admin Dose Admin Nitroglycerin 0.4 mg Q5MINP PRN SL 09/28/24 14:00 Pantoprazole Sodium 40 mg DAILY IV 09/30/24 10:00 10/09/24 07:32 40 MG Metoclopramide HCl 5 mg Q8HPRN PRN IV 09/29/24 10:15 10/04/24 22:39 5 MG Sodium Chloride 10 ml QSHIFT@10,22 IV 10/01/24 22:00 10/09/24 07:35 10 ML Diagnostic Test (Pha) 1 strip Q6HR 10/01/24 12:00 10/09/24 12:00 1 STRIP Insulin Human Regular FOLLOW SLIDING SCALE Q6HR SC 10/01/24 12:00 10/09/24 11:30 2 UNITS Dextrose 50 ml UD IV 10/01/24 11:15 Acetaminophen 650 mg Q6HP PRN PO 10/04/24 15:45 10/04/24 16:11 650 MG Vancomycin HCl 0 ml @ 0 mls/hr UD IV 10/04/24 19:45 Norepinephrine Bitartrate 250 ml @ 3.75 mls/hr Q24H IV 10/04/24 19:45 10/04/24 20:35 3.75 MLS/HR Potassium Chloride/Dextrose/ Sod Cl 1,000 ml @ 75 mls/hr [id number] IV 10/05/24 11:45 10/09/24 03:52 75 MLS/HR Amino Acids 0 ml @ 0 mls/hr PER PHARMACY IV 10/05/24 11:45 Hydromorphone HCl 1 mg Q3HPRN PRN IV 10/05/24 11:45 10/09/24 11:29 1 MG Ondansetron HCl 4 mg Q4HPRN PRN IV 10/05/24 11:45 10/05/24 17:13 4 MG Pantoprazole Sodium 40 mg DAILY IV 10/06/24 10:00 Cancel Piperacillin Sod/ Tazobactam Sod 100 ml @ 25 mls/hr Q8HR IV 10/05/24 14:00 10/09/24 05:25 25 MLS/HR Morphine Sulfate 2 mg Q2HPRN PRN IV 10/05/24 12:00 Cancel Morphine Sulfate 2 mg Q4H PRN IV 10/05/24 12:00 Cancel Hydromorphone HCl 0.25 mg Q10M PRN IV 10/05/24 12:00 Cancel Morphine Sulfate 2 mg Q2HPRN PRN IV 10/05/24 15:15 10/07/24 16:07 2 MG Acetaminophen 1,000 mg Q5HP PRN IV 10/05/24 20:45 10/05/24 21:17 1,000 MG Cefazolin Sodium 2 gm/Sodium Chloride 1,000 ml @ 0 mls/hr Q8HR IR 10/06/24 23:30 10/09/24 06:05 0 MLS/HR Fat Emulsion Intravenous 150 ml/Sodium Acetate 20 meq/Potassium Phosphate 44 meq/ Magnesium Sulfate 12 meq/ Multivitamins 10 ml/Insulin Human Regular 8 units/ Amino Acids/ Dextrose 1,483.08 ml @ 62 mls/hr [id number] IV 10/09/24 22:00 10/10/24 21:59 Laboratory Results Laboratory Tests 10/09/24 04:53 Chemistry Test 10/09/24 04:53 Albumin 3.1 g/dL (3.2-4.8) L Calcium Level 8.6 mg/dL (8.7-10.4) L Magnesium Level 2.0 mg/dL (1.6-2.6) Phosphorus Level 2.8 mg/dL (2.4-5.1) Total Protein 5.9 g/dL (5.7-8.2) LFT Test 10/09/24 04:53 Alanine Aminotransferase (ALT) < 9 U/L (7-40) Alkaline Phosphatase 84 U/L (46-116) Aspartate Amino Transferase (AST) 14 U/L (13-40) Total Bilirubin 1.4 mg/dL (0.2-1.0) H Urinalysis Test 09/26/24 10:22 10/04/24 21:00 Urine WBC 70 /hpf (0 - 3) Urine Yeast (Budding) Occasional /hpf (None Urine Color Yellow (Yellow) Urine Clarity Clear (Clear) Urine pH 6.0 (5.0-9.0) Urine Specific [place] 1.023 (1.001-1.035) Urine Protein Negative (Negative) Urine Ketones Negative (Negative) Urine Blood Negative /uL (Negative) Urine Nitrite Negative (Negative) Urine Bilirubin Negative (Negative) Urine Urobilinogen Normal mg/dL (Negative) Urine Leukocyte Esterase Negative /uL (Negative) Urine RBC 2 /hpf (0 - 3) Urine Microscopic WBC 1 /HPF (0-3) Urine Squamous Epithelial Cells None seen /hpf (<5) Urine Bacteria None seen /hpf (None Seen) Urine Glucose Normal mg/dL (Normal) Microbiology Microbiology Date/Time Source Procedure Growth Status 10/05/24 11:10 Other Gram Stain - Final Resulted 10/05/24 11:10 Other Anaerobic Culture - Preliminary Resulted 10/05/24 11:10 Aerobic Culture - Final Escherichia coli - ESBL Enterococcus faecalis Resulted 10/04/24 21:00 Urine - [place] Urine Culture - Final Complete 10/04/24 18:40 Blood Blood Culture - Preliminary NO GROWTH AFTER 72 HOURS OF INCUBATION. Resulted Assessment/Plan Assessment/Plan Likely rheumatoid arthritis. The patient's medications will be held. Hiccups:reglan iv #Abd pain Status post takedown of colostomy. The patient will be placed on pain medications as well as IV fluids. He will be kept n.p.o. for now. 09/30/2024 NPO per Gen Surg Reglan IV PRN 10/01/2024 Chloropromazine trial for persistent hiccups 10/02/2024: hiccups improved pt is allowed to start on clear liquid per surgery advance diet as tolerated 10/03/2024 advance diet as tolerated continue with IV Abx pain control 10/04/2024 pt has fever and tachycardia. obtaining CT angio to rule out PE also obtaining abd CT Tylenol on board obtaining blood cx and urine cx 10/05/2024: improving. surgery to removal VALE drain when feasible. 10/06/2024: still has significant discharge, continue with VALE drain 10/07/2024: able to eat but still has drainage in VALE drain. 10/08/2024: still has significant drainage Plan discussed with: Patient My Orders Orders - KARELY GOETZ DO Procedure Category Date Status Time Vancomycin Per [facility] 10/08/24 In Process Pharmacy [facility] 16:00 Complete Blood Count LAB 10/10/24 Verified 04:00 Comprehensive LAB 10/10/24 Verified Metabolic Panel 04:00 Magnesium LAB 10/10/24 Verified 04:00 Phosphorus LAB 10/10/24 Verified 04:00 Tpn Per Pharmacy [facility] 10/09/24 In Process 22:00 Vancomycin,Random LAB 10/10/24 Verified 04:00 Date of Service: Oct 08, 2024 Billing Provider: KARELY GOETZ DO Common Visit Codes: [id number] INP/OBS CARE(HIGH) KARELY GOETZ DO Oct 09, 2024 14:25
--- NOTE | 2024-10-09 14:27 | DVHPN2 ---
Reviewed: Care Plan, H&P, Labs, Medications, Radiology Changes from previous H/P or p: No Changes General: Per HPI Objective Vitals Vital Signs Date Time Temp Pulse Resp B/P (MAP) Pulse Ox O2 Delivery O2 Flow Rate FiO2 10/09/24 13:00 97.9 83 18 122/76 (91) 98 97.9 10/09/24 10:47 Room Air* 0 21 Intake/Output Intake and Output 10/09/24 07:00 Intake Total 3225 ml Output Total 3700 ml Balance -475 ml Intake Oral 25 ml IV Total 3200 ml Output Urine Total 3700 ml # Bowel Movements 1 General Appearance: Alert, Oriented X3 HEENT: Atraumatic Cardiovascular: Regular rate, Normal S1 Abdomen: Normal bowel sounds, Soft Medications Current Medications Medications Dose Ordered Sig/Temi Route Start Time Stop Time Status Last Admin Dose Admin Nitroglycerin 0.4 mg Q5MINP PRN SL 09/28/24 14:00 Pantoprazole Sodium 40 mg DAILY IV 09/30/24 10:00 10/09/24 07:32 40 MG Metoclopramide HCl 5 mg Q8HPRN PRN IV 09/29/24 10:15 10/04/24 22:39 5 MG Sodium Chloride 10 ml QSHIFT@10,22 IV 10/01/24 22:00 10/09/24 07:35 10 ML Diagnostic Test (Pha) 1 strip Q6HR 10/01/24 12:00 10/09/24 12:00 1 STRIP Insulin Human Regular FOLLOW SLIDING SCALE Q6HR SC 10/01/24 12:00 10/09/24 11:30 2 UNITS Dextrose 50 ml UD IV 10/01/24 11:15 Acetaminophen 650 mg Q6HP PRN PO 10/04/24 15:45 10/04/24 16:11 650 MG Vancomycin HCl 0 ml @ 0 mls/hr UD IV 10/04/24 19:45 Norepinephrine Bitartrate 250 ml @ 3.75 mls/hr Q24H IV 10/04/24 19:45 10/04/24 20:35 3.75 MLS/HR Potassium Chloride/Dextrose/ Sod Cl 1,000 ml @ 75 mls/hr [id number] IV 10/05/24 11:45 10/09/24 03:52 75 MLS/HR Amino Acids 0 ml @ 0 mls/hr PER PHARMACY IV 10/05/24 11:45 Hydromorphone HCl 1 mg Q3HPRN PRN IV 10/05/24 11:45 10/09/24 11:29 1 MG Ondansetron HCl 4 mg Q4HPRN PRN IV 10/05/24 11:45 10/05/24 17:13 4 MG Pantoprazole Sodium 40 mg DAILY IV 10/06/24 10:00 Cancel Piperacillin Sod/ Tazobactam Sod 100 ml @ 25 mls/hr Q8HR IV 10/05/24 14:00 10/09/24 05:25 25 MLS/HR Morphine Sulfate 2 mg Q2HPRN PRN IV 10/05/24 12:00 Cancel Morphine Sulfate 2 mg Q4H PRN IV 10/05/24 12:00 Cancel Hydromorphone HCl 0.25 mg Q10M PRN IV 10/05/24 12:00 Cancel Morphine Sulfate 2 mg Q2HPRN PRN IV 10/05/24 15:15 10/07/24 16:07 2 MG Acetaminophen 1,000 mg Q5HP PRN IV 10/05/24 20:45 10/05/24 21:17 1,000 MG Cefazolin Sodium 2 gm/Sodium Chloride 1,000 ml @ 0 mls/hr Q8HR IR 10/06/24 23:30 10/09/24 06:05 0 MLS/HR Fat Emulsion Intravenous 150 ml/Sodium Acetate 20 meq/Potassium Phosphate 44 meq/ Magnesium Sulfate 12 meq/ Multivitamins 10 ml/Insulin Human Regular 8 units/ Amino Acids/ Dextrose 1,483.08 ml @ 62 mls/hr [id number] IV 10/09/24 22:00 10/10/24 21:59 Laboratory Results Laboratory Tests 10/09/24 04:53 Chemistry Test 10/09/24 04:53 Albumin 3.1 g/dL (3.2-4.8) L Calcium Level 8.6 mg/dL (8.7-10.4) L Magnesium Level 2.0 mg/dL (1.6-2.6) Phosphorus Level 2.8 mg/dL (2.4-5.1) Total Protein 5.9 g/dL (5.7-8.2) LFT Test 10/09/24 04:53 Alanine Aminotransferase (ALT) < 9 U/L (7-40) Alkaline Phosphatase 84 U/L (46-116) Aspartate Amino Transferase (AST) 14 U/L (13-40) Total Bilirubin 1.4 mg/dL (0.2-1.0) H Urinalysis Test 09/26/24 10:22 10/04/24 21:00 Urine WBC 70 /hpf (0 - 3) Urine Yeast (Budding) Occasional /hpf (None Urine Color Yellow (Yellow) Urine Clarity Clear (Clear) Urine pH 6.0 (5.0-9.0) Urine Specific [place] 1.023 (1.001-1.035) Urine Protein Negative (Negative) Urine Ketones Negative (Negative) Urine Blood Negative /uL (Negative) Urine Nitrite Negative (Negative) Urine Bilirubin Negative (Negative) Urine Urobilinogen Normal mg/dL (Negative) Urine Leukocyte Esterase Negative /uL (Negative) Urine RBC 2 /hpf (0 - 3) Urine Microscopic WBC 1 /HPF (0-3) Urine Squamous Epithelial Cells None seen /hpf (<5) Urine Bacteria None seen /hpf (None Seen) Urine Glucose Normal mg/dL (Normal) Microbiology Microbiology Date/Time Source Procedure Growth Status 10/05/24 11:10 Other Gram Stain - Final Resulted 10/05/24 11:10 Other Anaerobic Culture - Preliminary Resulted 10/05/24 11:10 Aerobic Culture - Final Escherichia coli - ESBL Enterococcus faecalis Resulted 10/04/24 21:00 Urine - [place] Urine Culture - Final Complete 10/04/24 18:40 Blood Blood Culture - Preliminary NO GROWTH AFTER 72 HOURS OF INCUBATION. Resulted Assessment/Plan Assessment/Plan Likely rheumatoid arthritis. The patient's medications will be held. Hiccups:reglan iv #Abd pain Status post takedown of colostomy. The patient will be placed on pain medications as well as IV fluids. He will be kept n.p.o. for now. 09/30/2024 NPO per Gen Surg Reglan IV PRN 10/01/2024 Chloropromazine trial for persistent hiccups 10/02/2024: hiccups improved pt is allowed to start on clear liquid per surgery advance diet as tolerated 10/03/2024 advance diet as tolerated continue with IV Abx pain control 10/04/2024 pt has fever and tachycardia. obtaining CT angio to rule out PE also obtaining abd CT Tylenol on board obtaining blood cx and urine cx 10/05/2024: improving. surgery to removal VALE drain when feasible. 10/06/2024: still has significant discharge, continue with VALE drain 10/07/2024: able to eat but still has drainage in VALE drain. 10/08/2024: still has significant drainage 10/09/2024: VALE drain still in place. per Gen Surg, remains in place Plan discussed with: Patient My Orders Orders - KARELY GOETZ DO Procedure Category Date Status Time Vancomycin Per [facility] 10/08/24 In Process Pharmacy [facility] 16:00 Complete Blood Count LAB 10/10/24 Verified 04:00 Comprehensive LAB 10/10/24 Verified Metabolic Panel 04:00 Magnesium LAB 10/10/24 Verified 04:00 Phosphorus LAB 10/10/24 Verified 04:00 Tpn Per Pharmacy [facility] 10/09/24 In Process 22:00 Vancomycin,Random LAB 10/10/24 Verified 04:00 Date of Service: Oct 09, 2024 Billing Provider: KARELY GOETZ DO Common Visit Codes: [id number] INP/OBS CARE(HIGH) KARELY GOETZ DO Oct 09, 2024 14:27
[2024-10-09] MEDS: TPN PER PHARMACY IV NR (22:30)
[2024-10-10] VITALS (8 sets, daily range): BP systolic 97–122; BP diastolic 51–69; PULSE 68–89; RESP 12–20; TEMP 98–98.5; O2SAT 94–100
[2024-10-10 05:36] LABS: Basophils # (auto) 0.1 10 ^3/uL (0-0.2); Basophils % (auto) 0.5 % (0.0-2.0); Eosinophils # (auto) 0.3 10 ^3/uL (0-0.8); Lymphocytes # (auto) 0.8 10 ^3/uL (0.4-5.4); Lymphocytes % (auto) 6.5 % (10.0-50.0); Monocytes # (auto) 1.1 10 ^3/uL (0-1.3)
[2024-10-10 05:39] LABS: Eosinophils % (auto) 2.3 % (0.0-7.0); Hematocrit 27.4 % (41.0-53.0); Hemoglobin 9.2 g/dL (13.5-17.5); Mean Corpuscular Hemoglobin 32.1 pg (28.0-32.0); Mean Corpuscular Hgb Conc. 33.4 g/dL (32.0-36.0); Mean Corpuscular Volume 96.2 fL (80.0-100.0); Monocytes % (auto) 8.8 % (0.0-12.0); Neutrophils # (auto) 10.1 10 ^3/uL (1.6-8.6); Neutrophils % (auto) 81.9 % (37.0-80.0); Platelet Count (auto) 543 10^3/uL (140-450); Red Blood Cells 2.85 10^6/uL (4.5-5.90); White Blood Cell 12.3 10^3/uL (4.4-10.8)
[2024-10-10 05:44] LABS: Alkaline Phosphatase 90 U/L (46-116); Anion Gap 9 (5-15); Aspartate Aminotransferase 16 U/L (13-40); BUN/Creatinine Ratio 14.2 (10.0-20.0); Carbon Dioxide 24 mmol/L (20-31); Chloride 105 mmol/L (98-107); Magnesium 1.9 mg/dL (1.6-2.6); Phosphorus 3.4 mg/dL (2.4-5.1); Potassium 3.9 mmol/L (3.5-5.1); Sodium 138 mmol/L (136-145)
[2024-10-10 05:48] LABS: Alanine Aminotransferase < 9 U/L (7-40); Albumin 2.8 g/dL (3.2-4.8); Bilirubin, Total 1.6 mg/dL (0.2-1.0); Blood Urea Nitrogen 31 mg/dL (9-23); Calcium 8.7 mg/dL (8.7-10.4); Glucose 179 mg/dL (74-106); Total Protein 5.5 g/dL (5.7-8.2)
--- NOTE | 2024-10-10 10:16 | DVHPN2 ---
Progress Note Date Seen: Oct 10, 2024 Has the PT tested + for MRSA If YES, has PT been informed?: No Medical Necessity Reason Pt with a Central, PICC or Fol: No Subjective Patient reports: No new complaints Review of Systems: HEENT:Normal, CVS:Normal, RESPIRATORY:Normal, GI:Normal, :Normal, MSK:Normal, NEURO:Normal Objective vital signs Vital Sign Date Time Temp Pulse Resp B/P (MAP) Pulse Ox O2 Delivery O2 Flow Rate FiO2 10/10/24 08:34 98.5 81 18 97/61 (73) 99 98.5 10/09/24 20:00 Room Air* 0 21 Total Intake and Output 10/09/24 10/09/24 10/10/24 15:00 23:00 07:00 Intake Total 100 ml 1100 ml Balance 100 ml 1100 ml medications Current Medications Medications Dose Ordered Sig/Temi Route Start Time Stop Time Status Last Admin Dose Admin Nitroglycerin 0.4 mg Q5MINP PRN SL 09/28/24 14:00 Pantoprazole Sodium 40 mg DAILY IV 09/30/24 10:00 10/09/24 07:32 40 MG Metoclopramide HCl 5 mg Q8HPRN PRN IV 09/29/24 10:15 10/04/24 22:39 5 MG Sodium Chloride 10 ml QSHIFT@10,22 IV 10/01/24 22:00 10/09/24 23:12 10 ML Diagnostic Test (Pha) 1 strip Q6HR 10/01/24 12:00 10/10/24 06:01 1 STRIP Insulin Human Regular FOLLOW SLIDING SCALE Q6HR SC 10/01/24 12:00 10/10/24 06:03 4 UNITS Dextrose 50 ml UD IV 10/01/24 11:15 Acetaminophen 650 mg Q6HP PRN PO 10/04/24 15:45 10/04/24 16:11 650 MG Vancomycin HCl 0 ml @ 0 mls/hr UD IV 10/04/24 19:45 Norepinephrine Bitartrate 250 ml @ 3.75 mls/hr Q24H IV 10/04/24 19:45 10/04/24 20:35 3.75 MLS/HR Potassium Chloride/Dextrose/ Sod Cl 1,000 ml @ 75 mls/hr [id number] IV 10/05/24 11:45 10/09/24 20:09 75 MLS/HR Amino Acids 0 ml @ 0 mls/hr PER PHARMACY IV 10/05/24 11:45 Hydromorphone HCl 1 mg Q3HPRN PRN IV 10/05/24 11:45 10/09/24 21:58 1 MG Ondansetron HCl 4 mg Q4HPRN PRN IV 10/05/24 11:45 10/05/24 17:13 4 MG Pantoprazole Sodium 40 mg DAILY IV 10/06/24 10:00 Cancel Piperacillin Sod/ Tazobactam Sod 100 ml @ 25 mls/hr Q8HR IV 10/05/24 14:00 10/10/24 05:53 25 MLS/HR Morphine Sulfate 2 mg Q2HPRN PRN IV 10/05/24 12:00 Cancel Morphine Sulfate 2 mg Q4H PRN IV 10/05/24 12:00 Cancel Hydromorphone HCl 0.25 mg Q10M PRN IV 10/05/24 12:00 Cancel Morphine Sulfate 2 mg Q2HPRN PRN IV 10/05/24 15:15 10/10/24 04:59 2 MG Acetaminophen 1,000 mg Q5HP PRN IV 10/05/24 20:45 10/05/24 21:17 1,000 MG Cefazolin Sodium 2 gm/Sodium Chloride 1,000 ml @ 0 mls/hr Q8HR IR 10/06/24 23:30 10/09/24 23:03 0 MLS/HR Fat Emulsion Intravenous 150 ml/Sodium Acetate 20 meq/Potassium Phosphate 44 meq/ Magnesium Sulfate 12 meq/ Multivitamins 10 ml/Insulin Human Regular 8 units/ Amino Acids/ Dextrose 1,483.08 ml @ 62 mls/hr [id number] IV 10/09/24 22:00 10/10/24 21:59 10/09/24 22:30 62 MLS/HR Examination: ABDOMEN:Abnormal (VALE DRAIN+) laboratory and microbiology Laboratory Tests 10/10/24 04:59 Test 10/10/24 04:59 Range/Units Serum Glucose 179 H 74-106 mg/dL Microbiology Date/Time Source Procedure Growth Status 10/05/24 11:10 Other Gram Stain - Final Resulted 10/05/24 11:10 Other Anaerobic Culture - Preliminary Resulted 10/05/24 11:10 Aerobic Culture - Final Escherichia coli - ESBL Enterococcus faecalis Resulted 10/04/24 21:00 Urine - [place] Urine Culture - Final Complete 10/04/24 18:40 Blood Blood Culture - Final NO GROWTH AFTER 5 DAYS OF INCUBATION. Complete Problem List/Assessment/Plan Problem List/Assessment/Plan * Likely rheumatoid arthritis. The patient's medications will be held. * Hiccups:reglan iv * Status post takedown of colostomy. The patient will be placed on pain medications as well as IV fluids. 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
[2024-10-10] MEDS: HYDROcodone-ACET 5/325MG TAB PO PRN (12:39)
--- NOTE | 2024-10-10 16:28 | MEDREC ---
ON LICENSE OF [facility] ASP Intervention Section I ON LICENSE OF [facility] ASP Intervention: Review courses of therapy (PLEASE CONSIDER SWITCHING TO MEROPENEM TO COVER FOR ENTEROCOCCUS FAECALIS OR ADD ANOTHER ANTIBIOTIC TO ERTAPENEM TO COVER FOR ENTEROCOCCUS FAECALIS) JEANNETTE WILLINGHAM PHARMACIST Oct 10, 2024 16:28
[2024-10-11] VITALS (8 sets, daily range): BP systolic 100–111; BP diastolic 60–68; PULSE 77–85; RESP 12–18; TEMP 98.1–98.5; O2SAT 97–100
[2024-10-11 06:02] LABS: Basophils # (auto) 0.1 10 ^3/uL (0-0.2); Basophils % (auto) 0.6 % (0.0-2.0); Eosinophils # (auto) 0.4 10 ^3/uL (0-0.8); Eosinophils % (auto) 3.2 % (0.0-7.0); Hematocrit 26.4 % (41.0-53.0); Hemoglobin 8.8 g/dL (13.5-17.5); Lymphocytes # (auto) 1.1 10 ^3/uL (0.4-5.4); Lymphocytes % (auto) 9.8 % (10.0-50.0); Mean Corpuscular Hemoglobin 31.9 pg (28.0-32.0); Mean Corpuscular Hgb Conc. 33.4 g/dL (32.0-36.0); Mean Corpuscular Volume 95.4 fL (80.0-100.0); Monocytes # (auto) 1.1 10 ^3/uL (0-1.3); Monocytes % (auto) 9.9 % (0.0-12.0); Neutrophils # (auto) 8.7 10 ^3/uL (1.6-8.6); Neutrophils % (auto) 76.5 % (37.0-80.0); Platelet Count (auto) 546 10^3/uL (140-450); Red Blood Cells 2.76 10^6/uL (4.5-5.90); Red Cell Distribution Width 15.4 % (11.8-14.3); White Blood Cell 11.4 10^3/uL (4.4-10.8)
[2024-10-11 06:21] LABS: Chloride 106 mmol/L (98-107); Potassium 4.3 mmol/L (3.5-5.1); Sodium 138 mmol/L (136-145)
[2024-10-11 06:22] LABS: Anion Gap 10 (5-15); Carbon Dioxide 22 mmol/L (20-31)
[2024-10-11 06:23] LABS: Calcium 9.1 mg/dL (8.7-10.4)
[2024-10-11 06:27] LABS: BUN/Creatinine Ratio 13.5 (10.0-20.0); Glucose 104 mg/dL (74-106)
[2024-10-11 06:28] LABS: Blood Urea Nitrogen 26 mg/dL (9-23)
[2024-10-11] MEDS: ERTAPENEM SOD INJ 1 GM in SODIUM CHL 0.9% 50 ML IV SCH (09:53)
--- NOTE | 2024-10-11 09:54 | DVHPN2 ---
Progress Note Date Seen: Oct 11, 2024 Has the PT tested + for MRSA If YES, has PT been informed?: No Medical Necessity Reason Pt with a Central, PICC or Fol: No Subjective Patient reports: No new complaints Review of Systems: HEENT:Normal, CVS:Normal, RESPIRATORY:Normal, GI:Normal, :Normal, MSK:Normal, NEURO:Normal Objective vital signs Vital Sign Date Time Temp Pulse Resp B/P (MAP) Pulse Ox O2 Delivery O2 Flow Rate FiO2 10/11/24 04:58 98.2 81 14 109/62 (78) 97 98.2 10/10/24 19:43 Room Air* 0 21 Total Intake and Output 10/10/24 10/10/24 10/11/24 15:00 23:00 07:00 Intake Total 460 ml 960 ml 1150 ml Output Total 2061 ml 1400 ml Balance 460 ml -1101 ml -250 ml medications Current Medications Medications Dose Ordered Sig/Temi Route Start Time Stop Time Status Last Admin Dose Admin Nitroglycerin 0.4 mg Q5MINP PRN SL 09/28/24 14:00 Pantoprazole Sodium 40 mg DAILY IV 09/30/24 10:00 10/10/24 10:13 40 MG Metoclopramide HCl 5 mg Q8HPRN PRN IV 09/29/24 10:15 10/04/24 22:39 5 MG Sodium Chloride 10 ml QSHIFT@10,22 IV 10/01/24 22:00 10/10/24 21:20 10 ML Acetaminophen 650 mg Q6HP PRN PO 10/04/24 15:45 Hold 10/04/24 16:11 650 MG Potassium Chloride/Dextrose/ Sod Cl 1,000 ml @ 75 mls/hr [id number] IV 10/05/24 11:45 10/10/24 23:51 75 MLS/HR Hydromorphone HCl 1 mg Q3HPRN PRN IV 10/05/24 11:45 10/11/24 03:14 1 MG Pantoprazole Sodium 40 mg DAILY IV 10/06/24 10:00 Cancel Morphine Sulfate 2 mg Q2HPRN PRN IV 10/05/24 12:00 Cancel Morphine Sulfate 2 mg Q4H PRN IV 10/05/24 12:00 Cancel Hydromorphone HCl 0.25 mg Q10M PRN IV 10/05/24 12:00 Cancel Ertapenem 1 gm/ Sodium Chloride 50 ml @ 100 mls/hr DAILY IV 10/11/24 10:00 Acetaminophen/ Hydrocodone Bitart 1 tab Q6HPRN PRN PO 10/10/24 10:15 10/10/24 21:30 1 TAB Examination: GENERAL:Normal, HEENT:Normal, NECK:Normal, LUNGS:Normal, CVS:Normal, ABDOMEN:Normal, ABDOMEN:Abnormal (VALE DRAINS), MSK:Normal, SKIN:Normal, NEURO:Normal, :Normal laboratory and microbiology Laboratory Tests 10/11/24 05:11 Test 10/11/24 05:11 Range/Units Serum Glucose 104 74-106 mg/dL Microbiology Date/Time Source Procedure Growth Status 10/05/24 11:10 Other Gram Stain - Final Complete 10/05/24 11:10 Other Anaerobic Culture - Final Complete 10/05/24 11:10 Aerobic Culture - Final Escherichia coli - ESBL Enterococcus faecalis Complete 10/04/24 21:00 Urine - [place] Urine Culture - Final Complete 10/04/24 18:40 Blood Blood Culture - Final NO GROWTH AFTER 5 DAYS OF INCUBATION. Complete Problem List/Assessment/Plan Problem List/Assessment/Plan * Likely rheumatoid arthritis. The patient's medications will be held. * Hiccups:reglan iv * Status post takedown of colostomy. The patient will be placed on pain medications as well as IV fluids. dc ng tube, mechanical soft diet, dc tpn * septic shock with esbl e coli: iv invanz * acute renal failure/atn: improving advance care planning - full code- time spent 19 mins Plan discussed with: Patient My Orders My Orders Orders - NANCY CONNOLLY MD Procedure Category Date Status Time Discontinue Ng ORDERS 10/10/24 Transmitted 10:09 Clear Liq Diet DIET 10/10/24 Transmitted Lunch Ertapenem Sod Inj PHA 10/11/24 In Process (Invanz) 10:00 Hydrocodone-Acet PHA 10/10/24 In Process 5/325mg Tab (Bantam 10:15 Discontinue Tele BERNARD 10/10/24 In Process 10:16 Transfer Orders XFER 10/10/24 Transmitted 10:16 Dietary Evaluation Review Reduced Magazine Hand Strength: N/A Date of Service: Oct 11, 2024 Billing Provider: NANCY CONNOLLY MD Common Visit Codes: [id number] INP/OBS CARE(HIGH) NANCY CONNOLLY MD Oct 11, 2024 09:54
--- NOTE | 2024-10-11 11:44 | DVHPN2 ---
Progress Note Date Seen: Oct 11, 2024 Has the PT tested + for MRSA If YES, has PT been informed?: No Medical Necessity Reason Pt with a Central, PICC or Fol: No Objective vital signs Vital Sign Date Time Temp Pulse Resp B/P (MAP) Pulse Ox O2 Delivery O2 Flow Rate FiO2 10/11/24 09:00 98.2 81 18 111/67 (82) 99 98.2 10/10/24 19:43 Room Air* 0 21 Total Intake and Output 10/10/24 10/10/24 10/11/24 15:00 23:00 07:00 Intake Total 460 ml 960 ml 1150 ml Output Total 2061 ml 1400 ml Balance 460 ml -1101 ml -250 ml medications Current Medications Medications Dose Ordered Sig/Temi Route Start Time Stop Time Status Last Admin Dose Admin Nitroglycerin 0.4 mg Q5MINP PRN SL 09/28/24 14:00 Pantoprazole Sodium 40 mg DAILY IV 09/30/24 10:00 10/11/24 09:53 40 MG Metoclopramide HCl 5 mg Q8HPRN PRN IV 09/29/24 10:15 10/04/24 22:39 5 MG Sodium Chloride 10 ml QSHIFT@10,22 IV 10/01/24 22:00 10/11/24 09:54 10 ML Acetaminophen 650 mg Q6HP PRN PO 10/04/24 15:45 Hold 10/04/24 16:11 650 MG Hydromorphone HCl 1 mg Q3HPRN PRN IV 10/05/24 11:45 10/11/24 03:14 1 MG Pantoprazole Sodium 40 mg DAILY IV 10/06/24 10:00 Cancel Morphine Sulfate 2 mg Q2HPRN PRN IV 10/05/24 12:00 Cancel Morphine Sulfate 2 mg Q4H PRN IV 10/05/24 12:00 Cancel Hydromorphone HCl 0.25 mg Q10M PRN IV 10/05/24 12:00 Cancel Ertapenem 1 gm/ Sodium Chloride 50 ml @ 100 mls/hr DAILY IV 10/11/24 10:00 10/11/24 09:53 100 MLS/HR Acetaminophen/ Hydrocodone Bitart 1 tab Q6HPRN PRN PO 10/10/24 10:15 1/28/25 09:51 1 TAB laboratory and microbiology Laboratory Tests 10/11/24 05:11 Test 10/11/24 05:11 Range/Units Serum Glucose 104 74-106 mg/dL Problem List/Assessment/Plan Problem List/Assessment/Plan 09/29/24 c/o pain, has not ambulated, wound clean and well approximated, abdomen soft, appropriately tender, will add Toradol, must ambulate 10/01/24 NURSE CONFIRMS THAT THE PATIENT HAD A BM AND IS PASSING FLATUS, ABDOMEN IS SOFT AND NON DISTENDED, APPROPRIATELY TENDER, WILL DC NGT AND KEEP NPO 10/02/24 passing flatus and had another BM, wound clean and well approximated, abdomen appropriately ten navdeep, will allow clear liquids, dc Hoyt 10/05/24 patient had a sudden onset of abdominal pain accompanied by hypotension and tachycardia, was transferred to ICU,his blood pressure was normalized by intravenous fluid loading, this AM he has an exquisitely tender abdomen ,has slight bleeding from the midline wound. Has markedly elevated WBC,due to sudden pain and marked tenderness with WBC almost 30,000 I believe the safest next step is to explore his abdomen to see if his colorectal anastomosis has dehisced (in which case he would have to have the colostomy re established). I have thoroughly explained to him the above and answered all his questions 10/06/24 feels much better, wound clean and well approximated, drainage sero sanguineous, fever from last night resolved. OK to start ambulating. no flatus, will keep ngt in, start irrigating the drains,he may start ambulating 10/11/24 PASSING FLATUS, HAVING LIQUID bm'S, ABDOMEN SOFT, MINIMALLY TENDER, WOUND CLEAN AND WELL APPROXIMATED, DRAINAGE SERO SANGUINEOUS, NEEDS TO REMAIN ON CLEAR LIQUIDS PO AND REMAIN HOSPITALIZED FOR ANOTHER 4 TO 5 DAYS. Plan discussed with: Patient, Spouse Dietary Evaluation Review Reduced Project Geologist Strength: N/A DIXIE JIN MD Oct 11, 2024 11:44
[2024-10-12] VITALS (8 sets, daily range): BP systolic 99–116; BP diastolic 54–70; PULSE 74–84; RESP 16–20; TEMP 97.3–98.6; O2SAT 93–98
[2024-10-12 05:36] LABS: Basophils # (auto) 0.1 10 ^3/uL (0-0.2); Basophils % (auto) 1.3 % (0.0-2.0); Eosinophils # (auto) 0.3 10 ^3/uL (0-0.8); Hematocrit 26.2 % (41.0-53.0); Lymphocytes # (auto) 1.1 10 ^3/uL (0.4-5.4); Nucleated Red Blood Cells % 0.1 %
[2024-10-12 05:39] LABS: Eosinophils % (auto) 4.4 % (0.0-7.0); Hemoglobin 8.8 g/dL (13.5-17.5); Mean Corpuscular Hemoglobin 32.3 pg (28.0-32.0); Mean Corpuscular Hgb Conc. 33.5 g/dL (32.0-36.0); Mean Corpuscular Volume 96.4 fL (80.0-100.0); Monocytes % (auto) 12.4 % (0.0-12.0); Neutrophils # (auto) 5.2 10 ^3/uL (1.6-8.6); Neutrophils % (auto) 67.9 % (37.0-80.0); Platelet Count (auto) 535 10^3/uL (140-450); Red Blood Cells 2.72 10^6/uL (4.5-5.90); Red Cell Distribution Width 15.4 % (11.8-14.3); White Blood Cell 7.7 10^3/uL (4.4-10.8)
[2024-10-12 05:49] LABS: Alkaline Phosphatase 106 U/L (46-116); Anion Gap 9 (5-15); Aspartate Aminotransferase 19 U/L (13-40); BUN/Creatinine Ratio 13.7 (10.0-20.0); Blood Urea Nitrogen 26 mg/dL (9-23); Calcium 9.1 mg/dL (8.7-10.4); Carbon Dioxide 22 mmol/L (20-31); Chloride 105 mmol/L (98-107); Glucose 78 mg/dL (74-106); Potassium 4.2 mmol/L (3.5-5.1); Sodium 136 mmol/L (136-145); Total Protein 6.5 g/dL (5.7-8.2)
[2024-10-12 05:50] LABS: Alanine Aminotransferase < 9 U/L (7-40); Albumin 3.2 g/dL (3.2-4.8); Bilirubin, Total 1.6 mg/dL (0.2-1.0)
--- NOTE | 2024-10-12 10:02 | DVHPN2 ---
Progress Note Date Seen: Oct 12, 2024 Has the PT tested + for MRSA If YES, has PT been informed?: No Medical Necessity Reason Pt with a Central, PICC or Fol: No Subjective Patient reports: No new complaints Review of Systems: HEENT:Normal, CVS:Normal, RESPIRATORY:Normal, GI:Normal, :Normal, MSK:Normal, NEURO:Normal Objective vital signs Vital Sign Date Time Temp Pulse Resp B/P (MAP) Pulse Ox O2 Delivery O2 Flow Rate FiO2 10/12/24 08:31 98.6 76 19 103/70 (81) 97 98.6 10/12/24 08:05 Room Air* 0 21 Total Intake and Output 10/11/24 10/11/24 10/12/24 15:00 23:00 07:00 Intake Total 50 ml Output Total 45 ml Balance 50 ml -45 ml medications Current Medications Medications Dose Ordered Sig/Temi Route Start Time Stop Time Status Last Admin Dose Admin Nitroglycerin 0.4 mg Q5MINP PRN SL 09/28/24 14:00 Pantoprazole Sodium 40 mg DAILY IV 09/30/24 10:00 10/11/24 09:53 40 MG Metoclopramide HCl 5 mg Q8HPRN PRN IV 09/29/24 10:15 10/04/24 22:39 5 MG Sodium Chloride 10 ml QSHIFT@10,22 IV 10/01/24 22:00 10/11/24 22:14 10 ML Acetaminophen 650 mg Q6HP PRN PO 10/04/24 15:45 Hold 10/04/24 16:11 650 MG Hydromorphone HCl 1 mg Q3HPRN PRN IV 10/05/24 11:45 10/11/24 03:14 1 MG Pantoprazole Sodium 40 mg DAILY IV 10/06/24 10:00 Cancel Morphine Sulfate 2 mg Q2HPRN PRN IV 10/05/24 12:00 Cancel Morphine Sulfate 2 mg Q4H PRN IV 10/05/24 12:00 Cancel Hydromorphone HCl 0.25 mg Q10M PRN IV 10/05/24 12:00 Cancel Ertapenem 1 gm/ Sodium Chloride 50 ml @ 100 mls/hr DAILY IV 10/11/24 10:00 10/11/24 09:53 100 MLS/HR Acetaminophen/ Hydrocodone Bitart 1 tab Q6HPRN PRN PO 10/10/24 10:15 10/12/24 03:27 1 TAB Examination: GENERAL:Normal, HEENT:Normal, NECK:Normal, LUNGS:Normal, CVS:Normal, ABDOMEN:Normal, ABDOMEN:Abnormal ([place]IL[place] DRAINS), MSK:Normal, SKIN:Normal, NEURO:Normal, :Normal laboratory and microbiology Laboratory Tests 10/12/24 04:51 Test 10/12/24 04:51 Range/Units Serum Glucose 78 74-106 mg/dL Microbiology Date/Time Source Procedure Growth Status 10/05/24 11:10 Other Gram Stain - Final Complete 10/05/24 11:10 Other Anaerobic Culture - Final Complete 10/05/24 11:10 Aerobic Culture - Final Escherichia coli - ESBL Enterococcus faecalis Complete 10/04/24 21:00 Urine - [place] Urine Culture - Final Complete 10/04/24 18:40 Blood Blood Culture - Final NO GROWTH AFTER 5 DAYS OF INCUBATION. Complete Problem List/Assessment/Plan Problem List/Assessment/Plan * Likely rheumatoid arthritis. The patient's medications will be held. * Hiccups:reglan iv * Status post takedown of colostomy. The patient will be placed on pain medications as well as IV fluids. dc ng tube, diet, dc tpn * septic shock with esbl e coli: iv invanz * acute renal failure/atn: improving advance care planning - full code- time spent 19 mins Plan discussed with: Patient (milady drains) Dietary Evaluation Review Reduced Cup Trimming Machine Operator Strength: N/A Date of Service: Oct 12, 2024 Billing Provider: NANCY CONNOLLY MD Common Visit Codes: [id number] INP/OBS CARE(HIGH) NANCY CONNOLLY MD Oct 12, 2024 10:01
[2024-10-13 01:00] VITALS: BP 109/52; PULSE 82; RESP 18; TEMP 98.6; O2SAT 99
[2024-10-13 05:00] VITALS: BP 101/65; PULSE 74; RESP 18; TEMP 98.8; O2SAT 98
[2024-10-13 05:28] LABS: Chloride 106 mmol/L (98-107); Potassium 3.8 mmol/L (3.5-5.1)
[2024-10-13 05:29] LABS: Anion Gap 7 (5-15); Carbon Dioxide 23 mmol/L (20-31)
[2024-10-13 05:30] LABS: Calcium 9.1 mg/dL (8.7-10.4)
[2024-10-13 05:34] LABS: BUN/Creatinine Ratio 12.6 (10.0-20.0); Glucose 104 mg/dL (74-106)
[2024-10-13 05:36] LABS: Blood Urea Nitrogen 23 mg/dL (9-23); Sodium 136 mmol/L (136-145)
[2024-10-13 08:00] VITALS: RESP 18
[2024-10-13 09:00] VITALS: BP 105/67; PULSE 85; RESP 18; TEMP 98.2; O2SAT 99
[2024-10-13] MEDS ORDERED: HYDR1TAB97 PO (10:09)
[2024-10-13] MEDS ORDERED: PANT40TA2 PO (10:09)
--- NOTE | 2024-10-13 10:25 | DVHDS ---
DATE OF DISCHARGE: 10/13/2024 HISTORY OF PRESENT ILLNESS: The patient is a 59-year-old gentleman who was admitted after he had a takedown of a colostomy and has previous history of rheumatoid arthritis. HOSPITAL COURSE: The patient was seen in surgery consult by Dr. Harris. The patient had evidence of acute renal failure as well as septic shock post-surgery. His cultures grew ESBL E. coli and Enterococcus faecalis as well as Klebsiella pneumoniae, ESBL. The patient's white count was elevated up to 28,000, that improved to 7000 at the time of discharge. The patient has now been cleared for discharge by Dr. Harris. The patient will be discharged on IV Invanz 1 g daily for 10 days along with home health for care of his VALE drains. He will also have a home walker. He will followup with Dr. Harris in 1 week. The patient will be placed on [place] p.r.n. for pain and Protonix 40 mg daily. FINAL DIAGNOSES: Therefore, * Septic shock with peritonitis due to extended-spectrum beta-lactamase Escherichia coli and Klebsiella pneumoniae. * Acute renal failure/acute tubular necrosis. * History of rheumatoid arthritis. * Anemia. Time spent in discharge planning and review of plan with middleware consultant, patient and nursing was 39 minutes. MD DAMIAN Knapp/EDELMIRA TID: [id number] RECEIPT: [id number]
--- NOTE | 2024-10-13 11:36 | DVHPN2 ---
Progress Note Date Seen: Oct 13, 2024 Has the PT tested + for MRSA If YES, has PT been informed?: No Medical Necessity Reason Pt with a Central, PICC or Fol: No Objective vital signs Vital Sign Date Time Temp Pulse Resp B/P (MAP) Pulse Ox O2 Delivery O2 Flow Rate FiO2 10/13/24 09:00 98.2 85 18 105/67 (80) 99 98.2 10/12/24 20:00 Room Air* 0 21 Total Intake and Output 10/12/24 10/12/24 10/13/24 15:00 23:00 07:00 Intake Total 650 ml 800 ml Balance 650 ml 800 ml medications Current Medications Medications Dose Ordered Sig/Temi Route Start Time Stop Time Status Last Admin Dose Admin Nitroglycerin 0.4 mg Q5MINP PRN SL 09/28/24 14:00 Pantoprazole Sodium 40 mg DAILY IV 09/30/24 10:00 10/13/24 08:47 40 MG Metoclopramide HCl 5 mg Q8HPRN PRN IV 09/29/24 10:15 10/04/24 22:39 5 MG Sodium Chloride 10 ml QSHIFT@10,22 IV 10/01/24 22:00 10/13/24 08:54 10 ML Acetaminophen 650 mg Q6HP PRN PO 10/04/24 15:45 Hold 10/04/24 16:11 650 MG Hydromorphone HCl 1 mg Q3HPRN PRN IV 10/05/24 11:45 10/11/24 03:14 1 MG Pantoprazole Sodium 40 mg DAILY IV 10/06/24 10:00 Cancel Morphine Sulfate 2 mg Q2HPRN PRN IV 10/05/24 12:00 Cancel Morphine Sulfate 2 mg Q4H PRN IV 10/05/24 12:00 Cancel Hydromorphone HCl 0.25 mg Q10M PRN IV 10/05/24 12:00 Cancel Ertapenem 1 gm/ Sodium Chloride 50 ml @ 100 mls/hr DAILY IV 10/11/24 10:00 10/12/24 09:50 100 MLS/HR Acetaminophen/ Hydrocodone Bitart 1 tab Q6HPRN PRN PO 10/10/24 10:15 10/13/24 08:46 1 TAB laboratory and microbiology Laboratory Tests 10/13/24 04:52 10/12/24 04:51 Test 10/13/24 04:52 Range/Units Serum Glucose 104 74-106 mg/dL Problem List/Assessment/Plan Problem List/Assessment/Plan 09/29/24 c/o pain, has not ambulated, wound clean and well approximated, abdomen soft, appropriately tender, will add Toradol, must ambulate 10/01/24 NURSE CONFIRMS THAT THE PATIENT HAD A BM AND IS PASSING FLATUS, ABDOMEN IS SOFT AND NON DISTENDED, APPROPRIATELY TENDER, WILL DC NGT AND KEEP NPO 10/02/24 passing flatus and had another BM, wound clean and well approximated, abdomen appropriately ten navdeep, will allow clear liquids, dc Hoyt 10/05/24 patient had a sudden onset of abdominal pain accompanied by hypotension and tachycardia, was transferred to ICU,his blood pressure was normalized by intravenous fluid loading, this AM he has an exquisitely tender abdomen ,has slight bleeding from the midline wound. Has markedly elevated WBC,due to sudden pain and marked tenderness with WBC almost 30,000 I believe the safest next step is to explore his abdomen to see if his colorectal anastomosis has dehisced (in which case he would have to have the colostomy re established). I have thoroughly explained to him the above and answered all his questions 10/06/24 feels much better, wound clean and well approximated, drainage sero sanguineous, fever from last night resolved. OK to start ambulating. no flatus, will keep ngt in, start irrigating the drains,he may start ambulating 10/11/24 PASSING FLATUS, HAVING LIQUID bm'S, ABDOMEN SOFT, MINIMALLY TENDER, WOUND CLEAN AND WELL APPROXIMATED, DRAINAGE SERO SANGUINEOUS, NEEDS TO REMAIN ON CLEAR LIQUIDS PO AND REMAIN HOSPITALIZED FOR ANOTHER 4 TO 5 DAYS. 10/13/24 doing well, claims to be having more solid bowel movements, passing flatus, no nausea, ambulating labs better, when I told patient that i wanted to do a gastrografin enema to visualize and prove the integrity of his colorectal anastomosis , he refused "putting himself through that again" I told patient that in that case he needs to go home with all the drains in -place and stay on only liquids po for another week or two..instructions given, Plan discussed with: Patient, Other Dietary Evaluation Review Reduced Imaging Account Manager Strength: N/A DIXIE JIN MD Oct 13, 2024 11:36
[2024-10-13 13:00] VITALS: BP 19/61; PULSE 84; RESP 18; TEMP 98.1; O2SAT 97
[2024-10-13 16:02] VITALS: BP 109/61; PULSE 84; RESP 18; TEMP 98.1; O2SAT 97
== END 2024-10-13 17:30 | disposition home health service (06) | DRG 329 ==
LOC: SUR 06:10 → OVERFLOW 13:58 → WEST WING 14:34 → CATH ICU 10-04 19:45 → DOU IN ICU 10-06 18:01 → TELE-CENTR 10-07 19:34 → CENTRAL 10-10 21:53
PROVIDERS: ADMIT Internal Medicine; ATTEND Internal Medicine
PROC: 0DTJ0ZZ Resection of Appendix, Open Approach (ICD-10-PCS; 2024-09-28)
PROC: 0DBN0ZZ Excision of Sigmoid Colon, Open Approach (ICD-10-PCS; 2024-09-28)
PROC: 02HV33Z Insertion of Infusion Device into Superior Vena Cava, Percutaneous Approach (ICD-10-PCS; 2024-10-01)
PROC: B548ZZA Ultrasonography of Superior Vena Cava, Guidance (ICD-10-PCS; 2024-10-01)
PROC: 0JC80ZZ Extirpation of Matter from Abdomen Subcutaneous Tissue and Fascia, Open Approach (ICD-10-PCS; principal; 2024-10-05 10:10)
DX: Z43.3 Encounter for attention to colostomy (principal); A41.51 Sepsis due to Escherichia coli [E. coli]; N17.0 Acute kidney failure with tubular necrosis; R65.21 Severe sepsis with septic shock; Z16.12 Extended spectrum beta lactamase (ESBL) resistance; T81.31XA Disruption of external operation (surgical) wound, not elsewhere classified, initial encounter; L02.211 Cutaneous abscess of abdominal wall; L76.32 Postprocedural hematoma of skin and subcutaneous tissue following other procedure; M06.9 Rheumatoid arthritis, unspecified; D64.9 Anemia, unspecified; R06.6 Hiccough; Z79.899 Other long term (current) drug therapy; Y83.8 Other surgical procedures as the cause of abnormal reaction of the patient, or of later complication, without mention of misadventure at the time of the procedure; Y92.238 Other place in hospital as the place of occurrence of the external cause
CPT/HCPCS: 36415; 36569; 70450; 71045; 71275; 74176; 80048; 80053; 80202; 81001; 82040; 82962; 83605; 83735; 84100; 84478; 85007; 85025; 85027; 85610; 85730; 86850; 86900; 86901; 87040; 87070; 87075; 87077; 87086; 87186; 87205; 97110; 97116; 97163; 97530; G0378; J0131; J0330; J0690; J1100; J1335; J1815; J1885; J2405; J2470; J2543; J2704; J3480; J3490; Q0161

== ENCOUNTER 2024-10-27 20:01 | Inpatient (IN) | payer BC ==
[~2024-10-27] VITALS: Ht 177.8 cm; Wt 75.2 kg
[~2024-10-27 20:01] MED LIST changes: +HYDR1TAB97 PO; +PANT40TA2 PO
[2024-10-27] MEDS: IOHEXOL 300 MG/ML 100ML BOTTLE IJ ONE (20:45)
--- NOTE | 2024-10-27 20:58 | ED.PDOC ---
GI ASSESSMENT HPI Comments 59-year-old male came to ER due to abdominal pain. Patient was discharged here 2 weeks ago and was diagnosed with * Septic shock with peritonitis due to extended-spectrum beta-lactamase Escherichia coli and Klebsiella pneumoniae.* Acute renal failure/acute tubular necrosis.* History of rheumatoid arthritis. * Anemia, status post exploratory laparotomy, takedown of colostomy, extensive lysis of adhesions, resection of sigmoid colon and transverse colon due to a rectosigmoid adhesions. Patient coming in for epigastric abdominal pain and persistent rectal bleeding ever since he got discharged Chief Complaint: Abdominal Pain Time Seen by MD: 20:54 Primary Care Provider: NEHAL Reviewed Notes: Nurses Notes Allergies: Coded Allergies: NO KNOWN ALLERGIES (Unverified , 07/21/23) Home Meds Active Scripts Pantoprazole Sodium Sesquihydr (Protonix) 40 Mg Tab, 40 MG PO DAILY for 30 Days, #30 TAB 1 Refill Prov:NANCY CONNOLLY MD 10/13/24 Hydrocodone-Acetaminophen (Hydrocodone/Acetaminophen 5-325 mg) 1 Tab Tab, 1 TAB PO QIDP PRN for 7 Days, #28 TAB Prov:NANCY CONNOLLY MD 10/13/24 Folic Acid (Folic Acid) 1 Mg Tab, 1 MG PO DAILY for 30 Days, #30 TAB Prov:ELIANA BRENNER RESIDENT 09/25/23 Reported Medications Methotrexate (Methotrexate) 2.5 Mg Tab, 8 TAB PO QWEEKLY, TAB 09/22/24 Information Source: Patient Mode of Arrival: Ambulatory Timing: Days Duration: Intermittent Past Medical History PAST MEDICAL HISTORY: Anemia Surgical History (Other): Exploratory laparotomy. Colostomy. Family History Family History: Reviewed,noncontributory to illness Social History Smoker: Non-Smoker, Quit Greater Than 1 Year Alcohol: Occasionally Drugs: Denies Drug Use Lives In: Home Constitutional: denies: chills, diaphoresis, fatigue, fever, malaise, sweats, weakness, others EENTM: denies: blurred vision, double vision, ear bleeding, ear discharge, ear drainage, ear pain, ear ringing, eye pain, eye redness, hearing loss, mouth pain, mouth swelling, nasal discharge, nose bleeding, nose congestion, nose pain, photophobia, tearing, throat pain, throat swelling, voice changes, others Respiratory: denies: cough, hemoptysis, orthopnea, SOB at rest, shortness of breath, SOB with excertion, stridor, wheezing, others Cardiovascular: denies: chest pain, dizzy spells, diaphoresis, Dyspnea on exer tion, edema, irregular heart beat, left arm pain, lightheadedness, palpitations, PND, syncope, others Gastrointestinal: reports: abdominal pain, blood streaked bowels, rectal bleedi ng; denies: abdomen distended, constipated, diarrhea, dysphagia, difficulty swallowing, hematemesis, melena, nausea, poor appetite, poor fluid intake, rectal pain, vomiting, others Genitourinary: denies: burning, dysuria, flank pain, frequency, hematuria, incontinence, penile discharge, penile sore, pain, testicle pain, testicle swelling, urgency, others Neurological: denies: dizziness, fainting, headache, left sided numbness, left sided weakness, numbness, paresthesia, pre-existing deficit, right sided numbness, right sided weakness, seizure, speech problems, tingling, tremors, weakness, others Musculoskeletal: denies: back pain, gout, joint pain, joint swelling, muscle pain, muscle stiffness, neck pain, others Integumetry: denies: bruises, change in color, change in hair/nails, dryness, laceration, lesions, lumps, rash, wounds, others Allergic/Immunocompromised: denies: Difficulty Healing, Frequent Infections, Hives, Itching, others Hematologic/Lymphatic: denies: anemia, blood clots, easy bleeding, easy bruising, swollen glands, others Endocrine: denies: excessive hunger, excessive sweating, excessive thirst, excessive urination, flushing, intolerance to cold, intolerance to heat, unexplained weight gain, unexplained weight loss, others Psychiatric: denies: anxiety, bipolar disorder, depression, hopeless, panic disorder, schizophrenia, sleepless, suicidal, others Physical Exam General Appearance: No Apparent Distress, Normal HEENT: Normal ENT Inspection, Pharynx Normal, TMs Normal Neck: Full Range of Motion, Non-Tender, Normal, Normal Inspection Respiratory: Chest Non-Tender, Lungs Clear, No Accessory Muscle Use, No Respiratory Distress, Normal Breath Sounds Cardiovascular: No Edema, No JVD, No Murmur, No Gallop, Normal Peripheral Pulses, Regular Rate/Rhythm Breast Exam: Deferred Gastrointestinal: No Organomegaly, Non Tender, No Pulsatile Mass, Normal Bowel Sounds, Soft Genitalia: Deferred Pelvic: Deferred Rectal: Deferred Extremities: No calf tenderness, Normal capillary refill, Normal inspection, Normal range of motion, Non-tender, No pedal edema Musculoskeletal : Apperance: Normal Neurologic: Alert, lab systems analyst II-XII nml as Tested, No Motor Deficits, Normal Affect, Normal Mood, No Sensory Deficits Cerebellar Function: Normal Reflexes: Normal Skin: Dry, Normal Color, Warm Lymphatic: No Adenopathy Was a procedure done? Was a procedure done?: No GI differential Dx Differential Diagnosis: Bowel Obstruction, Diverticular disease, Gastritis/PUD, Gastroenteritis, GI hemorrhage, Anemia X-Ray, Labs, Meds, VS Vital Signs Date Time Temp Pulse Resp B/P (MAP) Pulse Ox O2 Delivery O2 Flow Rate FiO2 10/27/24 20:38 99.4 76 20 121/44 (69) 99 Lab Test 10/27/24 21:19 Range/Units White Blood Count 7.7 4.4-10.8 10^3/uL Red Blood Count 3.15 L 4.5-5.90 10^6/uL Hemoglobin 9.7 L 13.5-17.5 g/dL Hematocrit 29.4 L 41.0-53.0 % Mean Corpuscular Volume 93.2 80.0-100.0 fL Mean Corpuscular Hemoglobin 30.9 28.0-32.0 pg Mean Corpuscular Hemoglobin Concent 33.2 32.0-36.0 g/dL Red Cell Distribution Width 15.6 H 11.8-14.3 % Platelet Count 298 140-450 10^3/uL Mean Platelet Volume 8.7 6.9-10.8 fL Neutrophils (%) (Auto) 61.4 37.0-80.0 % Lymphocytes (%) (Auto) 24.0 10.0-50.0 % Monocytes (%) (Auto) 9.7 0.0-12.0 % Eosinophils (%) (Auto) 3.7 0.0-7.0 % Basophils (%) (Auto) 1.2 0.0-2.0 % Neutrophils # (Auto) 4.8 1.6-8.6 10 ^3/uL Lymphocytes # (Auto) 1.9 0.4-5.4 10 ^3/uL Monocytes # (Auto) 0.8 0-1.3 10 ^3/uL Eosinophils # (Auto) 0.3 0-0.8 10 ^3/uL Basophils # (Auto) 0.1 0-0.2 10 ^3/uL Nucleated Red Blood Cells 0.2 % Sodium Level 139 136-145 mmol/L Potassium Level 3.8 3.5-5.1 mmol/L Chloride Level 105 98-107 mmol/L Carbon Dioxide Level 24 20-31 mmol/L Anion Gap 10 5-15 Blood Urea Nitrogen 12 9-23 mg/dL Creatinine 1.66 H 0.700-1.30 mg/dL Glomerular Filtration Rate Calc 47 >90 mL/min BUN/Creatinine Ratio 7.2 L 10.0-20.0 Serum Glucose 89 74-106 mg/dL Calcium Level 9.1 8.7-10.4 mg/dL Troponin I High Sensitivity < 3 L </=54 ng/L Current Medications Medications (Trade) Dose Ordered Sig/Temi Route Start Time Stop Time Status Last Admin Piperacillin Sod/ Tazobactam Sod 100 ml @ 100 mls/hr ONCE ONCE IV 10/27/24 22:15 10/27/24 23:14 10/27/24 22:40 Exam: CT CT AB PEL WITH IV CON ONLY History: abdominal pain recent colostomy reversal Comparison Study: None available at time of dictation. Contrast: Type of contrast: Omnipaque 300 Contrast injected: 100 mL Contrast wasted: 0 TECHNIQUE: A digital carpet journeyman image was obtained. During the uneventful, intravenous administration of contrast material, multislice data acquisition was obtained through the abdomen and pelvis. The data set was subsequently reconstructed into axial images. Images were reviewed on a work station using a combination of axial and multiplanar using a variety of window levels and settings. Radiation Dose Information: CT Dose: CTDI volume is 10.95 mGy. Dose-length product is 694.19 mGy*cm FINDINGS: Lung Bases: No acute or significant lung base finding. Normal heart size. No pleural or pericardial effusion. Liver: The liver is normal in size. No focal lesions. Normal hepatic vascular enhancement. Gallbladder and Biliary Tree: Calcified gallstones Spleen: Unremarkable Pancreas: The pancreas is normal in appearance without focal lesions or abnormal enhancement. Adrenal Glands: Unremarkable Kidneys: Kidneys demonstrate normal symmetric enhancement without focal lesions, calculi or hydronephrosis. Bladder: Unremarkable Bowel: The stomach is grossly normal in appearance. Small bowel and colon are normal in caliber and distribution. The appendix is not visualized; however, no secondary findings of acute appendicitis identified. Ascites: Absent Lymphadenopathy: No mesenteric, retroperitoneal or periportal lymphadenopathy. Abdominal Wall and Mesentery: There appears to be inflammatory stranding in subcutaneous fat over the lower mid right abdomen with possible defect in the anterior abdominal wall measuring 2.7 cm. Question site of colostomy or ileostomy. Represent incomplete closure and leakage or infection. Vasculature: The visualized abdominal aorta is normal in size and caliber. Abdominal and pelvic vessels demonstrate normal enhancement. Pelvic Organs: Unremarkable Musculoskeletal: No aggressive focal bony lesions, acute fractures or dislocation. Soft tissues: Unremarkable. IMPRESSION: 1. In the lower mid right abdomen a irregular area in the anterior abdominal wall measuring 2.7 cm with stranding in the subcutaneous fat. Correlate for site of prior colostomy. This may represent incomplete closure or infection. ( series 2 images 49- 52) 2. All CT scans at this medical facility are performed using dose modulation techniques as appropriate to a performed exam including the following: Automated exposure control was utilized; adjustment of the MA and/or KV according to patient size; and use of iterative reconstruction technique. Time of 1ST Reevaluation: 20:54 Reevaluation 1ST: Unchanged Patient Education/Counseling: Diagnosis, Treatment Family Education/Counseling: No Family Present Departure 1 Departure Time of Disposition: 22:44 (Patient presented with abdominal pain that was concerning for possible appendicits, gastritis, cholecystitis, colitis, gastroenteritis, sbo, or orther possible surgical emergency. Data: 1. I ordered and reviewed the result of at least 3 labs including a CBC, BMP, and Urinalysis. 2. I independently interpreted the following tests: CT Abdoment and Pelvis is concerning for possible previous surgical site infection .Risk:This patient has a high risk of morbidity due to further diagnostic testing or treatment and may suffer from an acute abdominal process disorder. Workup reveals normal postsurgical CT and patient should be admitted for further workup. and possible expert consultation. ) Impression: Primary Impression: Lower abdominal pain Additional Impression: Status post abdominal surgery, follow-up exam Disposition: ADMITTED INPATIENT Admit to: Med Surg Condition: Serious Critical Care Note Critical Care Time?: No Stability Stability form required: No Heart Score Heart Score: Heart Score Response (Comments) Value History N/A 0 EKG N/A 0 Age N/A 0 Risk Factors N/A 0 Troponin N/A 0 Total 0 I personally scribed for PAT LEDEZMA MD ([facility]) on 10/27/24 at 20:58. Electronically submitted by Dustin Barth ([facility]). I personally scribed for PAT LEDEZMA MD ([facility]) on 10/27/24 at 21:49. Electronically submitted by Dustin Barth ([facility]). PAT LEDEZMA MD Oct 27, 2024 20:58
--- NOTE | 2024-10-27 21:14 | DVH ---
Exam: CT CT AB PEL WITH IV CON ONLY History: abdominal pain recent colostomy reversal Comparison Study: None available at time of dictation. Contrast: Type of contrast: Omnipaque 300 Contrast injected: 100 mL Contrast wasted: 0 TECHNIQUE: A digital staffing administrator image was obtained. During the uneventful, intravenous administration of c ontrast material, multislice data acquisition was obtained through the abdomen and pelvis. The data s et was subsequently reconstructed into axial images. Images were reviewed on a work station using a c ombination of axial and multiplanar using a variety of window levels and settings. Radiation Dose Information: CT Dose: CTDI volume is 10.95 mGy. Dose-length product is 694.19 mGy*cm FINDINGS: Lung Bases: No acute or significant lung base finding. Normal heart size. No pleural or pericardial effusion. Liver: The liver is normal in size. No focal lesions. Normal hepatic vascular enhancement. Gallbladder and Biliary Tree: Calcified gallstones Spleen: Unremarkable Pancreas: The pancreas is normal in appearance without focal lesions or abnormal enhancement. Adrenal Glands: Unremarkable Kidneys: Kidneys demonstrate normal symmetric enhancement without focal lesions, calculi or hydroneph rosis. Bladder: Unremarkable Bowel: The stomach is grossly normal in appearance. Small bowel and colon are normal in caliber and d istribution. The appendix is not visualized; however, no secondary findings of acute appendicitis id entified. Ascites: Absent Lymphadenopathy: No mesenteric, retroperitoneal or periportal lymphadenopathy. Abdominal Wall and Mesentery: There appears to be inflammatory stranding in subcutaneous fat over the lower mid right abdomen with possible defect in the anterior abdominal wall measuring 2.7 cm. Questi on site of colostomy or ileostomy. Represent incomplete closure and leakage or infection. Vasculature: The visualized abdominal aorta is normal in size and caliber. Abdominal and pelvic vess els demonstrate normal enhancement. Pelvic Organs: Unremarkable Musculoskeletal: No aggressive focal bony lesions, acute fractures or dislocation. Soft tissues: Unremarkable. IMPRESSION: 1. In the lower mid right abdomen a irregular area in the anterior abdominal wall measuring 2.7 cm wi th stranding in the subcutaneous fat. Correlate for site of prior colostomy. This may represent inco mplete closure or infection. ( series 2 images 49- 52) 2. All CT scans at this medical facility are performed using dose modulation techniques as appropriate to a performed exam including the following: Automated exposure control was utilized; adjustment of t he MA and/or KV according to patient size; and use of iterative reconstruction technique. HS:Y
[2024-10-27 21:57] LABS: Basophils # (auto) 0.1 10 ^3/uL (0-0.2); Basophils % (auto) 1.2 % (0.0-2.0); Eosinophils # (auto) 0.3 10 ^3/uL (0-0.8); Eosinophils % (auto) 3.7 % (0.0-7.0); Hematocrit 29.4 % (41.0-53.0); Hemoglobin 9.7 g/dL (13.5-17.5); Lymphocytes # (auto) 1.9 10 ^3/uL (0.4-5.4); Mean Corpuscular Hemoglobin 30.9 pg (28.0-32.0); Mean Corpuscular Hgb Conc. 33.2 g/dL (32.0-36.0); Mean Corpuscular Volume 93.2 fL (80.0-100.0); Monocytes # (auto) 0.8 10 ^3/uL (0-1.3); Monocytes % (auto) 9.7 % (0.0-12.0); Neutrophils # (auto) 4.8 10 ^3/uL (1.6-8.6); Neutrophils % (auto) 61.4 % (37.0-80.0); Nucleated Red Blood Cells % 0.2 %; Platelet Count (auto) 298 10^3/uL (140-450); Red Blood Cells 3.15 10^6/uL (4.5-5.90); Red Cell Distribution Width 15.6 % (11.8-14.3); White Blood Cell 7.7 10^3/uL (4.4-10.8)
[2024-10-27 22:05] LABS: Anion Gap 10 (5-15); Carbon Dioxide 24 mmol/L (20-31); Chloride 105 mmol/L (98-107); Potassium 3.8 mmol/L (3.5-5.1); Sodium 139 mmol/L (136-145)
[2024-10-27 22:06] LABS: Calcium 9.1 mg/dL (8.7-10.4)
[2024-10-27 22:11] LABS: BUN/Creatinine Ratio 7.2 (10.0-20.0); Blood Urea Nitrogen 12 mg/dL (9-23); Glucose 89 mg/dL (74-106)
[2024-10-27] MEDS: PIPERACILLIN-TAZO 4.5GM 100 ML IV ONE (22:40)
[2024-10-28] VITALS (7 sets, daily range): BP systolic 103–104; BP diastolic 57–66; PULSE 61–98; RESP 17–20; TEMP 97.4–98; O2SAT 97–99
[2024-10-28] MEDS ORDERED: DOCUSATE SOD 100 MG CAP PO PRN (01:00)
[2024-10-28] MEDS ORDERED: ACETAMINOPHEN 325 MG TAB PO PRN (01:00)
[2024-10-28] MEDS: HYDROcodone-ACET 5/325MG TAB PO PRN (02:06)
--- NOTE | 2024-10-28 02:27 | DVHHP2 ---
History of Present Illness Reason for Visit: Lower abdominal pain History of Present Illness The patient is a 59-year-old male with past medical history of anemia who presented to [facility] ED with complaint of abdominal pain. Patient was recently discharged from this facility with multiple diagnosis including E coli, acute renal failure, and septic shock with pneumonitis due to extended spectrum beta lactamase. Patient reports symptoms progressively get worse with epigastric abdominal pain and persistent rectal bleeding, getting worse that prompted this visit. Patient was seen and evaluated in the ED, laboratory data shows WBC 7.7, hemoglobin 9.7, hematocrit 29.4, platelets 293, sodium 139, potassium 3.8, BUN 12, creatinine 1.66, GFR 47, glucose 89, troponin < 3, blood pressure 121/44, heart rate 76, temperature 99.4 F, O2 saturation 99% on room air. Abdomen/pelvis CT revealing irregular area in the anterior abdominal wall measuring 2.7 cm with stranding in the subcutaneous fat; correlate for site of prior colostomy; this may represent incomplete closure or infection. Please see medication orders section in the computer. On my assessment, patient denied chest pain, no headache, no dizziness, no abdominal pain at this moment, no diarrhea, no nausea, no vomiting, no fever, no chills. Patient was admitted for further evaluation and medical management. Past Medical History Anemia Past Surgical History Exploratory laparotomy, Colostomy. Family History Reviewed, noncontributory to the management of this case. Past Social History The patient lives at home, denies smoking, alcohol or illicit drugs abuse. Review of Systems Constitutional: No: Fever, Chills, Sweats, Weakness, Malaise, Other Eyes: No: Pain, Vision change, Conjunctivae inflammation, Eyelid inflammation, Other, Redness ENT: No: Ear pain, Ear discharge, Nose pain, Nose discharge, Nose congestion, Mouth pain, Mouth swelling, Throat pain, Throat swelling, Other Respiratory: No: Cough, Dry, Shortness of breath, SOB with excertion, Wheezing, Hemoptysis, Pleuritic Pain, Sputum, Wheezing, Other Cardiovascular: No: Chest Pain, Palpitations, Orthopnea, Paroxysmal Noc. Dyspnea, Edema, Lt Headedness, Other Gastrointestinal: Abdominal Pain, Other (blood streaked bowels, rectal bleeding; ); No: Nausea, Vomiting, Diarrhea, Constipation, Melena, Hematochezia Genitourinary: No Dysuria, No Frequency, No Incontinence, No Hematuria, No Retention, No Other Musculoskeletal: No: other, neck pain, shoulder pain, arm pain, back pain, hand pain, leg pain, foot pain Skin: No: Rash, Lesions, Jaundice, Bruising, Other Neurological: No: Weakness, Numbness, Incoordination, Change in speech, Confusion, Seizures, Other Allergies: Coded Allergies: NO KNOWN ALLERGIES (Unverified , 07/21/23) Medications Current Medications Medications Dose Ordered Sig/Temi Route Start Time Stop Time Status Last Admin Dose Admin Piperacillin Sod/ Tazobactam Sod 100 ml @ 25 mls/hr Q12HR IV 10/28/24 10:00 Acetaminophen/ Hydrocodone Bitart 1 tab Q4HP PRN PO 10/28/24 01:00 10/28/24 02:06 1 TAB Ondansetron HCl 4 mg Q4HP PRN IV 10/28/24 01:00 Docusate Sodium 100 mg BIDPRN PRN PO 10/28/24 01:00 Acetaminophen 650 mg Q6HP PRN PO 10/28/24 01:00 Pantoprazole Sodium 40 mg DAILY IV 10/28/24 10:00 Exam Vital Signs Vital Signs Date Time Temp Pulse Resp B/P (MAP) Pulse Ox O2 Delivery O2 Flow Rate FiO2 10/28/24 01:56 Room Air* 0 21 10/28/24 01:09 68 19 100 10/28/24 01:09 98.0 111/39 (63) 98.0 General Appearance: Alert, Oriented X3, Cooperative, No acute distress HEENT: Atraumatic, PERRLA, EOMI, Mucous membr. moist/pink Respiratory: Clear to auscultation, Normal air movement Cardiovascular: Regular rate, Normal S1, Normal S2, No murmurs Abdominal: Normal bowel sounds, Soft, No tenderness, No hepatospenomegaly, No masses Extremities: No clubbing, No cyanosis, No edema, Normal pulses, No tenderness/swelling Skin: No rashes, No breakdown, No significant lesion Neuro: Normal gait, Normal speech, Strength at 5/5 X4 ext, Normal tone, Sensation intact, Cranial nerves 3-12 NL, Reflexes 2+ Psych/Mental Status: Mental status NL, Mood NL Labs/Xrays Labs Test 10/27/24 21:19 Range/Units White Blood Count 7.7 4.4-10.8 10^3/uL Red Blood Count 3.15 L 4.5-5.90 10^6/uL Hemoglobin 9.7 L 13.5-17.5 g/dL Hematocrit 29.4 L 41.0-53.0 % Mean Corpuscular Volume 93.2 80.0-100.0 fL Mean Corpuscular Hemoglobin 30.9 28.0-32.0 pg Mean Corpuscular Hemoglobin Concent 33.2 32.0-36.0 g/dL Red Cell Distribution Width 15.6 H 11.8-14.3 % Platelet Count 298 140-450 10^3/uL Mean Platelet Volume 8.7 6.9-10.8 fL Neutrophils (%) (Auto) 61.4 37.0-80.0 % Lymphocytes (%) (Auto) 24.0 10.0-50.0 % Monocytes (%) (Auto) 9.7 0.0-12.0 % Eosinophils (%) (Auto) 3.7 0.0-7.0 % Basophils (%) (Auto) 1.2 0.0-2.0 % Neutrophils # (Auto) 4.8 1.6-8.6 10 ^3/uL Lymphocytes # (Auto) 1.9 0.4-5.4 10 ^3/uL Monocytes # (Auto) 0.8 0-1.3 10 ^3/uL Eosinophils # (Auto) 0.3 0-0.8 10 ^3/uL Basophils # (Auto) 0.1 0-0.2 10 ^3/uL Nucleated Red Blood Cells 0.2 % Sodium Level 139 136-145 mmol/L Potassium Level 3.8 3.5-5.1 mmol/L Chloride Level 105 98-107 mmol/L Carbon Dioxide Level 24 20-31 mmol/L Anion Gap 10 5-15 Blood Urea Nitrogen 12 9-23 mg/dL Creatinine 1.66 H 0.700-1.30 mg/dL Glomerular Filtration Rate Calc 47 >90 mL/min BUN/Creatinine Ratio 7.2 L 10.0-20.0 Serum Glucose 89 74-106 mg/dL Calcium Level 9.1 8.7-10.4 mg/dL Troponin I High Sensitivity < 3 L </=54 ng/L PATIENT: SHAKIRA GUZMÁN ACCT: [id number] UNIT: [id number] : 1965 LOC: ER ROOM / BED: / AGE / SEX: 59 / M ADM STATUS: REG ER SERVICE 21 ORDERING PHYSICIAN: PAT LEDEZMA MD PROCEDURE(s): ABPLIV - CT AB PEL WITH IV CON ONLY REASON: abdominal pain recent colostomy reversal ORDER NUMBER(s): [id number], ACCESSION NUMBER(s): [id number] Exam: CT CT AB PEL WITH IV CON ONLY History: abdominal pain recent colostomy reversal Comparison Study: None available at time of dictation. Contrast: Type of contrast: Omnipaque 300 Contrast injected: 100 mL Contrast wasted: 0 TECHNIQUE: A digital electrician powerhouse image was obtained. During the uneventful, intravenous administration of contrast material, multislice data acquisition was obtained through the abdomen and pelvis. The data set was subsequently reconstructed into axial images. Images were reviewed on a work station using a combination of axial and multiplanar using a variety of window levels and settings. Radiation Dose Information: CT Dose: CTDI volume is 10.95 mGy. Dose-length product is 694.19 mGy*cm FINDINGS: Lung Bases: No acute or significant lung base finding. Normal heart size. No pleural or pericardial effusion. Liver: The liver is normal in size. No focal lesions. Normal hepatic vascular enhancement. Gallbladder and Biliary Tree: Calcified gallstones Spleen: Unremarkable Pancreas: The pancreas is normal in appearance without focal lesions or abnormal enhancement. Adrenal Glands: Unremarkable Kidneys: Kidneys demonstrate normal symmetric enhancement without focal lesions, calculi or hydronephrosis. Bladder: Unremarkable Bowel: The stomach is grossly normal in appearance. Small bowel and colon are normal in caliber and distribution. The appendix is not visualized; however, no secondary findings of acute appendicitis identified. Ascites: Absent Lymphadenopathy: No mesenteric, retroperitoneal or periportal lymphadenopathy. Abdominal Wall and Mesentery: There appears to be inflammatory stranding in subcutaneous fat over the lower mid right abdomen with possible defect in the anterior abdominal wall measuring 2.7 cm. Question site of colostomy or ileostomy. Represent incomplete closure and leakage or infection. Vasculature: The visualized abdominal aorta is normal in size and caliber. Abdominal and pelvic vessels demonstrate normal enhancement. Pelvic Organs: Unremarkable Musculoskeletal: No aggressive focal bony lesions, acute fractures or dislocation. Soft tissues: Unremarkable. IMPRESSION: 1. In the lower mid right abdomen a irregular area in the anterior abdominal wall measuring 2.7 cm with stranding in the subcutaneous fat. Correlate for site of prior colostomy. This may represent incomplete closure or infection. (series 2 images 49- 52) Assessment/Plan Assessment/Plan Lower abdominal pain Acute renal injury Blood loss anemia Rectal bleeding Status post abdominal surgery, follow-up exam Plan 1. Admit to med surge unit 2. Breathing treatment 3. Pain control management 4. IV antibiotic management 5. Management of fluids and electrolytes 6. Consultation for surgery 7. Diagnostic test abdomen/pelvis CT 8. DVT prophylaxis-on SCDs 9. Repeat labs CBC, CMP in a.m. 10. Home medication reviewed and reconciled 11. Continue with current medical management 12. Treatment plan discussed with patient and RN. Patient verbalized u nderstanding. Plan discussed with: Patient, Other (RN) My Orders Orders - NORA JURADO DNP Procedure Category Date Status Time Complete Blood Count LAB 10/28/24 Logged 04:00 Comprehensive LAB 10/28/24 Logged Metabolic Panel 04:00 Type And Screen BBK 10/28/24 In Process 00:50 Piperacillin-Tazob PHA 10/28/24 In Process 3.375gm (Zosyn 3.375g 10:00 Allergies BERNARD 10/28/24 In Process 00:50 Code Status CODE 10/28/24 Transmitted 00:50 Oxygen Per Hour RT 10/28/24 Transmitted 00:50 Hydrocodone-Acet PHA 10/28/24 In Process 5/325mg Tab ([place] 01:00 Ondansetron Hcl PHA 10/28/24 In Process (Zofran) 01:00 Docusate Sodium PHA 10/28/24 In Process Capsule (Colace 01:00 Complete Blood Count LAB 10/29/24 Verified 04:00 Comprehensive LAB 10/29/24 Verified Metabolic Panel 04:00 Condition: Serious BERNARD 10/28/24 In Process 00:50 Acetaminophen Tablet PHA 10/28/24 In Process (Tylenol Tablet) 01:00 Clear Liq Diet DIET 10/28/24 Transmitted Breakfast Bedrest With Bathroom BERNARD 10/28/24 In Process Privileg 00:50 Sequential BERNARD 10/28/24 In Process Compression Device Pantoprazole PHA 10/28/24 In Process (Protonix) 10:00 Problem List: (1) Lower abdominal pain (2) Acute renal injury (3) Blood loss anemia (4) Rectal bleeding (5) Status post abdominal surgery, follow-up exam Date of Service: Oct 28, 2024 Billing Provider: NORA JURADO DNP Common Visit Codes: [id number] INP/OBS CARE (HIGH) NORA JURADO DNP Oct 28, 2024 02:27
[2024-10-28] MEDS ORDERED: NITROGLYCERIN 0.4 MG SL TAB SL PRN (02:30)
[2024-10-28 06:57] LABS: Basophils # (auto) 0.1 10 ^3/uL (0-0.2); Basophils % (auto) 0.9 % (0.0-2.0); Eosinophils # (auto) 0.4 10 ^3/uL (0-0.8); Eosinophils % (auto) 3.8 % (0.0-7.0); Hematocrit 27.4 % (41.0-53.0); Hemoglobin 9.1 g/dL (13.5-17.5); Lymphocytes # (auto) 1.7 10 ^3/uL (0.4-5.4); Lymphocytes % (auto) 17.8 % (10.0-50.0); Mean Corpuscular Hemoglobin 31.1 pg (28.0-32.0); Mean Corpuscular Hgb Conc. 33.3 g/dL (32.0-36.0); Mean Corpuscular Volume 93.4 fL (80.0-100.0); Monocytes # (auto) 0.7 10 ^3/uL (0-1.3); Monocytes % (auto) 7.8 % (0.0-12.0); Neutrophils # (auto) 6.6 10 ^3/uL (1.6-8.6); Neutrophils % (auto) 69.7 % (37.0-80.0); Nucleated Red Blood Cells % 0.1 %; Platelet Count (auto) 246 10^3/uL (140-450); Red Blood Cells 2.93 10^6/uL (4.5-5.90); Red Cell Distribution Width 15.2 % (11.8-14.3); White Blood Cell 9.4 10^3/uL (4.4-10.8)
[2024-10-28 07:01] LABS: Alanine Aminotransferase 21 U/L (7-40); Alkaline Phosphatase 114 U/L (46-116); Anion Gap 9 (5-15); Aspartate Aminotransferase 20 U/L (13-40); BUN/Creatinine Ratio 7.9 (10.0-20.0); Blood Urea Nitrogen 12 mg/dL (9-23); Calcium 9.2 mg/dL (8.7-10.4); Carbon Dioxide 22 mmol/L (20-31); Glucose 94 mg/dL (74-106); Potassium 3.8 mmol/L (3.5-5.1); Sodium 140 mmol/L (136-145)
[2024-10-28 07:02] LABS: Albumin 3.6 g/dL (3.2-4.8); Bilirubin, Total 0.4 mg/dL (0.2-1.0); Chloride 109 mmol/L (98-107); Total Protein 6.5 g/dL (5.7-8.2)
[2024-10-28 10:44] LABS: Urine Bacteria None Seen /hpf (None Seen)
[2024-10-28] MEDS: PIPERACILLIN-TAZOB 3.375GM 100 ML IV SCH (10:50)
[2024-10-28] MEDS: ONDANSETRON HCL 4 MG/2 ML VIAL IV PRN (10:50)
[2024-10-28] MEDS: MORPHINE SULFATE INJ 2 MG/ml SYRG IV PRN (10:50)
[2024-10-28] MEDS: PANTOPRAZOLE 40 MG/10 ML VIAL INJ IV SCH (10:50)
[2024-10-28 11:12] LABS: Urine Blood Negative /uL (Negative); Urine Clarity Clear (Clear); Urine Color Light-Yellow (Yellow); Urine Protein, UAD Negative (Negative); Urine Specific Gravity 1.028 (1.001-1.035); Urine Squamous Epithelial Cell FEW /hpf (<5); Urine Urobilinogen Normal (Negative); Urine WBC 2 /HPF (0-3); Urine pH 6.5 (5.0-9.0)
[2024-10-28 11:32] LABS: Opiate Scree,Urine Pos (NEGATIVE)
[2024-10-28 11:37] LABS: Amphetamine Screen, Urine Neg (NEGATIVE); Barbiturate Scree,Urine Neg (NEGATIVE); Benzodiazephine Screen, Urine Neg (NEGATIVE); Cannabinoid Screen, Urine Neg (NEGATIVE); Cocaine Screen, Urine Neg (NEGATIVE); Phencyclidine Screen, Urine Neg (NEGATIVE)
--- NOTE | 2024-10-28 13:33 | DVHPN2 ---
Reviewed: Care Plan, H&P, Labs, Medications, Previous Orders, Radiology Changes from previous H/P or p: No Changes Eyes: No Pain, No Vision change, No Conjunctivae inflammation, No Eyelid inflammation, No Other, No Redness ENT: No Ear pain, No Ear discharge, No Nose pain, No Nose discharge, No Nose congestion, No Mouth pain, No Mouth swelling, No Throat pain, No Throat swelling, No Other Cardiovascular: No Chest Pain, No Palpitations, No Orthopnea, No Paroxysmal Noc. Dyspnea, No Edema, No Lt Headedness, No Other Respiratory: No Cough, No Dry, No Shortness of breath, No SOB with excertion, No Wheezing, No Hemoptysis, No Pleuritic Pain, No Sputum, No Other Gastrointestinal: No Nausea, No Vomiting; Abdominal Pain; No Diarrhea, No Constipation, No Melena, No Hematochezia; Other (blood streaked bowels, rectal bleeding; ) Genitourinary: No Dysuria, No Frequency, No Incontinence, No Hematuria, No Retention, No Other Musculoskeletal: No other, No neck pain, No shoulder pain, No arm pain, No back pain, No hand pain, No leg pain, No foot pain Skin: No Rash, No Lesions, No Jaundice, No Bruising, No Other Objective Vitals Vital Signs Date Time Temp Pulse Resp B/P (MAP) Pulse Ox O2 Delivery O2 Flow Rate FiO2 10/28/24 11:20 55 16 116/56 10/28/24 10:00 97 10/28/24 08:00 98.1 98.1 10/28/24 08:00 Room Air* 0 21 Medications Current Medications Medications Dose Ordered Sig/Temi Route Start Time Stop Time Status Last Admin Dose Admin Piperacillin Sod/ Tazobactam Sod 100 ml @ 25 mls/hr Q12HR IV 10/28/24 10:00 10/28/24 10:50 25 MLS/HR Acetaminophen/ Hydrocodone Bitart 1 tab Q4HP PRN PO 10/28/24 01:00 10/28/24 02:06 1 TAB Ondansetron HCl 4 mg Q4HP PRN IV 10/28/24 01:00 10/28/24 10:50 4 MG Docusate Sodium 100 mg BIDPRN PRN PO 10/28/24 01:00 Acetaminophen 650 mg Q6HP PRN PO 10/28/24 01:00 Pantoprazole Sodium 40 mg DAILY IV 10/28/24 10:00 10/28/24 10:50 40 MG Nitroglycerin 0.4 mg Q5MINP PRN SL 10/28/24 02:30 Morphine Sulfate 2 mg Q30M PRN IV 10/28/24 02:30 10/28/24 10:50 2 MG Laboratory Results Laboratory Tests 10/28/24 06:23 Chemistry Test 10/27/24 21:19 10/28/24 06:23 Calcium Level 9.1 mg/dL (8.7-10.4) 9.2 mg/dL (8.7-10.4) Albumin 3.6 g/dL (3.2-4.8) Total Protein 6.5 g/dL (5.7-8.2) LFT Test 10/28/24 06:23 Alanine Aminotransferase (ALT) 21 U/L (7-40) Alkaline Phosphatase 114 U/L (46-116) Aspartate Amino Transferase (AST) 20 U/L (13-40) Total Bilirubin 0.4 mg/dL (0.2-1.0) Urinalysis Test 10/28/24 10:35 Urine Color Light-yellow (Yellow) Urine Clarity Clear (Clear) Urine pH 6.5 (5.0-9.0) Urine Specific [place] 1.028 (1.001-1.035) Urine Protein Negative (Negative) Urine Ketones Negative (Negative) Urine Blood Negative /uL (Negative) Urine Nitrite Negative (Negative) Urine Bilirubin Negative (Negative) Urine Urobilinogen Normal mg/dL (Negative) Urine Leukocyte Esterase Negative /uL (Negative) Urine RBC <1 /hpf (0 - 3) Urine Microscopic WBC 2 /HPF (0-3) Urine Squamous Epithelial Cells Few /hpf (<5) Urine Bacteria None seen /hpf (None Seen) Urine Glucose Normal mg/dL (Normal) Labs and/or images reviewed: Labs reviewed by me, Image(s) reviewed by me Assessment/Plan Assessment/Plan Acute symptomatic anemia hemoglobin 9.1 Rectal bleeding: Consult for GI Dr. Sherrie Cartagena Acute abdominal pain MARIA GUADALUPE Possible abdominal infection: Zosyn Acute dehydration: IV fluids Status post laparotomy and colon Plan discussed with: Patient Date of Service: Oct 28, 2024 Billing Provider: CHAU HOLLINS MD Common Visit Codes: [id number] INP/OBS CARE(HIGH) CHAU HOLLINS MD Oct 28, 2024 13:33
[2024-10-28] MEDS ORDERED: LIDOCAINE HCL 5 % TOP OINT 35 GM TOP PRN (13:45)
--- NOTE | 2024-10-28 14:18 | DVHCONRES ---
Date Seen: Oct 28, 2024 Resident Creating Document: SUNNY ELY RESIDENT Referring Physician MD Lino History of Present Illness The patient is a 59-year-old male with past medical history of anemia and past surgical history of abdominal wound dehiscence, colostomy presented to [facility] ED with complaint of abdominal pain. Patient was recently discharged from this facility with multiple diagnosis including E coli, acute renal failure, and septic shock with pneumonitis due to extended spectrum beta lactamase. Patient reports lower abdominal pain , anal pain and persistent rectal bleeding, getting worse that prompted this visit. Patient was seen and examined on the bedside. He is alert oriented 3. Mentioned lower abdominal pain, anal pain aggravated during bowel movement and per rectal bleeding. No other active complaint. Family History: FH: cancer of digestive organ FH: colon cancer G8 BROTHER, Onset:60 years & older FH: liver cancer G8 MOTHER, Onset:50's - 60 Allergies: Coded Allergies: NO KNOWN ALLERGIES (Unverified , 07/21/23) Home Meds Active Scripts Pantoprazole Sodium Sesquihydr (Protonix) 40 Mg Tab, 40 MG PO DAILY for 30 Days, #30 TAB 1 Refill Prov:NANCY CONNOLLY MD 10/13/24 Hydrocodone-Acetaminophen (Hydrocodone/Acetaminophen 5-325 mg) 1 Tab Tab, 1 TAB PO QIDP PRN for 7 Days, #28 TAB Prov:NANCY CONNOLLY MD 10/13/24 Folic Acid (Folic Acid) 1 Mg Tab, 1 MG PO DAILY for 30 Days, #30 TAB Prov:ELIANA BRENNER RESIDENT 09/25/23 Reported Medications Methotrexate (Methotrexate) 2.5 Mg Tab, 8 TAB PO QWEEKLY, TAB 09/22/24 Current Medications Current Medications Medications (Trade) Dose Ordered Sig/Temi Route PRN Reason Start Time Stop Time Status Last Admin Piperacillin Sod/ Tazobactam Sod 100 ml @ 25 mls/hr Q12HR IV 10/28/24 10:00 10/28/24 10:50 Acetaminophen/ Hydrocodone Bitart ([place] 5/325MG Tab) 1 tab Q4HP PRN PO MODERATE PAIN (4-6 PAIN SCALE) 10/28/24 01:00 10/28/24 02:06 Ondansetron HCl (Zofran) 4 mg Q4HP PRN IV NAUSEA / VOMITING 10/28/24 01:00 10/28/24 10:50 Docusate Sodium (Colace Capsule) 100 mg BIDPRN PRN PO FOR CONSTIPATION 10/28/24 01:00 Acetaminophen (Tylenol Tablet) 650 mg Q6HP PRN PO PAIN SCALE 1-3 OR TEMP>100.4 10/28/24 01:00 Pantoprazole Sodium (Protonix) 40 mg DAILY IV 10/28/24 10:00 10/28/24 10:50 Nitroglycerin (Ntrostat Sublingual) 0.4 mg Q5MINP PRN SL FOR CHEST PAIN 10/28/24 02:30 Morphine Sulfate 2 mg Q30M PRN IV FOR CHEST PAIN 10/28/24 02:30 10/28/24 10:50 Lidocaine HCl (Xylocaine 5% Topical Ointment) 1 applic Q8HP PRN TOP PAIN SCALE 7 THRU 10 10/28/24 13:45 UNV Pantoprazole Sodium (Protonix Tablet) 40 mg DAILY@0600 PO 10/29/24 06:00 UNV Docusate Sodium (Colace Capsule) 200 mg BID PO 10/28/24 22:00 UNV Hydrocortisone Acetate (Anucort-Hc Suppository) 25 mg Q12HR AL 10/28/24 22:00 UNV Vital Signs Vital Signs Date Time Temp Pulse Resp B/P (MAP) Pulse Ox O2 Delivery O2 Flow Rate FiO2 10/28/24 13:32 68 16 109/50 (69) 98 10/28/24 08:00 98.1 98.1 10/28/24 08:00 Room Air* 0 21 Physical Exam Physical examination: General Appearance: Alert, Oriented X3, Cooperative, No acute distress HEENT: Atraumatic, PERRLA, EOMI, Mucous membrane moist/pink Respiratory: Clear to auscultation, Normal air movement Cardiovascular: Regular rate, Normal S1, Normal S2, No murmurs, no chest wall tenderness Abdominal: Normal bowel sounds, Soft, tenderness present in the lower abdomen, No hepatospenomegaly, No masses Extremities: No clubbing, No cyanosis, No edema, Normal pulses, No tenderness/swelling Skin: No rashes, No breakdown, No significant lesion Neuro: Normal gait, Normal speech, Strength at 5/5 X4 ext, Normal tone, Sensation intact, grossly intact cranial nerves. Psych/Mental Status: Mental status NL, Mood NL D/R/E : Not able to perform patient mentioned severe pain on touching the anus. Labs/Diagnostic Data Labs Test 10/28/24 10:35 10/28/24 06:23 10/27/24 21:19 Range/Units Urine Color Light-yellow Yellow Urine Clarity Clear Clear Urine pH 6.5 5.0-9.0 Urine Specific [place] 1.028 1.001-1.035 Urine Protein Negative Negative Urine Ketones Negative Negative Urine Blood Negative Negative /uL Urine Nitrite Negative Negative Urine Bilirubin Negative Negative Urine Urobilinogen Normal Negative mg/dL Urine Leukocyte Esterase Negative Negative /uL Urine RBC <1 0 - 3 /hpf Urine Microscopic WBC 2 0-3 /HPF Urine Squamous Epithelial Cells Few <5 /hpf Urine Bacteria None seen None Seen /hpf Urine Glucose Normal Normal mg/dL Stool Occult Blood Positive Negative Stool Occult Blood Sample #3 Negative Stool for White Cells Rare Urine Opiates Screen Pos NEGATIVE Urine Fentanyl Screen Neg NEGATIVE Urine Barbiturates Screen Neg NEGATIVE Urine Phencyclidine Screen Neg NEGATIVE Urine Amphetamines Screen Neg NEGATIVE Urine Benzodiazepines Screen Neg NEGATIVE Urine Cocaine Screen Neg NEGATIVE Urine Cannabinoids Screen Neg NEGATIVE White Blood Count 9.4 4.4-10.8 10^3/uL Red Blood Count 2.93 L 4.5-5.90 10^6/uL Hemoglobin 9.1 L 13.5-17.5 g/dL Hematocrit 27.4 L 41.0-53.0 % Mean Corpuscular Volume 93.4 80.0-100.0 fL Mean Corpuscular Hemoglobin 31.1 28.0-32.0 pg Mean Corpuscular Hemoglobin Concent 33.3 32.0-36.0 g/dL Red Cell Distribution Width 15.2 H 11.8-14.3 % Platelet Count 246 140-450 10^3/uL Mean Platelet Volume 8.6 6.9-10.8 fL Neutrophils (%) (Auto) 69.7 37.0-80.0 % Lymphocytes (%) (Auto) 17.8 10.0-50.0 % Monocytes (%) (Auto) 7.8 0.0-12.0 % Eosinophils (%) (Auto) 3.8 0.0-7.0 % Basophils (%) (Auto) 0.9 0.0-2.0 % Neutrophils # (Auto) 6.6 1.6-8.6 10 ^3/uL Lymphocytes # (Auto) 1.7 0.4-5.4 10 ^3/uL Monocytes # (Auto) 0.7 0-1.3 10 ^3/uL Eosinophils # (Auto) 0.4 0-0.8 10 ^3/uL Basophils # (Auto) 0.1 0-0.2 10 ^3/uL Nucleated Red Blood Cells 0.1 % Sodium Level 140 136-145 mmol/L Potassium Level 3.8 3.5-5.1 mmol/L Chloride Level 109 H 98-107 mmol/L Carbon Dioxide Level 22 20-31 mmol/L Anion Gap 9 5-15 Blood Urea Nitrogen 12 9-23 mg/dL Creatinine 1.51 H 0.700-1.30 mg/dL Glomerular Filtration Rate Calc 53 >90 mL/min BUN/Creatinine Ratio 7.9 L 10.0-20.0 Serum Glucose 94 74-106 mg/dL Calcium Level 9.2 8.7-10.4 mg/dL Total Bilirubin 0.4 0.2-1.0 mg/dL Aspartate Amino Transferase (AST) 20 13-40 U/L Alanine Aminotransferase (ALT) 21 7-40 U/L Alkaline Phosphatase 114 46-116 U/L Total Protein 6.5 5.7-8.2 g/dL Albumin 3.6 3.2-4.8 g/dL Troponin I High Sensitivity < 3 L </=54 ng/L Assessment Assessment: # Intractable abdominal pain likely due to intraabdominal sepsis # Rectal bleeding likely due to hemorrhoid # H/O of ESBL abdomial sepsis # S/P exploratory laparotomy, abdominal wall approximation and abdominal lavage # MARIA GUADALUPE likely secondary to hemodynamically mediated/VMN # chronic normocytic anemia Plan: - Clear liquid diet. - Monitor H/H - Continue IV antibiotic as per primary team - Colace 200 mg p.o. b.i.d., sitz bath, lidocaine 5% topical 1 month Q HR p.r.n. and hydrocortisone suppository q12hr p.r.n for rectal pain. - Protonix 40 mg PO daily. - Recommended outpatient colonoscopy when the acute intra-abdominal condition subsided. - Will follow the patient. Plan discussed with Dr. Cartagena Plan discussed with: Patient, SUNNY Luu RESIDENT Oct 28, 2024 14:18
--- NOTE | 2024-10-28 15:07 | DVHINCON2 ---
Date of service: Oct 28, 2024 Reason for Consultation abdominal pain, rectal bleeding History of Present Illness History Source: Patient, RN Notes, MD Notes Exam Limitations: No limitations HPI 59-year-old male status post colostomy reversal presented to [facility] ED with complaint of abdominal pain. Patient was recently discharged from this facility in September. Patient complaint of anal pain with rectal bleeding after bowel movements. The pain with rectal bleeding has become progressively worse over the past few days which prompted himt o come to the ED to be evaluated. Home Meds Active Scripts Pantoprazole Sodium Sesquihydr (Protonix) 40 Mg Tab, 40 MG PO DAILY for 30 Days, #30 TAB 1 Refill Prov:NANCY CONNOLLY MD 10/13/24 Hydrocodone-Acetaminophen (Hydrocodone/Acetaminophen 5-325 mg) 1 Tab Tab, 1 TAB PO QIDP PRN for 7 Days, #28 TAB Prov:NANCY CONNOLLY MD 10/13/24 Folic Acid (Folic Acid) 1 Mg Tab, 1 MG PO DAILY for 30 Days, #30 TAB Prov:ELIANA BRENNER RESIDENT 09/25/23 Reported Medications Methotrexate (Methotrexate) 2.5 Mg Tab, 8 TAB PO QWEEKLY, TAB 09/22/24 Past Medical History Cardiac: No pertinent Hx Pulmonary: No pertinent Hx Central Nervous System: No pertinent Hx GI: Diverticulosis, Other (diverticulitis) Hemotology/Oncology: No pertinent Hx Hepatobiliary: No pertinent Hx Psychiatric: No pertinent Hx Musculoskeletal: No pertinent Hx Rheumotologic: No pertinent Hx Infectious Disease: No peritnent Hx ENT: No pertinent Hx Renal/: No pertinent Hx Endocrine: No pertinent Hx Dermatology: No pertinent Hx Past Surgical History: Laparotomy Others colostomy Patient Family History: FH: cancer of digestive organ FH: colon cancer G8 BROTHER, Onset:60 years & older FH: liver cancer G8 MOTHER, Onset:50's - 60 Smoker: No Hx (Negative) Alocohol: None Drugs: None Lives with: With family Review of Systems Constitutional: No symptom reported Ears, Nose, & Throat: No symptom reported Eyes: No symptom reported Pulmonary/Respiratory: No symptom reported Cardiovascular: No symptom reported Gastrointestinal: Abdominal Pain, Other (rectal bleeding, abdominal pain ) Genitourinary: No symptom reported Musculoskeletal: No symptom reported Skin: No symptom reported Psychiatric: No symptom reported Endocrine: No symptom reported Hemotologic/Lymphatic: No symptom reported H&P Exam Vital Signs Vital Signs Date Time Temp Pulse Resp B/P (MAP) Pulse Ox O2 Delivery O2 Flow Rate FiO2 10/28/24 14:00 55 16 108/60 (76) 97 10/28/24 08:00 98.1 98.1 10/28/24 08:00 Room Air* 0 21 General Appeara: Well developed, Well nourished, Normal Appearance Head Exam: Normal inspection, Active bleeding Eye Exam: bilateral eye Normal inspection Abdominal Pain Onset Location: Other (right side over previous colostomy site) Rectal Exam: Blood streaked stool, Tenderness Neuro/Mental St: Alert, Oriented Appearance: Appropriate appearance Eye contact/ Speech: Cooperative Skin Exam: Normal inspection Labs/Xrays Labs Test 10/28/24 10:35 10/28/24 06:23 10/27/24 21:19 Range/Units Urine Color Light-yellow Yellow Urine Clarity Clear Clear Urine pH 6.5 5.0-9.0 Urine Specific [place] 1.028 1.001-1.035 Urine Protein Negative Negative Urine Ketones Negative Negative Urine Blood Negative Negative /uL Urine Nitrite Negative Negative Urine Bilirubin Negative Negative Urine Urobilinogen Normal Negative mg/dL Urine Leukocyte Esterase Negative Negative /uL Urine RBC <1 0 - 3 /hpf Urine Microscopic WBC 2 0-3 /HPF Urine Squamous Epithelial Cells Few <5 /hpf Urine Bacteria None seen None Seen /hpf Urine Glucose Normal Normal mg/dL Stool Occult Blood Positive Negative Stool Occult Blood Sample #3 Negative Stool for White Cells Rare Urine Opiates Screen Pos NEGATIVE Urine Fentanyl Screen Neg NEGATIVE Urine Barbiturates Screen Neg NEGATIVE Urine Phencyclidine Screen Neg NEGATIVE Urine Amphetamines Screen Neg NEGATIVE Urine Benzodiazepines Screen Neg NEGATIVE Urine Cocaine Screen Neg NEGATIVE Urine Cannabinoids Screen Neg NEGATIVE White Blood Count 9.4 4.4-10.8 10^3/uL Red Blood Count 2.93 L 4.5-5.90 10^6/uL Hemoglobin 9.1 L 13.5-17.5 g/dL Hematocrit 27.4 L 41.0-53.0 % Mean Corpuscular Volume 93.4 80.0-100.0 fL Mean Corpuscular Hemoglobin 31.1 28.0-32.0 pg Mean Corpuscular Hemoglobin Concent 33.3 32.0-36.0 g/dL Red Cell Distribution Width 15.2 H 11.8-14.3 % Platelet Count 246 140-450 10^3/uL Mean Platelet Volume 8.6 6.9-10.8 fL Neutrophils (%) (Auto) 69.7 37.0-80.0 % Lymphocytes (%) (Auto) 17.8 10.0-50.0 % Monocytes (%) (Auto) 7.8 0.0-12.0 % Eosinophils (%) (Auto) 3.8 0.0-7.0 % Basophils (%) (Auto) 0.9 0.0-2.0 % Neutrophils # (Auto) 6.6 1.6-8.6 10 ^3/uL Lymphocytes # (Auto) 1.7 0.4-5.4 10 ^3/uL Monocytes # (Auto) 0.7 0-1.3 10 ^3/uL Eosinophils # (Auto) 0.4 0-0.8 10 ^3/uL Basophils # (Auto) 0.1 0-0.2 10 ^3/uL Nucleated Red Blood Cells 0.1 % Sodium Level 140 136-145 mmol/L Potassium Level 3.8 3.5-5.1 mmol/L Chloride Level 109 H 98-107 mmol/L Carbon Dioxide Level 22 20-31 mmol/L Anion Gap 9 5-15 Blood Urea Nitrogen 12 9-23 mg/dL Creatinine 1.51 H 0.700-1.30 mg/dL Glomerular Filtration Rate Calc 53 >90 mL/min BUN/Creatinine Ratio 7.9 L 10.0-20.0 Serum Glucose 94 74-106 mg/dL Calcium Level 9.2 8.7-10.4 mg/dL Total Bilirubin 0.4 0.2-1.0 mg/dL Aspartate Amino Transferase (AST) 20 13-40 U/L Alanine Aminotransferase (ALT) 21 7-40 U/L Alkaline Phosphatase 114 46-116 U/L Total Protein 6.5 5.7-8.2 g/dL Albumin 3.6 3.2-4.8 g/dL Troponin I High Sensitivity < 3 L </=54 ng/L Assessment/Plan Plan patient complaint of unbearable pain with bowel movements and rectal bleeding CT inflammation noted around the area of previous colostomy site, reviewed notes and labs, discussed with Dr. Harris consult placed for GI Plan discussed with: Patient Visit Coding Surgery Date of Service if different f: Oct 28, 2024 Billing Provider: DIXIE HARRIS MD Surgery Visit Codes: [id number] - INP CONSULT <80 MIN AUREA CASTILLO NP Oct 28, 2024 15:07
[2024-10-28] MEDS: DOCUSATE SOD 100 MG CAP PO SCH (22:08)
[2024-10-28] MEDS: HYDROCORTISONE ACET 25 MG RECTAL SUPP PR SCH (22:09)
[2024-10-29 01:00] VITALS: BP 103/57; PULSE 63; RESP 17; TEMP 97.7; O2SAT 97
[2024-10-29 05:03] VITALS: BP 101/61; PULSE 70; RESP 18; TEMP 97.6; O2SAT 95
[2024-10-29] MEDS: PANTOPRAZOLE 40 MG TAB PO SCH (06:32)
[2024-10-29 06:45] LABS: Basophils # (auto) 0.1 10 ^3/uL (0-0.2); Basophils % (auto) 1.1 % (0.0-2.0); Eosinophils # (auto) 0.4 10 ^3/uL (0-0.8); Eosinophils % (auto) 6.3 % (0.0-7.0); Hemoglobin 9.7 g/dL (13.5-17.5); Lymphocytes # (auto) 1.4 10 ^3/uL (0.4-5.4); Lymphocytes % (auto) 22.7 % (10.0-50.0); Mean Corpuscular Hemoglobin 31.1 pg (28.0-32.0); Mean Corpuscular Hgb Conc. 33.6 g/dL (32.0-36.0); Mean Corpuscular Volume 92.8 fL (80.0-100.0); Monocytes # (auto) 0.6 10 ^3/uL (0-1.3); Monocytes % (auto) 9.6 % (0.0-12.0); Neutrophils # (auto) 3.8 10 ^3/uL (1.6-8.6); Neutrophils % (auto) 60.3 % (37.0-80.0); Nucleated Red Blood Cells % 0.1 %; Platelet Count (auto) 250 10^3/uL (140-450); Red Blood Cells 3.12 10^6/uL (4.5-5.90); Red Cell Distribution Width 15.3 % (11.8-14.3); White Blood Cell 6.3 10^3/uL (4.4-10.8)
[2024-10-29 07:17] LABS: Alanine Aminotransferase 17 U/L (7-40); Albumin 3.7 g/dL (3.2-4.8); Alkaline Phosphatase 100 U/L (46-116); Anion Gap 9 (5-15); Aspartate Aminotransferase 16 U/L (13-40); BUN/Creatinine Ratio 6.3 (10.0-20.0); Bilirubin, Total 0.6 mg/dL (0.2-1.0); Blood Urea Nitrogen 9 mg/dL (9-23); Calcium 9.7 mg/dL (8.7-10.4); Carbon Dioxide 25 mmol/L (20-31); Chloride 107 mmol/L (98-107); Potassium 4.1 mmol/L (3.5-5.1); Sodium 141 mmol/L (136-145); Total Protein 6.7 g/dL (5.7-8.2)
[2024-10-29 07:19] LABS: Glucose 121 mg/dL (74-106)
--- NOTE | 2024-10-29 08:07 | DVHPN2 ---
Reviewed: Care Plan, H&P, Labs, Medications, Previous Orders, Radiology Changes from previous H/P or p: No Changes Eyes: No Pain, No Vision change, No Conjunctivae inflammation, No Eyelid inflammation, No Other, No Redness ENT: No Ear pain, No Ear discharge, No Nose pain, No Nose discharge, No Nose congestion, No Mouth pain, No Mouth swelling, No Throat pain, No Throat swelling, No Other Cardiovascular: No Chest Pain, No Palpitations, No Orthopnea, No Paroxysmal Noc. Dyspnea, No Edema, No Lt Headedness, No Other Respiratory: No Cough, No Dry, No Shortness of breath, No SOB with excertion, No Wheezing, No Hemoptysis, No Pleuritic Pain, No Sputum, No Other Gastrointestinal: No Nausea, No Vomiting; Abdominal Pain; No Diarrhea, No Constipation, No Melena, No Hematochezia; Other (blood streaked bowels, rectal bleeding; ) Genitourinary: No Dysuria, No Frequency, No Incontinence, No Hematuria, No Retention, No Other Musculoskeletal: No other, No neck pain, No shoulder pain, No arm pain, No back pain, No hand pain, No leg pain, No foot pain Skin: No Rash, No Lesions, No Jaundice, No Bruising, No Other Objective Vitals Vital Signs Date Time Temp Pulse Resp B/P (MAP) Pulse Ox O2 Delivery O2 Flow Rate FiO2 10/29/24 05:03 97.6 70 18 101/61 (74) 95 97.6 10/28/24 20:00 Room Air* 0 21 Intake/Output Intake and Output 10/29/24 07:00 Intake Total 780 ml Balance 780 ml Intake Oral 680 ml IV Total 100 ml # Voids 4 # Bowel Movements 2 Medications Current Medications Medications Dose Ordered Sig/Temi Route Start Time Stop Time Status Last Admin Dose Admin Piperacillin Sod/ Tazobactam Sod 100 ml @ 25 mls/hr Q12HR IV 10/28/24 10:00 10/28/24 22:08 25 MLS/HR Acetaminophen/ Hydrocodone Bitart 1 tab Q4HP PRN PO 10/28/24 01:00 10/28/24 20:55 1 TAB Ondansetron HCl 4 mg Q4HP PRN IV 10/28/24 01:00 10/28/24 10:50 4 MG Acetaminophen 650 mg Q6HP PRN PO 10/28/24 01:00 Nitroglycerin 0.4 mg Q5MINP PRN SL 10/28/24 02:30 Morphine Sulfate 2 mg Q30M PRN IV 10/28/24 02:30 10/28/24 10:50 2 MG Lidocaine HCl 1 applic Q8HP PRN TOP 10/28/24 13:45 Pantoprazole Sodium 40 mg DAILY@0600 PO 10/29/24 06:00 10/29/24 06:32 40 MG Docusate Sodium 200 mg BID PO 10/28/24 22:00 10/28/24 22:08 200 MG Hydrocortisone Acetate 25 mg Q12HR [place] 10/28/24 22:00 10/28/24 22:09 25 MG Laboratory Results Laboratory Tests 10/29/24 05:55 Chemistry Test 10/29/24 05:55 Albumin 3.7 g/dL (3.2-4.8) Calcium Level 9.7 mg/dL (8.7-10.4) Total Protein 6.7 g/dL (5.7-8.2) LFT Test 10/29/24 05:55 Alanine Aminotransferase (ALT) 17 U/L (7-40) Alkaline Phosphatase 100 U/L (46-116) Aspartate Amino Transferase (AST) 16 U/L (13-40) Total Bilirubin 0.6 mg/dL (0.2-1.0) Urinalysis Test 10/28/24 10:35 Urine Color Light-yellow (Yellow) Urine Clarity Clear (Clear) Urine pH 6.5 (5.0-9.0) Urine Specific [place] 1.028 (1.001-1.035) Urine Protein Negative (Negative) Urine Ketones Negative (Negative) Urine Blood Negative /uL (Negative) Urine Nitrite Negative (Negative) Urine Bilirubin Negative (Negative) Urine Urobilinogen Normal mg/dL (Negative) Urine Leukocyte Esterase Negative /uL (Negative) Urine RBC <1 /hpf (0 - 3) Urine Microscopic WBC 2 /HPF (0-3) Urine Squamous Epithelial Cells Few /hpf (<5) Urine Bacteria None seen /hpf (None Seen) Urine Glucose Normal mg/dL (Normal) Microbiology Microbiology Date/Time Source Procedure Growth Status 10/28/24 11:00 Nose MRSA Screen - Final Complete 10/28/24 10:35 Stool Stool Culture - Preliminary Resulted 10/28/24 10:35 Stool Shiga Toxin I & II - Final Resulted Labs and/or images reviewed: Labs reviewed by me, Image(s) reviewed by me Assessment/Plan Assessment/Plan Acute symptomatic anemia hemoglobin 9.1 and stable Rectal bleeding: Consult for GI Dr. Sherrie Cartagena appreciated, advised Colace Anusol suppository and advised outpatient colonoscopy Consult by surgeon Dr. Harris appreciated Acute abdominal pain with possible infection: Continue Zosyn MARIA GUADALUPE History of ESBL abdominal sepsis Chronic microcytic hypochromic anemia Rectal bleeding possibly secondary to hemorrhoids Acute dehydration: IV fluids Status post laparotomy and colostomy for perforation during colonoscopy in the past Plan discussed with: Patient Date of Service: Oct 29, 2024 Billing Provider: CHAU HOLLINS MD Common Visit Codes: [id number] INP/OBS CARE(HIGH) CHAU HOLLINS MD Oct 29, 2024 08:07
[2024-10-29 08:35] VITALS: BP 108/66; PULSE 68; RESP 18; TEMP 97.8; O2SAT 97
--- NOTE | 2024-10-29 09:38 | DVHPN2 ---
Progress Note - Surgical Date Seen: Oct 29, 2024 Post op day Post op day: 0 Subjective Patient reports: No new complaints, Feels better Review of Systems: HEENT:Normal, CVS:Normal, RESPIRATORY:Normal, GI:Normal, :Normal, MSK:Normal, NEURO:Normal Objective Vital signs Vital Sign Date Time Temp Pulse Resp B/P (MAP) Pulse Ox O2 Delivery O2 Flow Rate FiO2 10/29/24 08:35 97.8 68 18 108/66 (80) 97 97.8 10/28/24 20:00 Room Air* 0 21 Total Intake and Output 10/28/24 10/28/24 10/29/24 15:00 23:00 07:00 Intake Total 240 ml 540 ml Balance 240 ml 540 ml Medications Current Medications Medications Dose Ordered Sig/Temi Route Start Time Stop Time Status Last Admin Dose Admin Piperacillin Sod/ Tazobactam Sod 100 ml @ 25 mls/hr Q12HR IV 10/28/24 10:00 10/28/24 22:08 25 MLS/HR Acetaminophen/ Hydrocodone Bitart 1 tab Q4HP PRN PO 10/28/24 01:00 10/28/24 20:55 1 TAB Ondansetron HCl 4 mg Q4HP PRN IV 10/28/24 01:00 10/28/24 10:50 4 MG Acetaminophen 650 mg Q6HP PRN PO 10/28/24 01:00 Nitroglycerin 0.4 mg Q5MINP PRN SL 10/28/24 02:30 Morphine Sulfate 2 mg Q30M PRN IV 10/28/24 02:30 10/28/24 10:50 2 MG Lidocaine HCl 1 applic Q8HP PRN TOP 10/28/24 13:45 Pantoprazole Sodium 40 mg DAILY@0600 PO 10/29/24 06:00 10/29/24 06:32 40 MG Docusate Sodium 200 mg BID PO 10/28/24 22:00 10/28/24 22:08 200 MG Hydrocortisone Acetate 25 mg Q12HR [place] 10/28/24 22:00 10/28/24 22:09 25 MG Laboratory Laboratory Tests 10/29/24 05:55 Test 10/29/24 05:55 Range/Units Serum Glucose 121 H 74-106 mg/dL Microbiology Date/Time Source Procedure Growth Status 10/28/24 11:00 Nose MRSA Screen - Final Complete 10/28/24 10:35 Stool Stool Culture - Preliminary Resulted 10/28/24 10:35 Stool Shiga Toxin I & II - Final Resulted Examination: GENERAL:Normal, HEENT:Normal, NECK:Normal, LUNGS:Normal, CVS:Normal, ABDOMEN:Normal, MSK:Normal, SKIN:Normal, NEURO:Normal, :Normal Problem List/Assessment/Plan Problems: (1) Rectal bleeding (2) Abdominal pain Assessment and Plan no rectal bleeding or pain today patient states no pain , only some abdominal discomfort continue with clear liquid abdomen soft, non distended, denies nausea or vomiting My Orders My Orders Orders - AUREA CASTILLO NP Procedure Category Date Status Time * Gi Dvh Inspector Material Disposition CONS 10/28/24 Transmitted 11:22 Plan discussed with Plan discussed with: Patient, Other (Dr. Harris ) Visit Coding Surgery Date of Service if different f: Oct 29, 2024 Billing Provider: DIXIE HARRIS MD Surgery Visit Codes: [id number] INP/OBS CARE(HIGH) AUREA CASTILLO NP Oct 29, 2024 09:38
--- NOTE | 2024-10-29 10:12 | DVHPN2 ---
Progress Note Date Seen: Oct 29, 2024 Resident Creating Document: SUNNY ELY RESIDENT Medical Necessity Reason Pt with a Central, PICC or Fol: No Subjective Review of Systems The patient is a 59-year-old male with past medical history of anemia and past surgical history of abdominal wound dehiscence, colostomy presented to [facility] ED with complaint of abdominal pain. Patient was recently discharged from this facility with multiple diagnosis including E coli, acute renal failure, and septic shock with pneumonitis due to extended spectrum beta lactamase. Patient reports lower abdominal pain , anal pain and persistent rectal bleeding, getting worse that prompted this visit. Patient was seen and examined on the bedside. He is alert oriented 3. Mentioned lower abdominal pain, anal pain and no per rectal bleeding. H&H is stable. no other active complaint Objective vital signs Vital Sign Date Time Temp Pulse Resp B/P (MAP) Pulse Ox O2 Delivery O2 Flow Rate FiO2 10/29/24 08:35 97.8 68 18 108/66 (80) 97 97.8 10/28/24 20:00 Room Air* 0 21 Total Intake and Output 10/28/24 10/28/24 10/29/24 15:00 23:00 07:00 Intake Total 240 ml 540 ml Balance 240 ml 540 ml medications Current Medications Medications Dose Ordered Sig/Temi Route Start Time Stop Time Status Last Admin Dose Admin Piperacillin Sod/ Tazobactam Sod 100 ml @ 25 mls/hr Q12HR IV 10/28/24 10:00 10/29/24 09:58 25 MLS/HR Acetaminophen/ Hydrocodone Bitart 1 tab Q4HP PRN PO 10/28/24 01:00 10/29/24 10:09 1 TAB Ondansetron HCl 4 mg Q4HP PRN IV 10/28/24 01:00 10/28/24 10:50 4 MG Acetaminophen 650 mg Q6HP PRN PO 10/28/24 01:00 Nitroglycerin 0.4 mg Q5MINP PRN SL 10/28/24 02:30 Morphine Sulfate 2 mg Q30M PRN IV 10/28/24 02:30 10/28/24 10:50 2 MG Lidocaine HCl 1 applic Q8HP PRN TOP 10/28/24 13:45 Pantoprazole Sodium 40 mg DAILY@0600 PO 10/29/24 06:00 10/29/24 06:32 40 MG Docusate Sodium 200 mg BID PO 10/28/24 22:00 10/29/24 09:57 200 MG Hydrocortisone Acetate 25 mg Q12HR [place] 10/28/24 22:00 10/29/24 09:57 25 MG Examination Physical examination: General Appearance: Alert, Oriented X3, Cooperative, No acute distress HEENT: Atraumatic, PERRLA, EOMI, Mucous membrane moist/pink Respiratory: Clear to auscultation, Normal air movement Cardiovascular: Regular rate, Normal S1, Normal S2, No murmurs, no chest wall tenderness Abdominal: Normal bowel sounds, Soft, No tenderness, No hepatospenomegaly, No masses Extremities: No clubbing, No cyanosis, No edema, Normal pulses, No tenderness/swelling Skin: No rashes, No breakdown, No significant lesion Neuro: Normal gait, Normal speech, Strength at 5/5 X4 ext, Normal tone, Sensation intact, grossly intact cranial nerves Psych/Mental Status: Mental status NL, Mood NL D/R/E: Tender and possible internal hemorrhoid, no impacted fecal matter , no bleeding , no prolapsed hemorrhoid, or no skin tag and increased anal tone. laboratory and microbiology Laboratory Tests 10/29/24 05:55 Test 10/29/24 05:55 Range/Units Serum Glucose 121 H 74-106 mg/dL Microbiology Date/Time Source Procedure Growth Status 10/28/24 11:00 Nose MRSA Screen - Final Complete 10/28/24 10:35 Stool Stool Culture - Preliminary Resulted 10/28/24 10:35 Stool Shiga Toxin I & II - Final Resulted Labs and/or images reviewed: Labs reviewed by me, Image(s) reviewed by me Problem List/Assessment/Plan Problem List/Assessment/Plan Assessment: # Intractable abdominal pain likely due to intraabdominal sepsis # Rectal bleeding likely due to hemorrhoid # H/O of ESBL abdomial sepsis # S/P exploratory laparotomy, abdominal wall approximation and abdominal lavage # MARIA GUADALUPE likely secondary to hemodynamically mediated/VMN # chronic normocytic anemia Plan: - Clear liquid diet and advance the diet as tolerated. - H/H is stable - Appreciate surgical consultation - Continue IV antibiotic as per primary team - Pain medication as necessary. - Colace 200 mg p.o. b.i.d., sitz bath, lidocaine 5% topical 1 month Q HR p.r.n. and hydrocortisone suppository q12hr p.r.n for rectal pain. - Protonix 40 mg PO daily. - Recommended outpatient colonoscopy when the acute intra-abdominal condition subsided. - Will follow the patient. Plan discussed with Dr. Cartagena Plan discussed with: Patient, Other SUNNY ELY RESIDENT Oct 29, 2024 10:12
[2024-10-29 12:34] VITALS: BP 102/52; PULSE 70; RESP 18; TEMP 98; O2SAT 95
[2024-10-29 16:32] VITALS: BP 98/44; PULSE 61; RESP 19; TEMP 97.8; O2SAT 96
[2024-10-29 21:00] VITALS: BP 98/56; PULSE 67; RESP 18; TEMP 98.5; O2SAT 96
[2024-10-30] VITALS (8 sets, daily range): BP systolic 100–116; BP diastolic 55–83; PULSE 61–79; RESP 18–20; TEMP 97.6–98.4; O2SAT 96–99
[2024-10-30 07:31] LABS: Basophils # (auto) 0.1 10 ^3/uL (0-0.2); Basophils % (auto) 0.9 % (0.0-2.0); Eosinophils # (auto) 0.3 10 ^3/uL (0-0.8); Eosinophils % (auto) 4.2 % (0.0-7.0); Hematocrit 28.2 % (41.0-53.0); Hemoglobin 9.5 g/dL (13.5-17.5); Lymphocytes # (auto) 1.8 10 ^3/uL (0.4-5.4); Lymphocytes % (auto) 25.3 % (10.0-50.0); Mean Corpuscular Hemoglobin 31.2 pg (28.0-32.0); Mean Corpuscular Hgb Conc. 33.7 g/dL (32.0-36.0); Mean Corpuscular Volume 92.4 fL (80.0-100.0); Monocytes # (auto) 0.6 10 ^3/uL (0-1.3); Monocytes % (auto) 8.6 % (0.0-12.0); Neutrophils # (auto) 4.3 10 ^3/uL (1.6-8.6); Nucleated Red Blood Cells % 0.1 %; Platelet Count (auto) 240 10^3/uL (140-450); Red Blood Cells 3.05 10^6/uL (4.5-5.90)
[2024-10-30 07:47] LABS: Anion Gap 8 (5-15); Carbon Dioxide 25 mmol/L (20-31); Sodium 141 mmol/L (136-145)
[2024-10-30 07:48] LABS: Calcium 9.3 mg/dL (8.7-10.4)
[2024-10-30 07:53] LABS: BUN/Creatinine Ratio 8.8 (10.0-20.0); Blood Urea Nitrogen 12 mg/dL (9-23); Glucose 80 mg/dL (74-106)
[2024-10-30 08:06] LABS: Chloride 108 mmol/L (98-107)
--- NOTE | 2024-10-30 08:28 | DVHPN2 ---
Progress Note - Surgical Date Seen: Oct 30, 2024 Post op day Post op day: 0 Subjective Review of Systems: HEENT:Normal, CVS:Normal, RESPIRATORY:Normal, GI:Abnormal (unable to have BM), :Normal, MSK:Normal, NEURO:Normal Objective Vital signs Vital Sign Date Time Temp Pulse Resp B/P (MAP) Pulse Ox O2 Delivery O2 Flow Rate FiO2 10/30/24 05:00 97.7 79 18 100/72 (81) 96 97.7 10/29/24 20:00 Room Air* 0 21 Total Intake and Output 10/29/24 10/29/24 10/30/24 15:00 23:00 07:00 Intake Total 1000 ml 1000 ml Output Total 600 ml Balance 400 ml 1000 ml Medications Current Medications Medications Dose Ordered Sig/Temi Route Start Time Stop Time Status Last Admin Dose Admin Piperacillin Sod/ Tazobactam Sod 100 ml @ 25 mls/hr Q12HR IV 10/28/24 10:00 10/29/24 21:58 25 MLS/HR Acetaminophen/ Hydrocodone Bitart 1 tab Q4HP PRN PO 10/28/24 01:00 10/30/24 02:02 1 TAB Ondansetron HCl 4 mg Q4HP PRN IV 10/28/24 01:00 10/28/24 10:50 4 MG Acetaminophen 650 mg Q6HP PRN PO 10/28/24 01:00 Nitroglycerin 0.4 mg Q5MINP PRN SL 10/28/24 02:30 Morphine Sulfate 2 mg Q30M PRN IV 10/28/24 02:30 10/28/24 10:50 2 MG Lidocaine HCl 1 applic Q8HP PRN TOP 10/28/24 13:45 Pantoprazole Sodium 40 mg DAILY@0600 PO 10/29/24 06:00 10/30/24 06:42 40 MG Docusate Sodium 200 mg BID PO 10/28/24 22:00 10/29/24 21:58 200 MG Hydrocortisone Acetate 25 mg Q12HR [place] 10/28/24 22:00 10/29/24 21:59 25 MG Laboratory Laboratory Tests 10/30/24 06:27 Test 10/30/24 06:27 Range/Units Serum Glucose 80 74-106 mg/dL Microbiology Date/Time Source Procedure Growth Status 10/28/24 11:00 Nose MRSA Screen - Final Complete 10/28/24 10:35 Stool Stool Culture - Preliminary Resulted 10/28/24 10:35 Stool Shiga Toxin I & II - Final Resulted Examination: GENERAL:Normal, HEENT:Normal, NECK:Normal, LUNGS:Normal, CVS:Normal, ABDOMEN:Normal, MSK:Normal, SKIN:Normal, NEURO:Normal Problem List/Assessment/Plan Problems: (1) Constipation (2) Rectal bleed (3) Abdominal pain Assessment and Plan no rectal bleeding or pain today patient states no pain , only some abdominal discomfort continue with clear liquid abdomen soft, non distended, denies nausea or vomiting 10/30/24 no rectal bleed today per patient , unable to have BM , he feels pressure and pain abdomen soft, non distended , non tender to palpation denies nausea or vomiting, tolerating diet Plan : continue IV antibiotics ambulate outside of room several times a day continue will all orders per GI Plan discussed with Plan discussed with: Patient, Other (Dr. Harris) Visit Coding Surgery Date of Service if different f: Oct 30, 2024 Billing Provider: DIXIE HARRIS MD Surgery Visit Codes: [id number] INP/OBS CARE(HIGH) AUREA CASTILLO NP Oct 30, 2024 08:28
--- NOTE | 2024-10-30 10:40 | DVHPN2 ---
Reviewed: Care Plan, H&P, Labs, Medications, Previous Orders, Radiology Changes from previous H/P or p: No Changes Eyes: No Pain, No Vision change, No Conjunctivae inflammation, No Eyelid inflammation, No Other, No Redness ENT: No Ear pain, No Ear discharge, No Nose pain, No Nose discharge, No Nose congestion, No Mouth pain, No Mouth swelling, No Throat pain, No Throat swelling, No Other Cardiovascular: No Chest Pain, No Palpitations, No Orthopnea, No Paroxysmal Noc. Dyspnea, No Edema, No Lt Headedness, No Other Respiratory: No Cough, No Dry, No Shortness of breath, No SOB with excertion, No Wheezing, No Hemoptysis, No Pleuritic Pain, No Sputum, No Other Gastrointestinal: No Nausea, No Vomiting; Abdominal Pain; No Diarrhea, No Constipation, No Melena, No Hematochezia; Other (blood streaked bowels, rectal bleeding; ) Genitourinary: No Dysuria, No Frequency, No Incontinence, No Hematuria, No Retention, No Other Musculoskeletal: No other, No neck pain, No shoulder pain, No arm pain, No back pain, No hand pain, No leg pain, No foot pain Skin: No Rash, No Lesions, No Jaundice, No Bruising, No Other Objective Vitals Vital Signs Date Time Temp Pulse Resp B/P (MAP) Pulse Ox O2 Delivery O2 Flow Rate FiO2 10/30/24 09:00 98.3 61 20 101/55 (70) 96 98.3 10/29/24 20:00 Room Air* 0 21 Intake/Output Intake and Output 10/30/24 07:00 Intake Total 2000 ml Output Total 600 ml Balance 1400 ml Intake Oral 1900 ml IV Total 100 ml Output Urine Total 600 ml # Voids 5 Medications Current Medications Medications Dose Ordered Sig/Temi Route Start Time Stop Time Status Last Admin Dose Admin Piperacillin Sod/ Tazobactam Sod 100 ml @ 25 mls/hr Q12HR IV 10/28/24 10:00 10/30/24 09:37 25 MLS/HR Acetaminophen/ Hydrocodone Bitart 1 tab Q4HP PRN PO 10/28/24 01:00 10/30/24 09:36 1 TAB Ondansetron HCl 4 mg Q4HP PRN IV 10/28/24 01:00 10/28/24 10:50 4 MG Acetaminophen 650 mg Q6HP PRN PO 10/28/24 01:00 Nitroglycerin 0.4 mg Q5MINP PRN SL 10/28/24 02:30 Morphine Sulfate 2 mg Q30M PRN IV 10/28/24 02:30 10/28/24 10:50 2 MG Lidocaine HCl 1 applic Q8HP PRN TOP 10/28/24 13:45 Pantoprazole Sodium 40 mg DAILY@0600 PO 10/29/24 06:00 10/30/24 06:42 40 MG Docusate Sodium 200 mg BID PO 10/28/24 22:00 10/30/24 09:38 200 MG Hydrocortisone Acetate 25 mg Q12HR [place] 10/28/24 22:00 10/29/24 21:59 25 MG Laboratory Results Laboratory Tests 10/30/24 06:27 Chemistry Test 10/30/24 06:27 Calcium Level 9.3 mg/dL (8.7-10.4) Urinalysis Test 10/28/24 10:35 Urine Color Light-yellow (Yellow) Urine Clarity Clear (Clear) Urine pH 6.5 (5.0-9.0) Urine Specific [place] 1.028 (1.001-1.035) Urine Protein Negative (Negative) Urine Ketones Negative (Negative) Urine Blood Negative /uL (Negative) Urine Nitrite Negative (Negative) Urine Bilirubin Negative (Negative) Urine Urobilinogen Normal mg/dL (Negative) Urine Leukocyte Esterase Negative /uL (Negative) Urine RBC <1 /hpf (0 - 3) Urine Microscopic WBC 2 /HPF (0-3) Urine Squamous Epithelial Cells Few /hpf (<5) Urine Bacteria None seen /hpf (None Seen) Urine Glucose Normal mg/dL (Normal) Microbiology Microbiology Date/Time Source Procedure Growth Status 10/28/24 11:00 Nose MRSA Screen - Final Complete 10/28/24 10:35 Stool Stool Culture - Preliminary Resulted 10/28/24 10:35 Stool Shiga Toxin I & II - Final Resulted Labs and/or images reviewed: Labs reviewed by me, Image(s) reviewed by me Assessment/Plan Assessment/Plan Acute symptomatic anemia hemoglobin 9.1 and stable Rectal bleeding: Consult for GI Dr. Sherrie Cartagena appreciated, advised Colace Anusol suppository and advised outpatient colonoscopy Consult by surgeon Dr. Harris appreciated Acute abdominal pain with possible infection: Continue Zosyn MARIA GUADALUPE History of ESBL abdominal sepsis Chronic microcytic hypochromic anemia Rectal bleeding possibly secondary to hemorrhoids Acute dehydration: IV fluids Status post laparotomy and colostomy for perforation during colonoscopy in the past Plan discussed with: Patient My Orders Orders - CHAU HOLLINS MD Procedure Category Date Status Time Soft Diet DIET 10/29/24 Transmitted Lunch Date of Service: Oct 30, 2024 Billing Provider: CHAU HOLLINS MD Common Visit Codes: [id number] INP/OBS CARE(HIGH) CHAU HOLLINS MD Oct 30, 2024 10:40
--- NOTE | 2024-10-30 11:55 | DVHPN2 ---
Progress Note Date Seen: Oct 30, 2024 Resident Creating Document: PATTI LUDWIG RESIDENT Medical Necessity Reason Pt with a Central, PICC or Fol: No Subjective Review of Systems The patient is a 59-year-old male with past medical history of anemia and past surgical history of abdominal wound dehiscence, colostomy presented to [facility] ED with complaint of abdominal pain. Patient was recently discharged from this facility with multiple diagnosis including E coli, acute renal failure, and septic shock with pneumonitis due to extended spectrum beta lactamase. Patient reports lower abdominal pain , anal pain and persistent rectal bleeding, getting worse that prompted this visit. Patient was seen and examined on the bedside. Continued to have rectal pain, no bleeding. No nausea or vomiting. Difficulty with defecation given severe rectal pain. No any other new complaints hemoglobin is stable. Objective vital signs Vital Sign Date Time Temp Pulse Resp B/P (MAP) Pulse Ox O2 Delivery O2 Flow Rate FiO2 10/30/24 09:00 98.3 61 20 101/55 (70) 96 98.3 10/30/24 08:00 Room Air* 0 21 Total Intake and Output 10/29/24 10/29/24 10/30/24 15:00 23:00 07:00 Intake Total 1000 ml 1000 ml Output Total 600 ml Balance 400 ml 1000 ml medications Current Medications Medications Dose Ordered Sig/Temi Route Start Time Stop Time Status Last Admin Dose Admin Piperacillin Sod/ Tazobactam Sod 100 ml @ 25 mls/hr Q12HR IV 10/28/24 10:00 10/30/24 09:37 25 MLS/HR Ondansetron HCl 4 mg Q4HP PRN IV 10/28/24 01:00 10/28/24 10:50 4 MG Acetaminophen 650 mg Q6HP PRN PO 10/28/24 01:00 Nitroglycerin 0.4 mg Q5MINP PRN SL 10/28/24 02:30 Lidocaine HCl 1 applic Q8HP PRN TOP 10/28/24 13:45 Pantoprazole Sodium 40 mg DAILY@0600 PO 10/29/24 06:00 10/30/24 06:42 40 MG Docusate Sodium 200 mg BID PO 10/28/24 22:00 10/30/24 09:38 200 MG Hydrocortisone Acetate 25 mg Q12HR [place] 10/28/24 22:00 10/29/24 21:59 25 MG Hydromorphone HCl 2 mg Q4HP PRN PO 10/30/24 10:45 Examination General Appearance: Cooperative. Well developed. Well nourished. NAD Head Exam: Normal inspection Neck Exam: Normal inspection. Non-tender. Normal alignment Pulmonary/Respiratory: Chest non-tender. Clear bilateral breath sounds Cardiovascular/Chest: Regular rate and rhythm. No murmurs. No JVD. Peripheral Pulses: 2+ Radial (R). 2+ Radial (L). 2+ Pedal (R). 2+ Pedal (L) Abdominal Exam: Normal bowel sounds. Soft. Nontender. No hepatospenomegaly. No masses Ankle Exam: Negative ankle edema Lower extremities: Negative lower extremity edema Neuro/Mental Status: A&O x4. Coherent Thoughts/Psych: Normal thought pattern. Appropriate mood and affect. Good judgement and insight Appearance: In no acute distress Skin Exam: Normal inspection. Normal color. Warm. Dry STEVE done before Tender and possible internal hemorrhoid, no impacted fecal matter , no bleeding , no prolapsed hemorrhoid, or no skin tag and increased anal tone. laboratory and microbiology Laboratory Tests 10/30/24 06:27 Test 10/30/24 06:27 Range/Units Serum Glucose 80 74-106 mg/dL Microbiology Date/Time Source Procedure Growth Status 10/28/24 11:00 Nose MRSA Screen - Final Complete 10/28/24 10:35 Stool Stool Culture - Preliminary Resulted 10/28/24 10:35 Stool Shiga Toxin I & II - Final Resulted Problem List/Assessment/Plan Problem List/Assessment/Plan # Intractable abdominal pain likely due to intraabdominal sepsis # Rectal bleeding likely due to hemorrhoid # H/O of ESBL abdomial sepsis # S/P exploratory laparotomy, abdominal wall approximation and abdominal lavage # MARIA GUADALUPE likely secondary to hemodynamically mediated/VMN # chronic normocytic anemia Plan: - Clear liquid diet and advance the diet as tolerated. - H/H is stable - Appreciate surgical consultation - Continue IV antibiotic as per primary team - Pain medication as necessary. - Colace 200 mg p.o. b.i.d., sitz bath, lidocaine 5% topical 1 month Q HR p.r.n. and hydrocortisone suppository q12hr p.r.n for rectal pain. - Stool softner - Protonix 40 mg PO daily. - Recommended outpatient colonoscopy when the acute intra-abdominal condition subsided. - Will follow the patient. Plan discussed with Dr. Cartagena Plan discussed with: Patient, Other (RN) My Orders My Orders Orders - PATTI LUDWIG Procedure Category Date Status Time Psyllium Powder PHA 10/31/24 Verified (Metamucil Powder) 10:00 Psyllium Powder PHA 10/30/24 Verified (Metamucil Powder) 11:45 PATTI LUDWIG Oct 30, 2024 11:55
[2024-10-30] MEDS: PSYLLIUM PWD 5.8GM PKG PO ONE (13:39)
[2024-10-30] MEDS: HYDROmorphone HCL 2 MG TAB PO PRN (13:39)
[2024-10-30] MEDS: PIPERACILLIN-TAZOB 3.375GM 100 ML IV SCH (17:14)
[2024-10-30] MEDS: HYDROcodone-ACET 5/325MG TAB PO ONE (17:58)
[2024-10-30] MEDS: HYDROCORTISONE 2.5% TOPICAL CREAM 30GM TUBE PR PRN (17:58)
[2024-10-30] MEDS: POLYETHYLENE GLYCOL 17 GM PWDR PO ONE (22:19)
[2024-10-31 01:00] VITALS: BP_SYST 102; BP_SYST 108; BP_DIAS 60; BP_DIAS 66; PULSE 66; PULSE 78; RESP 18; TEMP 98; O2SAT 98
[2024-10-31 05:00] VITALS: BP 103/68; PULSE 73; RESP 17; TEMP 97.6; O2SAT 97
[2024-10-31 08:05] VITALS: PULSE 79; RESP 19; O2SAT 94
[2024-10-31 08:44] LABS: Hepatitis B Surface Antigen Negative (Negative)
[2024-10-31 08:55] VITALS: BP 117/68; PULSE 68; RESP 16; TEMP 98.1; O2SAT 97
[2024-10-31 09:05] LABS: Hepatitis C Antibody Negative (Negative)
[2024-10-31] MEDS: PSYLLIUM PWD 5.8GM PKG PO SCH (10:29)
--- NOTE | 2024-10-31 11:23 | DVHPN2 ---
Reviewed: Care Plan, H&P, Labs, Medications, Previous Orders, Radiology Changes from previous H/P or p: No Changes Eyes: No Pain, No Vision change, No Conjunctivae inflammation, No Eyelid inflammation, No Other, No Redness ENT: No Ear pain, No Ear discharge, No Nose pain, No Nose discharge, No Nose congestion, No Mouth pain, No Mouth swelling, No Throat pain, No Throat swelling, No Other Cardiovascular: No Chest Pain, No Palpitations, No Orthopnea, No Paroxysmal Noc. Dyspnea, No Edema, No Lt Headedness, No Other Respiratory: No Cough, No Dry, No Shortness of breath, No SOB with excertion, No Wheezing, No Hemoptysis, No Pleuritic Pain, No Sputum, No Other Gastrointestinal: No Nausea, No Vomiting; Abdominal Pain; No Diarrhea, No Constipation, No Melena, No Hematochezia; Other (blood streaked bowels, rectal bleeding; ) Genitourinary: No Dysuria, No Frequency, No Incontinence, No Hematuria, No Retention, No Other Musculoskeletal: No other, No neck pain, No shoulder pain, No arm pain, No back pain, No hand pain, No leg pain, No foot pain Skin: No Rash, No Lesions, No Jaundice, No Bruising, No Other Objective Vitals Vital Signs Date Time Temp Pulse Resp B/P (MAP) Pulse Ox O2 Delivery O2 Flow Rate FiO2 10/31/24 08:55 98.1 68 16 117/68 (84) 97 98.1 10/31/24 08:05 Room Air* 0 21 Intake/Output Intake and Output 10/31/24 07:00 Intake Total 2300 ml Balance 2300 ml Intake Oral 2100 ml IV Total 200 ml # Voids 12 # Bowel Movements 4 Medications Current Medications Medications Dose Ordered Sig/Temi Route Start Time Stop Time Status Last Admin Dose Admin Ondansetron HCl 4 mg Q4HP PRN IV 10/28/24 01:00 10/28/24 10:50 4 MG Acetaminophen 650 mg Q6HP PRN PO 10/28/24 01:00 Nitroglycerin 0.4 mg Q5MINP PRN SL 10/28/24 02:30 Lidocaine HCl 1 applic Q8HP PRN TOP 10/28/24 13:45 Pantoprazole Sodium 40 mg DAILY@0600 PO 10/29/24 06:00 10/31/24 05:05 40 MG Docusate Sodium 200 mg BID PO 10/28/24 22:00 10/31/24 10:28 200 MG Hydrocortisone Acetate 25 mg Q12HR [place] 10/28/24 22:00 10/31/24 10:29 25 MG Hydromorphone HCl 2 mg Q4HP PRN PO 10/30/24 10:45 10/31/24 10:27 2 MG Psyllium Hydrophilic Mucilloid 1 pkg DAILY PO 10/31/24 10:00 10/31/24 10:29 1 PKG Piperacillin Sod/ Tazobactam Sod 100 ml @ 25 mls/hr Q8H IV 10/30/24 18:00 10/31/24 10:29 25 MLS/HR Hydrocortisone 1 applic QID PRN [place] 10/30/24 17:30 10/30/24 17:58 1 APPLIC Laboratory Results Laboratory Tests 10/30/24 06:27 Urinalysis Test 10/28/24 10:35 Urine Color Light-yellow (Yellow) Urine Clarity Clear (Clear) Urine pH 6.5 (5.0-9.0) Urine Specific [place] 1.028 (1.001-1.035) Urine Protein Negative (Negative) Urine Ketones Negative (Negative) Urine Blood Negative /uL (Negative) Urine Nitrite Negative (Negative) Urine Bilirubin Negative (Negative) Urine Urobilinogen Normal mg/dL (Negative) Urine Leukocyte Esterase Negative /uL (Negative) Urine RBC <1 /hpf (0 - 3) Urine Microscopic WBC 2 /HPF (0-3) Urine Squamous Epithelial Cells Few /hpf (<5) Urine Bacteria None seen /hpf (None Seen) Urine Glucose Normal mg/dL (Normal) Microbiology Microbiology Date/Time Source Procedure Growth Status 10/29/24 14:40 Nose MRSA Screen - Final Complete 10/28/24 10:35 Stool Stool Culture - Preliminary Resulted 10/28/24 10:35 Stool Shiga Toxin I & II - Final Resulted Labs and/or images reviewed: Labs reviewed by me, Image(s) reviewed by me Assessment/Plan Assessment/Plan Acute symptomatic anemia hemoglobin 9.1 and stable Rectal bleeding: Consult for GI Dr. Sherrie Cartagena appreciated, advised Colace Anusol suppository and advised outpatient colonoscopy Consult by surgeon Dr. Harris appreciated Acute abdominal pain with possible infection: Continue Zosyn MARIA GUADALUPE History of ESBL abdominal sepsis Chronic microcytic hypochromic anemia Rectal bleeding possibly secondary to hemorrhoids Acute dehydration: IV fluids Status post laparotomy and colostomy for perforation during colonoscopy in the past Plan discussed with: Patient Date of Service: Oct 31, 2024 Billing Provider: CHAU HOLLINS MD Common Visit Codes: [id number] INP/OBS CARE(HIGH) CHAU HOLLINS MD Oct 31, 2024 11:23
[2024-10-31] MEDS ORDERED: HYDR25SU21 PR (11:28)
[2024-10-31] MEDS ORDERED: FERR-7 PO (11:28)
[2024-10-31] MEDS ORDERED: HYDR-4902 PO (11:28)
--- NOTE | 2024-10-31 11:32 | DVHDS2 ---
Discharge Summary Date of Admission Oct 28, 2024 at 02:25 Date of Discharge: Oct 31, 2024 Admitting Diagnosis Rectal pain and bleeding Wounds: none Labs/Diagnostic Data: Laboratory Results Test 10/30/24 06:27 10/29/24 05:55 10/28/24 20:57 10/28/24 10:35 White Blood Count 7.0 10^3/uL (4.4-10.8) Red Blood Count 3.05 10^6/uL (4.5-5.90) Hemoglobin 9.5 g/dL (13.5-17.5) Hematocrit 28.2 % (41.0-53.0) Mean Corpuscular Volume 92.4 fL (80.0-100.0) Mean Corpuscular Hemoglobin 31.2 pg (28.0-32.0) Mean Corpuscular Hemoglobin Concent 33.7 g/dL (32.0-36.0) Red Cell Distribution Width 15.0 % (11.8-14.3) Platelet Count 240 10^3/uL (140-450) Mean Platelet Volume 9.0 fL (6.9-10.8) Neutrophils (%) (Auto) 61.0 % (37.0-80.0) Lymphocytes (%) (Auto) 25.3 % (10.0-50.0) Monocytes (%) (Auto) 8.6 % (0.0-12.0) Eosinophils (%) (Auto) 4.2 % (0.0-7.0) Basophils (%) (Auto) 0.9 % (0.0-2.0) Neutrophils # (Auto) 4.3 10 ^3/uL (1.6-8.6) Lymphocytes # (Auto) 1.8 10 ^3/uL (0.4-5.4) Monocytes # (Auto) 0.6 10 ^3/uL (0-1.3) Eosinophils # (Auto) 0.3 10 ^3/uL (0-0.8) Basophils # (Auto) 0.1 10 ^3/uL (0-0.2) Nucleated Red Blood Cells 0.1 % Sodium Level 141 mmol/L (136-145) Potassium Level 4.0 mmol/L (3.5-5.1) Chloride Level 108 mmol/L (98-107) Carbon Dioxide Level 25 mmol/L (20-31) Anion Gap 8 (5-15) Blood Urea Nitrogen 12 mg/dL (9-23) Creatinine 1.37 mg/dL (0.700-1.30) Glomerular Filtration Rate Calc 60 mL/min (>90) BUN/Creatinine Ratio 8.8 (10.0-20.0) Serum Glucose 80 mg/dL (74-106) Calcium Level 9.3 mg/dL (8.7-10.4) Total Bilirubin 0.6 mg/dL (0.2-1.0) Aspartate Amino Transferase (AST) 16 U/L (13-40) Alanine Aminotransferase (ALT) 17 U/L (7-40) Alkaline Phosphatase 100 U/L (46-116) Total Protein 6.7 g/dL (5.7-8.2) Albumin 3.7 g/dL (3.2-4.8) POC Glucose 98 mg/dl (70-106) Urine Color Light-yellow (Yellow) Urine Clarity Clear (Clear) Urine pH 6.5 (5.0-9.0) Urine Specific [place] 1.028 (1.001-1.035) Urine Protein Negative (Negative) Urine Ketones Negative (Negative) Urine Blood Negative /uL (Negative) Urine Nitrite Negative (Negative) Urine Bilirubin Negative (Negative) Urine Urobilinogen Normal mg/dL (Negative) Urine Leukocyte Esterase Negative /uL (Negative) Urine RBC <1 /hpf (0 - 3) Urine Microscopic WBC 2 /HPF (0-3) Urine Squamous Epithelial Cells Few /hpf (<5) Urine Bacteria None seen /hpf (None Seen) Urine Glucose Normal mg/dL (Normal) Stool Occult Blood Positive (Negative) Stool Occult Blood Sample #3 (Negative) Stool for White Cells Rare Urine Opiates Screen Pos (NEGATIVE) Urine Fentanyl Screen Neg (NEGATIVE) Urine Barbiturates Screen Neg (NEGATIVE) Urine Phencyclidine Screen Neg (NEGATIVE) Urine Amphetamines Screen Neg (NEGATIVE) Urine Benzodiazepines Screen Neg (NEGATIVE) Urine Cocaine Screen Neg (NEGATIVE) Urine Cannabinoids Screen Neg (NEGATIVE) Test 10/28/24 06:23 10/27/24 21:19 Hepatitis B Surface Antigen Negative (Negative) Hepatitis C Antibody Negative (Negative) Troponin I High Sensitivity < 3 ng/L (</=54) Other Laboratory Tests 10/30/24 06:27 Brief Hx & Hospital Course: 59-year-old male came in for rectal bleeding and pain hemoglobin 9.1 and stable GI consult by Dr. Sherrie Cartagena advised Colace Anusol suppository and outpatient colonoscopy consult by surgeon Dr. Harris appreciated patient has a history of ESBL abdominal sepsis and chronic anemia and history of perforation during colonoscopy in the past. At the time of discharge patient is afebrile stable vital signs minimal abdominal pain being discharged home on iron tablets Anusol his see [facility] [place] and Flagyl. He will follow up with GI Dr. Sherrie Cartagena for outpatient colonoscopy Consults/Reason for consult GI Dr. Sherrie Cartagena Operations or Procedures CT abdomen pelvis without contrast Condition at Discharge: Fair Final Diagnosis/Problems List Acute symptomatic anemia hemoglobin 9.1 and stable Rectal bleeding: Consult for GI Dr. Sherrie Cartagena appreciated, advised Colace Anusol suppository and advised outpatient colonoscopy Consult by surgeon Dr. 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 Follow up with GI Dr. Sherrie Cartagena for outpatient colonoscopy Resume all previous home medication Medications: Anusol HC suppository [place] Iron tablets Transmitted to pharmacy 39 (Time taken for discharge summary 39 minutes) Discharge Statement: "Patient was advised to return to the ER or call 911 if any headaches, dizziness, shortness of breath, chest pain, abdominal pain, bleeding, fevers, or worsening of medical condition. Patient was counseled about treatment plan, medications, possible side effects, patientverbalized understanding. All questions were answered to the best of my ability. This discharge took greater then 30 minutes in planning, reviewing documentation, counseling the patient, and discussing with other team members." ASSESSMENT ASSESSMENT Hospital Course Improved Assessment Acute symptomatic anemia hemoglobin 9.1 and stable Rectal bleeding: Consult for GI Dr. Sherrie Cartagena appreciated, advised Colace Anusol suppository and advised outpatient colonoscopy Consult by surgeon Dr. 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
[2024-10-31] MEDS ORDERED: DOCU-94 PO (11:33)
[2024-10-31] MEDS ORDERED: METR-344 PO (11:33)
[2024-10-31 12:07] VITALS: BP 121/74; PULSE 66; RESP 18; TEMP 97.6; O2SAT 98
== END 2024-10-31 14:05 | disposition home or self-care (01) | DRG 863 ==
LOC: ER 20:01 → OVERFLOW 10-28 02:25 → CENTRAL 10-28 14:14
PROVIDERS: ADMIT Family Medicine; ATTEND Family Medicine
DX: T81.41XA Infection following a procedure, superficial incisional surgical site, initial encounter (principal); N17.9 Acute kidney failure, unspecified; K64.9 Unspecified hemorrhoids; D50.0 Iron deficiency anemia secondary to blood loss (chronic); E86.0 Dehydration; Y83.8 Other surgical procedures as the cause of abnormal reaction of the patient, or of later complication, without mention of misadventure at the time of the procedure; Z79.891 Long term (current) use of opiate analgesic; Z79.899 Other long term (current) drug therapy; Z93.3 Colostomy status; Z80.0 Family history of malignant neoplasm of digestive organs; Z85.05 Personal history of malignant neoplasm of liver; Y92.89 Other specified places as the place of occurrence of the external cause; Z87.891 Personal history of nicotine dependence
CPT/HCPCS: 36415; 74177; 80048; 80053; 80307; 81001; 82270; 82962; 84484; 85025; 85048; 86803; 86850; 86900; 86901; 87045; 87081; 87340; 87427; 96365; 96375; G0378; J2405; J2470; J2543